=== PATIENT | female | born 1965 ===

== ENCOUNTER 2016-12-12 19:16 | Inpatient (IN) | payer MEDICAID ==
[2016-12-12] MEDS ORDERED: Sodium Chloride 0.9% 500 ML IV STA (20:03)
[2016-12-12 20:30] LABS: BASO # 0.1 K/uL (0.0-0.2); BASO % 0.6 % (0.0-2.0); EOS % 0.1 % (0.0-4.0); HEMATOCRIT 27.5 % (34.0-47.0); LYMPH # 1.5 K/uL (1.0-4.3); LYMPH % 9.9 % (20.0-40.0); MEAN CELL VOLUME 56.6 fl (81.0-99.0); MEAN CORPUSCULAR HEMOGLOBIN 15.8 pg (27.0-31.0); MEAN PLATELET VOLUME 9.2 fl (7.2-11.7); MONO # 0.6 K/uL (0.0-0.8); MONO % 4.3 % (0.0-10.0); NEUT # 12.7 K/uL (1.8-7.0); NEUT % 85.1 % (50.0-75.0); PLATELET COUNT 211 K/uL (130-400); RED CELL DISTRIBUTION WIDTH 24.4 % (11.5-14.5); WHITE BLOOD COUNT 14.9 K/uL (4.8-10.8)
--- NOTE | 2016-12-12 20:49 | ED PDOC ---
HPI: Abdomen <Deny Rodriguez - Last Filed: 12/13/16 02:45> Chief Complaint (Provider): Abdominal Pain History Per: Patient History/Exam Limitations: no limitations Onset/Duration Of Symptoms: Hrs (7 and a 1/2 hours ago), Sudden Onset, Worse Since (onset) Outside of [place] travel?: No Current Symptoms Are (Timing): Constant Context: Food Severity: Moderate Location Of Pain/Discomfort: Diffuse, Epigastric Associated Symptoms: Chills, Vomiting (10 episodes, intractable, non-bilious, and non-bloody). denies: Fever, Diarrhea, Constipation, Urinary Symptoms, Other (black or bloody stools) <Gilma Sandoval - Last Filed: 12/15/16 00:13> Time Seen by Provider: 12/12/16 19:37 Chief Complaint (Nursing): GI Problem Additional Complaint(s): Shea Ballesteros is a 51 year old female, with no pertinent past medical history, who presents to the emergency department for the evaluation of epigastric abdominal pain, radiating diffusely throughout her entire abdomen, that suddenly began a little bit after she ate a normal lunch earlier today at 12:00 P.M. Patient states that the pain is constant and has worsened since her initial onset. Associated ten episodes of intractable, non-bilious, non-bloody vomiting and chills are currently present. Denies diarrhea, constipation, black or bloody stool, a fever, urinary symptoms, or a history of similar pain in the past. PMD: none specified (Gilma Sandoval) Past Medical History <Deny Rodriguez - Last Filed: 12/13/16 02:45> Reviewed: Historical Data, Nursing Documentation, Vital Signs - Medical History PMH: No Chronic Diseases - Surgical History Surgical History: No Surg Hx - Family History Family History: States: Diabetes - Social History Current smoker - smoking cessation education provided: No Ex-Smoker (has not smoked in the last 12 months): No Alcohol: None Drugs: Denies - Immunization History Hx Tetanus Toxoid Vaccination: No Hx Influenza Vaccination: No Hx Pneumococcal Vaccination: No <Gilma Sandoval - Last Filed: 12/15/16 00:13> Vital Signs: Last Vital Signs Temp 99.8 F H 12/14/16 23:54 Pulse 102 H 12/14/16 23:54 Resp 20 12/14/16 23:54 BP 123/64 12/14/16 23:54 Pulse Ox 95 12/14/16 23:54 - Home Medications Home Medications: Ambulatory Orders Medication Instructions Recorded No Known Home Med 12/12/16 - Allergies Allergies/Adverse Reactions: Allergies Allergy/AdvReac Type Severity Reaction Status Date / Time No Known Allergies Allergy Verified 12/12/16 23:15 Review of Systems ROS Statement: Except As Marked, All Systems Reviewed And Found Negative Constitutional: Positive for: Chills. Negative for: Fever Gastrointestinal: Positive for: Vomiting (10 episodes, intractable and non- bilious), Abdominal Pain (epigastric, radiating diffusely throughout her abdomen ). Negative for: Diarrhea, Constipation, Melena, Hematochezia, Hematemesis Genitourinary Female: Negative for: Dysuria, Hematuria <Gilma Sandoval - Last Filed: 12/15/16 00:13> Physical Exam - Reviewed Nursing Documentation Reviewed: Yes Vital Signs Reviewed: Yes - Physical Exam Appears: Positive for: Uncomfortable (obese), In Acute Distress (moderate painful distress) Head Exam: Positive for: ATRAUMATIC, NORMAL INSPECTION, NORMOCEPHALIC Skin: Positive for: Warm, Dry, Pallor Eye Exam: Positive for: Normal appearance, EOMI, PERRL ENT: Positive for: Normal ENT Inspection, Pharynx Is (clear), Other (dry mucous membranes). Negative for: Pharyngeal Erythema, Tonsillar Exudate Neck: Positive for: Normal, Painless ROM, Supple Cardiovascular/Chest: Positive for: Regular Rate, Rhythm. Negative for: Murmur Respiratory: Positive for: Normal Breath Sounds. Negative for: Wheezing, Respiratory Distress Gastrointestinal/Abdominal: Positive for: Normal Exam, Soft, Tenderness ( epigastric region tender to palpation). Negative for: Mass, Guarding, Rebound, Other (McBurney's point tenderness or Roberson's sign) Back: Positive for: Normal Inspection. Negative for: Decreased ROM Extremity: Positive for: Normal ROM. Negative for: Tenderness, Deformity Lymphatic: Negative for: Adenopathy Neurologic/Psych: Positive for: Alert, Oriented. Negative for: Motor/Sensory Deficits <Gilma Sandoval - Last Filed: 12/15/16 00:13> - Laboratory Results Result Diagrams: 12/12/16 20:21 12/12/16 20:21 <Deny Rodriguez - Last Filed: 12/13/16 02:45> - Laboratory Results Result Diagrams: 12/14/16 23:51 12/14/16 09:20 - ECG O2 Sat by Pulse Oximetry: 100 (RA) Pulse Ox Interpretation: Normal <SandovalGilma yao - Last Filed: 12/15/16 00:13> Medical Decision Making <Deny Rodriguez Badillo - Last Filed: 12/13/16 02:45> <Gilma Sandoval - Last Filed: 12/15/16 00:13> Medical Decision Makin:37 Initial Impression: Abdominal pain Initial Plan: * Abdomen US * EKG * CBC * CMP * PT/PTT * Lipase * Lact Acid, Plasma * Magnesium * Phosphorous * Urine * Urinalysis * Morphine 4 mg IVP * Sodium Chloride 0.9% 500 ml IV at 500 mls/hr * Pepcid 20 mg IVP * Ondansetron 8 mg IV * Blood Culture * Reevaluation 20:36 Patient will be placed in ED observation due to a time-extensive workup. Pending serial abdominal exams. Goal is for stabilization of patient's condition and complete evaluation of abdominal pain. EXAM: US Abdomen Complete CLINICAL HISTORY: 51 years old, female; Pain; Abdominal pain; Generalized; Additional info: Abd pain TECHNIQUE: Real-time ultrasound of the abdomen (complete) with image documentation. COMPARISON: No relevant prior studies available. FINDINGS: Liver: Fatty infiltration. No mass. No intrahepatic ductal dilatation. Gallbladder: No gallstones. No wall thickening. No pericholecystic fluid. No sonographic Roberson's sign. Common bile duct: No dilatation. No stones. Pancreas: Unremarkable as visualized. Kidneys: Normal echogenicity. No hydronephrosis. Spleen: No splenomegaly. Aorta: Unremarkable. No aneurysm. Inferior vena cava: Unremarkable. Free fluid: No significant free fluid. IMPRESSION: 1. No acute findings. 2. Non-acute findings are described above. Thank you for allowing us to participate in the care of your patient. Dictated and Authenticated by: Miguel Cruz MD 12/12/2016 10:49 PM Eastern Time ([place] & [place]) Transferred to Dr Rodriguez pending CT. Scribe Attestation: Documented by Faisal Strong, acting as a scribe for Gilma Sandoval MD. Provider Scribe Attestation: All medical record entries made by the Scribe were at my direction and personally dictated by me. I have reviewed the chart and agree that the record accurately reflects my personal performance of the history, physical exam, medical decision making, and the department course for this patient. I have also personally directed, reviewed, and agree with the discharge instructions and disposition. (Gilma Sandoval) ED OBSERVATION <Deny Rodriguez - Last Filed: 12/13/16 02:45> Date of observation admission: 12/12/16 Time of observation admission: 20:36 <Gilma Sandoval - Last Filed: 12/15/16 00:13> - Observation admission statement Patient is being placed in observation because:: Patient will be placed in ED observation due to a time-extensive workup. Pending serial abdominal exams. (Gilma Sandoval) - Goals of Observation Goals of observation are:: Goal is for stabilization of patient's condition and complete evaluation of abdominal pain. (Gilma Sandoval) Disposition <Deny Rodriguez - Last Filed: 12/13/16 02:45> - Disposition Disposition Time: 20:36 Patient Signed Over To: Deny Rodriguez <Gilma Sandoval - Last Filed: 12/15/16 00:13> - Clinical Impression Clinical Impression: Abdominal pain - Disposition Condition: GUARDED
[2016-12-12 20:58] LABS: ALB/GLOB RATIO 1.2 (1.0-2.1); ALKALINE PHOSPHATASE 73 U/L (38-126); ALT/SGPT 69 U/L (9-52); AST/SGOT 62 U/L (14-36); BILIRUBIN,TOTAL 0.6 mg/dl (0.2-1.3); BLOOD UREA NITROGEN 9 mg/dl (7-17); CARBON DIOXIDE 19 mmol/L (22-30); CHLORIDE 105 mmol/L (98-107); GFR AFRICAN-AMERICAN > 60; GLUCOSE,RANDOM 151 mg/dL (65-105); LIPASE 49 U/L (23-300); MAGNESIUM 1.8 MG/DL (1.6-2.3); PHOSPHOROUS 3.1 mg/dl (2.5-4.5); POTASSIUM 3.8 MMOL/L (3.6-5.0); SODIUM 137 mmol/l (132-148); TOTAL PROTEIN 8.4 G/DL (6.3-8.2)
[2016-12-12 21:15] LABS: NEUTROPHIL 79 % (42-75); TOTAL CELLS COUNTED 100
[2016-12-12 21:40] LABS: PARTIAL THROMBOPLASTIN TIME 25.7 SECONDS (23.3-32.5)
[2016-12-12 21:58] LABS: RBC URINE 4 /hpf (0-3); URINE BACTERIA RARE (<OCC); URINE BILIRUBIN NEGATIVE (NEGATIVE); URINE BLOOD NEGATIVE (NEGATIVE); URINE COLOR YELLOW (YELLOW); URINE GLUCOSE (UA) 50 mg/dL (Normal); URINE KETONE 80 mg/dL (NEGATIVE); URINE LEUKOCYTE ESTERASE NEG Leu/uL (Negative); URINE PROTEIN 30 mg/dL (NEGATIVE); URINE UROBILINOGEN 0.2-1.0 mg/dL (0.2-1.0); WBC URINE < 1 /hpf (0-5)
--- NOTE | 2016-12-12 22:49 | US ---
EXAM: US Abdomen Complete CLINICAL HISTORY: 51 years old, female; Pain; Abdominal pain; Generalized; Additional info: Abd pain TECHNIQUE: Real-time ultrasound of the abdomen (complete) with image documentation. COMPARISON: No relevant prior studies available. FINDINGS: Liver: Fatty infiltration. No mass. No intrahepatic ductal dilatation. Gallbladder: No gallstones. No wall thickening. No pericholecystic fluid. No sonographic Roberson's sign. Common bile duct: No dilatation. No stones. Pancreas: Unremarkable as visualized. Kidneys: Normal echogenicity. No hydronephrosis. Spleen: No splenomegaly. Aorta: Unremarkable. No aneurysm. Inferior vena cava: Unremarkable. Free fluid: No significant free fluid. IMPRESSION: 1.No acute findings. 2.Non-acute findings are described above.
[2016-12-12 23:15] LABS: IRON 19 ug/dL (37-170)
[2016-12-13] MEDS ORDERED: Sodium Chloride 0.9% 50 ML IV ONE (01:17)
[2016-12-13] MEDS ORDERED: Iohexol 300 100 ML IJ ONE (01:17)
--- NOTE | 2016-12-13 02:00 | CT ---
EXAM: CT Abdomen and Pelvis With Intravenous Contrast CLINICAL HISTORY: 51 years old, female; Pain; Abdominal pain; Epigastric; Additional info: Abd pain TECHNIQUE: Axial computed tomography images of the abdomen and pelvis with intravenous contrast. This CT exam was performed using one or more of the following dose reduction techniques: automated exposure control, adjustment of the mA and/or kV according to patient size, and/or use of iterative reconstruction technique. Coronal and sagittal reformatted images were created and reviewed. CONTRAST: 95 mL of [id number] administered intravenously. COMPARISON: US - ABDOMEN COMPLETE 12/12/2016 9:45:16 PM FINDINGS: Lower thorax: No acute findings. ABDOMEN: Liver: Mild fatty infiltration. Too small to characterize lesion. Gallbladder and bile ducts: No calcified stones. No ductal dilation. Pancreas: No ductal dilation. No mass. Spleen: No splenomegaly. Adrenals: No mass. Kidneys and ureters: No mass. No hydronephrosis. Stomach and bowel: No definite mural thickening. No obstruction. Appendix: Enlarged appendix, measuring up to 1.3 cm in diameter. Mild stranding about appendix. Appendicolith. PELVIS: Bladder: Unremarkable. Reproductive: Enlarged, lobulated uterus with multiple masses and few calcifications, roughly 22 x 16 x 12 cm. 4.7 x 5.0 x 4.1 cm hypodense lesion within LEFT ovary. 1.9 x 1.0 x 1.5 cm hypodense lesion within RIGHT ovary. ABDOMEN and PELVIS: Intraperitoneal space: Trace free fluid within pelvis. No free air. Bones/joints: Mild degenerative changes of spine. No acute fracture. Soft tissues: Tiny umbilical hernia containing fat and fluid. Vasculature: Unremarkable. No abdominal aortic aneurysm. Lymph nodes: No pathologically enlarged lymph nodes. IMPRESSION: 1. Acute appendicitis. 2. Probable fibroid uterus. 3. Probable ovarian cysts. Suggest ultrasound. 3. Incidental/non-acute findings are described above.
[2016-12-13] MEDS ORDERED: HYDROmorphone 0.5 mg/0.5 ml ISec IVP STA (02:04)
[2016-12-13] MEDS ORDERED: Piperacillin/Tazobact 3.375 GM in Sodium Chloride 0.9% 100 ML IV STA (02:39)
[2016-12-13] MEDS ORDERED: Piperacillin/Tazobact 3.375 gm Inj IVPB ONE (02:42)
[2016-12-13] MEDS: Sodium Chloride 0.9% 1,000 ML IV SCH ×2 (05:36→15:00)
--- NOTE | 2016-12-13 05:40 | CP.PCM.HP ---
History of Present Illness - History of Present Illness History of Present Illness: General Surgery - Dr. Huynh 51yo F w/ hx of anemia, presents w/ Periumbilical abdominal pain x1day. Pt states the pain started around noon yesterday, was located in the epigastric/ periumbilical region, dull pain and non-radiating, it became progressively worse over the next 24hrs. Pt had associated nausea and vomited several times, gastric contents, non-bloody/non-bilious. She denies any Fevers, Chills, SOB, Chest pain, Dysuria, Hematuria, Diarrhea, Constipation. PMH: Iron Def. Anemia, however pt. states she does not see a DrEdy regularly so unaware if any other medical problems PSH: none NKDA In the ED pt was found to have WBC of 14.9 and Hgb was 7.7. Vitals stable and WNL. Pt was transfused 1 U PRBC in the ED. CT Abdomen/Pelvis was done which showed an enlarged fibroid uterus, ovarian cysts and an approx. 1.3cm appendix with appendicolith, findings consistent with acute appendicitis. Surgery was called to admit the patient. Present on Admission - Present on Admission Any Indicators Present on Admission: No Review of Systems - Review of Systems All systems: reviewed and no additional remarkable complaints except (as per HPI ) Past Patient History - Infectious Disease Hx of Infectious Diseases: None - Past Social History Alcohol: None Drugs: Denies - PSYCHIATRIC Hx Substance Use: No - SURGICAL HISTORY Hx Surgeries: No - ANESTHESIA Hx Anesthesia: No Meds Allergies/Adverse Reactions: Allergies Allergy/AdvReac Type Severity Reaction Status Date / Time No Known Allergies Allergy Verified 12/12/16 23:15 Physical Exam - Constitutional Appears: No Acute Distress - Head Exam Head Exam: ATRAUMATIC, NORMAL INSPECTION, NORMOCEPHALIC - Eye Exam Eye Exam: Normal appearance - Respiratory Exam Respiratory Exam: NORMAL BREATHING PATTERN. absent: Respiratory Distress - Cardiovascular Exam Cardiovascular Exam: REGULAR RHYTHM - GI/Abdominal Exam GI & Abdominal Exam: Firm (suprapubic, likely related to fibroid uterus), Rebound, Soft, Tenderness (R mid abdomen, periumbilical region). absent: Distended, Guarding, Hernia, Rigid - Neurological Exam Neurological exam: Alert, Oriented x3 - Psychiatric Exam Psychiatric exam: Normal Affect, Normal Mood - Skin Skin Exam: Dry, Intact Results - Vital Signs Recent Vital Signs: Last Vital Signs Temp 98.5 F 12/13/16 05:00 Pulse 57 L 12/13/16 05:00 Resp 19 12/13/16 05:00 BP 114/71 12/13/16 05:00 Pulse Ox 98 12/13/16 05:00 - Labs Result Diagrams: 12/12/16 20:21 12/12/16 20:21 - Imaging and Cardiology CT scan - abdomen Status: Image reviewed by me, Report reviewed by me Assessment & Plan - Assessment and Plan (Free Text) Assessment: 51 yo F w/ Acute Appendicitis -Admitted to surgical service -1U PRBC transfused in ED for hgb 7.7 -NPO, IVF, IV Abx -Pain control -Plan for OR this afternoon for Laparoscopic Appendectomy DW Dr. Lino Mark PGY2
--- NOTE | 2016-12-13 09:55 | RAD ---
HISTORY: epug pain COMPARISON: No prior. FINDINGS: LUNGS: No active pulmonary disease. PLEURA: No significant pleural effusion identified, no pneumothorax apparent. CARDIOVASCULAR: Normal. OSSEOUS STRUCTURES: No significant abnormalities. VISUALIZED UPPER ABDOMEN: Normal. OTHER FINDINGS: None. IMPRESSION: No active disease.
--- NOTE | 2016-12-13 10:09 | CARD ---
APPROVED REPORT EKG Measurement Heart [id number] <Conclusion> Normal sinus rhythm with sinus arrhythmia Inferior infarct, age undetermined Abnormal ECG
[2016-12-13] MEDS: Piperacillin/Tazobact 3.375 GM in Sodium Chloride 0.9% 100 ML IVPB SCH ×2 (10:50→21:31)
[2016-12-13] MEDS ORDERED: Propofol 10 mg/ml Inj (20 ML) ONE ×2 (13:55→16:18)
[2016-12-13] MEDS ORDERED: Succinylcholine 200 mg/10 ml Inj IV ONE ×2 (13:56→16:18)
[2016-12-13] MEDS ORDERED: Rocuronium 10 mg/ml (5 ml) ONE ×2 (13:56→16:37)
[2016-12-13] MEDS ORDERED: Midazolam 2 MG/2 ML VIAL ONE (16:18)
[2016-12-13] MEDS ORDERED: Sevoflurane - Inhalation Anesthetic Liq (250 ml) ONE (16:47)
[2016-12-13] MEDS ORDERED: Lactated Ringer's 1,000 ML IV ONE (17:09)
[2016-12-13] MEDS ORDERED: Neostigmine Methylsulfate 3mg/3ml Syringe IV ONE (17:10)
[2016-12-13] MEDS ORDERED: HYDROmorphone 0.5 mg/0.5 ml ISec ONE (17:35)
[2016-12-13] MEDS: HYDROmorphone 0.5 mg/0.5 ml ISec IVP PRN ×4 (17:40→18:25)
[2016-12-13] MEDS ORDERED: Lactated Ringer's 1,000 ML IV SCH (17:43)
--- NOTE | 2016-12-13 17:44 | PCM.SURG1 ---
Surgeon's Initial Post Op Note - Surgeon's Notes Surgeon: Dr. Huynh Nursing Manager: Dr. Ulloa PGY-1 Type of Anesthesia: General Endo Pre-Operative Diagnosis: Acute appendicitis Operative Findings: see operative note Post-Operative Diagnosis: Acute appendicitis Operation Performed: Laparoscopic appendectomy Specimen/Specimens Removed: Appendix Estimated Blood Loss: EBL {In ML}: 10 Blood Products Given: N/A Drains Used: No Drains Post-Op Condition: Good Date of Surgery/Procedure: 12/13/16 Time of Surgery/Procedure: 17:46
[2016-12-13] MEDS ORDERED: Oxycodone/Acetaminophen 5/325 mg Tab PO PRN (17:46)
[2016-12-13] MEDS ORDERED: HYDROmorphone 0.5 mg/0.5 ml ISec IVP PRN (18:51)
--- NOTE | 2016-12-13 19:39 | CP.PCM.CON ---
History of Present Illness - History of Present Illness History of Present Illness: MEDICINE CONSULT NOTE 51 y/o F with no PMH admitted s/p appendectomy w/ Dr Huynh. Medicine consulted because patient will require follow up in the resident clinic and due to SHAYAN secondary to AUB-L as seen on CT abdomen. Patient seen POD 0. Pain controlled, states she has not seen a PMD in >10 years due to financial reasons. Does not currently take any medications nor has in the past for chronic conditions. Currently on her menses, reports no prior hx of transfusions before current hospital stay. No HTN, hx of DVT, migraines, previous liver problems, smoking. Denies CP, SOB, dizziness, focal weakness at present. OB Hx: , NVD at term x 3, no complications. 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 Never taken medications, OCPs etc. LMP 12/13/16, 4 week cycle, lasts 8-15 days, uses 7 pads per day roughly, heavy flow with clots, moderate pain, takes NSAIDS for cramping No hx of prior transfusions. PMD: none for >10 years Review of Systems - Review of Systems Review of Systems: see hpi Past Patient History - Infectious Disease Hx of Infectious Diseases: None - Past Medical History & Family History Past Medical History?: No - Past Social History Alcohol: None Drugs: Denies - MUSCULOSKELETAL/RHEUMATOLOGICAL Hx Falls: No - PSYCHIATRIC Hx Substance Use: No - SURGICAL HISTORY Hx Surgeries: No - ANESTHESIA Hx Anesthesia: No Meds Allergies/Adverse Reactions: Allergies Allergy/AdvReac Type Severity Reaction Status Date / Time No Known Allergies Allergy Verified 12/12/16 23:15 - Medications Medications: Current Medications Hydromorphone HCl (Dilaudid) 1 mg IVP Q4H PRN PRN Reason: Pain, moderate (4-7) Last Admin: 12/13/16 14:00 Dose: 1 mg Hydromorphone HCl (Dilaudid) 0.5 mg IVP Q10M PRN PRN Reason: Pain, severe (8-10) Stop: 12/13/16 19:43 Last Admin: 12/13/16 18:25 Dose: 0.5 mg Hydromorphone HCl (Dilaudid) 0.5 mg IVP Q10M PRN PRN Reason: Pain, severe (8-10) Stop: 12/13/16 20:52 Last Admin: 12/13/16 19:10 Dose: 0.5 mg Sodium Chloride (Sodium Chloride 0.9%) 1,000 mls @ 100 mls/hr IV .Q10H [facility] Last Admin: 12/13/16 15:00 Dose: Not Given Piperacillin Sod/Tazobactam (Sod 3.375 gm/ Sodium Chloride) 100 mls @ 100 mls/ hr IVPB Q6 [facility] Last Admin: 12/13/16 10:50 Dose: Not Given Lactated Ringer's (Lactated Ringer's) 1,000 mls @ 100 mls/hr IV .Q10H [facility] Ketorolac Tromethamine (Toradol) 30 mg IVP ONCE PRN PRN Reason: Fever >100.4 F Stop: 12/13/16 20:51 Last Admin: 12/13/16 19:00 Dose: 30 mg Ondansetron HCl (Zofran Inj) 4 mg IVP Q4H PRN PRN Reason: Nausea/Vomiting Oxycodone/Acetaminophen (Percocet 5/325 Mg Tab) 1 tab PO Q6 PRN PRN Reason: Pain, moderate (4-7) Stop: 12/16/16 17:47 Physical Exam - Constitutional Appears: Non-toxic, No Acute Distress - Head Exam Head Exam: ATRAUMATIC - Eye Exam Eye Exam: EOMI Pupil Exam: PERRL - ENT Exam ENT Exam: Mucous Membranes Moist - Neck Exam Neck exam: Positive for: Full Rom - Respiratory Exam Respiratory Exam: Clear to Auscultation Bilateral - Cardiovascular Exam Cardiovascular Exam: +S1, +S2 - GI/Abdominal Exam GI & Abdominal Exam: Soft, Tenderness. absent: Distended, Rigid Additional comments: POD 0 - tender around laparoscopic sites - Extremities Exam Extremities exam: Positive for: normal inspection. Negative for: calf tenderness, pedal edema - Neurological Exam Neurological exam: Alert, Oriented x3 - Psychiatric Exam Psychiatric exam: Normal Affect, Normal Mood - Skin Skin Exam: Dry, Warm Results - Vital Signs Recent Vital Signs: Last Vital Signs Temp 100.0 F H 12/13/16 19:25 Pulse 125 H 12/13/16 19:25 Resp 20 12/13/16 19:25 BP 136/65 12/13/16 19:25 Pulse Ox 98 12/13/16 19:25 - Labs Result Diagrams: 12/13/16 14:28 12/12/16 20:21 Labs: Laboratory Results - last 24 hr 12/13/16 14:28 Hgb 9.1 L Hct 31.0 L Assessment & Plan - Assessment and Plan (Free Text) Plan: 51 y/o F with no PMH admitted s/p appendectomy w/ Dr Huynh. Medicine consulted because patient will require follow up in the resident clinic and due to SHAYAN secondary to AUB-L as seen on CT abdomen. 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 Never taken medications, OCPs etc. LMP 12/13/16, 4 week cycle, lasts 8-15 days, uses 7 pads per day roughly, heavy flow with clots, moderate pain, takes NSAIDS for cramping No hx of prior transfusions. 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
[2016-12-14] MEDS: Lactated Ringer's 1,000 ML IV SCH ×3 (00:06→11:52)
[2016-12-14] MEDS: Sodium Chloride 0.9% 1,000 ML IV SCH (00:45)
[2016-12-14] MEDS: Piperacillin/Tazobact 3.375 GM in Sodium Chloride 0.9% 100 ML IVPB SCH ×4 (04:43→21:18)
[2016-12-14] MEDS: Oxycodone/Acetaminophen 5/325 mg Tab PO PRN (08:27)
[2016-12-14 09:53] LABS: ALB/GLOB RATIO 1.1 (1.0-2.1); BILIRUBIN,TOTAL 2.6 mg/dl (0.2-1.3); CALCIUM 7.7 mg/dL (8.4-10.2); POTASSIUM 3.8 MMOL/L (3.6-5.0); TOTAL PROTEIN 6.9 G/DL (6.3-8.2)
[2016-12-14 09:54] LABS: BASO # 0.1 K/uL (0.0-0.2); BASO % 0.2 % (0.0-2.0); EOS % 0.1 % (0.0-4.0); HEMATOCRIT 28.8 % (34.0-47.0); LYMPH # 0.6 K/uL (1.0-4.3); MEAN CELL VOLUME 62.2 fl (81.0-99.0); MEAN CORPUSCULAR HEMOGLOBIN 18.2 pg (27.0-31.0); MEAN CORPUSCULAR HGB CONC 29.3 g/dL (33.0-37.0); MEAN PLATELET VOLUME 10.3 fl (7.2-11.7); MONO # 1.1 K/uL (0.0-0.8); MONO % 3.5 % (0.0-10.0); NEUT # 29.1 K/uL (1.8-7.0); NEUT % 94.2 % (50.0-75.0); PLATELET COUNT 117 K/uL (130-400); RED CELL DISTRIBUTION WIDTH 31.3 % (11.5-14.5); WHITE BLOOD COUNT 30.9 K/uL (4.8-10.8)
[2016-12-14] MEDS ORDERED: Lactated Ringer's 1,000 ML IV SCH (10:15)
--- NOTE | 2016-12-14 10:48 | OP ---
PROCEDURE DATE: 12/13/2016 SURGEON: Dr. Ag Huynh. INTERIOR DECORATOR PAINTING: Dr. Sung. ANESTHESIA: General, Dr. Lilly. PREOPERATIVE DIAGNOSIS: Acute appendicitis. POSTOPERATIVE DIAGNOSIS: Acute appendicitis. PROCEDURE: Laparoscopic appendectomy. DESCRIPTION OF OPERATION: With the patient in the supine position under adequate general anesthesia, the abdomen was prepped and draped in the usual sterile manner. Veress needle puncture was performed at the umbilicus with insufflation to 15 cm water pressure of CO2 and a 10 mm laparoscopic trocar was inserted via an infraumbilical incision. The patient had an enlarged presumably fibroid uterus with the fundus extending to approximately the level of the umbilicus. It was noted that the ileocecal junction was displaced upward well out of the pelvis. Under direct vision, a 5 mm port was placed in the left upper quadrant and a 12 mm port was placed in the midline near the epigastrium. The cecum was identified and with manipulation, the appendix was identified adherent to the undersurface of the mesentery of the terminal ileum. It was gently freed from this attachment and noted to be acutely inflamed with distal swelling. A small amount of fluid was released on manipulating the appendix and this was suctioned. The appendix was then completely freed from its attachments and the mesentery was divided with Hemoclips. The appendix itself was divided with an Endo CHANTELLE stapler. The appendix was placed in a specimen retrieval bag and removed via the 12 mm port site. In addition to the massively enlarged uterus, there was noted to be a small pedunculated fibroid with what appeared to be calcifications toward the right side close to where the appendix had been located. The right gutter was irrigated and suctioned. The pneumoperitoneum was released and the trocars were removed. The umbilical and 12 mm port sites were closed with fascial [id number] sutures of 0 Vicryl. All incisions were closed with 4-0 Monocryl subcuticular sutures and Steri-Strips. Dry sterile dressings were applied. The patient tolerated the procedure well and transferred to recovery room in stable condition. Estimated blood loss for the procedure was 10 mL. Ag Huynh MD cc: [id number] TT: 12/14/2016 10:46:52 tn MTDKevin
--- NOTE | 2016-12-14 11:09 | CP.PCM.PN ---
Subjective - Date & Time of Evaluation Date of Evaluation: 12/14/16 Time of Evaluation: 11:07 - Subjective Subjective: General Surgery - Dr. Huynh Pt S&E. Overnight pt has been tachycardic w/ HR ~100s-120s. She complains of abdominal distension this morning, likely related to insufflation from the surgery. Pt is tolerating liquid diet but does not wish to eat more. She had some nausea after receiving the percocet this morning, will maintain on IV pain control until tolerating solid foods. Objective - Vital Signs/Intake and Output Vital Signs (last 24 hours): Temp Pulse Resp BP Pulse Ox 99 F 109 H 18 96/49 L 96 12/14/16 08:01 12/14/16 08:01 12/14/16 08:01 12/14/16 08:01 12/14/16 08:01 - Medications Medications: Current Medications Ferrous Sulfate (Feosol) 325 mg PO BID [facility] Last Admin: 12/14/16 08:30 Dose: 325 mg Piperacillin Sod/Tazobactam (Sod 3.375 gm/ Sodium Chloride) 100 mls @ 100 mls/ hr IVPB Q6 [facility] Last Admin: 12/14/16 09:54 Dose: 100 mls/hr Lactated Ringer's (Lactated Ringer's) 1,000 mls @ 150 mls/hr IV .Q6H40M [facility] Last Admin: 12/14/16 04:42 Dose: Not Given Lactated Ringer's (Lactated Ringer's) 1,000 mls @ 1,000 mls/hr IV .Q1H [facility] Stop: 12/14/16 11:14 Last Admin: 12/14/16 10:44 Dose: 1,000 mls/hr Medroxyprogesterone Acetate (Provera) 10 mg PO TID [facility] Last Admin: 12/14/16 08:30 Dose: 10 mg Ondansetron HCl (Zofran Inj) 4 mg IVP Q4H PRN PRN Reason: Nausea/Vomiting Oxycodone/Acetaminophen (Percocet 5/325 Mg Tab) 2 tab PO Q4 PRN PRN Reason: Pain, moderate (4-7) Stop: 12/17/16 07:35 Last Admin: 12/14/16 08:27 Dose: 2 tab Sennosides (Senokot Tab) 8.6 mg PO HS [facility] - Labs Labs: 12/14/16 09:20 12/14/16 09:20 PT 11.2 SECONDS (9.6-11.2) 12/12/16 20:21 INR 1.08 (0.92-1.08) 12/12/16 20:21 APTT 25.7 SECONDS (23.3-32.5) 12/12/16 20:21 - Constitutional Appears: No Acute Distress - Head Exam Head Exam: ATRAUMATIC, NORMAL INSPECTION, NORMOCEPHALIC - Respiratory Exam Respiratory Exam: NORMAL BREATHING PATTERN. absent: Respiratory Distress - Cardiovascular Exam Cardiovascular Exam: Tachycardia - GI/Abdominal Exam GI & Abdominal Exam: Distended, Soft, Tenderness (mild ttp diffusely). absent: Guarding, Rigid, Rebound Additional comments: incisions C/D/I - Neurological Exam Neurological Exam: Alert, Oriented x3 - Psychiatric Exam Psychiatric exam: Normal Affect, Normal Mood - Skin Skin Exam: Dry, Intact Assessment and Plan - Assessment and Plan (Free Text) Assessment: 51 yo F s/p Laparoscopic Appendectomy, POD #1 -Continue liquids and advance to regular diet as tolerated -Continue IV Abx -Fluid challenge -Pain control - IV meds until tolerating solid food -Encourage Ambulation and incentive spirometer DW Dr Lino Mark PGY2
[2016-12-14 12:47] LABS: NEUTROPHIL 82 % (42-75); TOTAL CELLS COUNTED 100
[2016-12-14 12:49] LABS: GIANT PLATELETS PRESENT
[2016-12-14] MEDS: Simethicone 40 mg/0.6 ml Liquid (30 ml) PO SCH ×3 (15:02→21:21)
--- NOTE | 2016-12-14 15:49 | CP.PCM.PN ---
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 Patient was seen and examined at bedside this morning. Patient still complaining of diffuse abdominal pain, that improves with pain medication. Patient is not passing gasses and has not yet had a bowel movement after surgery yesterday late afternoon. She reports that is voiding without difficulty after gordillo removal. Denies chest pain, SOB, nausea, vomiting at this evaluation. Objective - Vital Signs/Intake and Output Vital Signs (last 24 hours): Temp Pulse Resp BP Pulse Ox 98.3 F 97 H 18 114/67 97 12/14/16 12:14 12/14/16 12:14 12/14/16 12:14 12/14/16 12:14 12/14/16 12:14 - Medications Medications: Current Medications Ferrous Sulfate (Feosol) 325 mg PO BID [facility] Last Admin: 12/14/16 08:30 Dose: 325 mg Piperacillin Sod/Tazobactam (Sod 3.375 gm/ Sodium Chloride) 100 mls @ 100 mls/ hr IVPB Q6 [facility] Last Admin: 12/14/16 09:54 Dose: 100 mls/hr Lactated Ringer's (Lactated Ringer's) 1,000 mls @ 150 mls/hr IV .Q6H40M [facility] Last Admin: 12/14/16 11:52 Dose: 150 mls/hr Medroxyprogesterone Acetate (Provera) 10 mg PO TID [facility] Last Admin: 12/14/16 15:02 Dose: 10 mg Morphine Sulfate (Morphine) 4 mg IVP Q4 PRN PRN Reason: Pain, moderate (4-7) Last Admin: 12/14/16 15:01 Dose: 4 mg Ondansetron HCl (Zofran Inj) 4 mg IVP Q4H PRN PRN Reason: Nausea/Vomiting Oxycodone/Acetaminophen (Percocet 5/325 Mg Tab) 2 tab PO Q4 PRN PRN Reason: Pain, moderate (4-7) Stop: 12/17/16 07:35 Last Admin: 12/14/16 08:27 Dose: 2 tab Sennosides (Senokot Tab) 8.6 mg PO HS [facility] Simethicone (Mylicon Liq) 40 mg PO QID [facility] Last Admin: 12/14/16 15:02 Dose: 40 mg - Labs Labs: 12/14/16 09:20 12/14/16 09:20 PT 11.2 SECONDS (9.6-11.2) 12/12/16 20:21 INR 1.08 (0.92-1.08) 12/12/16 20:21 APTT 25.7 SECONDS (23.3-32.5) 12/12/16 20:21 - Constitutional Appears: Non-toxic, No Acute Distress - ENT Exam ENT Exam: Mucous Membranes Moist - Respiratory Exam Respiratory Exam: Clear to Ausculation Bilateral, NORMAL BREATHING PATTERN - Cardiovascular Exam Cardiovascular Exam: Tachycardia, REGULAR RHYTHM, +S1, +S2 - GI/Abdominal Exam GI & Abdominal Exam: Distended (most likely due to obesity and post-operative status), Soft, Tenderness (diffuse mild tender to palpation, no rebound tenderness noted.), Diminished Bowel Sounds. absent: Guarding, Rebound - Extremities Exam Extremities Exam: Normal Inspection. absent: Calf Tenderness, Pedal Edema - Neurological Exam Neurological Exam: Alert, Awake, Oriented x3 - Skin Skin Exam: Dry, Intact, Normal Color Assessment and Plan - Assessment and Plan (Free Text) Assessment: 51 y/o F with no PMH admitted s/p appendectomy, now on POD #1, who has being follow by inpatient medical team for chronic anemia most likely to heavy menstrual periods and Uterine fibroids but other causes such as endometrial hyperplasia and coagulopathy can not being r/o. Plan: Anemia most likely secondary to Menorrhagia associated with Leiomyomas -But other causes can not being r/o such as Endometrial hyperplasia and Coagulopathy -H/H: 8.4/28.8 -S/p 2 units of PRBC transfusion in this admission -Start IV Iron infusion for 5 days. Start while inpatient, and continues after discharge -Start Ferrous sulfate 325 mg PO BID -Start Provera 10 mg TID x 7 days -c/w Senokot PO for constipation -F/U Hepatitis panel ordered -F/U Rapid HIV -F/U Von Willebrand factor -F/U CBC -F/U with [facility] as outpatient, Dr. Hyman, appoint on January 03 at 3 pm -Consider Transvaginal US and endometrial bp as outpatient -[employer] Hx: States heavy periods for the past 20 years. Never taken medications, OCPs etc. LMP 12/13/16, 4 week cycle, lasts 8-15 days, uses 7 pads per day roughly, heavy flow with clots, moderate pain, takes NSAIDS for cramping No hx of prior transfusions. -CT abdo showing lobulated enlarged uterus. Appendicitis s/p laparoscopic appendectomy -Stable -C/w incentive spirometry -C/w pain control -Continue current management by Surgical team DVT prophylaxis -SCDs for now
[2016-12-14 16:45] LABS: HEMATOCRIT 25.8 % (34.0-47.0); MEAN CELL VOLUME 62.2 fl (81.0-99.0); MEAN CORPUSCULAR HEMOGLOBIN 18.4 pg (27.0-31.0); MEAN CORPUSCULAR HGB CONC 29.6 g/dL (33.0-37.0); PLATELET COUNT 101 K/uL (130-400); RED CELL DISTRIBUTION WIDTH 31.2 % (11.5-14.5); WHITE BLOOD COUNT 19.8 K/uL (4.8-10.8)
[2016-12-14 18:11] LABS: EOSINOPHIL 1 % (0-7); NEUTROPHIL 56 % (42-75); TOTAL CELLS COUNTED 100
[2016-12-14 23:57] LABS: HEMATOCRIT 25.8 % (34.0-47.0)
[2016-12-15] MEDS: Lactated Ringer's 1,000 ML IV SCH (01:53)
[2016-12-15] MEDS: Piperacillin/Tazobact 3.375 GM in Sodium Chloride 0.9% 100 ML IVPB SCH ×4 (03:12→21:49)
[2016-12-15 07:43] LABS: EOS # 0.3 K/uL (0.0-0.7); EOS % 1.7 % (0.0-4.0); HEMATOCRIT 25.3 % (34.0-47.0); LYMPH # 0.7 K/uL (1.0-4.3); LYMPH % 4.4 % (20.0-40.0); MEAN CELL VOLUME 60.9 fl (81.0-99.0); MEAN CORPUSCULAR HEMOGLOBIN 18.8 pg (27.0-31.0); MEAN CORPUSCULAR HGB CONC 30.9 g/dL (33.0-37.0); MONO # 0.5 K/uL (0.0-0.8); NEUT # 14.5 K/uL (1.8-7.0); NEUT % 90.9 % (50.0-75.0); PLATELET COUNT 105 K/uL (130-400); RED CELL DISTRIBUTION WIDTH 30.9 % (11.5-14.5)
[2016-12-15 08:01] LABS: ALB/GLOB RATIO 0.9 (1.0-2.1); ALKALINE PHOSPHATASE 89 U/L (38-126); ALT/SGPT 63 U/L (9-52); AST/SGOT 89 U/L (14-36); BILIRUBIN,TOTAL 2.1 mg/dl (0.2-1.3); BLOOD UREA NITROGEN 11 mg/dl (7-17); CALCIUM 7.6 mg/dL (8.4-10.2); CARBON DIOXIDE 22 mmol/L (22-30); CHLORIDE 109 mmol/L (98-107); GFR AFRICAN-AMERICAN > 60; GLUCOSE,RANDOM 155 mg/dL (65-105); POTASSIUM 2.9 MMOL/L (3.6-5.0); SODIUM 141 mmol/l (132-148); TOTAL PROTEIN 6.6 G/DL (6.3-8.2)
[2016-12-15] MEDS ORDERED: Potassium Chloride 20 mEq ER Tab PO ONE (08:40)
--- NOTE | 2016-12-15 08:47 | CP.PCM.PN ---
Subjective - Date & Time of Evaluation Date of Evaluation: 12/15/16 Time of Evaluation: 08:00 - Subjective Subjective: Pt is being follow up for s/p laparoscopic appendectomy POD #2 and overnight fever of Tmax 101.7 @ 22:00. Surgery made aware tyleonol was given. Pt is sitting up in bed, NAD, c/o of mild diffuse tenderness of the abdomen that has improved since yesterday. She reports tolerating po well and voiding without difficulty. Pt states vaginal bleeding (menses) is very mild, only 1 pantyliner half soak yesterday. Pt pass flatulence but not bowel movement. Denies fever, chill, nausea, vomiting, sob, chest pain, palpitation, dizziness. Objective - Vital Signs/Intake and Output Vital Signs (last 24 hours): Temp Pulse Resp BP Pulse Ox 99.1 F 95 H 20 118/72 97 12/15/16 08:13 12/15/16 08:13 12/15/16 08:13 12/15/16 08:13 12/15/16 08:13 - Medications Medications: Current Medications Acetaminophen (Tylenol 325mg Tab) 650 mg PO Q4 PRN PRN Reason: Fever >100.4 F Last Admin: 12/14/16 22:08 Dose: 650 mg Ferrous Sulfate (Feosol) 325 mg PO BID [facility] Last Admin: 12/14/16 16:00 Dose: 325 mg Piperacillin Sod/Tazobactam (Sod 3.375 gm/ Sodium Chloride) 100 mls @ 100 mls/ hr IVPB Q6 [facility] Last Admin: 12/15/16 03:12 Dose: 100 mls/hr Iron Sucrose 200 mg/ Sodium (Chloride) 110 mls @ 110 mls/hr IVPB DAILY [facility] Potassium Chloride (Potassium Chloride 10 Meq/100 Ml) 100 mls @ 100 mls/hr IVPB Q1 [facility] Stop: 12/15/16 10:59 Medroxyprogesterone Acetate (Provera) 10 mg PO TID [facility] Last Admin: 12/14/16 16:00 Dose: 10 mg Morphine Sulfate (Morphine) 4 mg IVP Q4 PRN PRN Reason: Pain, moderate (4-7) Last Admin: 12/14/16 23:18 Dose: 4 mg Ondansetron HCl (Zofran Inj) 4 mg IVP Q4H PRN PRN Reason: Nausea/Vomiting Oxycodone/Acetaminophen (Percocet 5/325 Mg Tab) 2 tab PO Q4 PRN PRN Reason: Pain, moderate (4-7) Stop: 12/17/16 07:35 Last Admin: 12/14/16 08:27 Dose: 2 tab Potassium Chloride (K-Dur 20 Meq Er Tab) 40 meq PO ONCE ONE Stop: 12/15/16 08:41 Sennosides (Senokot Tab) 8.6 mg PO HS [facility] Last Admin: 12/14/16 21:21 Dose: 8.6 mg Simethicone (Mylicon Liq) 40 mg PO QID [facility] Last Admin: 12/14/16 21:21 Dose: 40 mg - Labs Labs: 12/15/16 06:00 12/15/16 06:00 PT 11.2 SECONDS (9.6-11.2) 12/12/16 20:21 INR 1.08 (0.92-1.08) 12/12/16 20:21 APTT 25.7 SECONDS (23.3-32.5) 12/12/16 20:21 - Constitutional Appears: Non-toxic, No Acute Distress - Head Exam Head Exam: ATRAUMATIC - Eye Exam Eye Exam: EOMI, Normal appearance - ENT Exam ENT Exam: Mucous Membranes Moist - Neck Exam Neck Exam: Full ROM - Respiratory Exam Respiratory Exam: Clear to Ausculation Bilateral. absent: Decreased Breath Sounds, Rhonchi, Wheezes - Cardiovascular Exam Cardiovascular Exam: Tachycardia, REGULAR RHYTHM, +S1, +S2. absent: Gallop, Rubs, Murmur Additional comments: mild tacky at 101 - GI/Abdominal Exam GI & Abdominal Exam: Distended (mild), Guarding (voluntary), Soft, Tenderness ( mild), Normal Bowel Sounds Additional comments: laparoscopic incision of abdomen dressing: dry clean intact - Back Exam Back Exam: Full ROM, NORMAL INSPECTION - Neurological Exam Neurological Exam: Alert, Awake, CN II-XII Intact, Normal Gait, Oriented x3 - Psychiatric Exam Psychiatric exam: Anxious, Normal Affect, Normal Mood - Skin Skin Exam: Normal Color, Warm Assessment and Plan - Assessment and Plan (Free Text) Assessment: 51 y/o F with no PMH admitted s/p laporscopic appendectomy, now on POD #2, consulted chronic anemia most likely to heavy menstrual periods and Uterine fibroids. Overnight fever of Tmax 101.7 @ 22:00 Plan: Iron deficincy Anemia most likely secondary to Abnormal Uterine bleeding- Leiomyomas -ferritin 5 iron 19 -can not being r/o such as endometrial hyperplasia and coagulopathy -hemodynamically stable -s/p 2 units of PRBC transfusion in this admission -c/w IV Iron infusion for 5 days and Ferrous sulfate 325 mg PO BID -c/w Provera 10 mg TID x 7 days -H:H today 7.8/25 from pre surgery 9.1/31.0, possibly from surgery and AUB -f/u Willebrand factor, repeat H:H, reticular count, fobt -out patient colonoscopy -consider transfusion Abnormal Uterine bleeding-Leiomyomas -CT ab: lobulated enlarged uterus. -further workup as outpatient : possible Transvaginal US and endometrial biopsy -appointment made at [facility] Dr. Hyman, appointment on January 03 at 3 pm -appointment will be made for women's health Hypokalemia -today 2.9, mag is wnl -K po 40meq -f/u repeat K @14:00 Appendicitis s/p laparoscopic appendectomy pod#2 -Continue current management by Surgical team DVT prophylaxis -scd and ambulation -lovonex 40 mg once today, -(benefit outweight the risk) will monitor H:H, will consider transfusion if needed
[2016-12-15] MEDS: Potassium CL 10mEq/100ml 100 ML IVPB SCH ×2 (10:13→13:48)
[2016-12-15] MEDS: Simethicone 40 mg/0.6 ml Liquid (30 ml) PO SCH ×4 (10:14→21:55)
[2016-12-15 11:02] LABS: EOSINOPHIL 2 % (0-7); NEUTROPHIL 56 % (42-75); TOTAL CELLS COUNTED 100
[2016-12-15] MEDS ORDERED: Enoxaparin 40 mg Syringe SC ONE (11:30)
[2016-12-15] MEDS ORDERED: Enoxaparin 40 mg Syringe SC SCH (11:30)
--- NOTE | 2016-12-15 11:30 | CP.PCM.PN ---
Subjective - Date & Time of Evaluation Date of Evaluation: 12/15/16 Time of Evaluation: 10:10 - Subjective Subjective: General Surgery Pt S&E, febrile to 101.7 overnight. C/O abd pain and B/L leg pain. Also reports Headache. Tolerating diet. passing flatus. Ambulating Objective - Vital Signs/Intake and Output Vital Signs (last 24 hours): Temp Pulse Resp BP Pulse Ox 99.1 F 95 H 20 118/72 97 12/15/16 08:13 12/15/16 09:00 12/15/16 08:13 12/15/16 08:13 12/15/16 08:13 - Medications Medications: Current Medications Acetaminophen (Tylenol 325mg Tab) 650 mg PO Q4 PRN PRN Reason: Headache or fever >100.4 F Enoxaparin Sodium (Lovenox) 40 mg SC DAILY [facility] PRN Reason: Protocol Ferrous Sulfate (Feosol) 325 mg PO BID [facility] Last Admin: 12/15/16 10:12 Dose: 325 mg Piperacillin Sod/Tazobactam (Sod 3.375 gm/ Sodium Chloride) 100 mls @ 100 mls/ hr IVPB Q6 [facility] Last Admin: 12/15/16 10:12 Dose: 100 mls/hr Iron Sucrose 200 mg/ Sodium (Chloride) 110 mls @ 110 mls/hr IVPB DAILY [facility] Medroxyprogesterone Acetate (Provera) 10 mg PO TID [facility] Last Admin: 12/15/16 10:14 Dose: 10 mg Morphine Sulfate (Morphine) 4 mg IVP Q4 PRN PRN Reason: Pain, moderate (4-7) Last Admin: 12/15/16 10:18 Dose: 4 mg Ondansetron HCl (Zofran Inj) 4 mg IVP Q4H PRN PRN Reason: Nausea/Vomiting Last Admin: 12/15/16 10:24 Dose: 4 mg Oxycodone/Acetaminophen (Percocet 5/325 Mg Tab) 2 tab PO Q4 PRN PRN Reason: Pain, moderate (4-7) Stop: 12/17/16 07:35 Last Admin: 12/14/16 08:27 Dose: 2 tab Sennosides (Senokot Tab) 8.6 mg PO [facility] Last Admin: 12/14/16 21:21 Dose: 8.6 mg Simethicone (Mylicon Liq) 40 mg PO QID [facility] Last Admin: 12/15/16 10:14 Dose: 40 mg - Labs Labs: 12/15/16 06:00 12/15/16 06:00 PT 11.2 SECONDS (9.6-11.2) 12/12/16 20:21 INR 1.08 (0.92-1.08) 12/12/16 20:21 APTT 25.7 SECONDS (23.3-32.5) 12/12/16 20:21 - Constitutional Appears: Non-toxic, No Acute Distress - Head Exam Head Exam: ATRAUMATIC, NORMOCEPHALIC - Eye Exam Eye Exam: EOMI. absent: Scleral icterus - Respiratory Exam Respiratory Exam: NORMAL BREATHING PATTERN. absent: Respiratory Distress - GI/Abdominal Exam GI & Abdominal Exam: Guarding, Soft, Tenderness (diffusely, more at incision sites). absent: Distended, Firm, Rigid, Rebound - Extremities Exam Extremities Exam: Tenderness (of b/l extremities). absent: Pedal Edema Assessment and Plan - Assessment and Plan (Free Text) Assessment: 51F s/p Laparoscopic Appendectomy, POD #2 Plan: F/U US LE Monitor for fevers AM labs Cont Abx D/W Dr. Lino Magdaleno PGY3
--- NOTE | 2016-12-15 12:55 | CP.PCM.PCO ---
Assessment/Plan - Assessment and Plan (Free Text) Assessment: I saw and evaluated the patient. I discussed the case with the resident and agree with the findings and plan as documented in the resident's note. fever overnight noted pt complaining of JAIN and nausea . Will d.c Percocet as this is associalted with nausea. will order LE doppler- doubt DVt. no further vaginal bleeding- will start lovenox 40 and monitor Hg
[2016-12-15] MEDS: Oxycodone/Acetaminophen 5/325 mg Tab PO PRN (20:28)
[2016-12-16] MEDS: Piperacillin/Tazobact 3.375 GM in Sodium Chloride 0.9% 100 ML IVPB SCH ×2 (04:07→09:00)
[2016-12-16] MEDS ORDERED: Potassium Chloride 20 mEq/15 ml LIQ UD PO ONE (07:25)
[2016-12-16] MEDS: Oxycodone/Acetaminophen 5/325 mg Tab PO PRN (07:55)
[2016-12-16] MEDS ORDERED: Potassium CL 10 MEQ/50 ML 50 ML IVPB SCH (08:00)
[2016-12-16 08:13] VITALS: BP 118/78; PULSE 84; RESP 20; TEMP 97.5; O2SAT 126
[2016-12-16 08:19] LABS: HEMATOCRIT 27.2 % (34.0-47.0); MEAN CELL VOLUME 62.1 fl (81.0-99.0); MEAN CORPUSCULAR HEMOGLOBIN 18.4 pg (27.0-31.0); MEAN CORPUSCULAR HGB CONC 29.7 g/dL (33.0-37.0); RED CELL DISTRIBUTION WIDTH 31.4 % (11.5-14.5); WHITE BLOOD COUNT 12.3 K/uL (4.8-10.8)
[2016-12-16 08:32] LABS: BLOOD UREA NITROGEN 6 mg/dl (7-17); CARBON DIOXIDE 24 mmol/L (22-30); CHLORIDE 109 mmol/L (98-107); GFR AFRICAN-AMERICAN > 60; GLUCOSE,RANDOM 110 mg/dL (65-105); POTASSIUM 3.1 MMOL/L (3.6-5.0); SODIUM 140 mmol/l (132-148)
[2016-12-16] MEDS ORDERED: Potassium Chloride 20 mEq ER Tab PO ONE (09:11)
--- NOTE | 2016-12-16 10:29 | CP.PCM.DIS ---
Provider - Provider Date of Admission: 12/13/16 02:44 Attending physician: Ag Huynh MD Time Spent in preparation of Discharge (in minutes): 30 Diagnosis - Discharge Diagnosis (1) Acute appendicitis Status: Acute (2) Anemia Status: Acute Hospital Course - Lab Results Lab Results: Most Recent Lab Values WBC 12.3 K/uL (4.8-10.8) H 12/16/16 06:00 RBC 4.38 Mil/uL (3.80-5.20) 12/16/16 06:00 Hgb 8.1 g/dL (12.0-16.0) L 12/16/16 06:00 Hct 27.2 % (34.0-47.0) L 12/16/16 06:00 MCV 62.1 fl (81.0-99.0) L 12/16/16 06:00 MCH 18.4 pg (27.0-31.0) L 12/16/16 06:00 MCHC 29.7 g/dL (33.0-37.0) L 12/16/16 06:00 RDW 31.4 % (11.5-14.5) H 12/16/16 06:00 Plt Count 106 K/uL (130-400) L 12/16/16 06:00 MPV 10.0 fl (7.2-11.7) 12/15/16 06:00 Neut % (Auto) 90.9 % (50.0-75.0) H 12/15/16 06:00 Lymph % (Auto) 4.4 % (20.0-40.0) L 12/15/16 06:00 [place] % (Auto) 3.0 % (0.0-10.0) 12/15/16 06:00 Eos % (Auto) 1.7 % (0.0-4.0) 12/15/16 06:00 Baso % (Auto) 0.0 % (0.0-2.0) 12/15/16 06:00 Neut # 14.5 K/uL (1.8-7.0) H 12/15/16 06:00 Lymph # 0.7 K/uL (1.0-4.3) L 12/15/16 06:00 [place] # 0.5 K/uL (0.0-0.8) 12/15/16 06:00 Eos # 0.3 K/uL (0.0-0.7) 12/15/16 06:00 Baso # 0.0 K/uL (0.0-0.2) 12/15/16 06:00 Neutrophils % (Manual) 56 % (42-75) 12/15/16 06:00 Band Neutrophils % 32 % (0-2) H* 12/15/16 06:00 Lymphocytes % (Manual) 6 % (20-50) L 12/15/16 06:00 Monocytes % (Manual) 4 % (0-10) 12/15/16 06:00 Eosinophils % (Manual) 2 % (0-7) 12/15/16 06:00 Platelet Estimate Slightly decreased (NORMAL) L 12/15/16 06:00 Giant Platelets Present 12/14/16 09:20 Polychromasia Slight 12/14/16 16:39 Hypochromasia (manual) Marked 12/15/16 06:00 Poikilocytosis (manual Moderate 12/15/16 06:00 Anisocytosis (manual) Marked 12/15/16 06:00 Microcytosis (manual) Marked 12/15/16 06:00 Macrocytosis (manual) Moderate 12/14/16 09:20 Target Cells Slight 12/15/16 06:00 Tear Drop Cells Slight 12/15/16 06:00 Ovalocytes Slight 12/15/16 06:00 Drifting Cells Slight 12/15/16 06:00 Schistocytes Slight 12/15/16 06:00 Retic Count 2.3 % (0.5-1.5) H 12/15/16 12:00 PT 11.2 SECONDS (9.6-11.2) 12/12/16 20:21 INR 1.08 (0.92-1.08) 12/12/16 20:21 APTT 25.7 SECONDS (23.3-32.5) 12/12/16 20:21 Sodium 140 mmol/l (132-148) 12/16/16 06:00 Potassium 3.1 MMOL/L (3.6-5.0) L 12/16/16 06:00 Chloride 109 mmol/L (98-107) H 12/16/16 06:00 Carbon Dioxide 24 mmol/L (22-30) 12/16/16 06:00 Anion Gap 10 (10-20) 12/16/16 06:00 BUN 6 mg/dl (7-17) L 12/16/16 06:00 Creatinine 0.6 mg/dL (0.7-1.2) L 12/16/16 06:00 Est GFR ( Amer) > 60 12/16/16 06:00 Est GFR (Non-Af Amer) > 60 12/16/16 06:00 Random Glucose 110 mg/dL (65-105) H 12/16/16 06:00 Lactic Acid 1.5 MMOL/L (0.7-2.1) 12/12/16 20:21 Calcium 8.0 mg/dL (8.4-10.2) L 12/16/16 06:00 Phosphorus 3.1 mg/dl (2.5-4.5) 12/12/16 20:21 Magnesium 1.8 MG/DL (1.6-2.3) 12/12/16 20:21 Iron 19 ug/dL (37-170) L 12/12/16 22:37 TIBC 476 ug/dL (250-450) H 12/12/16 22:37 % Saturation 4 % (20-55) L 12/12/16 22:37 Ferritin 5.0 ng/mL 12/12/16 14:00 Total Bilirubin 2.1 mg/dl (0.2-1.3) H 12/15/16 06:00 AST 89 U/L (14-36) H D 12/15/16 06:00 ALT 63 U/L (9-52) H D 12/15/16 06:00 Alkaline Phosphatase 89 U/L (38-126) 12/15/16 06:00 Total Protein 6.6 G/DL (6.3-8.2) 12/15/16 06:00 Albumin 3.2 g/dL (3.5-5.0) L 12/15/16 06:00 Globulin 3.4 gm/dL (2.2-3.9) 12/15/16 06:00 Albumin/Globulin Ratio 0.9 (1.0-2.1) L 12/15/16 06:00 Lipase 49 U/L (23-300) 12/12/16 20:21 Vitamin B12 330 pg/mL (239-931) 12/12/16 14:00 Urine Color Yellow (YELLOW) 12/12/16 21:50 Urine Clarity Clear (Clear) 12/12/16 21:50 Urine pH 5.0 (5.0-8.0) 12/12/16 21:50 Ur Specific [place] 1.025 (1.003-1.030) 12/12/16 21:50 Urine Protein 30 mg/dL (NEGATIVE) 12/12/16 21:50 Urine Glucose (UA) 50 mg/dL (Normal) 12/12/16 21:50 Urine Ketones 80 mg/dL (NEGATIVE) 12/12/16 21:50 Urine Blood Negative (NEGATIVE) 12/12/16 21:50 Urine Nitrate Negative (NEGATIVE) 12/12/16 21:50 Urine Bilirubin Negative (NEGATIVE) 12/12/16 21:50 Urine Urobilinogen 0.2-1.0 mg/dL (0.2-1.0) 12/12/16 21:50 Ur Leukocyte Esterase Neg [place]/uL (Negative) 12/12/16 21:50 Urine RBC (Auto) 4 /hpf (0-3) H 12/12/16 21:50 Urine Microscopic WBC < 1 /hpf (0-5) 12/12/16 21:50 Ur Squamous Epith Cells 1 /hpf (0-5) 12/12/16 21:50 Urine Bacteria Rare (<OCC) 12/12/16 21:50 Hepatitis A IgM Ab Negative (NEGATIVE) 12/14/16 16:39 Hep Bs Antigen Negative (NEGATIVE) 12/14/16 16:39 Hep B Core IgM Ab Negative (NEGATIVE) 12/14/16 16:39 Hepatitis C Antibody Negative (NEGATIVE) 12/14/16 16:39 HIV-1 Ab Rapid Screen Non reactive (NON REAC) 12/14/16 16:39 Blood Type B POSITIVE 12/12/16 22:37 Blood Type Confirm B POSITIVE 12/12/16 23:35 Antibody Screen Negative 12/12/16 22:37 Crossmatch See Detail 12/12/16 22:37 BBK History Checked No verified bt 12/12/16 22:37 - Date & Time of H&P Date of H&P: 12/13/16 Time of H&P: 05:40 Discharge Exam - ENT Exam ENT Exam: Mucous Membranes Moist - Respiratory Exam Respiratory Exam: Clear to PA & Lateral, NORMAL BREATHING PATTERN - Cardiovascular Exam Cardiovascular Exam: REGULAR RHYTHM, +S1, +S2 - GI/Abdominal Exam GI & Abdominal Exam: Normal Bowel Sounds, Soft, Tenderness (diffuse, mild tenderness to palpation, but no rebound tenderness). absent: Guarding - Extremities Exam Extremities exam: normal inspection Additional comments: No edema noted. No calf tenderness. Chandler's sign negative bilateral. - Neurological Exam Neurological exam: Alert, Oriented x3 - Skin Skin Exam: Dry, Intact, Normal Color Discharge Plan - Follow Up Plan Condition: STABLE Disposition: HOME/ ROUTINE Patient education suggested?: Yes Instructions: Appendicitis (DC), Laparoscopic Appendectomy (DC) Additional Instructions: F/U with Family Practice at [facility] with Dr. Hyman on January 03 at 3:00 pm. Consider referral for Women health BY PCP. -F/U with Surgery for postoperative evaluation after discharge.
[2016-12-16] MEDS: Simethicone 40 mg/0.6 ml Liquid (30 ml) PO SCH ×2 (11:11→13:07)
--- NOTE | 2016-12-16 11:12 | CP.PCM.PN ---
Subjective - Date & Time of Evaluation Date of Evaluation: 12/16/16 Time of Evaluation: 08:50 - Subjective Subjective: This is a 51 y/o female with PMHx of Uterine fibroids associated with Menorrhagia, Chronic anemia, who was admitted with a diagnosis of acute appendicitis, now s/p Appendectomy on POD #3, s/p 2 units of PRBC transfusion due to Anemia. Patient was seen and examined at bedside this morning, still complaining of intermittent diffuse abdominal pain alleviated with pain medication, voiding without complains, passing gas, and had a normal BM yesterday. Tolerating PO. Denies current vaginal bleeding. Denies chest pain, SOB, nausea, vomiting at this evaluation. Objective - Vital Signs/Intake and Output Vital Signs (last 24 hours): Temp Pulse Resp BP Pulse Ox 97.5 F L 84 20 118/78 126 H 12/16/16 08:12 12/16/16 08:12 12/16/16 08:12 12/16/16 08:12 12/16/16 08:12 - Medications Medications: Current Medications Acetaminophen (Tylenol 325mg Tab) 650 mg PO Q4 PRN PRN Reason: Headache or fever >100.4 F Last Admin: 12/15/16 12:32 Dose: 650 mg Ferrous Sulfate (Feosol) 325 mg PO BID [facility] Last Admin: 12/16/16 08:58 Dose: 325 mg Piperacillin Sod/Tazobactam (Sod 3.375 gm/ Sodium Chloride) 100 mls @ 100 mls/ hr IVPB Q6 [facility] Last Admin: 12/16/16 09:00 Dose: 100 mls/hr Iron Sucrose 200 mg/ Sodium (Chloride) 110 mls @ 110 mls/hr IVPB DAILY [facility] Last Admin: 12/16/16 11:11 Dose: 110 mls/hr Medroxyprogesterone Acetate (Provera) 10 mg PO TID [facility] Last Admin: 12/16/16 08:56 Dose: 10 mg Morphine Sulfate (Morphine) 4 mg IVP Q4 PRN PRN Reason: Pain, moderate (4-7) Last Admin: 12/15/16 23:34 Dose: 4 mg Ondansetron HCl (Zofran Inj) 4 mg IVP Q4H PRN PRN Reason: Nausea/Vomiting Last Admin: 12/15/16 10:24 Dose: 4 mg Oxycodone/Acetaminophen (Percocet 5/325 Mg Tab) 2 tab PO Q4 PRN PRN Reason: Pain, moderate (4-7) Stop: 12/17/16 07:35 Last Admin: 12/16/16 07:55 Dose: 2 tab Sennosides (Senokot Tab) 8.6 mg PO HS [facility] Last Admin: 12/15/16 21:53 Dose: 8.6 mg Simethicone (Mylicon Liq) 40 mg PO QID [facility] Last Admin: 12/16/16 11:11 Dose: 40 mg - Labs Labs: 12/16/16 06:00 12/16/16 06:00 PT 11.2 SECONDS (9.6-11.2) 12/12/16 20:21 INR 1.08 (0.92-1.08) 12/12/16 20:21 APTT 25.7 SECONDS (23.3-32.5) 12/12/16 20:21 - Constitutional Appears: Non-toxic, No Acute Distress - Eye Exam Eye Exam: Normal appearance - ENT Exam ENT Exam: Mucous Membranes Moist - Respiratory Exam Respiratory Exam: Clear to Ausculation Bilateral, NORMAL BREATHING PATTERN - Cardiovascular Exam Cardiovascular Exam: REGULAR RHYTHM, +S1, +S2 - GI/Abdominal Exam GI & Abdominal Exam: Soft, Tenderness (Very mild difusse tenderness to palpation , but no rebound tenderness,no rigidity or guarding. ), Normal Bowel Sounds. absent: Guarding, Rigid - Extremities Exam Extremities Exam: Normal Inspection. absent: Calf Tenderness, Pedal Edema Additional comments: Chandler's sign negative bilateral - Neurological Exam Neurological Exam: Alert, Oriented x3 - Psychiatric Exam Psychiatric exam: Normal Affect, Normal Mood - Skin Skin Exam: Dry, Intact, Pallor Assessment and Plan (1) Acute appendicitis Status: Acute (2) Anemia Assessment & Plan: Stable, being managed by General Surgery. Will be disharge home today, and f/u as outpatient. Status: Acute - Assessment and Plan (Free Text) Assessment: Stable, we will f/u as outpatient. 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 Patient is improving clinically, H/H stable. She will follow with family practice at [facility] as outpatient for Anemia management and Women Health referral. We recommend: continue with Feosol 325 mg PO BID, Iron infusion once a day for more 3 days, Provera 10 mg daily for 7 days -Check H/H as outpatient, prescription given. -Colace 200 mg daily PRN for constipation -F/U with Dr. Hyman at [facility] on January 03, 2017, appointment given -Consider transvaginal US, endometrial biopsy, Colonoscopy as outpatient -Consider referral to Women health at [facility]
--- NOTE | 2016-12-16 18:41 | US ---
EXAM: Venous Doppler complete bilateral INDICATIONS: Calf tenderness. Evaluate for deep venous thrombosis. TECHNIQUE: Duplex venous evaluation of the both lower extremities was performed utilizing graded compression, color Doppler and spectral Doppler interrogation. COMPARISON: None available FINDINGS: There is normal morphology, compressibility, Doppler flow, and augmentation of both common femoral, femoral, and popliteal veins. Visualized portions of the posterior tibial veins are unremarkable. IMPRESSION: No evidence of deep venous thrombosis in the bilateral femoropopliteal systems.
[2016-12-17 15:11] LABS: VON WILLERBRAND FACTOR AG >420 % (50-217)
== END 2016-12-16 14:51 | disposition home or self-care (01) | DRG 343 ==
LOC: H.ER 19:16 → H.EROBSV 20:36 → H.ERHOLD 12-13 02:44 → OBSVTOIN 12-13 02:44 → H.TEL 12-13 04:33 → H.MEDSURG1 12-15 13:35
PROVIDERS: ADMIT Specialist; ATTEND Specialist
PROC: 30233N1 Transfusion of Nonautologous Red Blood Cells into Peripheral Vein, Percutaneous Approach (ICD-10-PCS; 2016-12-13)
PROC: 0DTJ4ZZ Resection of Appendix, Percutaneous Endoscopic Approach (ICD-10-PCS; principal; 2016-12-13 13:00)
DX: K35.80 Unspecified acute appendicitis (principal); D50.0 Iron deficiency anemia secondary to blood loss (chronic); E87.6 Hypokalemia; R50.82 Postprocedural fever; D25.9 Leiomyoma of uterus, unspecified; R00.0 Tachycardia, unspecified; R51 Headache; N92.0 Excessive and frequent menstruation with regular cycle

== ENCOUNTER 2016-12-19 10:11 | Inpatient (IN) | payer OTHER, SELFPAY ==
[2016-12-19 10:23] VITALS: BMI 38.4
[2016-12-19] MEDS ORDERED: ceFAZolin 1 GM in Sodium Chloride 0.9% 100 ML IVPB STA (10:45)
--- NOTE | 2016-12-19 10:49 | ED PDOC ---
Upper Extremity Pain/Injury Time Seen by Provider: 12/19/16 10:17 Chief Complaint (Nursing): Upper Extremity Problem/Injury Chief Complaint (Provider): Upper Extremity Problem/Injury History Per: Patient History/Exam Limitations: no limitations Onset/Duration Of Symptoms: Hrs Current Symptoms Are (Timing): Still Present Quality: "Pain" Severity: Moderate Additional Complaint(s): Patient is a 51 year old female who presents to ED with family for pain and swelling to right hand s/p IV placement. As per family, patient was here in the hospital at same day for IV infusion, but pain and swelling began immediately. Notes patient had a subjective fever overnight, administered Motrin with resolution of symptoms. Past Medical History Reviewed: Historical Data, Nursing Documentation, Vital Signs Vital Signs: Last Vital Signs Temp 99.7 F H 12/19/16 10:17 Pulse 82 12/19/16 10:17 Resp 16 12/19/16 10:17 BP 129/70 12/19/16 10:17 Pulse Ox 100 12/19/16 10:17 - Medical History PMH: Anemia Denies: Chronic Kidney Disease - Surgical History Surgical History: No Surg Hx - Family History Family History: States: Diabetes - Living Arrangements Living Arrangements: With Family - Immunization History Hx Tetanus Toxoid Vaccination: No Hx Influenza Vaccination: No Hx Pneumococcal Vaccination: No - Home Medications Home Medications: Ambulatory Orders Medication Instructions Recorded Acetaminophen [Tylenol 325mg tab] 650 mg PO Q4 PRN tab 12/16/16 Cephalexin [cephalexin] 500 mg PO QID #28 cap 12/19/16 Docusate [Colace] 200 mg PO DAILY 12/19/16 Ferrous Sulfate [Feosol] 325 mg PO BID 12/19/16 MedroxyPROGESTERone [Provera] 10 mg PO DAILY 12/19/16 Naproxen [Naprosyn] 500 mg PO BID PRN #20 tablet 12/19/16 - Allergies Allergies/Adverse Reactions: Allergies Allergy/AdvReac Type Severity Reaction Status Date / Time No Known Allergies Allergy Verified 12/12/16 23:15 Review of Systems ROS Statement: Except As Marked, All Systems Reviewed And Found Negative Constitutional: Positive for: Fever, Chills Musculoskeletal: Positive for: Hand Pain. Negative for: Neck Pain, Shoulder Pain, Arm Pain Skin: Negative for: Rash Neurological: Negative for: Weakness, Numbness Physical Exam - Reviewed Nursing Documentation Reviewed: Yes Vital Signs Reviewed: Yes - Physical Exam Appears: Positive for: Uncomfortable Skin: Positive for: Normal Color, Warm Eye Exam: Positive for: Normal appearance Neck: Positive for: Normal, Painless ROM Cardiovascular/Chest: Positive for: Regular Rate, Rhythm. Negative for: Murmur Respiratory: Positive for: Normal Breath Sounds. Negative for: Respiratory Distress Extremity: Positive for: Normal ROM, Capillary Refill (less than 2 seconds), Other (Right hand: (+) minimal induration to distal forearm 3cm x2cm just proximal to IV puncture wound. ) Neurologic/Psych: Positive for: Alert, Oriented - Laboratory Results Result Diagrams: 12/29/16 08:00 12/29/16 08:00 - ECG O2 Sat by Pulse Oximetry: 100 (RA) Pulse Ox Interpretation: Normal Medical Decision Making Medical Decision Making: Time: 1040 Initial impression: R/O Cellulitis vs abscess Initial plan: -- CMP -- CBC -- Ancef and Toradol IV -- Blood culture -- Duplex Scribe Attestation: Documented by Alexandra Delcid acting as a scribe for Lana Billingsley MD MD Scribe Attestation: All medical record entries made by the Scribe were at my direction and personally dictated by me. I have reviewed the chart and agree that the record accurately reflects my personal performance of the history, physical exam, medical decision making, and the department course for this patient. I have also personally directed, reviewed, and agree with the discharge instructions and disposition. Disposition - Clinical Impression Clinical Impression: Cellulitis of arm, right - Disposition Disposition: Transfer of Care Disposition Time: 15:00 Condition: GUARDED
[2016-12-19 11:56] LABS: BASO # 0.1 K/uL (0.0-0.2); BASO % 0.7 % (0.0-2.0); EOS # 0.2 K/uL (0.0-0.7); HEMATOCRIT 33.5 % (34.0-47.0); LYMPH # 1.5 K/uL (1.0-4.3); LYMPH % 9.9 % (20.0-40.0); MEAN CORPUSCULAR HEMOGLOBIN 19.6 pg (27.0-31.0); MEAN CORPUSCULAR HGB CONC 30.4 g/dL (33.0-37.0); MEAN PLATELET VOLUME 10.2 fl (7.2-11.7); MONO # 0.7 K/uL (0.0-0.8); MONO % 4.6 % (0.0-10.0); NEUT # 12.9 K/uL (1.8-7.0); NEUT % 83.8 % (50.0-75.0); NRBC % 0.2 % (0.0-0.0); PLATELET COUNT 172 K/uL (130-400); RED CELL DISTRIBUTION WIDTH 33.3 % (11.5-14.5); WHITE BLOOD COUNT 15.4 K/uL (4.8-10.8)
[2016-12-19 12:04] LABS: MEAN CELL VOLUME 64.4 fl (81.0-99.0)
[2016-12-19 12:09] LABS: CHLORIDE 105 mmol/L (98-107)
[2016-12-19 12:10] LABS: POTASSIUM 3.4 MMOL/L (3.6-5.0); SODIUM 141 mmol/l (132-148)
[2016-12-19 12:12] LABS: AST/SGOT 47 U/L (14-36); BILIRUBIN,TOTAL 0.9 mg/dl (0.2-1.3); CARBON DIOXIDE 23 mmol/L (22-30); GFR AFRICAN-AMERICAN > 60
[2016-12-19 12:13] LABS: ALB/GLOB RATIO 0.9 (1.0-2.1); ALKALINE PHOSPHATASE 196 U/L (38-126); ALT/SGPT 52 U/L (9-52); BLOOD UREA NITROGEN 4 mg/dl (7-17); CALCIUM 8.7 mg/dL (8.4-10.2); GLUCOSE,RANDOM 111 mg/dL (65-105); TOTAL PROTEIN 8.4 G/DL (6.3-8.2)
[2016-12-19] MEDS ORDERED: Potassium Chloride 20 mEq ER Tab PO STA (12:49)
--- NOTE | 2016-12-19 12:59 | US ---
PROCEDURE: Upper Extremity Venous Duplex Exam HISTORY: Pain @ venipuncture site . Upper extremity swelling. (Area pain and swelling right subclavian vein). PRIORS: None. TECHNIQUE: Bilateral upper extremity, internal jugular, subclavian, axillary, brachial, ulnar, radial, basilic and upper cephalic veins were evaluated. Flow was assessed with color Doppler, compressibility, assessment of phasic flow and augmentation response. Report prepared by chief technologist. FINDINGS: RIGHT: 1. Internal Jugular: 1.1. Compressibility - Fully compressible: Thrombus - None : Flow - Phasic: Augmentation -Normal: Reflux - None. 2. Subclavian: 2.1. Compressibility - Fully compressible: Thrombus - None : Flow - Phasic: Augmentation -Normal: Reflux - None. 3. Axillary: 3.1. Compressibility - Fully compressible: Thrombus - None : Flow - Phasic: Augmentation -Normal: Reflux - None. 4. Brachial: 4.1. Compressibility - Fully compressible: Thrombus - None: Flow - Phasic: Augmentation -Normal: Reflux - None. 5. Ulnar: 5.1. Compressibility - Fully compressible: Thrombus - None: Flow - Phasic: Augmentation -Normal: Reflux - None. 6. Radial: 6.1. Compressibility - Fully compressible: Thrombus - None: Flow - Phasic: Augmentation - Normal: Reflux - None. 7. Cephalic: 7.1. Compressibility - Fully compressible: Thrombus - None: Flow - Phasic: Augmentation -Normal: Reflux - None. 8. Basilic: 8.1. Compressibility - Fully compressible: Thrombus - None: Flow - Phasic: Augmentation -Normal: Reflux - None. OTHER FINDINGS: Right: None. IMPRESSION: Right: No evidence of vein thrombosis of the right upper extremity with excellent venous flow. Normal valve function noted of the right side.
[2016-12-19] MEDS ORDERED: Potassium Chloride 20 mEq ER Tab PO ONE (13:46)
[2016-12-19 14:18] LABS: NEUTROPHIL 89 % (42-75); TOTAL CELLS COUNTED 100
[2016-12-19 14:21] LABS: LARGE PLATELETS PRESENT
[2016-12-19] MEDS ORDERED: Sodium Chloride 0.9% 1,000 ML IV STA (15:46)
--- NOTE | 2016-12-19 17:49 | ED PDOC ---
- Laboratory Results Result Diagrams: 12/19/16 11:25 12/19/16 11:25 - ECG O2 Sat by Pulse Oximetry: 100 (RA) Medical Decision Making Medical Decision Making: received patient from Dr. Billingsley. Labs shows elevated WBC. She is still febrile. Will admit for further monitoring , treatment. Disposition Doctor Will See Patient In The: Office Counseled Patient/Family Regarding: Diagnosis - Clinical Impression Clinical Impression: Cellulitis of arm, right - POA Present On Arrival: None - Disposition Disposition: Transfer of Care Disposition Time: 17:49 Condition: GUARDED Prescriptions: Cephalexin [cephalexin] 500 mg PO QID #28 cap Naproxen [Naprosyn] 500 mg PO BID PRN #20 tablet PRN Reason: Pain, Moderate (4-7) Print Language: YEMENI
[2016-12-19 18:19] LABS: VENOUS BLOOD GAS BASE EXCESS -4.9 mmol/L (0.0-2.0); VENOUS BLOOD GAS PCO2 26 mmHg (40-60); VENOUS BLOOD PH 7.44 (7.32-7.43)
[2016-12-19 18:22] LABS: RBC URINE < 1 /hpf (0-3); URINE BACTERIA RARE (<OCC); URINE BILIRUBIN NEGATIVE (NEGATIVE); URINE BLOOD NEGATIVE (NEGATIVE); URINE COLOR YELLOW (YELLOW); URINE GLUCOSE (UA) NEG (Normal); URINE KETONE NEGATIVE (NEGATIVE); URINE LEUKOCYTE ESTERASE NEG Leu/uL (Negative); URINE PROTEIN NEGATIVE (NEGATIVE); URINE UROBILINOGEN 0.2-1.0 mg/dL (0.2-1.0); WBC URINE 1 /hpf (0-5)
--- NOTE | 2016-12-19 19:42 | CP.PCM.HP ---
History of Present Illness - History of Present Illness History of Present Illness: Pt is a 51 y/o female history of iron deficiency anemia, recently had an Appendectomy (POD#6), followed by iron infusion yesterday presenting to ED with complaints of pain and swelling at the IV site, per pt and her right wrist swell up yesterday immediately after the iron infusion and started to hurt for the rest of the night, also reports feeling a little warm overnight so took some Motrin, presented to ED today because pain still persist. At evaluation, pt reports her entire right arm hurts, her entire abdomen also hurt, denies any nausea ,vomiting, dizziness, chest pain or sob. PMD- does not have an PMD Present on Admission - Present on Admission Any Indicators Present on Admission: No Review of Systems - Review of Systems All systems: reviewed and no additional remarkable complaints except Review of Systems: Per HPI Past Patient History - Infectious Disease Hx of Infectious Diseases: None - Past Medical History & Family History Past Medical History?: No - Past Social History Smoking Status: Former Smoker - CARDIAC Hx Cardiac Disorders: No - PULMONARY Hx Respiratory Disorders: No - NEUROLOGICAL Hx Neurological Disorder: No - HEENT Hx HEENT Problems: No - RENAL Hx Chronic Kidney Disease: No - ENDOCRINE/METABOLIC Hx Endocrine Disorders: No - HEMATOLOGICAL/ONCOLOGICAL Hx Anemia: Yes - INTEGUMENTARY Hx Dermatological Problems: No - MUSCULOSKELETAL/RHEUMATOLOGICAL Hx Musculoskeletal Disorders: No Hx Falls: No - GASTROINTESTINAL Hx Gastrointestinal Disorders: No - GENITOURINARY/GYNECOLOGICAL Hx Genitourinary Disorders: No - PSYCHIATRIC Hx Psychophysiologic Disorder: No Hx Emotional Abuse: No Hx Physical Abuse: No Hx Substance Use: No - SURGICAL HISTORY Hx Surgeries: Yes Other/Comment: APPENDECTOMY-DECEMBER 2016 - ANESTHESIA Hx Anesthesia: Yes Hx Anesthesia Reactions: No Hx Malignant Hyperthermia: No Meds Home Medications: Home Medication List Medication Instructions Recorded Confirmed Type Cephalexin [cephalexin] 500 mg PO QID #28 cap 12/19/16 Rx Naproxen [Naprosyn] 500 mg PO BID PRN #20 tablet 12/19/16 Rx Allergies/Adverse Reactions: Allergies Allergy/AdvReac Type Severity Reaction Status Date / Time No Known Allergies Allergy Verified 12/12/16 23:15 Physical Exam - Constitutional Appears: Non-toxic, No Acute Distress - Head Exam Head Exam: NORMOCEPHALIC - Eye Exam Eye Exam: Normal appearance - ENT Exam ENT Exam: Mucous Membranes Moist - Respiratory Exam Respiratory Exam: Clear to Auscultation Bilateral, NORMAL BREATHING PATTERN. absent: Rhonchi, Wheezes - Cardiovascular Exam Cardiovascular Exam: REGULAR RHYTHM, +S1, +S2 - GI/Abdominal Exam GI & Abdominal Exam: Normal Bowel Sounds, Soft, Tenderness Additional comments: morbidly obese abdomen Surgical site: steri strips still on wound, dry blood noted on strips, no foul smelling discharge, no erythema noted around 3 site of laproscopic entry, no sign of wound infection - Extremities Exam Extremities exam: Negative for: calf tenderness, pedal edema Additional comments: right wrist mildly swollen at site of IV insertion, not warm, slight erythema, tender on palpation - Neurological Exam Neurological exam: Alert, CN II-XII Intact, Oriented x3 Results - Vital Signs Recent Vital Signs: Last Vital Signs Temp 98.5 F 12/19/16 18:22 Pulse 104 H 12/19/16 18:22 Resp 16 12/19/16 18:22 BP 127/64 12/19/16 18:22 Pulse Ox 99 12/19/16 18:22 - Labs Result Diagrams: 12/19/16 11:25 12/19/16 11:25 Labs: Laboratory Results - last 24 hr 12/19/16 12/19/16 18:00 18:13 pO2 49 VBG pH 7.44 H VBG pCO2 26 L VBG HCO3 20.8 VBG Total CO2 18.5 L VBG O2 Sat (Calc) 91.6 H VBG Base Excess -4.9 L VBG Potassium 3.0 L Sodium 137.0 Chloride 112.0 H Glucose 128 H Lactate 3.4 H FiO2 24.0 Venous Blood Potassium 3.0 L Urine Color Yellow Urine Clarity Clear Urine pH 6.0 Ur Specific [place] 1.013 Urine Protein Negative Urine Glucose (UA) Neg Urine Ketones Negative Urine Blood Negative Urine Nitrate Negative Urine Bilirubin Negative Urine Urobilinogen 0.2-1.0 Ur Leukocyte Esterase Neg Urine RBC (Auto) < 1 Urine Microscopic WBC 1 Ur Squamous Epith Cells < 1 Urine Bacteria Rare Assessment & Plan - Assessment and Plan (Free Text) Assessment: 51 y/o female with history of anemia, s/p appendectomy (POD#6) and IV iron infusion being admitted for fever follow IV iron infusion with tenderness at IV insertion site, but no indication for infection at site or phlebitis as ultrasound negative for clot Plan: Fever, of unknown origin Tylenol 650mg Q6hrs f/u blood culture, urine culture chest xray taken, f/u official reading will hold off starting antibiotics for now monitor pain and swelling of wrist ultrasound negative for clot,or any acute process pain management as ordered warm compresses for swelling will hold off on antibiotics for now abdominal pain and overall body pain incision sites does not look infected pain management as ordered Diet- heart healthy DVT prophylaxis- Lovenox 40mg SC
[2016-12-20] MEDS ORDERED: Enoxaparin 100 mg Syringe SC STA ×3 (09:00→23:29)
[2016-12-20] MEDS ORDERED: Sodium Chloride 0.9% 1,000 ML IV SCH (10:00)
--- NOTE | 2016-12-20 10:00 | RAD ---
HISTORY: fever COMPARISON: 12/13/2016 TECHNIQUE: Chest PA and lateral FINDINGS: LUNGS: No active pulmonary disease. PLEURA: No significant pleural effusion identified. No pneumothorax apparent. CARDIOVASCULAR: Normal. OSSEOUS STRUCTURES: No significant abnormalities. VISUALIZED UPPER ABDOMEN: Normal. OTHER FINDINGS: None. IMPRESSION: No active disease.
--- NOTE | 2016-12-20 15:05 | CARD ---
APPROVED REPORT EKG Measurement Heart [id number] <Conclusion> Sinus tachycardia with short CO Possible Inferior infarct, age undetermined Abnormal ECG
--- NOTE | 2016-12-20 21:18 | PCM.RRTMUL ---
SENIOR SOFTWARE ARCHITECT Nurse Assessment - Vital Signs Respiratory Rate:: 20 Responder Note - Time SENIOR SOFTWARE ARCHITECT was called Time SENIOR SOFTWARE ARCHITECT was called:: 09:13 - Location Location: 6S Discovered by:: Nurse - SENIOR SOFTWARE ARCHITECT Team SENIOR SOFTWARE ARCHITECT Leader:: Cristofer Hayden - Vital Signs at Initial Assessment Blood Pressure:: 117/64 Pulse Rate:: 139 - Acute Change in Patient Acute Change in Patient: (Select all that apply): Acute change in heart rate less than 50 or greater than 120 - Chest Pain Chest Pain:(If answer is yes, complete next 2 questions): Yes Location:: substernal Pain Intensity: 9 - Seizure Seizure:: No - Neurological Status Neurological Status (Select all that apply):: Alert, Oriented, Verbal Other:: anxious - Respiratory SENIOR SOFTWARE ARCHITECT Delivery Method:: Non Rebreather @% - Assessment of Findings SENIOR SOFTWARE ARCHITECT Interventions: adenosine x3, cardizem x1, lovenox, blood work, EKG, CXR, Oxygen Summary - Summary of Event Summary of Event: 51 y/o F PMHx of iron deficiency anemia, S/P appendectomy (POD#7), admitted for pain, recent episode of fever and swelling at the IV site, abd pain, and anemia is called SENIOR SOFTWARE ARCHITECT this morning because of tachycardia and difficulty breathing. Patient was found anxious, shivering, and stating she was having severe difficulty breathing. Initial VS: HR 139, BP 117/64, O2sat 95%(non rebreathing mask). Patient was alert, oriented, verbal, answering question in short sentences due to SOB. Outcomes - SENIOR SOFTWARE ARCHITECT Outcomes SENIOR SOFTWARE ARCHITECT Outcomes: Initial actions: EKG stat CBC, CMP, ABG, Troponin, TSH, T4, DDimer, CXR: STAT, Procalcitonin, BCx(2), Chest CT angiogram Adenosine 6 mg IVP stat HR 130s(no clinical improvement) Adenosine 12mg IVP stat HR 130s(no clinical improvement ) Adenosine 12mg IVP stat Lovenox (1mg/kg) 100mg SQ stat Repeat EKG(nonspecific T waves inversion, p waves present.) HR 130s Cardizem (0.25mg/kg) 25mg IV stat 2 min Patient started to respond to Cardizem and HR improved to <100 Clinical improvement Transfer to ICU after stabilizing patient A&P: SVT(improved) EKG Rhythm consistent with SVT Blood work as above Improvement after treatment described above Patient stable and transferred to ICU to for closer monitoring and further management Suspected Sepsis s/p appendcetomy 7 days ago Hx of recent fever Blood work as above Lactate >7(ABG) Vanco 1g once ordered Zosyn 3.375g IV once ordered CT abdomen ordered at ICU) Rule out PE/ACS acute onset CP, Tachycardia, SOB D-Dimers, CXR Chest CT angiogram ordered
[2016-12-21] MEDS ORDERED: Albuterol 0.083% Inhal Sol (2.5 mg/3 mL) UD INH STA (05:18)
--- NOTE | 2016-12-21 05:25 | CP.PCM.PCO ---
Physician Communication Note - Physician Communication Note Physician Communication Note: Called to eval patient with chills and tachycardia of 120/min
[2016-12-21] MEDS: Lactated Ringer's 1,000 ML IV SCH ×3 (05:31→19:35)
[2016-12-21] MEDS ORDERED: methylPREDNISolone 125 MG in Sodium Chloride 0.9% 50 ML IVPB STA (05:32)
[2016-12-21] MEDS ORDERED: Albuterol 0.083% Inhal Sol (2.5 mg/3 mL) UD ONE (05:35)
[2016-12-21 05:36] LABS: HEMATOCRIT 26.5 % (34.0-47.0); MEAN CELL VOLUME 66.8 fl (81.0-99.0); MEAN CORPUSCULAR HEMOGLOBIN 19.6 pg (27.0-31.0); MEAN CORPUSCULAR HGB CONC 29.3 g/dL (33.0-37.0); RED CELL DISTRIBUTION WIDTH 34.1 % (11.5-14.5); WHITE BLOOD COUNT 17.9 K/uL (4.8-10.8)
[2016-12-21 05:38] LABS: CHLORIDE 108 mmol/L (98-107)
[2016-12-21 05:39] LABS: POTASSIUM 3.4 MMOL/L (3.6-5.0); SODIUM 138 mmol/l (132-148)
[2016-12-21 05:42] LABS: ALB/GLOB RATIO 0.8 (1.0-2.1); ALKALINE PHOSPHATASE 211 U/L (38-126); ALT/SGPT 42 U/L (9-52); AST/SGOT 55 U/L (14-36); BILIRUBIN,TOTAL 1.8 mg/dl (0.2-1.3); BLOOD UREA NITROGEN 13 mg/dl (7-17); CALCIUM 7.2 mg/dL (8.4-10.2); CARBON DIOXIDE 21 mmol/L (22-30); GFR AFRICAN-AMERICAN > 60; GLUCOSE,RANDOM 103 mg/dL (65-105); TOTAL PROTEIN 6.3 G/DL (6.3-8.2)
[2016-12-21] MEDS ORDERED: Potassium Chloride 20 mEq ER Tab PO ONE (07:55)
--- NOTE | 2016-12-21 07:55 | CP.PCM.CON ---
History of Present Illness - History of Present Illness History of Present Illness: General Surgery - Dr. Huynh 51yo F w/ hx SHAYAN who is s/p Lap appendectomy 12/13, returned to ED on 12/19 with complaints of Fevers, SOB and Abdominal pain. She was admitted to the medical service and underwent CTA chest and CT abdomen/pelvis which was negative for PE and showed a distended Gallbladder but no evidence of any abscess or post- surgical complications. Blood cultures were positive for gram - rods. Pt currently states that abdominal pain is resolved and complains only of Fevers/ Chills, SOB and palpitations. PMH - Iron deficiency anemia, Fibroid uterus PSH - Doug appendectomy 12/13 NKDA Review of Systems - Review of Systems All systems: reviewed and no additional remarkable complaints except (as per HPI ) Past Patient History - Infectious Disease Hx of Infectious Diseases: None - Past Medical History & Family History Past Medical History?: No - Past Social History Smoking Status: Never Smoked - CARDIAC Hx Cardiac Disorders: No - PULMONARY Hx Respiratory Disorders: No - NEUROLOGICAL Hx Neurological Disorder: No - HEENT Hx HEENT Problems: No - RENAL Hx Chronic Kidney Disease: No - ENDOCRINE/METABOLIC Hx Endocrine Disorders: No - HEMATOLOGICAL/ONCOLOGICAL Hx Blood Disorders: Yes Hx Anemia: Yes - INTEGUMENTARY Hx Dermatological Problems: No - MUSCULOSKELETAL/RHEUMATOLOGICAL Hx Musculoskeletal Disorders: No Hx Falls: No - GASTROINTESTINAL Hx Gastrointestinal Disorders: No - GENITOURINARY/GYNECOLOGICAL Hx Genitourinary Disorders: No - PSYCHIATRIC Hx Psychophysiologic Disorder: No Hx Emotional Abuse: No Hx Physical Abuse: No Hx Substance Use: No - SURGICAL HISTORY Hx Surgeries: Yes Other/Comment: APPENDECTOMY-DECEMBER 2016 - ANESTHESIA Hx Anesthesia: Yes Hx Anesthesia Reactions: No Hx Malignant Hyperthermia: No Meds Home Medications: Home Medication List Medication Instructions Recorded Confirmed Type Cephalexin [cephalexin] 500 mg PO QID #28 cap 12/19/16 Rx Naproxen [Naprosyn] 500 mg PO BID PRN #20 tablet 12/19/16 Rx Allergies/Adverse Reactions: Allergies Allergy/AdvReac Type Severity Reaction Status Date / Time No Known Allergies Allergy Verified 12/12/16 23:15 - Medications Medications: Current Medications Acetaminophen (Tylenol 325mg Tab) 650 mg PO Q6 PRN PRN Reason: Fever >100.4 F Last Admin: 12/21/16 05:26 Dose: 650 mg Docusate Sodium (Colace) 200 mg PO DAILY [facility] Enoxaparin Sodium (Lovenox) 40 mg SC DAILY [facility] PRN Reason: Protocol Ferrous Sulfate (Feosol) 325 mg PO BID [facility] Lactated Ringer's (Lactated Ringer's) 1,000 mls @ 175 mls/hr IV .Q5H43M [facility] Last Admin: 12/21/16 05:31 Dose: 175 mls/hr Meropenem 1 gm/ Sodium (Chloride) 100 mls @ 100 mls/hr IVPB Q8 [facility] Last Admin: 12/21/16 00:00 Dose: 100 mls/hr Vancomycin HCl 1 gm/ Sodium (Chloride) 250 mls @ 166.667 mls/hr IVPB ONCE ONE Stop: 12/21/16 10:29 Ketorolac Tromethamine (Toradol) 30 mg IVP Q6 PRN PRN Reason: Pain, moderate (4-7) Morphine Sulfate (Morphine) 4 mg IVP Q4 PRN PRN Reason: Pain, severe (8-10) Ondansetron HCl (Zofran Inj) 4 mg IVP Q6 PRN PRN Reason: Nausea/Vomiting Last Admin: 12/21/16 05:26 Dose: 4 mg Physical Exam - Constitutional Appears: No Acute Distress - Head Exam Head Exam: ATRAUMATIC, NORMAL INSPECTION, NORMOCEPHALIC - Eye Exam Eye Exam: EOMI, Normal appearance - Respiratory Exam Respiratory Exam: NORMAL BREATHING PATTERN. absent: Wheezes, Respiratory Distress Additional comments: tachypneic - Cardiovascular Exam Cardiovascular Exam: Tachycardia - GI/Abdominal Exam GI & Abdominal Exam: Soft. absent: Distended, Guarding, Hernia, Rebound, Tenderness Additional comments: surgical incisions C/D/I - Neurological Exam Neurological exam: Alert, Oriented x3 - Psychiatric Exam Psychiatric exam: Normal Affect, Normal Mood - Skin Skin Exam: Dry, Intact Results - Vital Signs Recent Vital Signs: Last Vital Signs Temp 101.9 F H 12/21/16 05:26 Pulse 120 H 12/21/16 05:57 Resp 50 H 12/21/16 05:57 BP 128/72 12/21/16 05:57 Pulse Ox 99 12/21/16 05:57 - Labs Result Diagrams: 12/20/16 05:00 12/20/16 05:00 - Imaging and Cardiology CT scan - abdomen Status: Report reviewed by me Assessment & Plan - Assessment and Plan (Free Text) Assessment: 51yo F with SHAYAN, POD #8 s/p Lap appendectomy, readmitted with Fevers, SOB, Gram neg. bacteremia -CTA negative for PE -Fevers and Tachycardia persist, WBC up today -Regular diet this AM -HIDA scan later today to R/O GB source of sepsis -Recc. DERRICK WORKER consult -Encourage Incentive Spirometer DW Dr Lino Mark PGY2
[2016-12-21] MEDS: Meropenem 1 GM in Sodium Chloride 0.9% 100 ML IVPB SCH ×3 (08:20→16:53)
[2016-12-21 08:38] LABS: ABG ALLEN TEST YES; ARTERIAL BLOOD GAS HCO3 16.4 mmol/L (21-28); ARTERIAL BLOOD GAS MODE NON REBREATHT; ARTERIAL BLOOD GAS PH 7.29 (7.35-7.45); ARTERIAL BLOOD GAS PO2 264 mm/Hg (80-100)
[2016-12-21 08:42] LABS: VENOUS BLOOD GAS BASE EXCESS -6.6 mmol/L (0.0-2.0); VENOUS BLOOD GAS PCO2 28 mmHg (40-60)
[2016-12-21 09:48] LABS: BASO % 0.1 % (0.0-2.0); EOS # 0.2 K/uL (0.0-0.7); EOS % 1.1 % (0.0-4.0); HEMATOCRIT 25.8 % (34.0-47.0); LYMPH # 0.3 K/uL (1.0-4.3); LYMPH % 1.5 % (20.0-40.0); MEAN CELL VOLUME 65.6 fl (81.0-99.0); MEAN CORPUSCULAR HGB CONC 30.5 g/dL (33.0-37.0); MONO # 0.3 K/uL (0.0-0.8); MONO % 1.7 % (0.0-10.0); NEUT # 17.2 K/uL (1.8-7.0); NEUT % 95.6 % (50.0-75.0); RED CELL DISTRIBUTION WIDTH 35.3 % (11.5-14.5)
[2016-12-21 09:55] LABS: PARTIAL THROMBOPLASTIN TIME 30.1 SECONDS (23.3-32.5)
[2016-12-21 09:59] LABS: PLATELET COUNT 95 K/uL (130-400)
[2016-12-21 10:02] LABS: ALB/GLOB RATIO 0.8 (1.0-2.1); ALKALINE PHOSPHATASE 194 U/L (38-126); ALT/SGPT 44 U/L (9-52); AST/SGOT 58 U/L (14-36); BILIRUBIN,TOTAL 2.3 mg/dl (0.2-1.3); BLOOD UREA NITROGEN 13 mg/dl (7-17); CALCIUM 7.2 mg/dL (8.4-10.2); CARBON DIOXIDE 16 mmol/L (22-30); CHLORIDE 107 mmol/L (98-107); GFR AFRICAN-AMERICAN > 60; GLUCOSE,RANDOM 161 mg/dL (65-105); POTASSIUM 3.2 MMOL/L (3.6-5.0); SODIUM 136 mmol/l (132-148); TOTAL PROTEIN 6.4 G/DL (6.3-8.2)
[2016-12-21 10:41] LABS: PARTIAL THROMBOPLASTIN TIME 34.5 SECONDS (23.3-32.5)
[2016-12-21 10:47] LABS: NEUTROPHIL 90 % (42-75); TOTAL CELLS COUNTED 100
[2016-12-21 10:48] LABS: GIANT PLATELETS PRESENT; LARGE PLATELETS PRESENT
[2016-12-21 10:51] LABS: SPHEROCYTES SLIGHT
[2016-12-21 11:00] LABS: ALB/GLOB RATIO 0.9 (1.0-2.1); ALKALINE PHOSPHATASE 213 U/L (38-126); ALT/SGPT 44 U/L (9-52); AST/SGOT 54 U/L (14-36); BILIRUBIN,TOTAL 2.1 mg/dl (0.2-1.3); BLOOD UREA NITROGEN 8 mg/dl (7-17); CALCIUM 8.1 mg/dL (8.4-10.2); CARBON DIOXIDE 17 mmol/L (22-30); CHLORIDE 107 mmol/L (98-107); GFR AFRICAN-AMERICAN > 60; GLUCOSE,RANDOM 114 mg/dL (65-105); POTASSIUM 4.5 MMOL/L (3.6-5.0); SODIUM 142 mmol/l (132-148); T4 8.78 ug/dl (5.5-11.0); THYROID STIMULATING HORMONE 2.52 mIU/ML (0.46-4.68); TOTAL PROTEIN 8.1 G/DL (6.3-8.2)
[2016-12-21 11:34] LABS: TROPONIN I 1.04 ng/mL (0.00-0.120)
--- NOTE | 2016-12-21 11:59 | CARD ---
APPROVED REPORT EKG Measurement Heart [id number] <Conclusion> Sinus tachycardia Inferior infarct, age undetermined Abnormal ECG
--- NOTE | 2016-12-21 12:31 | NM ---
PROCEDURE: Nuclear Medicine Hepatobiliary Scan HISTORY: R/O Cholecystitis COMPARISON: December 20, 2016. CT chest abdomen pelvis TECHNIQUE: 5.3 mCi of technetium 99m Mebrofenin was administered intravenously. Planar images of the abdomen were obtained at 5 min intervals to 60 mins. Delayed images were also obtained. FINDINGS: LIVER: Timely and homogenous uptake. COMMON BILE DUCT: identified at 10 mins. GALLBLADDER: identified at 10 mins. SMALL BOWEL: Identified at 10 mins. IMPRESSION: Normal Hepatobiliary Scan. The cystic duct is patent.
[2016-12-21 14:40] LABS: BASO # 0.1 K/uL (0.0-0.2); BASO % 0.8 % (0.0-2.0); EOS # 0.1 K/uL (0.0-0.7); EOS % 1.6 % (0.0-4.0); HEMATOCRIT 33.4 % (34.0-47.0); LYMPH # 2.5 K/uL (1.0-4.3); LYMPH % 34.3 % (20.0-40.0); MEAN CELL VOLUME 68.7 fl (81.0-99.0); MEAN CORPUSCULAR HEMOGLOBIN 19.8 pg (27.0-31.0); MEAN CORPUSCULAR HGB CONC 28.8 g/dL (33.0-37.0); MEAN PLATELET VOLUME 9.8 fl (7.2-11.7); MONO % 0.5 % (0.0-10.0); NEUT # 4.6 K/uL (1.8-7.0); NEUT % 62.8 % (50.0-75.0); NRBC % 0.3 % (0.0-0.0); RED CELL DISTRIBUTION WIDTH 31.7 % (11.5-14.5); WHITE BLOOD COUNT 7.3 K/uL (4.8-10.8)
--- NOTE | 2016-12-21 15:00 | CP.PCM.PN ---
<Tatiana Camacho - Last Filed: 12/21/16 21:32> Subjective - Date & Time of Evaluation Date of Evaluation: 12/21/16 Time of Evaluation: 06:50 - Subjective Subjective: Patient was seen and examined at bedside this morning. Alert, awake, and oriented X 3. Patient still complaining of SOB, but improving. Denies chest pain, nausea, vomiting, abdominal pain. Patient still on oxygen by NC. VS on monitor: 97 % O2Sat, BP: 120/53, HR: 11 , RR : 35. Objective - Vital Signs/Intake and Output Vital Signs (last 24 hours): Temp Pulse Resp BP Pulse Ox 98.4 F 91 H 27 H 106/61 98 12/21/16 12:00 12/21/16 12:00 12/21/16 12:00 12/21/16 12:00 12/21/16 12:00 Intake and Output: 12/21/16 12/21/16 06:59 18:59 Intake Total 2500 Output Total 750 Balance 1750 - Medications Medications: Current Medications Acetaminophen (Tylenol 325mg Tab) 650 mg PO Q6 PRN PRN Reason: Fever >100.4 F Last Admin: 12/21/16 05:26 Dose: 650 mg Docusate Sodium (Colace) 200 mg PO DAILY [facility] Last Admin: 12/21/16 11:38 Dose: Not Given Enoxaparin Sodium (Lovenox) 40 mg SC DAILY [facility] PRN Reason: Protocol Ferrous Sulfate (Feosol) 325 mg PO BID [facility] Lactated Ringer's (Lactated Ringer's) 1,000 mls @ 175 mls/hr IV .Q5H43M [facility] Last Admin: 12/21/16 05:31 Dose: 175 mls/hr Meropenem 1 gm/ Sodium (Chloride) 100 mls @ 100 mls/hr IVPB Q8 [facility] Last Admin: 12/21/16 08:20 Dose: 100 mls/hr Vancomycin HCl 1 gm/ Sodium (Chloride) 250 mls @ 166.667 mls/hr IVPB DAILY [facility] Ibuprofen (Motrin Tab) 400 mg PO Q6 PRN PRN Reason: Fever >100.4 F Last Admin: 12/21/16 08:48 Dose: 400 mg Ketorolac Tromethamine (Toradol) 30 mg IVP Q6 PRN PRN Reason: Pain, moderate (4-7) Morphine Sulfate (Morphine) 4 mg IVP Q4 PRN PRN Reason: Pain, severe (8-10) Ondansetron HCl (Zofran Inj) 4 mg IVP Q6 PRN PRN Reason: Nausea/Vomiting Last Admin: 12/21/16 05:26 Dose: 4 mg - Labs Labs: 12/21/16 09:41 12/21/16 09:41 PT 14.4 SECONDS (9.6-11.2) H 12/21/16 09:41 INR 1.38 (0.92-1.08) H 12/21/16 09:41 APTT 34.5 SECONDS (23.3-32.5) H 12/21/16 09:41 - Constitutional Appears: Non-toxic, No Acute Distress - ENT Exam ENT Exam: Mucous Membranes Moist - Respiratory Exam Respiratory Exam: Clear to Ausculation Bilateral, NORMAL BREATHING PATTERN. absent: Rales, Rhonchi, Wheezes - Cardiovascular Exam Cardiovascular Exam: Tachycardia, REGULAR RHYTHM, +S1, +S2. absent: Murmur - GI/Abdominal Exam GI & Abdominal Exam: Soft, Normal Bowel Sounds. absent: Guarding, Rigid, Tenderness - Extremities Exam Extremities Exam: Calf Tenderness (mild right calf tenderness to palpation). absent: Pedal Edema - Neurological Exam Neurological Exam: Alert, Awake, Oriented x3 - Skin Skin Exam: Dry, Intact, Pallor Assessment and Plan - Assessment and Plan (Free Text) Assessment: 51 y/o obese F with PMH including iron deficiency anemia, uterine fibroids, s/p laparoscopic appendectomy on 12/13/16, was found to be febrile with leukocytosis and an elevated lactate, transferred to ICU for closer monitoring and further workup. Patient was noted to have gram negative rods on blood and urine cultures and is receiving empiric antibiotics while workup is continued. Plan: Sepsis with gram negative bacteremia -Etiology possibly secondary to concurrent UTI -Patient has been febrile (Tmax 24 hrs: 102.9 12/21 @08:48). WBC 18.0. -Patient tachycardic in 110-120 range but BP remains stable. -Lactate improvin.9 > 2.4 -Blood culture and Urine culture collected on 12/19 revealed gram negative rods, final ID and sensitivities pending -CT of chest detects no lung masses or consolidations. -CT Abd/Pelvis detects nonspecific mild diffuse thickening of the gallbladder wall with no gallstones or pericholecystic fluid. Kidneys/ureters were unremarkable with no hydronephrosis. A 5cm fluid density mass adjacent to the left side of the uterus was also detected which may be an ovarian cyst. -HIDA scan normal with patent cystic duct -On empiric Vancomycin 1gm IV daily (started 12/20, Current day 2) and Meropenem 1gm IV Q8H (Started 12/20, Current day 2). Received single dose of Zosyn on 12/20. -Infectious disease consult request Chest pain/SOB -Undetermined etiology -D-dimer elevated, Troponin elevated. Unclear significance due to associated bacteremia/infectious process -CT angio chest was performed on 12/20 revealing no evidence of central pulmonary embolus. No filling defects were noted in the right/left pulmonary artery or lobar vessels however exam was suboptimal due to patient habitus. -EKG does not reveal any acute changes -Patient was SOB overnight with associated wheezing and received dose of solumedrol in addition to albuterol -She is currently satting at 99% on NC -Cardiac echo ordered, pending final read -Cardiology consult requested Uterine fibroids/Ovarian Cyst -CT abd/pelvis detected a markedly enlarged uterus containing multiple masses c/ w fibroids. A 5cm fluid density mass adjacent to the left side of the uterus was also detected. -IMPREGNATOR HELPER consult requested -Will obtain TV U/S S/P Laparoscopic Appendectomy -Patient had recent lap appendectomy on 12/13/16 -General surgery consulted who believe current presentation is unrelated DVT Prophylaxis -Lovenox <Vale Juárez - Last Filed: 12/22/16 09:07> Objective - Vital Signs/Intake and Output Vital Signs (last 24 hours): Temp Pulse Resp BP Pulse Ox 97.8 F 67 24 122/70 99 12/22/16 04:00 12/22/16 06:00 12/22/16 06:00 12/22/16 06:00 12/22/16 06:00 Intake and Output: 12/22/16 12/22/16 06:59 18:59 Intake Total 1675 Output Total 250 Balance 1425 - Medications Medications: Current Medications Acetaminophen (Tylenol 325mg Tab) 650 mg PO Q6 PRN PRN Reason: Fever >100.4 F Last Admin: 12/21/16 05:26 Dose: 650 mg Docusate Sodium (Colace) 200 mg PO DAILY [facility] Last Admin: 12/22/16 08:26 Dose: Not Given Enoxaparin Sodium (Lovenox) 40 mg SC DAILY [facility] PRN Reason: Protocol Last Admin: 12/22/16 08:25 Dose: 40 mg Ferrous Sulfate (Feosol) 325 mg PO BID [facility] Last Admin: 12/22/16 08:26 Dose: 325 mg Lactated Ringer's (Lactated Ringer's) 1,000 mls @ 175 mls/hr IV .Q5H43M [facility] Last Admin: 12/22/16 08:31 Dose: 175 mls/hr Meropenem 1 gm/ Sodium (Chloride) 100 mls @ 100 mls/hr IVPB Q8 [facility] Last Admin: 12/22/16 08:21 Dose: 100 mls/hr Vancomycin HCl 1 gm/ Sodium (Chloride) 250 mls @ 166.667 mls/hr IVPB DAILY [facility] Last Admin: 12/22/16 08:24 Dose: 166.667 mls/hr Ibuprofen (Motrin Tab) 400 mg PO Q6 PRN PRN Reason: Fever >100.4 F Last Admin: 12/21/16 08:48 Dose: 400 mg Ketorolac Tromethamine (Toradol) 30 mg IVP Q6 PRN PRN Reason: Pain, moderate (4-7) Last Admin: 12/22/16 05:14 Dose: 30 mg Morphine Sulfate (Morphine) 4 mg IVP Q4 PRN PRN Reason: Pain, severe (8-10) Ondansetron HCl (Zofran Inj) 4 mg IVP Q6 PRN PRN Reason: Nausea/Vomiting Last Admin: 12/21/16 05:26 Dose: 4 mg - Labs Labs: 12/22/16 06:20 12/22/16 06:20 PT 14.4 SECONDS (9.6-11.2) H 12/21/16 09:41 INR 1.38 (0.92-1.08) H 12/21/16 09:41 APTT 34.5 SECONDS (23.3-32.5) H 12/21/16 09:41 Assessment and Plan - Assessment and Plan (Free Text) Assessment: ATETNDIG PHYSICIAN NOTE/ATTESTATION NOTE Patient seen and examined. Case discussed with resident. Case also discussed with ICU Attending [facility] General Surgery resident. Multiple problems including severe sepsis, UTI, episode of tachycardia, chest pain and sob. Patient awake, alert talking, reports feeling some improvement. Patient on meropenem and vanc. from ID in home sales consultant. Hida scan negative. Venous doppler upper extremities reported as negative. Venous Doppler lower extremities done this AM report pending. Lactate improved from 7 to 2. WBC remains elevated. Learning Designer consult called because of uterine fibroids and possible pelvic fluid collection on CT. Transvaginal US also ordered. Serum troponin I reported today as positive. Cardiology consult requested and echocardiogram ordered. Continue ICU.
--- NOTE | 2016-12-21 16:05 | US ---
PROCEDURE: Bilateral lower extremity venous duplex Doppler. HISTORY: r/o DVT COMPARISON: Comparison made with bilateral venous Doppler exam 12/15/2016 TECHNIQUE: Bilateral common femoral, superficial femoral, popliteal and posterior tibial veins were evaluated. Flow was assessed with color Doppler, compressibility, assessment of phasic flow and augmentation response. FINDINGS: COMMON FEMORAL VEIN: Right CFV: Unremarkable. Left CFV: Unremarkable. SUPERFICIAL FEMORAL VEIN: Right SFV: Unremarkable. Left SFV: Unremarkable. POPLITEAL VEIN: Right Popliteal: Unremarkable. Left Popliteal: Unremarkable. POSTERIOR TIBIAL VEIN: Right PTV: Unremarkable. Left PTV: Unremarkable. OTHER FINDINGS: None. IMPRESSION: No evidence of deep venous thrombosis.
--- NOTE | 2016-12-21 16:44 | CP.CCUPN ---
<Mohini Badillo - Last Filed: 12/21/16 16:22> CCU Subjective - Physician Review Subjective (Free Text): 12/21/16 12:36 Patient seen and examined at bedside with ICU attending during rounds. She was experiencing SOB with wheezing overnight, so she was given solumedrol and albuterol with improvement. Patient also has been febrile overnight and had urine/blood cultures both return positive for gram negative rods. She is receiving empiric vancomycin + meropenem. Patient remains normotensive and is currently denying abdominal pain, nausea, vomiting or calf pain. CCU Objective - Vital Signs / Intake & Output Intake and Output (Last 8hrs): Intake & Output 12/21/16 12/21/16 12/21/16 06:59 14:59 22:59 Intake Total 2500 Output Total 750 Balance 1750 Intake: IV 2100 Intake, Piggyback 100 Oral 300 Output: Urine 650 Urine, Voided 650 Stool 100 Other: # Bowel Movements 2 - Physical Exam Head: Positive for: Atraumatic, Normocephalic Pupils: Positive for: PERRL Extroacular Muscles: Positive for: EOMI Conjunctiva: Positive for: Normal Respiratory/Chest: Positive for: Clear to Auscultation, Good Air Exchange, Tender to Palpation (Betts). Negative for: Respiratory Distress, Wheezes, Rales , Rhonchi Cardiovascular: Positive for: Regular Rate and Rhythm, Normal S1, S2. Negative for: Murmurs Abdomen: Positive for: Normal Bowel Sounds, Other (No suprapubic or CVA tenderness). Negative for: Distention, Rebound, Guarding Lower Extremity: Negative for: Edema, CALF TENDERNESS, Chandler's Sign Skin: Positive for: Warm, Normal Color Psychiatric: Positive for: Alert, Oriented x 3 - Medications Active Medications: Active Medications Generic Name Dose Route Start Last Admin Trade Name Freq PRN Reason Stop Dose Admin Acetaminophen 650 mg 12/19/16 19:23 12/21/16 05:26 Tylenol 325mg Tab PO 650 mg Q6 PRN Administration Fever >100.4 F Docusate Sodium 200 mg 12/20/16 09:00 12/21/16 11:38 Colace PO Not Given DAILY [facility] Enoxaparin Sodium 40 mg 12/20/16 09:00 Lovenox SC DAILY [facility] Protocol Ferrous Sulfate 325 mg 12/20/16 09:00 Feosol PO BID MIGUEL Lactated Ringer's 1,000 mls @ 175 mls/hr 12/20/16 15:00 12/21/16 05:31 Lactated Ringer's IV 175 mls/hr .[id number] MIGUEL Administration Meropenem 1 gm/ Sodium 100 mls @ 100 mls/hr 12/21/16 01:00 12/21/16 08:20 Chloride IVPB 100 mls/hr Q8 MIGUEL Administration Vancomycin HCl 1 gm/ Sodium 250 mls @ 166.667 mls/hr 12/21/16 10:30 Chloride IVPB DAILY MIGUEL Ibuprofen 400 mg 12/21/16 08:03 12/21/16 08:48 Motrin Tab PO 400 mg Q6 PRN Administration Fever >100.4 F Ketorolac Tromethamine 30 mg 12/19/16 19:24 Toradol IVP Q6 PRN Pain, moderate (4-7) Morphine Sulfate 4 mg 12/20/16 10:00 Morphine IVP Q4 PRN Pain, severe (8-10) Ondansetron HCl 4 mg 12/19/16 20:28 12/21/16 05:26 Zofran Inj IVP 4 mg Q6 PRN Administration Nausea/Vomiting - Patient Studies Lab Studies: Lab Studies 12/21/16 12/21/16 12/21/16 Range/Units 10:51 09:41 09:41 WBC (4.8-10.8) K/uL RBC (3.80-5.20) Mil/uL Hgb (12.0-16.0) g/dL Hct (34.0-47.0) % MCV (81.0-99.0) fl MCH (27.0-31.0) pg MCHC (33.0-37.0) g/dL RDW (11.5-14.5) % Plt Count (130-400) K/uL MPV (7.2-11.7) fl Neut % (Auto) (50.0-75.0) % Lymph % (Auto) (20.0-40.0) % Wilkin % (Auto) (0.0-10.0) % Eos % (Auto) (0.0-4.0) % Baso % (Auto) (0.0-2.0) % Neut # (1.8-7.0) K/uL Lymph # (1.0-4.3) K/uL Wilkin # (0.0-0.8) K/uL Eos # (0.0-0.7) K/uL Baso # (0.0-0.2) K/uL Neutrophils % (Manual) (42-75) % Band Neutrophils % (0-2) % Lymphocytes % (Manual) (20-50) % Monocytes % (Manual) (0-10) % Platelet Estimate (NORMAL) Large Platelets Giant Platelets Hypochromasia (manual) Poikilocytosis (manual Anisocytosis (manual) Microcytosis (manual) Spherocytes Target Cells Tear Drop Cells Ovalocytes Schistocytes PT 14.4 H (9.6-11.2) SECONDS INR 1.38 H (0.92-1.08) APTT 34.5 H (23.3-32.5) SECONDS Sodium 136 (132-148) mmol/l Potassium 3.2 L (3.6-5.0) MMOL/L Chloride 107 (98-107) mmol/L Carbon Dioxide 16 L (22-30) mmol/L Anion Gap 16 (10-20) BUN 13 (7-17) mg/dl Creatinine 0.6 L (0.7-1.2) mg/dL Est GFR ( Amer) > 60 Est GFR (Non-Af Amer) > 60 Random Glucose 161 H (65-105) mg/dL Lactic Acid (0.7-2.1) MMOL/L Calcium 7.2 L (8.4-10.2) mg/dL Total Bilirubin 2.3 H (0.2-1.3) mg/dl AST 58 H (14-36) U/L ALT 44 (9-52) U/L Alkaline Phosphatase 194 H (38-126) U/L Troponin I 1.0400 H* (0.00-0.120) ng/mL Total Protein 6.4 (6.3-8.2) G/DL Albumin 2.8 L (3.5-5.0) g/dL Globulin 3.6 (2.2-3.9) gm/dL Albumin/Globulin Ratio 0.8 L (1.0-2.1) Amylase 34 (30-110) U/L Lipase 22 L (23-300) U/L 12/21/16 12/21/16 Range/Units 09:41 06:48 WBC 18.0 H D (4.8-10.8) K/uL RBC 3.93 (3.80-5.20) Mil/uL Hgb 7.9 L (12.0-16.0) g/dL Hct 25.8 L (34.0-47.0) % MCV 65.6 L D (81.0-99.0) fl MCH 20.0 L (27.0-31.0) pg MCHC 30.5 L (33.0-37.0) g/dL RDW 35.3 H (11.5-14.5) % Plt Count 95 L D (130-400) K/uL MPV 10.0 (7.2-11.7) fl Neut % (Auto) 95.6 H (50.0-75.0) % Lymph % (Auto) 1.5 L (20.0-40.0) % Wilkin % (Auto) 1.7 (0.0-10.0) % Eos % (Auto) 1.1 (0.0-4.0) % Baso % (Auto) 0.1 (0.0-2.0) % Neut # 17.2 H (1.8-7.0) K/uL Lymph # 0.3 L (1.0-4.3) K/uL Wilkin # 0.3 (0.0-0.8) K/uL Eos # 0.2 (0.0-0.7) K/uL Baso # 0.0 (0.0-0.2) K/uL Neutrophils % (Manual) 90 H (42-75) % Band Neutrophils % 6 H (0-2) % Lymphocytes % (Manual) 1 L (20-50) % Monocytes % (Manual) 3 (0-10) % Platelet Estimate Slightly decreased L (NORMAL) Large Platelets Present Giant Platelets Present Hypochromasia (manual) Slight Poikilocytosis (manual Slight Anisocytosis (manual) Slight Microcytosis (manual) Slight Spherocytes Slight Target Cells Slight Tear Drop Cells Slight Ovalocytes Slight Schistocytes Slight PT (9.6-11.2) SECONDS INR (0.92-1.08) APTT (23.3-32.5) SECONDS Sodium (132-148) mmol/l Potassium (3.6-5.0) MMOL/L Chloride (98-107) mmol/L Carbon Dioxide (22-30) mmol/L Anion Gap (10-20) BUN (7-17) mg/dl Creatinine (0.7-1.2) mg/dL Est GFR ( Amer) Est GFR (Non-Af Amer) Random Glucose (65-105) mg/dL Lactic Acid 2.4 H (0.7-2.1) MMOL/L Calcium (8.4-10.2) mg/dL Total Bilirubin (0.2-1.3) mg/dl AST (14-36) U/L ALT (9-52) U/L Alkaline Phosphatase (38-126) U/L Troponin I (0.00-0.120) ng/mL Total Protein (6.3-8.2) G/DL Albumin (3.5-5.0) g/dL Globulin (2.2-3.9) gm/dL Albumin/Globulin Ratio (1.0-2.1) Amylase (30-110) U/L Lipase (23-300) U/L Laboratory Results - last 24 hr 12/21/16 12/21/16 12/21/16 06:48 09:41 09:41 WBC 18.0 H D RBC 3.93 Hgb 7.9 L Hct 25.8 L MCV 65.6 L D MCH 20.0 L MCHC 30.5 L RDW 35.3 H Plt Count 95 L D MPV 10.0 Neut % (Auto) 95.6 H Lymph % (Auto) 1.5 L Wilkin % (Auto) 1.7 Eos % (Auto) 1.1 Baso % (Auto) 0.1 Neut # 17.2 H Lymph # 0.3 L Wilkin # 0.3 Eos # 0.2 Baso # 0.0 Neutrophils % (Manual) 90 H Band Neutrophils % 6 H Lymphocytes % (Manual) 1 L Monocytes % (Manual) 3 Platelet Estimate Slightly decreased L Large Platelets Present Giant Platelets Present Hypochromasia (manual) Slight Poikilocytosis (manual Slight Anisocytosis (manual) Slight Microcytosis (manual) Slight Spherocytes Slight Target Cells Slight Tear Drop Cells Slight Ovalocytes Slight Schistocytes Slight PT INR APTT Sodium 136 Potassium 3.2 L Chloride 107 Carbon Dioxide 16 L Anion Gap 16 BUN 13 Creatinine 0.6 L Est GFR ( Amer) > 60 Est GFR (Non-Af Amer) > 60 Random Glucose 161 H Lactic Acid 2.4 H Calcium 7.2 L Total Bilirubin 2.3 H AST 58 H ALT 44 Alkaline Phosphatase 194 H Troponin I Total Protein 6.4 Albumin 2.8 L Globulin 3.6 Albumin/Globulin Ratio 0.8 L Amylase Lipase 12/21/16 12/21/16 09:41 10:51 WBC RBC Hgb Hct MCV MCH MCHC RDW Plt Count MPV Neut % (Auto) Lymph % (Auto) Wilkin % (Auto) Eos % (Auto) Baso % (Auto) Neut # Lymph # Wilkin # Eos # Baso # Neutrophils % (Manual) Band Neutrophils % Lymphocytes % (Manual) Monocytes % (Manual) Platelet Estimate Large Platelets Giant Platelets Hypochromasia (manual) Poikilocytosis (manual Anisocytosis (manual) Microcytosis (manual) Spherocytes Target Cells Tear Drop Cells Ovalocytes Schistocytes PT 14.4 H INR 1.38 H APTT 34.5 H Sodium Potassium Chloride Carbon Dioxide Anion Gap BUN Creatinine Est GFR ( Amer) Est GFR (Non-Af Amer) Random Glucose Lactic Acid Calcium Total Bilirubin AST ALT Alkaline Phosphatase Troponin I 1.0400 H* Total Protein Albumin Globulin Albumin/Globulin Ratio Amylase 34 Lipase 22 L EKG/Cardiology Studies: Cardiology / EKG Studies 12/21/16 EKG [ELECTROCARDIOGRAM] Routine Comment: Mode Of Transportation: Reason For Exam: chest pain, elevated troponin Review of Systems - Constitutional Constitutional: Fever, Chills - Cardiovascular Cardiovascular: Chest Pain (Mild retrosternal chest pain). absent: Leg Edema, Palpitations - Respiratory Respiratory: absent: Cough, Hemoptysis, Wheezing - Gastrointestinal Gastrointestinal: absent: Abdominal Pain, Diarrhea, Nausea, Vomiting - Genitourinary Genitourinary: absent: Difficulty Urinating, Dysuria, Urinary Frequency, Urinary Urgency Critical Care Progress Note - Nutrition Nutrition: Nutrition Category Date Time Status Regular Diet [DIET] Diets 12/21/16 Breakfast Active Assessment/Plan - Assessment and Plan (Free Text) Assessment: 51 y/o obese F with PMH including iron deficiency anemia, uterine fibroids, s/p laparoscopic appendectomy on 12/13/16 presented to ED with complaints of pain an swelling to IV site of recent venofer infusion several days prior. During ED assessment, patient was found to be febrile with leukocytosis and an elevated lactate. On admission day 2 she developed chills, increasing fever and a lactate of 7.9 so she was transferred to ICU for closer monitoring and further workup. Patient was noted to have gram negative rods on blood and urine cultures and is receiving empiric antibiotics while workup is continued. Plan: Sepsis with gram negative bacteremia -Etiology possibly secondary to concurrent UTI -Patient has been febrile (Tmax 24 hrs: 102.9 12/21 @08:48). WBC 18.0. -Patient tachycardic in 110-120 range but BP remains stable. -Lactate improvin.9 > 2.4 -Blood culture and Urine culture collected on 12/19 revealed gram negative rods, final ID and sensitivities pending -CT of chest detects no lung masses or consolidations. -CT Abd/Pelvis detects nonspecific mild diffuse thickening of the gallbladder wall with no gallstones or pericholecystic fluid. Kidneys/ureters were unremarkable with no hydronephrosis. A 5cm fluid density mass adjacent to the left side of the uterus was also detected which may be an ovarian cyst. -HIDA scan normal with patent cystic duct -On empiric Vancomycin 1gm IV daily (started 12/20, Current day 2) and Meropenem 1gm IV Q8H (Started 12/20, Current day 2). Received single dose of Zosyn on 12/20. -Infectious disease consult request Chest pain/SOB -Undetermined etiology -D-dimer elevated, Troponin elevated. Unclear significance due to associated bacteremia/infectious process -CT angio chest was performed on 12/20 revealing no evidence of central pulmonary embolus. No filling defects were noted in the right/left pulmonary artery or lobar vessels however exam was suboptimal due to patient habitus. -EKG does not reveal any acute changes -Patient was SOB overnight with associated wheezing and received dose of solumedrol in addition to albuterol -She is currently satting at 99% on NC -Cardiac echo ordered, pending final read -Cardiology consult requested Uterine fibroids/Ovarian Cyst -CT abd/pelvis detected a markedly enlarged uterus containing multiple masses c/ w fibroids. A 5cm fluid density mass adjacent to the left side of the uterus was also detected. -ROAD [employer] consult requested -Will obtain TV U/S S/P Laparoscopic Appendectomy -Patient had recent lap appendectomy on 12/13/16 -General surgery consulted who believe current presentation is unrelated DVT Prophylaxis -Lovenox <Jaime Yuan - Last Filed: 12/21/16 17:57> CCU Subjective - Physician Review Subjective (Free Text): Attestation: Patient seen and examined at the bedside with Resident Dr. Avinash Badillo; and I agree with his outline of plans and management documented as discussed on AM rounds reflecting my review of all applicable clinical data, and participation in the care of the patient throughout the day in ICU; today, December 21, 2016.
--- NOTE | 2016-12-21 16:45 | CARD ---
APPROVED REPORT EXAM: Two-dimensional and M-mode echocardiogram with Doppler and color Doppler. Other Information Quality : AverageRhythm : NSR INDICATION Chest Pain Elevated Troponin 2D DIMENSIONS IVSd0.80 (0.7-1.1cm)LVDd5.19 (3.9-5.9cm) LVOT Diameter1.74 (1.8-2.4cm)PWd0.82 (0.7-1.1cm) IVSs1.24 (0.8-1.2cm)LVDs3.86 (2.5-4.0cm) FS (%) 25.7 %PWs1.09 (0.8-1.2cm) LVEF (%)50.0 (>50%) M-Mode DIMENSIONS Left Atrium (MM)4.75 (2.5-4.0cm)IVSd1.03 (0.7-1.1cm) Aortic Root3.00 (2.2-3.7cm)LVDd5.47 (4.0-5.6cm) Aortic Cusp Exc.1.84 (1.5-2.0cm)PWd1.13 (0.7-1.1cm) IVSs1.25 cmFS (%) 25 % LVDs4.13 (2.0-3.8cm)PWs1.38 cm Mitral Valve MV E Tvzzjxfg12.5cm/sMV DECEL [id number] A Nukivxoi06.3cm/s MV [id number]/A ratio1.1MVA (PHT)7.47cm2 TDI Lateral E' Peak V14.59cm/sMedial E' Peak V9.37cm/sE/Lateral E'5.8 E/Medial E'9.0 Tricuspid Valve TR Peak [id number]/sRAP [id number] Peak Gr.8mmHg [id number] LEFT VENTRICLE The left ventricle is normal size. There is normal left ventricular wall thickness. Left ventricle systolic function is borderline. There is normal LV segmental wall motion. The left ventricular diastolic function is normal. RIGHT VENTRICLE The right ventricle is normal size. There is normal right ventricular wall thickness. The right ventricular systolic function is normal. ATRIA The left atrium size is normal. The right atrium size is normal. AORTIC VALVE The aortic valve is normal in structure and function. No aortic regurgitation is present. There is no aortic valvular stenosis. MITRAL VALVE The mitral valve is normal in structure and function. There is no evidence of mitral valve prolapse. There is no mitral valve stenosis. There is no mitral valve regurgitation noted. TRICUSPID VALVE The tricuspid valve is normal in structure and function. There is no tricuspid valve regurgitation noted. PULMONIC VALVE The pulmonary valve is normal in structure and function. There is no pulmonic valvular regurgitation. GREAT VESSELS The aortic root is normal in size. The IVC was not visualized. PERICARDIAL EFFUSION The pericardium appears normal. <Conclusion> The left ventricle is normal size. There is normal left ventricular wall thickness. Left ventricle systolic function is borderline. There is normal LV segmental wall motion. The left ventricular diastolic function is normal.
[2016-12-21 16:59] LABS: CHOLESTEROL 86 mg/dL (0-199)
[2016-12-21] MEDS: Enoxaparin 40 mg Syringe SC SCH (17:40)
--- NOTE | 2016-12-21 21:29 | CP.PCM.CON ---
Addendum entered and electronically signed by Ale Benson MD 12/21/16 22:39 : Correction: ROS : Negative except as mentioned in HPI. NO chills, weight loss or chest pain. Original Note: <Ale Benson - Last Filed: 12/21/16 22:38> History of Present Illness - History of Present Illness History of Present Illness: MANAGER DOCUMENT CONSULT: 51 YO F w/ h/o Uterine Fibroids, SHAYAN s/p recent Appendectomy on 12/13/16 POD#9 had recently received venofer infusion from which she started having pain in her right arm and started feeling warm overnight. In ED she was found to be febrile w/ leucocytosis, and elevated lactate. She was readmitted by the medicine team on 12/19 with complaints of SOB, febrile and generalized abdominal pain. - On 12/20 a CALCINER OPERATOR HELPER was called after patient was found to be tachycardic and was having SOB. At that time she was given adenosine, lovenox and transferred to ICU. A CT angio was preformed which showed no evidence of central PE, subsegmental vessels were suboptimally visualized. Thickened gallbladder was also visualized - Also showed patient to have a enlarged uterus containing multiple fibroids w/ 5.1 cm fluid density in left pelvis. - Blood culture and urine cultures have both shown gram negative rods. - Currently patient states that her abdominal pain has subsided and she is feeling better, she is tolerating PO intake but continuous to have a decreased appetite. On her last admission after the surgery the patient states she was having increase in flow of her menstrual cycle, but was given progesterones pills to take. After she took one pt states her menstrual cycle ended and she did not take any more pills. PMH: Iron deficiency anemia, Uterine Fibroids PSH: Lap appendectomy 12/13 OBHX: 3 , x1. GynHx: Menarche at 16 YO. LMP was December 13, 2016. Periods are regular but heavy in flow. Uterine fibroids since she was 17. Had a IUD for 20 years, but currently is removed. PT has never had a PAP smear. No OBGYN or PMD. Review of Systems - Review of Systems All systems: reviewed and no additional remarkable complaints except - Constitutional Constitutional: Chills, Weight Loss - Cardiovascular Cardiovascular: Chest Pain Past Patient History - Infectious Disease Hx of Infectious Diseases: None - Past Medical History & Family History Past Medical History?: No - Past Social History Smoking Status: Never Smoked - CARDIAC Hx Cardiac Disorders: No - PULMONARY Hx Respiratory Disorders: No - NEUROLOGICAL Hx Neurological Disorder: No - HEENT Hx HEENT Problems: No - RENAL Hx Chronic Kidney Disease: No - ENDOCRINE/METABOLIC Hx Endocrine Disorders: No - HEMATOLOGICAL/ONCOLOGICAL Hx Blood Disorders: Yes Hx Anemia: Yes - INTEGUMENTARY Hx Dermatological Problems: No - MUSCULOSKELETAL/RHEUMATOLOGICAL Hx Musculoskeletal Disorders: No Hx Falls: No - GASTROINTESTINAL Hx Gastrointestinal Disorders: No - GENITOURINARY/GYNECOLOGICAL Hx Genitourinary Disorders: No - PSYCHIATRIC Hx Psychophysiologic Disorder: No Hx Emotional Abuse: No Hx Physical Abuse: No Hx Substance Use: No - SURGICAL HISTORY Hx Surgeries: Yes Other/Comment: APPENDECTOMY-DECEMBER 2016 - ANESTHESIA Hx Anesthesia: Yes Hx Anesthesia Reactions: No Hx Malignant Hyperthermia: No Meds Home Medications: Home Medication List Medication Instructions Recorded Confirmed Type Cephalexin [cephalexin] 500 mg PO QID #28 cap 12/19/16 Rx Naproxen [Naprosyn] 500 mg PO BID PRN #20 tablet 12/19/16 Rx Allergies/Adverse Reactions: Allergies Allergy/AdvReac Type Severity Reaction Status Date / Time No Known Allergies Allergy Verified 12/12/16 23:15 - Medications Medications: Current Medications Acetaminophen (Tylenol 325mg Tab) 650 mg PO Q6 PRN PRN Reason: Fever >100.4 F Last Admin: 12/21/16 05:26 Dose: 650 mg Docusate Sodium (Colace) 200 mg PO DAILY [facility] Last Admin: 12/21/16 11:38 Dose: Not Given Enoxaparin Sodium (Lovenox) 40 mg SC DAILY [facility] PRN Reason: Protocol Last Admin: 12/21/16 17:40 Dose: 40 mg Ferrous Sulfate (Feosol) 325 mg PO BID [facility] Last Admin: 12/21/16 17:39 Dose: 325 mg Lactated Ringer's (Lactated Ringer's) 1,000 mls @ 175 mls/hr IV .Q5H43M [facility] Last Admin: 12/21/16 16:55 Dose: 175 mls/hr Meropenem 1 gm/ Sodium (Chloride) 100 mls @ 100 mls/hr IVPB Q8 [facility] Last Admin: 12/21/16 16:53 Dose: 100 mls/hr Vancomycin HCl 1 gm/ Sodium (Chloride) 250 mls @ 166.667 mls/hr IVPB DAILY [facility] Last Admin: 12/21/16 16:54 Dose: Not Given Ibuprofen (Motrin Tab) 400 mg PO Q6 PRN PRN Reason: Fever >100.4 F Last Admin: 12/21/16 08:48 Dose: 400 mg Ketorolac Tromethamine (Toradol) 30 mg IVP Q6 PRN PRN Reason: Pain, moderate (4-7) Last Admin: 12/21/16 21:03 Dose: 30 mg Morphine Sulfate (Morphine) 4 mg IVP Q4 PRN PRN Reason: Pain, severe (8-10) Ondansetron HCl (Zofran Inj) 4 mg IVP Q6 PRN PRN Reason: Nausea/Vomiting Last Admin: 12/21/16 05:26 Dose: 4 mg Physical Exam - Constitutional Appears: No Acute Distress - Head Exam Head Exam: ATRAUMATIC, NORMOCEPHALIC - Eye Exam Eye Exam: PERRL - Cardiovascular Exam Cardiovascular Exam: REGULAR RHYTHM, +S1, +S2 - GI/Abdominal Exam GI & Abdominal Exam: Normal Bowel Sounds, Soft, Tenderness. absent: Mass, Rebound Additional comments: Slight left lower quadrant tenderness - Extremities Exam Extremities exam: Positive for: normal inspection. Negative for: pedal edema - Neurological Exam Neurological exam: CN II-XII Intact, Oriented x3 Results - Vital Signs Recent Vital Signs: Last Vital Signs Temp 98.4 F 12/21/16 12:00 Pulse 88 12/21/16 14:00 Resp 43 H 12/21/16 14:00 BP 112/73 12/21/16 14:00 Pulse Ox 100 12/21/16 14:00 - Labs Result Diagrams: 12/21/16 09:41 12/21/16 09:41 Labs: Laboratory Results - last 24 hr 12/21/16 12/21/16 12/21/16 06:48 09:41 09:41 WBC 18.0 H D RBC 3.93 Hgb 7.9 L Hct 25.8 L MCV 65.6 L D MCH 20.0 L MCHC 30.5 L RDW 35.3 H Plt Count 95 L D MPV 10.0 Neut % (Auto) 95.6 H Lymph % (Auto) 1.5 L Vance % (Auto) 1.7 Eos % (Auto) 1.1 Baso % (Auto) 0.1 Neut # 17.2 H Lymph # 0.3 L Vance # 0.3 Eos # 0.2 Baso # 0.0 Neutrophils % (Manual) 90 H Band Neutrophils % 6 H Lymphocytes % (Manual) 1 L Monocytes % (Manual) 3 Platelet Estimate Slightly decreased L Large Platelets Present Giant Platelets Present Hypochromasia (manual) Slight Poikilocytosis (manual Slight Anisocytosis (manual) Slight Microcytosis (manual) Slight Spherocytes Slight Target Cells Slight Tear Drop Cells Slight Ovalocytes Slight Schistocytes Slight PT INR APTT Sodium 136 Potassium 3.2 L Chloride 107 Carbon Dioxide 16 L Anion Gap 16 BUN 13 Creatinine 0.6 L Est GFR ( Amer) > 60 Est GFR (Non-Af Amer) > 60 Random Glucose 161 H Lactic Acid 2.4 H Calcium 7.2 L Total Bilirubin 2.3 H AST 58 H ALT 44 Alkaline Phosphatase 194 H Troponin I Total Protein 6.4 Albumin 2.8 L Globulin 3.6 Albumin/Globulin Ratio 0.8 L Triglycerides Cholesterol LDL Cholesterol Direct HDL Cholesterol Amylase Lipase Procalcitonin 12/21/16 12/21/16 12/21/16 09:41 09:41 10:51 WBC RBC Hgb Hct MCV MCH MCHC RDW Plt Count MPV Neut % (Auto) Lymph % (Auto) Vance % (Auto) Eos % (Auto) Baso % (Auto) Neut # Lymph # Vance # Eos # Baso # Neutrophils % (Manual) Band Neutrophils % Lymphocytes % (Manual) Monocytes % (Manual) Platelet Estimate Large Platelets Giant Platelets Hypochromasia (manual) Poikilocytosis (manual Anisocytosis (manual) Microcytosis (manual) Spherocytes Target Cells Tear Drop Cells Ovalocytes Schistocytes PT 14.4 H INR 1.38 H APTT 34.5 H Sodium Potassium Chloride Carbon Dioxide Anion Gap BUN Creatinine Est GFR ( Amer) Est GFR (Non-Af Amer) Random Glucose Lactic Acid Calcium Total Bilirubin AST ALT Alkaline Phosphatase Troponin I 1.0400 H* Total Protein Albumin Globulin Albumin/Globulin Ratio Triglycerides Cholesterol LDL Cholesterol Direct HDL Cholesterol Amylase 34 Lipase 22 L Procalcitonin 45.85 H 12/21/16 11:59 WBC RBC Hgb Hct MCV MCH MCHC RDW Plt Count MPV Neut % (Auto) Lymph % (Auto) Vance % (Auto) Eos % (Auto) Baso % (Auto) Neut # Lymph # Vance # Eos # Baso # Neutrophils % (Manual) Band Neutrophils % Lymphocytes % (Manual) Monocytes % (Manual) Platelet Estimate Large Platelets Giant Platelets Hypochromasia (manual) Poikilocytosis (manual Anisocytosis (manual) Microcytosis (manual) Spherocytes Target Cells Tear Drop Cells Ovalocytes Schistocytes PT INR APTT Sodium Potassium Chloride Carbon Dioxide Anion Gap BUN Creatinine Est GFR ( Amer) Est GFR (Non-Af Amer) Random Glucose Lactic Acid Calcium Total Bilirubin AST ALT Alkaline Phosphatase Troponin I Total Protein Albumin Globulin Albumin/Globulin Ratio Triglycerides 217 H Cholesterol 86 LDL Cholesterol Direct 33 HDL Cholesterol 10 L Amylase Lipase Procalcitonin Assessment & Plan - Assessment and Plan (Free Text) Assessment: 51 YO obese female w/ h/o of fibroids and SHAYAN s/p laproscopic appendectomy POD # 9 is readmitted for fevers, SOB, Gram neg bacteremia. 1) Sepsis w/ gram negative bacteremia most likely urosepsis - Etiology most likely secondary to UTI - Lactate improving - Preliminary results show gram negative rods found in urine and blood - Continue Emperic Vancomycin 1gm IV daily and Meropenem 1gm IV Q8 - F/U w/ official culture reports and morning CBC 2) Uterine Fibroids. Ovarian cyst - CT abd/ pelvis detected a markedly enlarged uterus containing multiple masses c/w fibroids. A 5cm density mass adjacent to the left side of the uterus was also detected. - Trans vaginal U/S ordered - F/U with results - F/U outpatient for further management of fibroids. <Dex Arguello - Last Filed: 12/22/16 14:35> History of Present Illness - History of Present Illness History of Present Illness: Pt was seen and examined with pgy1. Agree with note. Treat Urosepsis/stabilize/ follow up in MANAGER DOCUMENT clinic for fibroid uterus/possible ovarian cyst...contact FP attending to discuss AM...MAHNDO Meds - Medications Medications: Current Medications Acetaminophen (Tylenol 325mg Tab) 650 mg PO Q6 PRN PRN Reason: Fever >100.4 F Last Admin: 12/21/16 05:26 Dose: 650 mg Docusate Sodium (Colace) 200 mg PO DAILY [facility] Last Admin: 12/22/16 08:26 Dose: Not Given Ferrous Sulfate (Feosol) 325 mg PO BID [facility] Last Admin: 12/22/16 08:26 Dose: 325 mg Lactated Ringer's (Lactated Ringer's) 1,000 mls @ 175 mls/hr IV .Q5H43M [facility] Last Admin: 12/22/16 08:31 Dose: 175 mls/hr Meropenem 1 gm/ Sodium (Chloride) 100 mls @ 100 mls/hr IVPB Q8 [facility] Last Admin: 12/22/16 08:21 Dose: 100 mls/hr Vancomycin HCl 1 gm/ Sodium (Chloride) 250 mls @ 166.667 mls/hr IVPB DAILY [facility] Last Admin: 12/22/16 08:24 Dose: 166.667 mls/hr Ibuprofen (Motrin Tab) 400 mg PO Q6 PRN PRN Reason: Fever >100.4 F Last Admin: 12/21/16 08:48 Dose: 400 mg Ketorolac Tromethamine (Toradol) 30 mg IVP Q6 PRN PRN Reason: Pain, moderate (4-7) Last Admin: 12/22/16 05:14 Dose: 30 mg Morphine Sulfate (Morphine) 4 mg IVP Q4 PRN PRN Reason: Pain, severe (8-10) Ondansetron HCl (Zofran Inj) 4 mg IVP Q6 PRN PRN Reason: Nausea/Vomiting Last Admin: 12/21/16 05:26 Dose: 4 mg Results - Vital Signs Recent Vital Signs: Last Vital Signs Temp 98.6 F 12/22/16 08:00 Pulse 66 12/22/16 10:00 Resp 30 H 12/22/16 10:00 BP 125/79 12/22/16 10:00 Pulse Ox 99 12/22/16 10:00 - Labs Result Diagrams: 12/22/16 06:20 12/22/16 06:20 Labs: Laboratory Results - last 24 hr 12/21/16 12/21/16 12/21/16 09:41 09:41 11:59 WBC 18.0 H D RBC 3.93 Hgb 7.9 L Hct 25.8 L MCV 65.6 L D MCH 20.0 L MCHC 30.5 L RDW 35.3 H Plt Count 95 L D MPV 10.0 Neut % (Auto) 95.6 H Lymph % (Auto) 1.5 L Vance % (Auto) 1.7 Eos % (Auto) 1.1 Baso % (Auto) 0.1 Neut # 17.2 H Lymph # 0.3 L Vance # 0.3 Eos # 0.2 Baso # 0.0 Neutrophils % (Manual) 90 H Band Neutrophils % 6 H Lymphocytes % (Manual) 1 L Monocytes % (Manual) 3 Platelet Estimate Slightly decreased L Large Platelets Present Giant Platelets Present Hypochromasia (manual) Slight Poikilocytosis (manual Slight Anisocytosis (manual) Slight Microcytosis (manual) Slight Spherocytes Slight Target Cells Slight Tear Drop Cells Slight Ovalocytes Slight Schistocytes Slight Sodium Potassium Chloride Carbon Dioxide Anion Gap BUN Creatinine Est GFR ( Amer) Est GFR (Non-Af Amer) Random Glucose Calcium Total Bilirubin AST ALT Alkaline Phosphatase Troponin I Total Protein Albumin Globulin Albumin/Globulin Ratio Triglycerides 217 H Cholesterol 86 LDL Cholesterol Direct 33 HDL Cholesterol 10 L Procalcitonin 45.85 H 12/21/16 12/22/16 12/22/16 20:30 06:20 06:20 WBC 20.6 H RBC 3.79 L Hgb 7.5 L Hct 25.2 L MCV 66.5 L MCH 19.7 L MCHC 29.6 L RDW 36.3 H Plt Count 55 L D MPV 10.0 Neut % (Auto) 83.8 H Lymph % (Auto) 13.2 L Vance % (Auto) 2.7 Eos % (Auto) 0.0 Baso % (Auto) 0.3 Neut # 17.3 H Lymph # 2.7 Vance # 0.6 Eos # 0.0 Baso # 0.1 Neutrophils % (Manual) Band Neutrophils % Lymphocytes % (Manual) Monocytes % (Manual) Platelet Estimate Large Platelets Giant Platelets Hypochromasia (manual) Poikilocytosis (manual Anisocytosis (manual) Microcytosis (manual) Spherocytes Target Cells Tear Drop Cells Ovalocytes Schistocytes Sodium 139 Potassium 3.9 Chloride 109 H Carbon Dioxide 22 Anion Gap 12 BUN 19 H Creatinine 0.6 L Est GFR ( Amer) > 60 Est GFR (Non-Af Amer) > 60 Random Glucose 136 H Calcium 8.1 L Total Bilirubin 0.8 AST 73 H D ALT 50 Alkaline Phosphatase 178 H Troponin I 0.1630 H* 0.1080 Total Protein 6.5 Albumin 2.8 L Globulin 3.7 Albumin/Globulin Ratio 0.8 L Triglycerides Cholesterol LDL Cholesterol Direct HDL Cholesterol Procalcitonin
--- NOTE | 2016-12-21 21:59 | US ---
HISTORY: COMPARISON: None available. TECHNIQUE: Transabdominal ultrasound examination of the pelvis was performed. FINDINGS: UTERUS: Measures 20 x 13 x 13 cm. The uterus is markedly enlarged seen up to the level of the umbilicus demonstrate market heterogeneous echogenicity. There is suspicious for fibroid at the uterine body measures 4 x 4.3 x 4.4 centimeter. ENDOMETRIUM: The endometrium is not well visualized in this study. CERVIX: No cervical abnormality identified. RIGHT OVARY: Was not visualized LEFT OVARY: Was not visualized. FREE FLUID: No significant free fluid noted. OTHER FINDINGS: None. IMPRESSION: Markedly limited study. The uterus is enlarged measures up to 20 centimeter and seen at the level of the umbilicus demonstrates marked heterogeneous echotexture. The endometrium is not visualized in this study. The ovaries are not visualized.
[2016-12-22] MEDS: Meropenem 1 GM in Sodium Chloride 0.9% 100 ML IVPB SCH ×3 (00:10→16:22)
[2016-12-22] MEDS: Lactated Ringer's 1,000 ML IV SCH ×2 (01:18→08:31)
--- NOTE | 2016-12-22 06:48 | CP.PCM.PN ---
Subjective - Date & Time of Evaluation Date of Evaluation: 12/22/16 Time of Evaluation: 06:46 - Subjective Subjective: General Surgery Progress Note for Dr. Huynh This 51F was seen and examined by me this Am at bedside. No acute events reported overnight. Patient continues to complain of generalized abdominal pain. She reports chills, denies nausea vomiting or diarrhea. Objective - Vital Signs/Intake and Output Vital Signs (last 24 hours): Temp Pulse Resp BP Pulse Ox 97.8 F 67 24 122/70 99 12/22/16 04:00 12/22/16 06:00 12/22/16 06:00 12/22/16 06:00 12/22/16 06:00 Intake and Output: 12/21/16 12/22/16 18:59 06:59 Intake Total 2145 1675 Output Total 1 250 Balance 2144 1425 - Medications Medications: Current Medications Acetaminophen (Tylenol 325mg Tab) 650 mg PO Q6 PRN PRN Reason: Fever >100.4 F Last Admin: 12/21/16 05:26 Dose: 650 mg Docusate Sodium (Colace) 200 mg PO DAILY [facility] Last Admin: 12/21/16 11:38 Dose: Not Given Enoxaparin Sodium (Lovenox) 40 mg SC DAILY [facility] PRN Reason: Protocol Last Admin: 12/21/16 17:40 Dose: 40 mg Ferrous Sulfate (Feosol) 325 mg PO BID [facility] Last Admin: 12/21/16 17:39 Dose: 325 mg Lactated Ringer's (Lactated Ringer's) 1,000 mls @ 175 mls/hr IV .Q5H43M [facility] Last Admin: 12/22/16 01:18 Dose: 175 mls/hr Meropenem 1 gm/ Sodium (Chloride) 100 mls @ 100 mls/hr IVPB Q8 [facility] Last Admin: 12/22/16 00:10 Dose: 100 mls/hr Vancomycin HCl 1 gm/ Sodium (Chloride) 250 mls @ 166.667 mls/hr IVPB DAILY [facility] Last Admin: 12/21/16 16:54 Dose: Not Given Ibuprofen (Motrin Tab) 400 mg PO Q6 PRN PRN Reason: Fever >100.4 F Last Admin: 12/21/16 08:48 Dose: 400 mg Ketorolac Tromethamine (Toradol) 30 mg IVP Q6 PRN PRN Reason: Pain, moderate (4-7) Last Admin: 12/22/16 05:14 Dose: 30 mg Morphine Sulfate (Morphine) 4 mg IVP Q4 PRN PRN Reason: Pain, severe (8-10) Ondansetron HCl (Zofran Inj) 4 mg IVP Q6 PRN PRN Reason: Nausea/Vomiting Last Admin: 12/21/16 05:26 Dose: 4 mg - Labs Labs: 12/21/16 09:41 12/21/16 09:41 PT 14.4 SECONDS (9.6-11.2) H 12/21/16 09:41 INR 1.38 (0.92-1.08) H 12/21/16 09:41 APTT 34.5 SECONDS (23.3-32.5) H 12/21/16 09:41 - Constitutional Appears: No Acute Distress - Head Exam Head Exam: ATRAUMATIC, NORMAL INSPECTION, NORMOCEPHALIC - Eye Exam Eye Exam: EOMI, Normal appearance - Respiratory Exam Respiratory Exam: NORMAL BREATHING PATTERN. absent: Wheezes, Respiratory Distress - Cardiovascular Exam Cardiovascular Exam: Tachycardia - GI/Abdominal Exam GI & Abdominal Exam: Soft. absent: Distended, Guarding, Hernia, Rebound, Tenderness Additional comments: surgical incisions C/D/I - Neurological Exam Neurological exam: Alert, Oriented x3 - Psychiatric Exam Psychiatric exam: Normal Affect, Normal Mood - Skin Skin Exam: Dry, Intact Assessment and Plan - Assessment and Plan (Free Text) Assessment: 51yo F with SHAYAN, POD #9 s/p Lap appendectomy, readmitted with Fevers, SOB, Gram neg. bacteremia - Afebrile - Will F/U labs - [facility] Pigeon Loader recs: outpatient followup cyctic fibroiduterous - HIDA negative - Encourage Incentive Spirometer D/W Dr. Lino Ulloa PGY-9
[2016-12-22 07:46] LABS: BASO # 0.1 K/uL (0.0-0.2); BASO % 0.3 % (0.0-2.0); HEMATOCRIT 25.2 % (34.0-47.0); LYMPH # 2.7 K/uL (1.0-4.3); LYMPH % 13.2 % (20.0-40.0); MEAN CELL VOLUME 66.5 fl (81.0-99.0); MEAN CORPUSCULAR HEMOGLOBIN 19.7 pg (27.0-31.0); MEAN CORPUSCULAR HGB CONC 29.6 g/dL (33.0-37.0); MONO # 0.6 K/uL (0.0-0.8); MONO % 2.7 % (0.0-10.0); NEUT # 17.3 K/uL (1.8-7.0); NEUT % 83.8 % (50.0-75.0); RED CELL DISTRIBUTION WIDTH 36.3 % (11.5-14.5); WHITE BLOOD COUNT 20.6 K/uL (4.8-10.8)
[2016-12-22 07:50] LABS: ALB/GLOB RATIO 0.8 (1.0-2.1); ALKALINE PHOSPHATASE 178 U/L (38-126); ALT/SGPT 50 U/L (9-52); AST/SGOT 73 U/L (14-36); BILIRUBIN,TOTAL 0.8 mg/dl (0.2-1.3); BLOOD UREA NITROGEN 19 mg/dl (7-17); CALCIUM 8.1 mg/dL (8.4-10.2); CARBON DIOXIDE 22 mmol/L (22-30); CHLORIDE 109 mmol/L (98-107); GFR AFRICAN-AMERICAN > 60; GLUCOSE,RANDOM 136 mg/dL (65-105); POTASSIUM 3.9 MMOL/L (3.6-5.0); SODIUM 139 mmol/l (132-148); TOTAL PROTEIN 6.5 G/DL (6.3-8.2)
[2016-12-22] MEDS: Enoxaparin 40 mg Syringe SC SCH (08:25)
--- NOTE | 2016-12-22 08:47 | CP.PCM.CON ---
Past Patient History - Infectious Disease Hx of Infectious Diseases: None - Past Medical History & Family History Past Medical History?: No - Past Social History Smoking Status: Never Smoked - CARDIAC Hx Cardiac Disorders: No - PULMONARY Hx Respiratory Disorders: No - NEUROLOGICAL Hx Neurological Disorder: No - HEENT Hx HEENT Problems: No - RENAL Hx Chronic Kidney Disease: No - ENDOCRINE/METABOLIC Hx Endocrine Disorders: No - HEMATOLOGICAL/ONCOLOGICAL Hx Blood Disorders: Yes Hx Anemia: Yes - INTEGUMENTARY Hx Dermatological Problems: No - MUSCULOSKELETAL/RHEUMATOLOGICAL Hx Musculoskeletal Disorders: No Hx Falls: No - GASTROINTESTINAL Hx Gastrointestinal Disorders: No - GENITOURINARY/GYNECOLOGICAL Hx Genitourinary Disorders: No - PSYCHIATRIC Hx Psychophysiologic Disorder: No Hx Emotional Abuse: No Hx Physical Abuse: No Hx Substance Use: No - SURGICAL HISTORY Hx Surgeries: Yes Other/Comment: APPENDECTOMY-DECEMBER 2016 - ANESTHESIA Hx Anesthesia: Yes Hx Anesthesia Reactions: No Hx Malignant Hyperthermia: No Meds Home Medications: Home Medication List Medication Instructions Recorded Confirmed Type Cephalexin [cephalexin] 500 mg PO QID #28 cap 12/19/16 Rx Naproxen [Naprosyn] 500 mg PO BID PRN #20 tablet 12/19/16 Rx Allergies/Adverse Reactions: Allergies Allergy/AdvReac Type Severity Reaction Status Date / Time No Known Allergies Allergy Verified 12/12/16 23:15 - Medications Medications: Current Medications Acetaminophen (Tylenol 325mg Tab) 650 mg PO Q6 PRN PRN Reason: Fever >100.4 F Last Admin: 12/21/16 05:26 Dose: 650 mg Docusate Sodium (Colace) 200 mg PO DAILY [facility] Last Admin: 12/22/16 08:26 Dose: Not Given Enoxaparin Sodium (Lovenox) 40 mg SC DAILY [facility] PRN Reason: Protocol Last Admin: 12/22/16 08:25 Dose: 40 mg Ferrous Sulfate (Feosol) 325 mg PO BID [facility] Last Admin: 12/22/16 08:26 Dose: 325 mg Lactated Ringer's (Lactated Ringer's) 1,000 mls @ 175 mls/hr IV .Q5H43M [facility] Last Admin: 12/22/16 08:31 Dose: 175 mls/hr Meropenem 1 gm/ Sodium (Chloride) 100 mls @ 100 mls/hr IVPB Q8 [facility] Last Admin: 12/22/16 08:21 Dose: 100 mls/hr Vancomycin HCl 1 gm/ Sodium (Chloride) 250 mls @ 166.667 mls/hr IVPB DAILY [facility] Last Admin: 12/22/16 08:24 Dose: 166.667 mls/hr Ibuprofen (Motrin Tab) 400 mg PO Q6 PRN PRN Reason: Fever >100.4 F Last Admin: 12/21/16 08:48 Dose: 400 mg Ketorolac Tromethamine (Toradol) 30 mg IVP Q6 PRN PRN Reason: Pain, moderate (4-7) Last Admin: 12/22/16 05:14 Dose: 30 mg Morphine Sulfate (Morphine) 4 mg IVP Q4 PRN PRN Reason: Pain, severe (8-10) Ondansetron HCl (Zofran Inj) 4 mg IVP Q6 PRN PRN Reason: Nausea/Vomiting Last Admin: 12/21/16 05:26 Dose: 4 mg Results - Vital Signs Recent Vital Signs: Last Vital Signs Temp 97.8 F 12/22/16 04:00 Pulse 67 12/22/16 06:00 Resp 24 12/22/16 06:00 BP 122/70 12/22/16 06:00 Pulse Ox 99 12/22/16 06:00 - Labs Result Diagrams: 12/22/16 06:20 12/22/16 06:20 Labs: Laboratory Results - last 24 hr 12/21/16 12/21/16 12/21/16 06:48 09:41 09:41 WBC 18.0 H D RBC 3.93 Hgb 7.9 L Hct 25.8 L MCV 65.6 L D MCH 20.0 L MCHC 30.5 L RDW 35.3 H Plt Count 95 L D MPV 10.0 Neut % (Auto) 95.6 H Lymph % (Auto) 1.5 L [place] % (Auto) 1.7 Eos % (Auto) 1.1 Baso % (Auto) 0.1 Neut # 17.2 H Lymph # 0.3 L [place] # 0.3 Eos # 0.2 Baso # 0.0 Neutrophils % (Manual) 90 H Band Neutrophils % 6 H Lymphocytes % (Manual) 1 L Monocytes % (Manual) 3 Platelet Estimate Slightly decreased L Large Platelets Present Giant Platelets Present Hypochromasia (manual) Slight Poikilocytosis (manual Slight Anisocytosis (manual) Slight Microcytosis (manual) Slight Spherocytes Slight Target Cells Slight Tear Drop Cells Slight Ovalocytes Slight Schistocytes Slight PT INR APTT Sodium 136 Potassium 3.2 L Chloride 107 Carbon Dioxide 16 L Anion Gap 16 BUN 13 Creatinine 0.6 L Est GFR ( Amer) > 60 Est GFR (Non-Af Amer) > 60 Random Glucose 161 H Lactic Acid 2.4 H Calcium 7.2 L Total Bilirubin 2.3 H AST 58 H ALT 44 Alkaline Phosphatase 194 H Troponin I Total Protein 6.4 Albumin 2.8 L Globulin 3.6 Albumin/Globulin Ratio 0.8 L Triglycerides Cholesterol LDL Cholesterol Direct HDL Cholesterol Amylase Lipase Procalcitonin 12/21/16 12/21/16 12/21/16 09:41 09:41 10:51 WBC RBC Hgb Hct MCV MCH MCHC RDW Plt Count MPV Neut % (Auto) Lymph % (Auto) [place] % (Auto) Eos % (Auto) Baso % (Auto) Neut # Lymph # [place] # Eos # Baso # Neutrophils % (Manual) Band Neutrophils % Lymphocytes % (Manual) Monocytes % (Manual) Platelet Estimate Large Platelets Giant Platelets Hypochromasia (manual) Poikilocytosis (manual Anisocytosis (manual) Microcytosis (manual) Spherocytes Target Cells Tear Drop Cells Ovalocytes Schistocytes PT 14.4 H INR 1.38 H APTT 34.5 H Sodium Potassium Chloride Carbon Dioxide Anion Gap BUN Creatinine Est GFR ( Amer) Est GFR (Non-Af Amer) Random Glucose Lactic Acid Calcium Total Bilirubin AST ALT Alkaline Phosphatase Troponin I 1.0400 H* Total Protein Albumin Globulin Albumin/Globulin Ratio Triglycerides Cholesterol LDL Cholesterol Direct HDL Cholesterol Amylase 34 Lipase 22 L Procalcitonin 45.85 H 12/21/16 12/21/16 12/22/16 11:59 20:30 06:20 WBC 20.6 H RBC 3.79 L Hgb 7.5 L Hct 25.2 L MCV 66.5 L MCH 19.7 L MCHC 29.6 L RDW 36.3 H Plt Count 55 L D MPV 10.0 Neut % (Auto) 83.8 H Lymph % (Auto) 13.2 L [place] % (Auto) 2.7 Eos % (Auto) 0.0 Baso % (Auto) 0.3 Neut # 17.3 H Lymph # 2.7 [place] # 0.6 Eos # 0.0 Baso # 0.1 Neutrophils % (Manual) Band Neutrophils % Lymphocytes % (Manual) Monocytes % (Manual) Platelet Estimate Large Platelets Giant Platelets Hypochromasia (manual) Poikilocytosis (manual Anisocytosis (manual) Microcytosis (manual) Spherocytes Target Cells Tear Drop Cells Ovalocytes Schistocytes PT INR APTT Sodium Potassium Chloride Carbon Dioxide Anion Gap BUN Creatinine Est GFR ( Amer) Est GFR (Non-Af Amer) Random Glucose Lactic Acid Calcium Total Bilirubin AST ALT Alkaline Phosphatase Troponin I 0.1630 H* Total Protein Albumin Globulin Albumin/Globulin Ratio Triglycerides 217 H Cholesterol 86 LDL Cholesterol Direct 33 HDL Cholesterol 10 L Amylase Lipase Procalcitonin 12/22/16 06:20 WBC RBC Hgb Hct MCV MCH MCHC RDW Plt Count MPV Neut % (Auto) Lymph % (Auto) [place] % (Auto) Eos % (Auto) Baso % (Auto) Neut # Lymph # [place] # Eos # Baso # Neutrophils % (Manual) Band Neutrophils % Lymphocytes % (Manual) Monocytes % (Manual) Platelet Estimate Large Platelets Giant Platelets Hypochromasia (manual) Poikilocytosis (manual Anisocytosis (manual) Microcytosis (manual) Spherocytes Target Cells Tear Drop Cells Ovalocytes Schistocytes PT INR APTT Sodium 139 Potassium 3.9 Chloride 109 H Carbon Dioxide 22 Anion Gap 12 BUN 19 H Creatinine 0.6 L Est GFR ( Amer) > 60 Est GFR (Non-Af Amer) > 60 Random Glucose 136 H Lactic Acid Calcium 8.1 L Total Bilirubin 0.8 AST 73 H D ALT 50 Alkaline Phosphatase 178 H Troponin I 0.1080 Total Protein 6.5 Albumin 2.8 L Globulin 3.7 Albumin/Globulin Ratio 0.8 L Triglycerides Cholesterol LDL Cholesterol Direct HDL Cholesterol Amylase Lipase Procalcitonin
--- NOTE | 2016-12-22 08:51 | CP.PCM.PN ---
<Jenise Jorge - Last Filed: 12/22/16 09:01> Subjective - Date & Time of Evaluation Date of Evaluation: 12/22/16 Time of Evaluation: 08:00 - Subjective Subjective: Progress Note risk officer/OB Patient seen and examined bedside states is feeling better, tolerating regular diet, having breakfast now. Reports nausea w/o vomiting. Denies Abd pain, Chest pain, SOB, dysuria, pelvic pain, vaginal bleeding . voiding frequent. Afebrile 24 hours. Patient report less swelling right wrist and w/o limited active ROM. Transvaginal US pending for the morning. Nurse aware. Objective - Vital Signs/Intake and Output Vital Signs (last 24 hours): Temp Pulse Resp BP Pulse Ox 97.8 F 67 24 122/70 99 12/22/16 04:00 12/22/16 06:00 12/22/16 06:00 12/22/16 06:00 12/22/16 06:00 Intake and Output: 12/22/16 12/22/16 06:59 18:59 Intake Total 1675 Output Total 250 Balance 1425 - Medications Medications: Current Medications Acetaminophen (Tylenol 325mg Tab) 650 mg PO Q6 PRN PRN Reason: Fever >100.4 F Last Admin: 12/21/16 05:26 Dose: 650 mg Docusate Sodium (Colace) 200 mg PO DAILY [facility] Last Admin: 12/22/16 08:26 Dose: Not Given Enoxaparin Sodium (Lovenox) 40 mg SC DAILY [facility] PRN Reason: Protocol Last Admin: 12/22/16 08:25 Dose: 40 mg Ferrous Sulfate (Feosol) 325 mg PO BID [facility] Last Admin: 12/22/16 08:26 Dose: 325 mg Lactated Ringer's (Lactated Ringer's) 1,000 mls @ 175 mls/hr IV .Q5H43M [facility] Last Admin: 12/22/16 08:31 Dose: 175 mls/hr Meropenem 1 gm/ Sodium (Chloride) 100 mls @ 100 mls/hr IVPB Q8 [facility] Last Admin: 12/22/16 08:21 Dose: 100 mls/hr Vancomycin HCl 1 gm/ Sodium (Chloride) 250 mls @ 166.667 mls/hr IVPB DAILY [facility] Last Admin: 12/22/16 08:24 Dose: 166.667 mls/hr Ibuprofen (Motrin Tab) 400 mg PO Q6 PRN PRN Reason: Fever >100.4 F Last Admin: 12/21/16 08:48 Dose: 400 mg Ketorolac Tromethamine (Toradol) 30 mg IVP Q6 PRN PRN Reason: Pain, moderate (4-7) Last Admin: 12/22/16 05:14 Dose: 30 mg Morphine Sulfate (Morphine) 4 mg IVP Q4 PRN PRN Reason: Pain, severe (8-10) Ondansetron HCl (Zofran Inj) 4 mg IVP Q6 PRN PRN Reason: Nausea/Vomiting Last Admin: 12/21/16 05:26 Dose: 4 mg - Labs Labs: 12/22/16 06:20 12/22/16 06:20 PT 14.4 SECONDS (9.6-11.2) H 12/21/16 09:41 INR 1.38 (0.92-1.08) H 12/21/16 09:41 APTT 34.5 SECONDS (23.3-32.5) H 12/21/16 09:41 - Constitutional Appears: Well, No Acute Distress - Head Exam Head Exam: ATRAUMATIC, NORMOCEPHALIC - ENT Exam ENT Exam: Mucous Membranes Moist - Respiratory Exam Respiratory Exam: Clear to Ausculation Bilateral. absent: Rales, Rhonchi - Cardiovascular Exam Cardiovascular Exam: REGULAR RHYTHM, +S1, +S2 - GI/Abdominal Exam GI & Abdominal Exam: Soft, Normal Bowel Sounds. absent: Distended, Guarding, Rebound Additional comments: s/p lab appendectomy. surgical incisions w/o erythema, swelling or discharge - Extremities Exam Extremities Exam: Normal Inspection. absent: Calf Tenderness, Pedal Edema - Neurological Exam Neurological Exam: Alert, Oriented x3 - Psychiatric Exam Psychiatric exam: Normal Affect - Skin Skin Exam: Pallor Assessment and Plan - Assessment and Plan (Free Text) Plan: 51 yo, f, A1, PMhx/o uterine fibroids, SHAYAN, Obese female s/p laparoscopic appendectomy POD #9 is readmitted for fevers, SOB, Gram neg bacteremia. 1) Sepsis w/ gram negative bacteremia most likely urosepsis - Etiology most likely secondary to UTI - Lactate improving - Preliminary results show gram negative rods found in urine and blood - Continue Emperic Vancomycin 1gm IV daily and Meropenem 1gm IV Q8 - F/U w/ official culture reports and morning CBC 2) Uterine Fibroids. Ovarian cyst - CT abd/ pelvis detected a markedly enlarged uterus containing multiple masses c/w fibroids. A 5cm density mass adjacent to the left side of the uterus was also detected. - Trans vaginal U/S ordered pending for this morning. - F/U with results -Case discussed with Dr Arguello. F/U outpatient Dr Thornton for further management of Uterine fibroids. <Dex Arguello - Last Filed: 12/22/16 14:37> Subjective - Subjective Subjective: OB Hospitalist note...agree with note. SAMPLE EXAMINER service sign off. Re-consult if needed [facility] Objective - Vital Signs/Intake and Output Vital Signs (last 24 hours): Temp Pulse Resp BP Pulse Ox 98.6 F 66 30 H 125/79 99 12/22/16 08:00 12/22/16 10:00 12/22/16 10:00 12/22/16 10:00 12/22/16 10:00 Intake and Output: 12/22/16 12/22/16 06:59 18:59 Intake Total 1675 470 Output Total 250 700 Balance 1425 -230 - Medications Medications: Current Medications Acetaminophen (Tylenol 325mg Tab) 650 mg PO Q6 PRN PRN Reason: Fever >100.4 F Last Admin: 12/21/16 05:26 Dose: 650 mg Docusate Sodium (Colace) 200 mg PO DAILY [facility] Last Admin: 12/22/16 08:26 Dose: Not Given Ferrous Sulfate (Feosol) 325 mg PO BID [facility] Last Admin: 12/22/16 08:26 Dose: 325 mg Lactated Ringer's (Lactated Ringer's) 1,000 mls @ 175 mls/hr IV .Q5H43M [facility] Last Admin: 12/22/16 08:31 Dose: 175 mls/hr Meropenem 1 gm/ Sodium (Chloride) 100 mls @ 100 mls/hr IVPB Q8 [facility] Last Admin: 12/22/16 08:21 Dose: 100 mls/hr Vancomycin HCl 1 gm/ Sodium (Chloride) 250 mls @ 166.667 mls/hr IVPB DAILY [facility] Last Admin: 12/22/16 08:24 Dose: 166.667 mls/hr Ibuprofen (Motrin Tab) 400 mg PO Q6 PRN PRN Reason: Fever >100.4 F Last Admin: 12/21/16 08:48 Dose: 400 mg Ketorolac Tromethamine (Toradol) 30 mg IVP Q6 PRN PRN Reason: Pain, moderate (4-7) Last Admin: 12/22/16 05:14 Dose: 30 mg Morphine Sulfate (Morphine) 4 mg IVP Q4 PRN PRN Reason: Pain, severe (8-10) Ondansetron HCl (Zofran Inj) 4 mg IVP Q6 PRN PRN Reason: Nausea/Vomiting Last Admin: 12/21/16 05:26 Dose: 4 mg - Labs Labs: 12/22/16 06:20 12/22/16 06:20 PT 14.4 SECONDS (9.6-11.2) H 12/21/16 09:41 INR 1.38 (0.92-1.08) H 12/21/16 09:41 APTT 34.5 SECONDS (23.3-32.5) H 12/21/16 09:41
--- NOTE | 2016-12-22 09:11 | CP.PCM.PN ---
<Demian Camachoth - Last Filed: 12/22/16 11:51> Subjective - Date & Time of Evaluation Date of Evaluation: 12/22/16 Time of Evaluation: 07:00 - Subjective Subjective: Patient seen and examined at bedside this morning. Patient states that she is breathing better than yesterday. Denies chest pain, nausea, vomiting, abdominal pain and calf pain at this evaluation. Patient had an uneventful night. Objective - Vital Signs/Intake and Output Vital Signs (last 24 hours): Temp Pulse Resp BP Pulse Ox 97.8 F 67 24 122/70 99 12/22/16 04:00 12/22/16 06:00 12/22/16 06:00 12/22/16 06:00 12/22/16 06:00 Intake and Output: 12/22/16 12/22/16 06:59 18:59 Intake Total 1675 Output Total 250 Balance 1425 - Medications Medications: Current Medications Acetaminophen (Tylenol 325mg Tab) 650 mg PO Q6 PRN PRN Reason: Fever >100.4 F Last Admin: 12/21/16 05:26 Dose: 650 mg Docusate Sodium (Colace) 200 mg PO DAILY [facility] Last Admin: 12/22/16 08:26 Dose: Not Given Enoxaparin Sodium (Lovenox) 40 mg SC DAILY [facility] PRN Reason: Protocol Last Admin: 12/22/16 08:25 Dose: 40 mg Ferrous Sulfate (Feosol) 325 mg PO BID [facility] Last Admin: 12/22/16 08:26 Dose: 325 mg Lactated Ringer's (Lactated Ringer's) 1,000 mls @ 175 mls/hr IV .Q5H43M [facility] Last Admin: 12/22/16 08:31 Dose: 175 mls/hr Meropenem 1 gm/ Sodium (Chloride) 100 mls @ 100 mls/hr IVPB Q8 [facility] Last Admin: 12/22/16 08:21 Dose: 100 mls/hr Vancomycin HCl 1 gm/ Sodium (Chloride) 250 mls @ 166.667 mls/hr IVPB DAILY [facility] Last Admin: 12/22/16 08:24 Dose: 166.667 mls/hr Ibuprofen (Motrin Tab) 400 mg PO Q6 PRN PRN Reason: Fever >100.4 F Last Admin: 12/21/16 08:48 Dose: 400 mg Ketorolac Tromethamine (Toradol) 30 mg IVP Q6 PRN PRN Reason: Pain, moderate (4-7) Last Admin: 12/22/16 05:14 Dose: 30 mg Morphine Sulfate (Morphine) 4 mg IVP Q4 PRN PRN Reason: Pain, severe (8-10) Ondansetron HCl (Zofran Inj) 4 mg IVP Q6 PRN PRN Reason: Nausea/Vomiting Last Admin: 12/21/16 05:26 Dose: 4 mg - Labs Labs: 12/22/16 06:20 12/22/16 06:20 PT 14.4 SECONDS (9.6-11.2) H 12/21/16 09:41 INR 1.38 (0.92-1.08) H 12/21/16 09:41 APTT 34.5 SECONDS (23.3-32.5) H 12/21/16 09:41 - Additional Findings Additional findings: Constitutional Appears: Non-toxic, No Acute Distress - ENT Exam ENT Exam: Mucous Membranes Moist - Respiratory Exam Respiratory Exam: Clear to Ausculation Bilateral, NORMAL BREATHING PATTERN. absent: Rales, Rhonchi, Wheezes - Cardiovascular Exam Cardiovascular Exam: Tachycardia, REGULAR RHYTHM, +S1, +S2. absent: Murmur - GI/Abdominal Exam GI & Abdominal Exam: Soft, Normal Bowel Sounds. absent: Guarding, Rigid, Tenderness - Extremities Exam Extremities Exam: Calf Tenderness (very mild right calf tenderness to palpation , improving compare with yesterday). absent: Pedal Edema - Neurological Exam Neurological Exam: Alert, Awake, Oriented x3 - Skin Skin Exam: Dry, Intact, Pallor Assessment and Plan - Assessment and Plan (Free Text) Assessment: 51 y/o obese F with PMH including iron deficiency anemia, uterine fibroids, s/p laparoscopic appendectomy on 12/13/16, was found to be febrile with leukocytosis and an elevated lactate, transferred to ICU for closer monitoring and further workup. Patient was noted to have gram negative rods on blood and urine cultures and is receiving empiric antibiotics while workup is continued. Plan: Sepsis with gram negative bacteremia -Improving, afebrile, no tachycardia -Etiology possibly secondary to concurrent UTI - WBC 20.6 -Lactate improvin.9 > 2.4 -Blood culture and Urine culture collected on 12/19 revealed gram negative rods, final ID and sensitivities pending -CT of chest detects no lung masses or consolidations. -CT Abd/Pelvis detects nonspecific mild diffuse thickening of the gallbladder wall with no gallstones or pericholecystic fluid. Kidneys/ureters were unremarkable with no hydronephrosis. A 5cm fluid density mass adjacent to the left side of the uterus was also detected which may be an ovarian cyst. -HIDA scan normal with patent cystic duct -On empiric Vancomycin 1gm IV daily (started 12/20, Current day 2) and Meropenem 1gm IV Q8H (Started 12/20, Current day 2). Received single dose of Zosyn on 12/20. -F/U Vancomycin trough -Infectious disease consulted Chest pain/SOB -No chest pain, improving SOB -Undetermined etiology -D-dimer elevated, Troponin elevated. Unclear significance due to associated bacteremia/infectious process -CT angio chest was performed on 12/20 revealing no evidence of central pulmonary embolus. No filling defects were noted in the right/left pulmonary artery or lobar vessels however exam was suboptimal due to patient habits. -EKG does not reveal any acute changes -She is currently satting at 99% on NC -Cardiac echo ordered showed normal LV wall motion, EF : > 50% -Cardiology consult appreciated. Will f/u. Troponin level most likely secondary to Sepsis. Uterine fibroids/Ovarian Cyst -CT abd/pelvis detected a markedly enlarged uterus containing multiple masses c/ w fibroids. A 5cm fluid density mass adjacent to the left side of the uterus was also detected. -ASSISTANT STORE DIRECTOR was consulted and recommended transvaginal US and f/u as outpatient with [facility] Laparoscopic Appendectomy -Patient had recent lap appendectomy on 12/13/16 -General surgery consulted who believe current presentation is unrelated DVT Prophylaxis -Stopped Lovenox due to decreased platelets. Today 55 -C/W SCDs for now -F/U Heparin-IND platelet and Platelet AB( IGG) results <Vale Juárez - Last Filed: 12/23/16 08:19> Objective - Vital Signs/Intake and Output Vital Signs (last 24 hours): Temp Pulse Resp BP Pulse Ox 99.0 F 91 H 40 H 118/54 L 99 12/23/16 04:00 12/23/16 06:00 12/23/16 06:00 12/23/16 06:00 12/23/16 06:00 Intake and Output: 12/23/16 12/23/16 06:59 18:59 Intake Total 2500 Output Total 1700 Balance 800 - Medications Medications: Current Medications Acetaminophen (Tylenol 325mg Tab) 650 mg PO Q6 PRN PRN Reason: Fever >100.4 F Last Admin: 12/23/16 02:39 Dose: 650 mg Docusate Sodium (Colace) 200 mg PO DAILY [facility] Last Admin: 12/22/16 08:26 Dose: Not Given Ferrous Sulfate (Feosol) 325 mg PO BID [facility] Last Admin: 12/22/16 16:19 Dose: 325 mg Lactated Ringer's (Lactated Ringer's) 1,000 mls @ 175 mls/hr IV .Q5H43M [facility] Last Admin: 12/23/16 06:00 Dose: 175 mls/hr Meropenem 1 gm/ Sodium (Chloride) 100 mls @ 100 mls/hr IVPB Q8 [facility] Last Admin: 12/23/16 00:11 Dose: 100 mls/hr Vancomycin HCl 1 gm/ Sodium (Chloride) 250 mls @ 166.667 mls/hr IVPB DAILY [facility] Last Admin: 12/22/16 08:24 Dose: 166.667 mls/hr Ibuprofen (Motrin Tab) 400 mg PO Q6 PRN PRN Reason: Fever >100.4 F Last Admin: 12/21/16 08:48 Dose: 400 mg Ketorolac Tromethamine (Toradol) 30 mg IVP Q6 PRN PRN Reason: Pain, moderate (4-7) Last Admin: 12/22/16 22:40 Dose: 30 mg Morphine Sulfate (Morphine) 4 mg IVP Q4 PRN PRN Reason: Pain, severe (8-10) Ondansetron HCl (Zofran Inj) 4 mg IVP Q6 PRN PRN Reason: Nausea/Vomiting Last Admin: 12/21/16 05:26 Dose: 4 mg - Labs Labs: 12/23/16 05:45 12/23/16 05:45 PT 14.4 SECONDS (9.6-11.2) H 12/21/16 09:41 INR 1.38 (0.92-1.08) H 12/21/16 09:41 APTT 34.5 SECONDS (23.3-32.5) H 12/21/16 09:41 Assessment and Plan - Assessment and Plan (Free Text) Assessment: ATTENDING NOTE/ATTESTATION Patient seen and examined. Case discussed with resident and drapery rod assembler. Patient appears clinically improved. Awake alert reports she is feeling improved. Patient with decreased platlets, anemia and leukocytosis. Continues on parental antibiotics for UTI/bacteremia/sepsis. Discussed possibility of Heparin induced thrombocytopenia. Will continue to hold heparin. HIT AB ordered. Agree with plan.
--- NOTE | 2016-12-22 10:10 | CP.PCM.CON ---
History of Present Illness - History of Present Illness History of Present Illness: 51 y/o female admitted with sepsis pt had lap appendectomy 1 week ago comes to ER w/ c/o swelling in her arm after iron infusion Pt's main complaint appears to be abdominal pain denies chest discomfort WBC: 20,000 EKG: WNL Echo: normal LV function Troponin: + x 2 Past Patient History - Infectious Disease Hx of Infectious Diseases: None - Past Medical History & Family History Past Medical History?: No - Past Social History Smoking Status: Never Smoked - CARDIAC Hx Cardiac Disorders: No - PULMONARY Hx Respiratory Disorders: No - NEUROLOGICAL Hx Neurological Disorder: No - HEENT Hx HEENT Problems: No - RENAL Hx Chronic Kidney Disease: No - ENDOCRINE/METABOLIC Hx Endocrine Disorders: No - HEMATOLOGICAL/ONCOLOGICAL Hx Blood Disorders: Yes Hx Anemia: Yes - INTEGUMENTARY Hx Dermatological Problems: No - MUSCULOSKELETAL/RHEUMATOLOGICAL Hx Musculoskeletal Disorders: No Hx Falls: No - GASTROINTESTINAL Hx Gastrointestinal Disorders: No - GENITOURINARY/GYNECOLOGICAL Hx Genitourinary Disorders: No - PSYCHIATRIC Hx Psychophysiologic Disorder: No Hx Emotional Abuse: No Hx Physical Abuse: No Hx Substance Use: No - SURGICAL HISTORY Hx Surgeries: Yes Other/Comment: APPENDECTOMY-DECEMBER 2016 - ANESTHESIA Hx Anesthesia: Yes Hx Anesthesia Reactions: No Hx Malignant Hyperthermia: No Meds Home Medications: Home Medication List Medication Instructions Recorded Confirmed Type Cephalexin [cephalexin] 500 mg PO QID #28 cap 12/19/16 Rx Naproxen [Naprosyn] 500 mg PO BID PRN #20 tablet 12/19/16 Rx Allergies/Adverse Reactions: Allergies Allergy/AdvReac Type Severity Reaction Status Date / Time No Known Allergies Allergy Verified 12/12/16 23:15 - Medications Medications: Current Medications Acetaminophen (Tylenol 325mg Tab) 650 mg PO Q6 PRN PRN Reason: Fever >100.4 F Last Admin: 12/21/16 05:26 Dose: 650 mg Docusate Sodium (Colace) 200 mg PO DAILY [facility] Last Admin: 12/22/16 08:26 Dose: Not Given Enoxaparin Sodium (Lovenox) 40 mg SC DAILY [facility] PRN Reason: Protocol Last Admin: 12/22/16 08:25 Dose: 40 mg Ferrous Sulfate (Feosol) 325 mg PO BID [facility] Last Admin: 12/22/16 08:26 Dose: 325 mg Lactated Ringer's (Lactated Ringer's) 1,000 mls @ 175 mls/hr IV .Q5H43M [facility] Last Admin: 12/22/16 08:31 Dose: 175 mls/hr Meropenem 1 gm/ Sodium (Chloride) 100 mls @ 100 mls/hr IVPB Q8 [facility] Last Admin: 12/22/16 08:21 Dose: 100 mls/hr Vancomycin HCl 1 gm/ Sodium (Chloride) 250 mls @ 166.667 mls/hr IVPB DAILY [facility] Last Admin: 12/22/16 08:24 Dose: 166.667 mls/hr Ibuprofen (Motrin Tab) 400 mg PO Q6 PRN PRN Reason: Fever >100.4 F Last Admin: 12/21/16 08:48 Dose: 400 mg Ketorolac Tromethamine (Toradol) 30 mg IVP Q6 PRN PRN Reason: Pain, moderate (4-7) Last Admin: 12/22/16 05:14 Dose: 30 mg Morphine Sulfate (Morphine) 4 mg IVP Q4 PRN PRN Reason: Pain, severe (8-10) Ondansetron HCl (Zofran Inj) 4 mg IVP Q6 PRN PRN Reason: Nausea/Vomiting Last Admin: 12/21/16 05:26 Dose: 4 mg Physical Exam - Respiratory Exam Respiratory Exam: NORMAL BREATHING PATTERN - Cardiovascular Exam Cardiovascular Exam: REGULAR RHYTHM Results - Vital Signs Recent Vital Signs: Last Vital Signs Temp 97.8 F 12/22/16 04:00 Pulse 67 12/22/16 06:00 Resp 24 12/22/16 06:00 BP 122/70 12/22/16 06:00 Pulse Ox 99 12/22/16 06:00 - Labs Result Diagrams: 12/22/16 06:20 12/22/16 06:20 Labs: Laboratory Results - last 24 hr 12/21/16 12/21/16 12/21/16 09:41 09:41 09:41 WBC 18.0 H D RBC 3.93 Hgb 7.9 L Hct 25.8 L MCV 65.6 L D MCH 20.0 L MCHC 30.5 L RDW 35.3 H Plt Count 95 L D MPV 10.0 Neut % (Auto) 95.6 H Lymph % (Auto) 1.5 L Rains % (Auto) 1.7 Eos % (Auto) 1.1 Baso % (Auto) 0.1 Neut # 17.2 H Lymph # 0.3 L Rains # 0.3 Eos # 0.2 Baso # 0.0 Neutrophils % (Manual) 90 H Band Neutrophils % 6 H Lymphocytes % (Manual) 1 L Monocytes % (Manual) 3 Platelet Estimate Slightly decreased L Large Platelets Present Giant Platelets Present Hypochromasia (manual) Slight Poikilocytosis (manual Slight Anisocytosis (manual) Slight Microcytosis (manual) Slight Spherocytes Slight Target Cells Slight Tear Drop Cells Slight Ovalocytes Slight Schistocytes Slight PT 14.4 H INR 1.38 H APTT 34.5 H Sodium Potassium Chloride Carbon Dioxide Anion Gap BUN Creatinine Est GFR ( Amer) Est GFR (Non-Af Amer) Random Glucose Calcium Total Bilirubin AST ALT Alkaline Phosphatase Troponin I Total Protein Albumin Globulin Albumin/Globulin Ratio Triglycerides Cholesterol LDL Cholesterol Direct HDL Cholesterol Amylase Lipase Procalcitonin 45.85 H 12/21/16 12/21/16 12/21/16 10:51 11:59 20:30 WBC RBC Hgb Hct MCV MCH MCHC RDW Plt Count MPV Neut % (Auto) Lymph % (Auto) Rains % (Auto) Eos % (Auto) Baso % (Auto) Neut # Lymph # Rains # Eos # Baso # Neutrophils % (Manual) Band Neutrophils % Lymphocytes % (Manual) Monocytes % (Manual) Platelet Estimate Large Platelets Giant Platelets Hypochromasia (manual) Poikilocytosis (manual Anisocytosis (manual) Microcytosis (manual) Spherocytes Target Cells Tear Drop Cells Ovalocytes Schistocytes PT INR APTT Sodium Potassium Chloride Carbon Dioxide Anion Gap BUN Creatinine Est GFR ( Amer) Est GFR (Non-Af Amer) Random Glucose Calcium Total Bilirubin AST ALT Alkaline Phosphatase Troponin I 1.0400 H* 0.1630 H* Total Protein Albumin Globulin Albumin/Globulin Ratio Triglycerides 217 H Cholesterol 86 LDL Cholesterol Direct 33 HDL Cholesterol 10 L Amylase 34 Lipase 22 L Procalcitonin 12/22/16 12/22/16 06:20 06:20 WBC 20.6 H RBC 3.79 L Hgb 7.5 L Hct 25.2 L MCV 66.5 L MCH 19.7 L MCHC 29.6 L RDW 36.3 H Plt Count 55 L D MPV 10.0 Neut % (Auto) 83.8 H Lymph % (Auto) 13.2 L Rains % (Auto) 2.7 Eos % (Auto) 0.0 Baso % (Auto) 0.3 Neut # 17.3 H Lymph # 2.7 Rains # 0.6 Eos # 0.0 Baso # 0.1 Neutrophils % (Manual) Band Neutrophils % Lymphocytes % (Manual) Monocytes % (Manual) Platelet Estimate Large Platelets Giant Platelets Hypochromasia (manual) Poikilocytosis (manual Anisocytosis (manual) Microcytosis (manual) Spherocytes Target Cells Tear Drop Cells Ovalocytes Schistocytes PT INR APTT Sodium 139 Potassium 3.9 Chloride 109 H Carbon Dioxide 22 Anion Gap 12 BUN 19 H Creatinine 0.6 L Est GFR ( Amer) > 60 Est GFR (Non-Af Amer) > 60 Random Glucose 136 H Calcium 8.1 L Total Bilirubin 0.8 AST 73 H D ALT 50 Alkaline Phosphatase 178 H Troponin I 0.1080 Total Protein 6.5 Albumin 2.8 L Globulin 3.7 Albumin/Globulin Ratio 0.8 L Triglycerides Cholesterol LDL Cholesterol Direct HDL Cholesterol Amylase Lipase Procalcitonin Assessment & Plan (1) Troponin level elevated Assessment and Plan: Troponin level most likely secondary to Sepsis will follow Status: Acute (2) Abdominal pain Status: Acute (3) History of appendicitis Status: Acute
--- NOTE | 2016-12-22 12:44 | PN ---
DATE: 12/22/2016 LOCATION: The patient in ICU, bed 433. TIME SPENT: _35 mts.___. The patient is seen and evaluated at the bedside. Events since admission reviewed. Past medical, surgical and social history noted. Overnight febrile, sinus tachycardia, on empiric vancomycin plus meropenem for E. coli bacteremia and urine culture positive for gram-negative rods. This morning, alert, awake, follows commands appropriate, complained of pain earlier this morning on the upper abdomen, given Toradol, responded well. Remains pain free, now complaining of mild to moderate discomfort in the lower abdomen. Denies nausea , vomiting. No chest pain, shortness of breath, swelling of both upper and lower extremities, has not had a bowel movement. PHYSICAL EXAMINATION: VITAL SIGNS: T-max 102.9, heart rate 114 reduced to 66-74, regular; blood pressure 116-125/66-79, mean arterial pressure 80-94, respiratory rate 32 thoracoabdominal, saturation 99% on oxygen 2 L nasal cannula. Intake 3820, output 251. Positive fluid balance 3569. Weight 210 pounds. HEAD, EYES, EARS, NOSE AND THROAT: Pupils are reactive. Conjunctivae pale. Short neck. Reduced oropharyngeal space. CHEST: Bilateral breath sounds diminished in intensity. Clear to auscultation. HEART: Rhythm regular. S1, S2 normal. No audible murmur. ABDOMEN: Bowel sounds present, diminished. EXTREMITIES: 1+ to 2+ edema. No palpable cord. Peripheral pulses intact. NEUROLOGIC: Nonfocal. PSYCHIATRIC: Alert, oriented x 3, in good spirits. LABORATORY DATA: WBC 20.6, hemoglobin 7.5, hematocrit 25.2, platelet count 55. PT 14.4, INR 1.38, PTT 34.5. ABG: pH 7.4, pCO2 28, bicarb 19.6, oxygen saturation 91.3. Lactate 3.2. SMA-7: Sodium 139, potassium 3.9, chloride 109 , CO2 of 22, blood urea nitrogen 19, creatinine 0.6, random glucose 136, calcium 8.1, total bilirubin 0.8, AST 73, ALT 50, alkaline phosphatase 178, troponin 1.04, repeat 0.16 and 0.10. Total protein 6.5, albumin 2.8. Triglycerides 217, cholesterol 86, LDL 33, HDL 10. Amylase 34, lipase 22. Procalcitonin 45.85. Urinalysis microscopic WBC 1, bacteria rare. Blood culture gram-negative rods. ID pending. Urine culture positive gram-negative rods. Urine culture E. coli. CURRENT MEDICATIONS: Tylenol 650 q. 6 p.r.n., Colace 200 mg p.o. daily, ferrous sulfate 325 mg p.o. twice daily, Motrin 400 mg p.o. q. 6 p.r.n., Toradol 30 mg IV q. 6 p.r.n., Ringers' lactate at 175 mL per hour, meropenem 1 gram IV q. 8 hours, morphine 4 mg IV q. 4 p.r.n. for pain, Zofran 4 mg IV q. 6 p.r.n. for nausea, vomiting; vancomycin 1 gram IV daily. Pelvic ultrasound, HIDA scan, normal hepatobiliary scan. Cystic duct is patent. Echocardiogram: Normal LV wall thickness, LV systolic function normal , left ventricular diastolic function is normal. Extremity ultrasound: No evidence of vein thrombosis in the right upper extremity, normal valvular function of right side. IMPRESSION: A 51-year-old morbidly obese female with history of iron deficiency anemia, uterine fibroids, menorrhagia, status post laparoscopic appendectomy on 12/13/16, admitted with pain and swelling at the site of recent Venofer intubation. Venous Doppler negative for thrombosis of right upper extremity, noted to be febrile with leukocytosis and elevated lactate with Escherichia coli bacteremia, sepsis source from urine. Currently empirically on vancomycin and meropenem pending sensitivity. Seen by infectious disease consult. Hemodynamically stable, improving lactate 7.92 -2.4. CTs chest, abdomen and pelvis are negative. HIDA scan shows normal cystic duct. Chest pain, shortness of breath resolving. D-dimer elevated. CT angiogram negative for pulmonary embolism, seen by cardiology consult, increased troponin secondary to sepsis. History of menorrhagia secondary to uterine fibroid, currently noted to have minimal bleeding per vagina, closely monitor. Microcytic hypochromic anemia, on iron supplement, status post Venofer injfusion. Repeat hemoglobin in the evening. If hemoglobin drops further or have vaginal bleeding, consider transfusion to hemoglobin 8 or above. Thrombocytopenia may be associated with resolving sepsis and/or due to heparin- induced platelet antibody. As patient has negative CT for pulmonary embolism and negative venous Doppler of the lower extremities and having vaginal bleeding , hold Lovenox. Evaluate for heparin-induced thrombocytopenic purpura. Pro Echevarria MD cc: 170 TT: 12/22/2016 12:43:11 Confirmation # [id number] Dictation # [id number] tn PATRICK
--- NOTE | 2016-12-22 15:55 | US ---
HISTORY: r/o possible ovarian cyst/abscess COMPARISON: Images from CT chest, abdomen, and pelvis with contrast performed 12/20/16 TECHNIQUE: Transvaginal pelvic ultrasound FINDINGS: Examination markedly limited due to patient condition, excessive bowel gas, and habitus. UTERUS: Heterogeneous enlarged uterus measures approximately 18.9 x 15.6 x 10.6 cm. Multiple probable uterine masses, possibly fibroid. For example 6.6 x 5.5 x 5.2 cm anterior fundal anterior and 7.2 x 4.3 x 6.2 cm fundal lateral Anteverted. ENDOMETRIUM: Not visualized. CERVIX: Not well-visualized. RIGHT OVARY: Not visualized. LEFT OVARY: Not visualized. FREE FLUID: No significant free fluid noted. OTHER FINDINGS: None. IMPRESSION: Extremely limited study. Bilateral ovaries were not visualized. The endometrium was not visualized. The cervix was not well visualized. Heterogeneous enlarged uterus with multiple masses, possibly fibroids. The largest measuring approximately 7.2 cm.
[2016-12-22 20:06] LABS: HEMATOCRIT 26.3 % (34.0-47.0); MEAN CELL VOLUME 67.3 fl (81.0-99.0); MEAN CORPUSCULAR HEMOGLOBIN 19.7 pg (27.0-31.0); MEAN CORPUSCULAR HGB CONC 29.3 g/dL (33.0-37.0); RED CELL DISTRIBUTION WIDTH 36.4 % (11.5-14.5); WHITE BLOOD COUNT 17.3 K/uL (4.8-10.8)
[2016-12-23] MEDS: Meropenem 1 GM in Sodium Chloride 0.9% 100 ML IVPB SCH ×4 (00:11→21:32)
[2016-12-23] MEDS: Lactated Ringer's 1,000 ML IV SCH ×2 (00:30→06:00)
--- NOTE | 2016-12-23 02:43 | CP.PCM.PN ---
Subjective - Date & Time of Evaluation Date of Evaluation: 12/23/16 Time of Evaluation: 02:41 - Subjective Subjective: SURGERY NOTE FOR DR. CELESTIN 51F seen and examined at bedside. Patient resting comfortably. Pain controlled with medication, denies N/V/F/C. Santi reg diet. Objective - Vital Signs/Intake and Output Vital Signs (last 24 hours): Temp Pulse Resp BP Pulse Ox 100.6 F H 79 26 H 120/69 100 12/23/16 02:40 12/23/16 00:00 12/23/16 00:00 12/23/16 00:00 12/23/16 00:00 Intake and Output: 12/22/16 12/23/16 18:59 06:59 Intake Total 470 Output Total 700 300 Balance -230 -300 - Medications Medications: Current Medications Acetaminophen (Tylenol 325mg Tab) 650 mg PO Q6 PRN PRN Reason: Fever >100.4 F Last Admin: 12/23/16 02:39 Dose: 650 mg Docusate Sodium (Colace) 200 mg PO DAILY [facility] Last Admin: 12/22/16 08:26 Dose: Not Given Ferrous Sulfate (Feosol) 325 mg PO BID [facility] Last Admin: 12/22/16 16:19 Dose: 325 mg Lactated Ringer's (Lactated Ringer's) 1,000 mls @ 175 mls/hr IV .Q5H43M [facility] Last Admin: 12/22/16 08:31 Dose: 175 mls/hr Meropenem 1 gm/ Sodium (Chloride) 100 mls @ 100 mls/hr IVPB Q8 [facility] Last Admin: 12/23/16 00:11 Dose: 100 mls/hr Vancomycin HCl 1 gm/ Sodium (Chloride) 250 mls @ 166.667 mls/hr IVPB DAILY [facility] Last Admin: 12/22/16 08:24 Dose: 166.667 mls/hr Ibuprofen (Motrin Tab) 400 mg PO Q6 PRN PRN Reason: Fever >100.4 F Last Admin: 12/21/16 08:48 Dose: 400 mg Ketorolac Tromethamine (Toradol) 30 mg IVP Q6 PRN PRN Reason: Pain, moderate (4-7) Last Admin: 12/22/16 22:40 Dose: 30 mg Morphine Sulfate (Morphine) 4 mg IVP Q4 PRN PRN Reason: Pain, severe (8-10) Ondansetron HCl (Zofran Inj) 4 mg IVP Q6 PRN PRN Reason: Nausea/Vomiting Last Admin: 12/21/16 05:26 Dose: 4 mg - Labs Labs: 12/22/16 19:57 12/22/16 06:20 PT 14.4 SECONDS (9.6-11.2) H 12/21/16 09:41 INR 1.38 (0.92-1.08) H 12/21/16 09:41 APTT 34.5 SECONDS (23.3-32.5) H 12/21/16 09:41 - Constitutional Appears: Non-toxic, No Acute Distress - Respiratory Exam Respiratory Exam: Clear to Ausculation Bilateral, NORMAL BREATHING PATTERN - Cardiovascular Exam Cardiovascular Exam: REGULAR RHYTHM, +S1, +S2 - GI/Abdominal Exam GI & Abdominal Exam: Soft. absent: Distended, Firm, Guarding, Rigid, Tenderness , Rebound - Neurological Exam Neurological Exam: Alert, Awake Assessment and Plan - Assessment and Plan (Free Text) Assessment: 51yo F with SHAYAN, POD #10 s/p Lap appendectomy, readmitted with Fevers, SOB, Gram neg. bacteremia - currently afebrile - Will F/U labs - Touch Up Painter Hand recs: outpatient followup for cyst - HIDA negative - No surgical intervention at this time Furthe recs discuss with Dr. Lino Chacko, PGY1
[2016-12-23 06:43] LABS: BASO % 0.3 % (0.0-2.0); EOS % 0.3 % (0.0-4.0); HEMATOCRIT 25.1 % (34.0-47.0); LYMPH # 0.9 K/uL (1.0-4.3); LYMPH % 7.4 % (20.0-40.0); MEAN CELL VOLUME 65.3 fl (81.0-99.0); MEAN CORPUSCULAR HEMOGLOBIN 19.6 pg (27.0-31.0); MEAN PLATELET VOLUME 10.9 fl (7.2-11.7); MONO # 0.5 K/uL (0.0-0.8); MONO % 4.1 % (0.0-10.0); NEUT # 11.1 K/uL (1.8-7.0); NEUT % 87.9 % (50.0-75.0); NRBC % 0.1 % (0.0-0.0); RED CELL DISTRIBUTION WIDTH 36.1 % (11.5-14.5); WHITE BLOOD COUNT 12.6 K/uL (4.8-10.8)
[2016-12-23 06:51] LABS: ALKALINE PHOSPHATASE 216 U/L (38-126); ALT/SGPT 52 U/L (9-52); AST/SGOT 66 U/L (14-36); BILIRUBIN,TOTAL 0.7 mg/dl (0.2-1.3); BLOOD UREA NITROGEN 16 mg/dl (7-17); CALCIUM 7.9 mg/dL (8.4-10.2); CARBON DIOXIDE 22 mmol/L (22-30); CHLORIDE 108 mmol/L (98-107); GFR AFRICAN-AMERICAN > 60; GLUCOSE,RANDOM 98 mg/dL (65-105); POTASSIUM 3.6 MMOL/L (3.6-5.0); SODIUM 137 mmol/l (132-148); TOTAL PROTEIN 6.3 G/DL (6.3-8.2)
[2016-12-23 06:52] LABS: ALB/GLOB RATIO 0.8 (1.0-2.1)
[2016-12-23] MEDS ORDERED: Sodium Chloride 0.9% 1,000 ML IV SCH (10:00)
[2016-12-23] MEDS ORDERED: Albuterol 0.083% Inhal Sol (2.5 mg/3 mL) UD ONE (11:54)
--- NOTE | 2016-12-23 12:01 | CP.PCM.PN ---
<Caroline Amin - Last Filed: 12/23/16 12:56> Subjective - Date & Time of Evaluation Date of Evaluation: 12/23/16 Time of Evaluation: 10:00 - Subjective Subjective: Patient seen and examined at bedside in ICU, feeling better but she is spiking fever again after 36 hrs afebrile, Temperature overnight: 100.6. Good appetite, tolerating PO diet. Patient is having dry cough and chills when she has fever w/ associated pleuritic chest pain. Good diuresis, no diarrheas, no abdominal pain, no N/V. Denies: dysuria. Objective - Vital Signs/Intake and Output Vital Signs (last 24 hours): Temp Pulse Resp BP Pulse Ox 101.5 F H 81 33 H 128/64 100 12/23/16 11:06 12/23/16 10:00 12/23/16 10:00 12/23/16 10:00 12/23/16 10:00 Intake and Output: 12/23/16 12/23/16 06:59 18:59 Intake Total 2500 350 Output Total 1700 200 Balance 800 150 - Medications Medications: Current Medications Acetaminophen (Tylenol 325mg Tab) 650 mg PO Q6 PRN PRN Reason: Fever >100.4 F Last Admin: 12/23/16 11:06 Dose: 650 mg Albuterol Sulfate (Albuterol 0.083% Inhal Verónica (2.5 Mg/3 Ml) Ud) 2.5 mg INH RQID [facility] Docusate Sodium (Colace) 200 mg PO DAILY [facility] Last Admin: 12/23/16 09:38 Dose: Not Given Ferrous Sulfate (Feosol) 325 mg PO BID [facility] Last Admin: 12/23/16 09:38 Dose: 325 mg Meropenem 1 gm/ Sodium (Chloride) 100 mls @ 100 mls/hr IVPB Q8 [facility] Last Admin: 12/23/16 09:39 Dose: 100 mls/hr Vancomycin HCl 1 gm/ Sodium (Chloride) 250 mls @ 166.667 mls/hr IVPB DAILY [facility] Last Admin: 12/23/16 09:40 Dose: 166.667 mls/hr Sodium Chloride (Sodium Chloride 0.9%) 1,000 mls @ 75 mls/hr IV .[id number] [facility] Stop: 12/24/16 09:51 Last Admin: 12/23/16 10:08 Dose: 75 mls/hr Ibuprofen (Motrin Tab) 400 mg PO Q6 PRN PRN Reason: Fever >100.4 F Last Admin: 12/21/16 08:48 Dose: 400 mg Ketorolac Tromethamine (Toradol) 30 mg IVP Q6 PRN PRN Reason: Pain, moderate (4-7) Last Admin: 12/22/16 22:40 Dose: 30 mg Morphine Sulfate (Morphine) 4 mg IVP Q4 PRN PRN Reason: Pain, severe (8-10) Ondansetron HCl (Zofran Inj) 4 mg IVP Q6 PRN PRN Reason: Nausea/Vomiting Last Admin: 12/21/16 05:26 Dose: 4 mg - Labs Labs: 12/23/16 05:45 12/23/16 05:45 PT 14.4 SECONDS (9.6-11.2) H 12/21/16 09:41 INR 1.38 (0.92-1.08) H 12/21/16 09:41 APTT 34.5 SECONDS (23.3-32.5) H 12/21/16 09:41 - Constitutional Appears: No Acute Distress - Head Exam Head Exam: ATRAUMATIC, NORMOCEPHALIC - Eye Exam Eye Exam: EOMI, PERRL - ENT Exam ENT Exam: Mucous Membranes Moist - Respiratory Exam Respiratory Exam: Rales (scattered in LLL), NORMAL BREATHING PATTERN. absent: Rhonchi, Wheezes - Cardiovascular Exam Cardiovascular Exam: RRR, +S1, +S2 - GI/Abdominal Exam GI & Abdominal Exam: Soft, Normal Bowel Sounds. absent: Tenderness Additional comments: protuberant abdomen. - Neurological Exam Neurological Exam: Alert, Oriented x3 - Skin Skin Exam: Normal Color, Warm Assessment and Plan - Assessment and Plan (Free Text) Plan: 51 yo obese F with PMH including iron deficiency anemia, Menorrhagia 2/2 uterine fibroids, and appendectomy on 12/13/16 admitted w/ fever and leukocytosis. Severe Sepsis with gram negative bacteremia (pt is spiking fever again after ~36 hrs afebrile) etiology related w/ Urosepsis (+ E.Coli in UCx) + Leukocytosis, trending down, WBC: 12.6 + Bcx and Ucx for E.Coli -CT of chest detects no lung masses or consolidations. -CT Abd/Pelvis: negative for intrabdominal abscess -Abx: Vancomycin 1gm IV daily (started 12/20, day#3) and Meropenem 1gm IV Q8H ( Started 12/20, Current day #3). -F/U Vancomycin trough -ID on board. - will repeat Blood Cx today and lactic acid - continue to monitor F/U CBC in Am UTI + E.Coli in UCx on Meropenem and Vanco Cough pt w/ cough and spiking fever will do CXR to r/o Pneumonia on IV Abx: Meropenem and Vanco IS use encouraged. Uterine fibroids/Ovarian Cyst -CT abd/pelvis detected a markedly enlarged uterus containing multiple masses c/ w fibroids. A 5cm fluid density mass adjacent to the left side of the uterus was also detected. transvaginal US: enlarge uterus w/ multiples masses, very limited study, endometrium not seen -ENROLLMENT MANAGER recommended f/u as outpatient with [facility] S/[facility] Laparoscopic Appendectomy -Patient had recent lap appendectomy on 12/13/16 -General surgery consulted who believe current presentation is unrelated DVT Prophylaxis - SCDs Lovenox on hold due to thrombocytopenia -F/U Heparin-IND platelet and Platelet AB( IGG) results <Vale Juárez - Last Filed: 12/24/16 10:49> Objective - Vital Signs/Intake and Output Vital Signs (last 24 hours): Temp Pulse Resp BP Pulse Ox 100.8 F H 76 22 123/56 L 100 12/24/16 08:00 12/24/16 08:00 12/24/16 08:00 12/24/16 08:00 12/24/16 08:00 Intake and Output: 12/24/16 12/24/16 06:59 18:59 Intake Total 1278 300 Output Total 1999 Balance -722 300 - Medications Medications: Current Medications Acetaminophen (Tylenol 650mg/20.3ml Solution Ud) 650 mg GT Q6 PRN PRN Reason: Fever >100.4 F Last Admin: 12/23/16 16:20 Dose: 650 mg Albuterol Sulfate (Albuterol 0.083% Inhal Verónica (2.5 Mg/3 Ml) Ud) 2.5 mg INH RQID [facility] Last Admin: 12/24/16 08:41 Dose: 2.5 mg Docusate Sodium (Colace) 200 mg PO DAILY [facility] Last Admin: 12/24/16 09:01 Dose: Not Given Ferrous Sulfate (Feosol) 325 mg PO BID [facility] Last Admin: 12/24/16 09:04 Dose: 325 mg Vancomycin HCl 1 gm/ Sodium (Chloride) 250 mls @ 166.667 mls/hr IVPB DAILY [facility] Last Admin: 12/24/16 09:05 Dose: 166.667 mls/hr Fluconazole (Diflucan Iv 200 Mg/100 Ml Ns) 100 mls @ 100 mls/hr IVPB DAILY [facility] Last Admin: 12/24/16 09:02 Dose: 100 mls/hr Potassium Chloride/Dextrose/Sod Cl (Potassium Chl 20 Meq In D5-Ns) 1,000 mls @ 60 mls/hr IV .[id number] [facility] Stop: 12/24/16 13:29 Last Admin: 12/24/16 09:05 Dose: 60 mls/hr Propofol (Diprivan) 1,000 mg in 100 mls @ 2.858 mls/hr IV .Q24H [facility]; 5 MCG/KG/ MIN PRN Reason: Protocol Stop: 12/24/16 16:05 Last Admin: 12/24/16 09:07 Dose: 45 mcg/kg/min, 25.719 mls/hr Meropenem 1 gm/ Sodium (Chloride) 100 mls @ 100 mls/hr IVPB Q8@0500,1300,2100 [facility] Last Admin: 12/24/16 04:29 Dose: 100 mls/hr Ibuprofen (Motrin Tab) 400 mg PO Q6 PRN PRN Reason: Fever >100.4 F Last Admin: 12/21/16 08:48 Dose: 400 mg Ketorolac Tromethamine (Toradol) 30 mg IVP Q6 PRN PRN Reason: Pain, moderate (4-7) Last Admin: 12/22/16 22:40 Dose: 30 mg Morphine Sulfate (Morphine) 4 mg IVP Q4 PRN PRN Reason: Pain, severe (8-10) Ondansetron HCl (Zofran Inj) 4 mg IVP Q6 PRN PRN Reason: Nausea/Vomiting Last Admin: 12/21/16 05:26 Dose: 4 mg - Labs Labs: 12/24/16 06:10 12/24/16 06:10 PT 14.4 SECONDS (9.6-11.2) H 12/21/16 09:41 INR 1.38 (0.92-1.08) H 12/21/16 09:41 APTT 34.5 SECONDS (23.3-32.5) H 12/21/16 09:41 Assessment and Plan - Assessment and Plan (Free Text) Plan: ATTENDING NOTE/ATTESTATION PATIENT SEEN AND EXAMINED. CASE DISCUSSED WITH RESIDENT. CHART REVIEWED. PATIENT REPORTS FEELING BETTER. HGB/STABLE, WBC IMPROVED, PLATELET COUNT IMPROVED. CARDIOLOGY HAS SEEN PATIENT - REPORTS ELEVATED TROP PROB SECONDARY TO SEPSIS ( PATIENT ALSO EPISODE OF TACHYCARDIA PRIOR TO ELEVATED TROPONIN) ECHOCARDIOGRAM REPORTED NON CONTRIB. LACTIC ACID HAS DECREASED FROM 7 TO 3 DONE 2-3 DAYS AGO. REPEAT LACTIC ACID REORDERED. PATIENT SPIKED 100.6 LAST NIGHT. BLOOD C/S REORDRED FOR TODAY WELL. RESIDENT ASKED TO CALL ID TO HAVE PATIENT SEEN TODAY. GENERAL SURGEON FOLLOWING. NURSE WOUND CARE HAS SEEN AND RECOMMENDED OUTPATIENT FOLLOW UP. GENERAL MANAGER IN TRAINING IN ICU IS FOLLOWING DAILY WELL. VENOUS DOPPLER UPPER AND LOWER EXTREMITITES REPORTED NEGATIVE FOR DVT. CTA CHEST DONE 3 DAYS AGO ALSO REPORTED NO PE SEEN. HIT AB ORDERED, RESULTS PENDING. AGREE WITH CLOSE FOLLOW BY US AND CONSULTANTS. CONTINUE IN ICU.
[2016-12-23] MEDS: Albuterol 0.083% Inhal Sol (2.5 mg/3 mL) UD INH SCH ×3 (12:05→19:17)
[2016-12-23] MEDS: Fluconazole IV 200mg/100 ml NS 100 ML IVPB SCH ×2 (13:02→20:18)
--- NOTE | 2016-12-23 13:57 | PN ---
DATE: 12/23/2016 The patient is in ICU, room 433. TIME SPENT: 35 minutes. The patient is seen and evaluated at the bedside. Events since admission reviewed. Overnight, febri le, sinus tachycardia, on meropenem and vancomycin for Escherichia coli bacteremia and urine culture positive for gram-negative rods. This morning, remains alert, awake, follows commands appropriate. Noted to have shortness of breath associated with a dry cough, improved with treatment with albuterol nebulization. Denies nausea, vomiting. Noted to have bleeding per vagina, reports her usual bleedi ng per vagina. On oxygen 2 liters nasal cannula, saturating over 94%. PHYSICAL EXAMINATION: VITAL SIGNS: T-max 101.5, heart rate 81, regular, blood pressure 128/64, respiratory rate 33, oxygen saturation 100%. Intake 2970, output 2400, positive 570. Weight 210 pounds. HEENT: Pupils reactive. Conjunctivae pale. Short neck. Reduced oropharyngeal airspace. CHEST: Bilateral breath sounds, diminished in intensity, scattered rhonchi. HEART: Rhythm regular. S1, S2 normal. No audible murmur. ABDOMEN: Bowel sounds present, softly distended. EXTREMITIES: 1-2+ edema. No palpable cord. Peripheral pulses intact, symmetrical. NEUROLOGIC: Nonfocal. PSYCHIATRIC: Alert, oriented. No signs of depression noted. LABORATORY DATA: WBC 12.6, hemoglobin 7.5, hematocrit 25.1, platelet count 113. PT 14.4, INR 1.38, PTT 34.5. SMA-7: Sodium 137, potassium 3.6, chloride 108, CO2 22, blood urea nitrogen 16, creatinin e 0.6, random glucose 98, anion gap corrected for hypoalbuminemia within the range, lactic acid 2.2. Urinalysis: Urine WBC 1, urine RBC less than 1, squamous epithelial cells less than 1. Toxicology: Vancomycin trough level less than 5. MICROBIOLOGY: Blood culture, gram-negative rods, identity E. coli, sensitive to meropenem. Urine cu lture E. coli. CURRENT MEDICATIONS: Meropenem 1 gram IV q. 8, fluconazole 200 mg IV daily, Tylenol 650 q. 6 p.r.n., albuterol solution 2.5 mg q.i.d., Colace 200 mg daily, ferrous sulfate 325 mg p.o. b.i.d., Motrin 40 0 mg p.o. q. 6 p.r.n. for fever more than 100.4, Toradol 30 IV q. 6 p.r.n. for pain, Zofran 4 mg IV q . 6 p.r.n., normal saline at 75 mL per hour, vancomycin 1 gram IV daily. IMPRESSION: A 51-year-old morbidly obese female, history of iron deficiency anemia, menorrhagia, [place] rine fibroid with recurrent persistent bleeding per vagina, status post laparoscopic appendectomy on 12/13/2016. Admitted with pain and swelling at the site of recent Venofer infusion. Venous Doppler n egative for thrombosis right upper extremity and also in the lower extremities. Noted to have Escher ichia coli bacteremia, also positive for Escherichia coli positive for urine culture. Currently, emp irically on vancomycin and meropenem as per infectious disease consult. Noted to have new fever, sep tic workup in progress. Add Diflucan for possible vaginal candidiasis. Will follow up chest x-ray t o assess any new infiltrate. Appreciate general surgery followup. Anemia, secondary to menorrhagia, hemoglobin remains stable, on iron supplement. Thrombocytopenia, improved, Lovenox on hold, follow antiplatelet antibody. Deep venous thrombosis prophylaxis with mechanical compression devices. Hold Lovenox secondary to anemia and ongoing vaginal bleeding. Will discuss with ID regarding possible e ndometritis and coverage for anaerobic coverage. Pro Echevarria MD cc: [id number] TT: 12/23/2016 13:57:09 Confirmation # [id number] Dictation # [id number]
[2016-12-23] MEDS ORDERED: Propofol 10 mg/ml 2,000 MG/200 ML VIAL ONE (14:58)
[2016-12-23] MEDS ORDERED: Succinylcholine 200 mg/10 ml Inj IV ONE (15:05)
--- NOTE | 2016-12-23 15:21 | PCM.ANES ---
Anesthesia Emergent Intubation - Diagnosis Working Diagnosis:: Bacteremia - Consult Reason for Consult:: emergent intubation - Intubation Attempts Previous Number of Intubation Attempts:: 0 - Pre-Intubation Vital Signs Blood Pressure: 103/52 Heart Rate: 150 Respiratory Rate: 36 O2 Sat: 90 FIO2: 100 Oxygen Delivery Method: Face Mask Level Of Consciousness: Lethargic Intubation Meds Given: Propofol, Succinylcholine - Airway Management Oropharyngeal Area Suctioned: Yes PreOxygenation: 100 (ambu bag) Inhalation: No Rapid Sequence: Yes Cricoid Pressure: No Possible Aspiration: No - Method of Intubation Intubation Method: Oral ETT ETT Size: 7.5 Lipline@: 21cm Easy: Yes Atramatic: Yes - Intubation Devices Mendy Blade Size Used: 3 Emily Forcepts Used: No [place] Scope Used: No Fiber Optic Scope: No - Placement Confirmation Breath Sounds Present & Equal Bilaterally: Yes Gurgling Sounds Not Audible at Epigastrum: Yes Positive EtCO2: Yes Portable CXR: No Recommendations: Ventilator, Chest X Ray, ABG - Post-Intubation Vital Signs Blood Pressure: 186/90 Heart Rate: 143 Respiratory Rate: 10 O2 Sat: 100 FIO2: 70
[2016-12-23] MEDS ORDERED: Albuterol 0.083% Inhal Sol (2.5 mg/3 mL) UD INH STA ×2 (15:27→16:14)
[2016-12-23] MEDS: Acetaminophen 650mg/20.3ml solution UD GT PRN (16:20)
--- NOTE | 2016-12-23 16:31 | RAD ---
HISTORY: cough COMPARISON: Chest x-ray performed 12/23/16 TECHNIQUE: Chest, one view. FINDINGS: Examination limited by habitus, hypoinflation, and patient obliquity. The endotracheal tube terminates approximately 1.6 cm above the level the [place]. Nasogastric tube extends expected location of the stomach. Multiple external wires and leads obscure evaluation of the underlying parenchyma. LUNGS: Subtle right lower lobe atelectasis or infiltrate. Please note that chest x-ray has limited sensitivity for the detection of pulmonary masses. PLEURA: No significant pleural effusion identified. No definite pneumothorax . CARDIOVASCULAR: Heart size appears top normal, likely exaggerated by under distension. OSSEOUS STRUCTURES: No acute osseous abnormality identified. VISUALIZED UPPER ABDOMEN: Unremarkable. OTHER FINDINGS: None. IMPRESSION: The endotracheal tube terminates approximately 1.6 cm above the level the [place]. Nasogastric tube extends expected location of the stomach. Subtle right lower lobe atelectasis.
[2016-12-23] MEDS ORDERED: Dexmedetomidine Hydrochloride 400 MCG in Sodium Chloride 0.9% 96 ML IV ONE (16:42)
--- NOTE | 2016-12-23 16:43 | CP.PCM.PN ---
<Robert Zhang - Last Filed: 12/23/16 17:28> Subjective - Date & Time of Evaluation Date of Evaluation: 12/23/16 Time of Evaluation: 03:00 - Subjective Subjective: Called by RN for shortness of breath Patient seen and examined at bedside alongside Contract Associate Manager, Dr. Echevarria. Noted to be dyspneic and continuously complaints of shortness of breath. Patient was noted to have fever of 101 and tachycardia 130. No complaints of pain at this time. Patient received Albuterol x 2 and Lasix 60mg without relief of SOB. In addition to tachypnea, O2 sat began to fall below 90%. Decision was made for emergent intubation to maintain airway. Patient verbally agreed as well as family that was at bedside. Anesthesia was consulted for intubation (refer to procedural note for details). Tylenol 650mg given via OG tube post intubation. Patient noted to be very restless/agitated after intubation requiring increased sedation medications (Propofol, Ativan, Precedex) as well as 2 point restraints for safety from pulling tubes out. Plan is to obtain CXR, ABG and maintain hemodynamic stability. Calls made out to Surgery, ID, and Cardiology to update them on patient's status. All above discussed with [id number] as well as town clerk wholesale parts salesperson. Objective - Vital Signs/Intake and Output Vital Signs (last 24 hours): Temp Pulse Resp BP Pulse Ox 101.5 F H 150 H 36 H 103/52 L 90 L 12/23/16 11:06 12/23/16 15:23 12/23/16 15:23 12/23/16 15:23 12/23/16 15:23 Intake and Output: 12/23/16 12/23/16 06:59 18:59 Intake Total 2500 350 Output Total 1700 200 Balance 800 150 - Medications Medications: Current Medications Acetaminophen (Tylenol 650mg/20.3ml Solution Ud) 650 mg GT Q6 PRN PRN Reason: Fever >100.4 F Albuterol Sulfate (Albuterol 0.083% Inhal Verónica (2.5 Mg/3 Ml) Ud) 2.5 mg INH RQID [facility] Last Admin: 12/23/16 16:10 Dose: 2.5 mg Docusate Sodium (Colace) 200 mg PO DAILY [facility] Last Admin: 12/23/16 09:38 Dose: Not Given Ferrous Sulfate (Feosol) 325 mg PO BID [facility] Last Admin: 12/23/16 09:38 Dose: 325 mg Meropenem 1 gm/ Sodium (Chloride) 100 mls @ 100 mls/hr IVPB Q8 [facility] Last Admin: 12/23/16 09:39 Dose: 100 mls/hr Vancomycin HCl 1 gm/ Sodium (Chloride) 250 mls @ 166.667 mls/hr IVPB DAILY [facility] Last Admin: 12/23/16 09:40 Dose: 166.667 mls/hr Fluconazole (Diflucan Iv 200 Mg/100 Ml Ns) 100 mls @ 100 mls/hr IVPB DAILY [facility] Last Admin: 12/23/16 13:02 Dose: 100 mls/hr Potassium Chloride/Dextrose/Sod Cl (Potassium Chl 20 Meq In D5-Ns) 1,000 mls @ 60 mls/hr IV .[id number] [facility] Stop: 12/24/16 13:29 Propofol (Diprivan) 1,000 mg in 100 mls @ 2.858 mls/hr IV .Q24H [facility]IGU[facility]; 5 MCG/KG/ MIN PRN Reason: Protocol Stop: 12/24/16 16:05 Ibuprofen (Motrin Tab) 400 mg PO Q6 PRN PRN Reason: Fever >100.4 F Last Admin: 12/21/16 08:48 Dose: 400 mg Ketorolac Tromethamine (Toradol) 30 mg IVP Q6 PRN PRN Reason: Pain, moderate (4-7) Last Admin: 12/22/16 22:40 Dose: 30 mg Morphine Sulfate (Morphine) 4 mg IVP Q4 PRN PRN Reason: Pain, severe (8-10) Ondansetron HCl (Zofran Inj) 4 mg IVP Q6 PRN PRN Reason: Nausea/Vomiting Last Admin: 12/21/16 05:26 Dose: 4 mg - Labs Labs: 12/23/16 05:45 12/23/16 05:45 PT 14.4 SECONDS (9.6-11.2) H 12/21/16 09:41 INR 1.38 (0.92-1.08) H 12/21/16 09:41 APTT 34.5 SECONDS (23.3-32.5) H 12/21/16 09:41 <Vale Juárez - Last Filed: 12/24/16 10:52> Subjective - Subjective Subjective: attending note/ attestation Case discussed with resident post intubation. Agree with plan. Objective - Vital Signs/Intake and Output Vital Signs (last 24 hours): Temp Pulse Resp BP Pulse Ox 100.8 F H 76 22 123/56 L 100 12/24/16 08:00 12/24/16 08:00 12/24/16 08:00 12/24/16 08:00 12/24/16 08:00 Intake and Output: 12/24/16 12/24/16 06:59 18:59 Intake Total 1278 300 Output Total 1999 Balance -722 300 - Medications Medications: Current Medications Acetaminophen (Tylenol 650mg/20.3ml Solution Ud) 650 mg GT Q6 PRN PRN Reason: Fever >100.4 F Last Admin: 12/23/16 16:20 Dose: 650 mg Albuterol Sulfate (Albuterol 0.083% Inhal Verónica (2.5 Mg/3 Ml) Ud) 2.5 mg INH RQID [facility] Last Admin: 12/24/16 08:41 Dose: 2.5 mg Docusate Sodium (Colace) 200 mg PO DAILY [facility] Last Admin: 12/24/16 09:01 Dose: Not Given Ferrous Sulfate (Feosol) 325 mg PO BID [facility] Last Admin: 12/24/16 09:04 Dose: 325 mg Vancomycin HCl 1 gm/ Sodium (Chloride) 250 mls @ 166.667 mls/hr IVPB DAILY [facility] Last Admin: 12/24/16 09:05 Dose: 166.667 mls/hr Fluconazole (Diflucan Iv 200 Mg/100 Ml Ns) 100 mls @ 100 mls/hr IVPB DAILY [facility] Last Admin: 12/24/16 09:02 Dose: 100 mls/hr Potassium Chloride/Dextrose/Sod Cl (Potassium Chl 20 Meq In D5-Ns) 1,000 mls @ 60 mls/hr IV .[id number] [facility] Stop: 12/24/16 13:29 Last Admin: 12/24/16 09:05 Dose: 60 mls/hr Propofol (Diprivan) 1,000 mg in 100 mls @ 2.858 mls/hr IV .Q24H [facility]; 5 MCG/KG/ MIN PRN Reason: Protocol Stop: 12/24/16 16:05 Last Admin: 12/24/16 09:07 Dose: 45 mcg/kg/min, 25.719 mls/hr Meropenem 1 gm/ Sodium (Chloride) 100 mls @ 100 mls/hr IVPB Q8@0500,1300,2100 [facility] Last Admin: 12/24/16 04:29 Dose: 100 mls/hr Ibuprofen (Motrin Tab) 400 mg PO Q6 PRN PRN Reason: Fever >100.4 F Last Admin: 12/21/16 08:48 Dose: 400 mg Ketorolac Tromethamine (Toradol) 30 mg IVP Q6 PRN PRN Reason: Pain, moderate (4-7) Last Admin: 12/22/16 22:40 Dose: 30 mg Morphine Sulfate (Morphine) 4 mg IVP Q4 PRN PRN Reason: Pain, severe (8-10) Ondansetron HCl (Zofran Inj) 4 mg IVP Q6 PRN PRN Reason: Nausea/Vomiting Last Admin: 12/21/16 05:26 Dose: 4 mg - Labs Labs: 12/24/16 06:10 12/24/16 06:10 PT 14.4 SECONDS (9.6-11.2) H 12/21/16 09:41 INR 1.38 (0.92-1.08) H 12/21/16 09:41 APTT 34.5 SECONDS (23.3-32.5) H 12/21/16 09:41
[2016-12-23] MEDS: Propofol 10 mg/ml 1,000 MG/100 ML VIAL IV SCH ×2 (17:00→18:00)
[2016-12-23 17:28] LABS: ABG ALLEN TEST YES; ABG MECHANICAL RATE 14; ARTERIAL BLOOD GAS HCO3 24.4 mmol/L (21-28); ARTERIAL BLOOD GAS MODE A/C; ARTERIAL BLOOD GAS PH 7.51 (7.35-7.45); ARTERIAL BLOOD GAS PO2 44 mm/Hg (80-100); ATERIAL BLOOD GAS PEEP 5
--- NOTE | 2016-12-23 18:46 | CP.PCM.CON ---
History of Present Illness - History of Present Illness History of Present Illness: Pt with hx of recent appendectomy and fibroids with bleeding presents with fever and leukocytosis and on broad spectrum antibiotics defervesced for more than 24 hrs and had a temp spike again and got short of breath and intubated. Past Patient History - Infectious Disease Hx of Infectious Diseases: None - Past Medical History & Family History Past Medical History?: No - Past Social History Smoking Status: Never Smoked - CARDIAC Hx Cardiac Disorders: No - PULMONARY Hx Respiratory Disorders: No - NEUROLOGICAL Hx Neurological Disorder: No - HEENT Hx HEENT Problems: No - RENAL Hx Chronic Kidney Disease: No - ENDOCRINE/METABOLIC Hx Endocrine Disorders: No - HEMATOLOGICAL/ONCOLOGICAL Hx Blood Disorders: Yes Hx Anemia: Yes - INTEGUMENTARY Hx Dermatological Problems: No - MUSCULOSKELETAL/RHEUMATOLOGICAL Hx Musculoskeletal Disorders: No Hx Falls: No - GASTROINTESTINAL Hx Gastrointestinal Disorders: No - GENITOURINARY/GYNECOLOGICAL Hx Genitourinary Disorders: No - PSYCHIATRIC Hx Psychophysiologic Disorder: No Hx Emotional Abuse: No Hx Physical Abuse: No Hx Substance Use: No - SURGICAL HISTORY Hx Surgeries: Yes Other/Comment: APPENDECTOMY-DECEMBER 2016 - ANESTHESIA Hx Anesthesia: Yes Hx Anesthesia Reactions: No Hx Malignant Hyperthermia: No Meds Home Medications: Home Medication List Medication Instructions Recorded Confirmed Type Cephalexin [cephalexin] 500 mg PO QID #28 cap 12/19/16 Rx Naproxen [Naprosyn] 500 mg PO BID PRN #20 tablet 12/19/16 Rx Allergies/Adverse Reactions: Allergies Allergy/AdvReac Type Severity Reaction Status Date / Time No Known Allergies Allergy Verified 12/12/16 23:15 - Medications Medications: Current Medications Acetaminophen (Tylenol 650mg/20.3ml Solution Ud) 650 mg GT Q6 PRN PRN Reason: Fever >100.4 F Last Admin: 12/23/16 16:20 Dose: 650 mg Albuterol Sulfate (Albuterol 0.083% Inhal Verónica (2.5 Mg/3 Ml) Ud) 2.5 mg INH RQID [facility] Last Admin: 12/23/16 16:10 Dose: 2.5 mg Docusate Sodium (Colace) 200 mg PO DAILY [facility] Last Admin: 12/23/16 09:38 Dose: Not Given Ferrous Sulfate (Feosol) 325 mg PO BID [facility] Last Admin: 12/23/16 09:38 Dose: 325 mg Meropenem 1 gm/ Sodium (Chloride) 100 mls @ 100 mls/hr IVPB Q8 [facility] Last Admin: 12/23/16 09:39 Dose: 100 mls/hr Vancomycin HCl 1 gm/ Sodium (Chloride) 250 mls @ 166.667 mls/hr IVPB DAILY [facility] Last Admin: 12/23/16 09:40 Dose: 166.667 mls/hr Fluconazole (Diflucan Iv 200 Mg/100 Ml Ns) 100 mls @ 100 mls/hr IVPB DAILY [facility] Potassium Chloride/Dextrose/Sod Cl (Potassium Chl 20 Meq In D5-Ns) 1,000 mls @ 60 mls/hr IV .[id number] [facility] Stop: 12/24/16 13:29 Propofol (Diprivan) 1,000 mg in 100 mls @ 2.858 mls/hr IV .Q24H [facility]; 5 MCG/KG/ MIN PRN Reason: Protocol Stop: 12/24/16 16:05 Ibuprofen (Motrin Tab) 400 mg PO Q6 PRN PRN Reason: Fever >100.4 F Last Admin: 12/21/16 08:48 Dose: 400 mg Ketorolac Tromethamine (Toradol) 30 mg IVP Q6 PRN PRN Reason: Pain, moderate (4-7) Last Admin: 12/22/16 22:40 Dose: 30 mg Morphine Sulfate (Morphine) 4 mg IVP Q4 PRN PRN Reason: Pain, severe (8-10) Ondansetron HCl (Zofran Inj) 4 mg IVP Q6 PRN PRN Reason: Nausea/Vomiting Last Admin: 12/21/16 05:26 Dose: 4 mg Results - Vital Signs Recent Vital Signs: Last Vital Signs Temp 101.7 F H 12/23/16 16:20 Pulse 150 H 12/23/16 15:23 Resp 36 H 12/23/16 15:23 BP 187/95 H 12/23/16 16:34 Pulse Ox 90 L 12/23/16 15:23 - Labs Result Diagrams: 12/23/16 05:45 12/23/16 05:45 Labs: Laboratory Results - last 24 hr 12/22/16 12/23/16 12/23/16 19:57 05:27 05:45 WBC 17.3 H 12.6 H RBC 3.91 3.85 Hgb 7.7 L 7.5 L Hct 26.3 L 25.1 L MCV 67.3 L 65.3 L D MCH 19.7 L 19.6 L MCHC 29.3 L 30.0 L RDW 36.4 H 36.1 H Plt Count 92 L D 113 L D MPV 10.9 Neut % (Auto) 87.9 H Lymph % (Auto) 7.4 L Nash % (Auto) 4.1 Eos % (Auto) 0.3 Baso % (Auto) 0.3 Neut # 11.1 H Lymph # 0.9 L Nash # 0.5 Eos # 0.0 Baso # 0.0 pCO2 28 L pO2 44 L* HCO3 24.4 ABG pH 7.51 H ABG Total CO2 23.2 ABG O2 Saturation 88.4 L ABG Base Excess -0.4 Devin Test Yes ABG Potassium 3.5 L A-a O2 Difference 349.0 Sodium 138.0 Chloride 110.0 H Glucose 115 H Lactate 3.1 H Vent Mode A/c Mechanical Rate 14 FiO2 60.0 Tidal Volume 700 PEEP 5 Crit Value Called To Dr robert mckinnon Crit Value Called By Crit Value Read Back Y Blood Gas Notified Time 1728 Potassium Carbon Dioxide Anion Gap BUN Creatinine Est GFR ( Amer) Est GFR (Non-Af Amer) Random Glucose Lactic Acid Calcium Total Bilirubin AST ALT Alkaline Phosphatase Total Protein Albumin Globulin Albumin/Globulin Ratio Arterial Blood Potassium 3.5 L Vancomycin Trough 12/23/16 12/23/16 12/23/16 05:45 08:00 10:10 WBC RBC Hgb Hct MCV MCH MCHC RDW Plt Count MPV Neut % (Auto) Lymph % (Auto) Nash % (Auto) Eos % (Auto) Baso % (Auto) Neut # Lymph # Nash # Eos # Baso # pCO2 pO2 HCO3 ABG pH ABG Total CO2 ABG O2 Saturation ABG Base Excess Devin Test ABG Potassium A-a O2 Difference Sodium 137 Chloride 108 H Glucose Lactate Vent Mode Mechanical Rate FiO2 Tidal Volume PEEP Crit Value Called To Crit Value Called By Crit Value Read Back Blood Gas Notified Time Potassium 3.6 Carbon Dioxide 22 Anion Gap 11 BUN 16 Creatinine 0.6 L Est GFR ( Amer) > 60 Est GFR (Non-Af Amer) > 60 Random Glucose 98 Lactic Acid 2.2 H Calcium 7.9 L Total Bilirubin 0.7 AST 66 H ALT 52 Alkaline Phosphatase 216 H D Total Protein 6.3 Albumin 2.7 L Globulin 3.6 Albumin/Globulin Ratio 0.8 L Arterial Blood Potassium Vancomycin Trough < 5.0 L Assessment & Plan - Assessment and Plan (Free Text) Assessment: GNR bacteremia with E.coli UTI s/p appendectomy Temp spike and intubated Respiratory alkolosis with mild metoabolic alkalosis: r/o PE r/o fungal caused of infection. Agreee with Vancomycin & Meropenem and fluconazole. suggest d dimers, ECHO to look for right ventricular strain to rule out PE. F/U blood cutlures
[2016-12-23] MEDS: Potassium Chl 20 mEq in D5-NS 1,000 ML IV SCH (18:50)
--- NOTE | 2016-12-23 19:17 | PCM.PROC ---
Procedures Attestation:: I certify that I have explained the specified Operation(s) or Procedure(s), risks, benefits and reasonable alternatives to the Patient and/or other person responsible. The opportunity was given to ask questions and all questions answered - Central Line Placement Right Femoral Triple Lumen Catheter Aseptic technique was employed throughout the procedure: Full sterile barriers ( mask, hair cover, sterile gown, sterile gloves), Full body sterile drape, Chloraprep Antiseptic: 30 second prep for IJ or SC sites CVP Time Out Performed: Yes Pt. Placed on Pulse Ox Monitor: Yes Central Line Prep: Povidone-Iodine 1% Local Anesthesia Used: Lidocaine 1% Amount of Anesthesia Used (mls): 3 Ultrasound Used for Placement: Yes Central Line Lumen Inserted: triple Central Line Length: 30 cm Post Procedure: Sutured in Place, Good Blood Return, All Ports Aspirated, Flushed, Capped, Sterile Dressing Applied Secured by: Suture Post procedure dressing: Chlorhexidine disc (Biopatch) Post Procedure X-Ray: No Patient Tolerated Procedure: Well Immediate Complications: None
--- NOTE | 2016-12-23 19:25 | PCM.IRP ---
Objective - Vital Signs/Intake and Output Vital Signs (last 24 hours): Vital Signs - 24 hr 12/22/16 12/22/16 12/23/16 20:00 22:00 00:00 Temperature 98.3 F 98.7 F Pulse Rate 80 82 79 Respiratory 21 47 H 26 H Rate Blood Pressure 124/72 127/83 120/69 O2 Sat by Pulse 100 97 100 Oximetry 12/23/16 12/23/16 12/23/16 02:39 02:40 03:39 Temperature 100.6 F H 100.6 F H 99.0 F Pulse Rate Respiratory Rate Blood Pressure O2 Sat by Pulse Oximetry 12/23/16 12/23/16 12/23/16 04:00 06:00 08:00 Temperature 99.0 F 98.3 F Pulse Rate 101 H 91 H 80 Respiratory 35 H 40 H 37 H Rate Blood Pressure 136/60 118/54 L 116/68 O2 Sat by Pulse 99 99 100 Oximetry 12/23/16 12/23/16 12/23/16 10:00 11:00 11:06 Temperature 101.5 F H 101.5 F H Pulse Rate 81 Respiratory 33 H Rate Blood Pressure 128/64 O2 Sat by Pulse 100 Oximetry 12/23/16 12/23/16 12/23/16 15:00 15:23 16:20 Temperature 101.7 F H Pulse Rate 150 H Respiratory 36 H Rate Blood Pressure 103/73 103/52 L O2 Sat by Pulse 90 L Oximetry 12/23/16 16:34 Temperature Pulse Rate Respiratory Rate Blood Pressure 187/95 H O2 Sat by Pulse Oximetry Intake and Output (last 12 hours): Intake & Output 12/23/16 12/23/16 12/24/16 06:59 18:59 06:59 Intake Total 2500 350 Output Total 1700 200 Balance 800 150 Intake: IV 2100 350 Intake, Piggyback 100 Oral 300 Output: Urine 1700 200 Urine, Voided 1700 200 Other: # Voids Urine, Voided 5 3 - Medications Medications: Current Medications Acetaminophen (Tylenol 650mg/20.3ml Solution Ud) 650 mg GT Q6 PRN PRN Reason: Fever >100.4 F Last Admin: 12/23/16 16:20 Dose: 650 mg Albuterol Sulfate (Albuterol 0.083% Inhal Verónica (2.5 Mg/3 Ml) Ud) 2.5 mg INH RQID [facility] Last Admin: 12/23/16 19:17 Dose: 2.5 mg Docusate Sodium (Colace) 200 mg PO DAILY [facility] Last Admin: 12/23/16 09:38 Dose: Not Given Ferrous Sulfate (Feosol) 325 mg PO BID [facility] Last Admin: 12/23/16 09:38 Dose: 325 mg Meropenem 1 gm/ Sodium (Chloride) 100 mls @ 100 mls/hr IVPB Q8 [facility] Last Admin: 12/23/16 09:39 Dose: 100 mls/hr Vancomycin HCl 1 gm/ Sodium (Chloride) 250 mls @ 166.667 mls/hr IVPB DAILY [facility] Last Admin: 12/23/16 09:40 Dose: 166.667 mls/hr Fluconazole (Diflucan Iv 200 Mg/100 Ml Ns) 100 mls @ 100 mls/hr IVPB DAILY [facility] Potassium Chloride/Dextrose/Sod Cl (Potassium Chl 20 Meq In D5-Ns) 1,000 mls @ 60 mls/hr IV .[id number] [facility] Stop: 12/24/16 13:29 Propofol (Diprivan) 1,000 mg in 100 mls @ 2.858 mls/hr IV .Q24H [facility]; 5 MCG/KG/ MIN PRN Reason: Protocol Stop: 12/24/16 16:05 Ibuprofen (Motrin Tab) 400 mg PO Q6 PRN PRN Reason: Fever >100.4 F Last Admin: 12/21/16 08:48 Dose: 400 mg Ketorolac Tromethamine (Toradol) 30 mg IVP Q6 PRN PRN Reason: Pain, moderate (4-7) Last Admin: 12/22/16 22:40 Dose: 30 mg Morphine Sulfate (Morphine) 4 mg IVP Q4 PRN PRN Reason: Pain, severe (8-10) Ondansetron HCl (Zofran Inj) 4 mg IVP Q6 PRN PRN Reason: Nausea/Vomiting Last Admin: 12/21/16 05:26 Dose: 4 mg - Labs Labs (last 24 hours): Laboratory Results - last 24 hr 12/22/16 12/23/16 12/23/16 19:57 05:27 05:45 WBC 17.3 H 12.6 H RBC 3.91 3.85 Hgb 7.7 L 7.5 L Hct 26.3 L 25.1 L MCV 67.3 L 65.3 L D MCH 19.7 L 19.6 L MCHC 29.3 L 30.0 L RDW 36.4 H 36.1 H Plt Count 92 L D 113 L D MPV 10.9 Neut % (Auto) 87.9 H Lymph % (Auto) 7.4 L Bowie % (Auto) 4.1 Eos % (Auto) 0.3 Baso % (Auto) 0.3 Neut # 11.1 H Lymph # 0.9 L Bowie # 0.5 Eos # 0.0 Baso # 0.0 pCO2 28 L pO2 44 L* HCO3 24.4 ABG pH 7.51 H ABG Total CO2 23.2 ABG O2 Saturation 88.4 L ABG Base Excess -0.4 Devin Test Yes ABG Potassium 3.5 L A-a O2 Difference 349.0 Sodium 138.0 Chloride 110.0 H Glucose 115 H Lactate 3.1 H Vent Mode A/c Mechanical Rate 14 FiO2 60.0 Tidal Volume 700 PEEP 5 Crit Value Called To Dr robert mckinnon Crit Value Called By Crit Value Read Back Y Blood Gas Notified Time 1728 Potassium Carbon Dioxide Anion Gap BUN Creatinine Est GFR ( Amer) Est GFR (Non-Af Amer) Random Glucose Lactic Acid Calcium Total Bilirubin AST ALT Alkaline Phosphatase Total Protein Albumin Globulin Albumin/Globulin Ratio Arterial Blood Potassium 3.5 L Vancomycin Trough 12/23/16 12/23/16 12/23/16 05:45 08:00 10:10 WBC RBC Hgb Hct MCV MCH MCHC RDW Plt Count MPV Neut % (Auto) Lymph % (Auto) Bowie % (Auto) Eos % (Auto) Baso % (Auto) Neut # Lymph # Bowie # Eos # Baso # pCO2 pO2 HCO3 ABG pH ABG Total CO2 ABG O2 Saturation ABG Base Excess Devin Test ABG Potassium A-a O2 Difference Sodium 137 Chloride 108 H Glucose Lactate Vent Mode Mechanical Rate FiO2 Tidal Volume PEEP Crit Value Called To Crit Value Called By Crit Value Read Back Blood Gas Notified Time Potassium 3.6 Carbon Dioxide 22 Anion Gap 11 BUN 16 Creatinine 0.6 L Est GFR ( Amer) > 60 Est GFR (Non-Af Amer) > 60 Random Glucose 98 Lactic Acid 2.2 H Calcium 7.9 L Total Bilirubin 0.7 AST 66 H ALT 52 Alkaline Phosphatase 216 H D Total Protein 6.3 Albumin 2.7 L Globulin 3.6 Albumin/Globulin Ratio 0.8 L Arterial Blood Potassium Vancomycin Trough < 5.0 L
--- NOTE | 2016-12-23 21:27 | CP.PCM.PCO ---
Physician Communication Note - Physician Communication Note Physician Communication Note: Explanation regarding D Dimer elevation.
[2016-12-24] MEDS: Meropenem 1 GM in Sodium Chloride 0.9% 100 ML IVPB SCH ×3 (04:29→20:24)
[2016-12-24 05:53] LABS: ABG ALLEN TEST YES; ABG MECHANICAL RATE 14; ARTERIAL BLOOD GAS HCO3 25.3 mmol/L (21-28); ARTERIAL BLOOD GAS MODE A/C; ARTERIAL BLOOD GAS O2 CAPACITY 10.9 mL/dL (16-24); ARTERIAL BLOOD GAS O2 CONTENT 10.9 ML/dL (15-23); ARTERIAL BLOOD GAS PH 7.49 (7.35-7.45); ARTERIAL BLOOD GAS PO2 211 mm/Hg (80-100); ARTERIAL BLOOD HGB O2 SAT 97.2 % (95.0-98.0); ATERIAL BLOOD GAS PEEP 5; CARBOXYHEMOGLOBIN 1.2 % (0.5-1.5); METHEMOGLOBIN 1.6 % (0.0-3.0)
[2016-12-24 06:29] LABS: HEMATOCRIT 24.8 % (34.0-47.0); MEAN CELL VOLUME 66.9 fl (81.0-99.0); MEAN CORPUSCULAR HGB CONC 29.9 g/dL (33.0-37.0); RED CELL DISTRIBUTION WIDTH 35.7 % (11.5-14.5); WHITE BLOOD COUNT 7.4 K/uL (4.8-10.8)
[2016-12-24 06:48] LABS: ALB/GLOB RATIO 0.8 (1.0-2.1); ALKALINE PHOSPHATASE 199 U/L (38-126); ALT/SGPT 59 U/L (9-52); AST/SGOT 62 U/L (14-36); BILIRUBIN,TOTAL 0.8 mg/dl (0.2-1.3); BLOOD UREA NITROGEN 9 mg/dl (7-17); CALCIUM 7.3 mg/dL (8.4-10.2); CARBON DIOXIDE 23 mmol/L (22-30); CHLORIDE 109 mmol/L (98-107); GFR AFRICAN-AMERICAN > 60; GLUCOSE,RANDOM 118 mg/dL (65-105); POTASSIUM 3.4 MMOL/L (3.6-5.0); SODIUM 141 mmol/l (132-148); TOTAL PROTEIN 6.2 G/DL (6.3-8.2)
[2016-12-24] MEDS: Albuterol 0.083% Inhal Sol (2.5 mg/3 mL) UD INH SCH ×4 (08:41→20:30)
[2016-12-24] MEDS ORDERED: Propofol 10 mg/ml 1,000 MG/100 ML VIAL ONE (08:46)
--- NOTE | 2016-12-24 08:51 | RAD ---
PROCEDURE: CHEST RADIOGRAPH, 1 VIEW portable study 04:35. HISTORY: intubated COMPARISON: Multiple serial examinations preceding the most recent study: December 23, 2016. FINDINGS: LUNGS: Clear. PLEURA: No pneumothorax or pleural fluid seen. CARDIOVASCULAR: Cardiomegaly. No evidence of acute, significant cardiovascular disease. OSSEOUS STRUCTURES: No significant abnormalities. VISUALIZED UPPER ABDOMEN: Normal. OTHER FINDINGS: Stable position of endotracheal tube. Tube tip within 2 cm of the chelsea. IMPRESSION: No significant interval change compared to the prior examination(s).
[2016-12-24] MEDS: Fluconazole IV 200mg/100 ml NS 100 ML IVPB SCH (09:02)
[2016-12-24] MEDS: Potassium Chl 20 mEq in D5-NS 1,000 ML IV SCH (09:05)
[2016-12-24] MEDS: Propofol 10 mg/ml 1,000 MG/100 ML VIAL IV SCH ×2 (09:07→13:05)
[2016-12-24] MEDS ORDERED: Midazolam 2 MG/2 ML VIAL ONE (10:04)
--- NOTE | 2016-12-24 10:36 | CP.PCM.PN ---
Subjective - Date & Time of Evaluation Date of Evaluation: 12/24/16 Time of Evaluation: 07:05 - Subjective Subjective: Patient was seen and examined at bedside. Patient is intubated: FiO2 60 %, PEEP 5 cmH2O. Patient was intubated yesterday due to respiratory distress. Emerson catheter in place with 150 ml of clear yellow urine, no hematuria noted. Patient has a right femoral PICC line. Objective - Vital Signs/Intake and Output Vital Signs (last 24 hours): Temp Pulse Resp BP Pulse Ox 100.8 F H 76 22 123/56 L 100 12/24/16 08:00 12/24/16 08:00 12/24/16 08:00 12/24/16 08:00 12/24/16 08:00 Intake and Output: 12/24/16 12/24/16 06:59 18:59 Intake Total 1278 300 Output Total 2000 Balance -722 300 - Medications Medications: Current Medications Acetaminophen (Tylenol 650mg/20.3ml Solution Ud) 650 mg GT Q6 PRN PRN Reason: Fever >100.4 F Last Admin: 12/23/16 16:20 Dose: 650 mg Albuterol Sulfate (Albuterol 0.083% Inhal Verónica (2.5 Mg/3 Ml) Ud) 2.5 mg INH RQID [facility] Last Admin: 12/24/16 08:41 Dose: 2.5 mg Docusate Sodium (Colace) 200 mg PO DAILY [facility] Last Admin: 12/24/16 09:01 Dose: Not Given Ferrous Sulfate (Feosol) 325 mg PO BID [facility] Last Admin: 12/24/16 09:04 Dose: 325 mg Vancomycin HCl 1 gm/ Sodium (Chloride) 250 mls @ 166.667 mls/hr IVPB DAILY [facility] Last Admin: 12/24/16 09:05 Dose: 166.667 mls/hr Fluconazole (Diflucan Iv 200 Mg/100 Ml Ns) 100 mls @ 100 mls/hr IVPB DAILY [facility] Last Admin: 12/24/16 09:02 Dose: 100 mls/hr Potassium Chloride/Dextrose/Sod Cl (Potassium Chl 20 Meq In D5-Ns) 1,000 mls @ 60 mls/hr IV .[id number] [facility] Stop: 12/24/16 13:29 Last Admin: 12/24/16 09:05 Dose: 60 mls/hr Propofol (Diprivan) 1,000 mg in 100 mls @ 2.858 mls/hr IV .Q24H MIGUEL; 5 MCG/KG/ MIN PRN Reason: Protocol Stop: 12/24/16 16:05 Last Admin: 12/24/16 09:07 Dose: 45 mcg/kg/min, 25.719 mls/hr Meropenem 1 gm/ Sodium (Chloride) 100 mls @ 100 mls/hr IVPB Q8@0500,1300,2100 MIGUEL Last Admin: 12/24/16 04:29 Dose: 100 mls/hr Ibuprofen (Motrin Tab) 400 mg PO Q6 PRN PRN Reason: Fever >100.4 F Last Admin: 12/21/16 08:48 Dose: 400 mg Ketorolac Tromethamine (Toradol) 30 mg IVP Q6 PRN PRN Reason: Pain, moderate (4-7) Last Admin: 12/22/16 22:40 Dose: 30 mg Morphine Sulfate (Morphine) 4 mg IVP Q4 PRN PRN Reason: Pain, severe (8-10) Ondansetron HCl (Zofran Inj) 4 mg IVP Q6 PRN PRN Reason: Nausea/Vomiting Last Admin: 12/21/16 05:26 Dose: 4 mg - Labs Labs: 12/24/16 06:10 12/24/16 06:10 PT 14.4 SECONDS (9.6-11.2) H 12/21/16 09:41 INR 1.38 (0.92-1.08) H 12/21/16 09:41 APTT 34.5 SECONDS (23.3-32.5) H 12/21/16 09:41 - Constitutional Appears: No Acute Distress - ENT Exam ENT Exam: Mucous Membranes Moist - Respiratory Exam Respiratory Exam: Clear to Ausculation Bilateral, NORMAL BREATHING PATTERN - Cardiovascular Exam Cardiovascular Exam: REGULAR RHYTHM, +S1, +S2 - GI/Abdominal Exam GI & Abdominal Exam: Soft, Normal Bowel Sounds. absent: Distended, Guarding, Rigid, Tenderness - Neurological Exam Neurological Exam: absent: Awake - Skin Skin Exam: Dry, Intact, Pallor Assessment and Plan - Assessment and Plan (Free Text) Assessment: 51 yo obese F with PMH including iron deficiency anemia, Menorrhagia 2/2 uterine fibroids, and appendectomy on 12/13/16 admitted w/ fever and leukocytosis. Plan: Severe Sepsis with gram negative bacteremia (pt is spiking fever again after ~36 hrs afebrile) continue with low grade fever today etiology related w/ Urosepsis (+ E.Coli in UCx) + Leukocytosis, trending down, WBC: 7.4 today + Bcx and Ucx for E.Coli -CT of chest detects no lung masses or consolidations. -CT Abd/Pelvis: negative for intrabdominal abscess -Abx: - Vancomycin 1gm IV BID (started 12/21, day#4) (changed from daily to BID today due to Vanco trough) - Meropenem 1gm IV Q8H (Started 12/21, Current day #4). -Fluconazole 200 mg IV daily ( started on 12/23/16)day #2 -Vancomycin trough < 5 -ID on board. -F/U procalcitonin -Repeat Blood Cx on 12/23/16 showed no growth for 24 hours today and lactic acid -continue to monitor -CBC stable H/H: 7.4/24.8 -Consider transfusion of PRBC in Hgb/Hct trending down. UTI + E.Coli in UCx on Meropenem and Vanco Uterine fibroids/Ovarian Cyst -CT abd/pelvis detected a markedly enlarged uterus containing multiple masses c/ w fibroids. A 5cm fluid density mass adjacent to the left side of the uterus was also detected -F/U CEA 125 and 19. transvaginal US: enlarge uterus w/ multiples masses, very limited study, endometrium not seen -TRANSPORTATION MECHANIC recommended f/u as outpatient with [facility] Laparoscopic Appendectomy -Patient had recent lap appendectomy on 12/13/16 -General surgery consulted who believe current presentation is unrelated DVT Prophylaxis - SCDs Lovenox on hold for now due to thrombocytopenia -F/U Heparin-IND platelet and Platelet AB( IGG) results
[2016-12-24] MEDS: Acetaminophen 650mg/20.3ml solution UD GT PRN ×2 (10:52→17:23)
--- NOTE | 2016-12-24 11:02 | CARD ---
APPROVED REPORT EKG Measurement Heart [id number] <Conclusion> Normal sinus rhythm Inferior infarct, age undetermined Abnormal ECG
--- NOTE | 2016-12-24 13:43 | CT ---
PROCEDURE: CT Chest, Abdomen and Pelvis with intravenous contrast HISTORY: Not available COMPARISON: CT abdomen/ pelvis 12/13/2016 TECHNIQUE: IV dose administered: 95 mL Visipaque 320 Radiation dose: Total exam DLP = 1008.48 mGy-cm. This CT exam was performed using one or more of the following dose reduction techniques: Automated ex posure control, adjustment of the mA and/or kV according to patient size, and/or use of iterative rec onstruction technique. FINDINGS: CT CHEST WITH CONTRAST: LUNGS: Clear. No nodule, mass or consolidation. MEDIASTINUM: Unremarkable. Normal caliber aorta and pulmonary arterial trunk. No aortic dissection. Normal size he art. LYMPH NODES: Unremarkable. PLEURA: Unremarkable. No pneumothorax. No pleural fluid. BONES: Unremarkable. OTHER FINDINGS: None. CT ABDOMEN AND PELVIS: LIVER: Mildly enlarged. It measures 21.3 cm craniocaudal. There is no mass. Contour is smooth. No biliary ductal dilatation. GALLBLADDER AND BILE DUCTS: Mild diffuse thickening of the gallbladder wall, nonspecific. No calcified gallstones are identified. No pericholecystic fluid. If the patient has right upper quadrant abdominal pain consider evaluation with ultrasound examination. PANCREAS: Unremarkable. No gross lesion or ductal dilatation. SPLEEN: Mildly enlarged, measuring 13.5 cm. No focal mass. ADRENALS: Unremarkable. No mass. KIDNEYS AND URETERS: Unremarkable. No hydronephrosis. No solid mass. VASCULATURE: Unremarkable. No aortic aneurysm. BOWEL: Unremarkable. No obstruction. No gross mural thickening. APPENDIX: Not positively identified. No secondary findings to suggest acute appendicitis, however. PERITONEUM: Unremarkable. No free fluid. No free air. LYMPH NODES: Unremarkable. No enlarged lymph nodes. BLADDER: Nondistended. REPRODUCTIVE: Markedly enlarged uterus containing multiple masses, consistent with fibroids. Largest measures appr oximately 10.8 cm diameter. There is a fluid density ovoid structure adjacent the left side of the ut erus measuring approximately 5.1 x 3.4 cm. Possibly ovarian cysts. BONES: No acute fracture. OTHER FINDINGS: None. IMPRESSION: Hepatosplenomegaly. Markedly enlarged uterus containing multiple fibroids of varying size, up to 10.8 cm diameter. 5.1 cm fluid density mass in the left pelvis, possibly an ovarian cyst though this is n ot certain on the basis of this examination. Thickened gallbladder wall without evidence of calcifie d stones or pericholecystic fluid. Please correlate with clinical evaluation and of appropriate cons ider further evaluation with ultrasound examination. Unremarkable CT of the chest.
[2016-12-24] MEDS ORDERED: Dexmedetomidine Hydrochloride 400 MCG in Sodium Chloride 0.9% 96 ML IV ONE ×2 (15:25→22:10)
--- NOTE | 2016-12-24 16:37 | CP.CCUPN ---
CCU Subjective - Physician Review Events Since Last Encounter (Free Text): 12/24/16 16:36 Sedated and intubated. CCU Objective - Vital Signs / Intake & Output Vital Signs (Last 4 hours): Vital Signs Temp Pulse Resp BP Pulse Ox 12/24/16 16:00 97.3 F L 72 17 106/44 L 100 12/24/16 13:00 71 16 106/57 L 100 Intake and Output (Last 8hrs): Intake & Output 12/24/16 12/24/16 12/24/16 06:59 14:59 22:59 Intake Total 758 1350 Output Total 1999 Balance -1242 1350 Intake: IV 658 900 Intake, Piggyback 100 450 Output: Urine 1999 Urethral (Gordillo) 1999 Other: # Bowel Movements 1 - Physical Exam Head: Positive for: Atraumatic, Normocephalic Pupils: Positive for: PERRL Extroacular Muscles: Positive for: EOMI Conjunctiva: Positive for: Normal Respiratory/Chest: Positive for: Clear to Auscultation, Good Air Exchange, Tender to Palpation (Betts). Negative for: Respiratory Distress, Wheezes, Rales , Rhonchi Cardiovascular: Positive for: Regular Rate and Rhythm, Normal S1, S2. Negative for: Murmurs Abdomen: Positive for: Normal Bowel Sounds, Other (No suprapubic or CVA tenderness). Negative for: Distention, Rebound, Guarding Lower Extremity: Negative for: Edema, CALF TENDERNESS, Chandler's Sign Skin: Positive for: Warm, Normal Color Other physical findings (Free Text): sedated - Medications Active Medications: Active Medications Generic Name Dose Route Start Last Admin Trade Name Hasmukh PRN Reason Stop Dose Admin Acetaminophen 650 mg 12/23/16 15:45 12/24/16 10:52 Tylenol 650mg/20.3ml Solution Ud GT 650 mg Q6 PRN Administration Fever >100.4 F Albuterol Sulfate 2.5 mg 12/23/16 12:00 12/24/16 12:01 Albuterol 0.083% Inhal Verónica (2.5 Mg/3 Ml) Ud INH 2.5 mg RQID MIGUEL Administration Docusate Sodium 200 mg 12/20/16 09:00 12/24/16 09:01 Colace PO Not Given DAILY MIGUEL Ferrous Sulfate 325 mg 12/20/16 09:00 12/24/16 09:04 Feosol PO 325 mg BID MIGUEL Administration Fluconazole 100 mls @ 100 mls/hr 12/23/16 12:15 12/24/16 09:02 Diflucan Iv 200 Mg/100 Ml Ns IVPB 100 mls/hr DAILY MIGUEL Administration Meropenem 1 gm/ Sodium 100 mls @ 100 mls/hr 12/24/16 05:00 12/24/16 13:00 Chloride IVPB 100 mls/hr Q8@0500,1300,2100 MIGUEL Administration Vancomycin HCl 1 gm/ Sodium 250 mls @ 166.667 mls/hr 12/24/16 17:00 Chloride IVPB BID MIGUEL Ibuprofen 400 mg 12/21/16 08:03 12/21/16 08:48 Motrin Tab PO 400 mg Q6 PRN Administration Fever >100.4 F Ketorolac Tromethamine 30 mg 12/19/16 19:24 12/22/16 22:40 Toradol IVP 30 mg Q6 PRN Administration Pain, moderate (4-7) Morphine Sulfate 4 mg 12/20/16 10:00 Morphine IVP Q4 PRN Pain, severe (8-10) Ondansetron HCl 4 mg 12/19/16 20:28 12/21/16 05:26 Zofran Inj IVP 4 mg Q6 PRN Administration Nausea/Vomiting - Patient Studies Lab Studies: Microbiology Studies 12/23/16 10:10 Blood Culture - Preliminary Blood NO GROWTH AFTER 24 HOURS Lab Studies 12/24/16 12/24/16 12/24/16 Range/Units 06:10 06:10 05:45 WBC 7.4 (4.8-10.8) K/uL RBC 3.71 L (3.80-5.20) Mil/uL Hgb 7.4 L (12.0-16.0) g/dL Hct 24.8 L (34.0-47.0) % MCV 66.9 L (81.0-99.0) fl MCH 20.0 L (27.0-31.0) pg MCHC 29.9 L (33.0-37.0) g/dL RDW 35.7 H (11.5-14.5) % Plt Count 84 L D (130-400) K/uL D-Dimer, Quantitative (0-0.50) mg/L FEU pCO2 31 L (35-45) mm/Hg pO2 211 H (80-100) mm/Hg HCO3 25.3 (21-28) mmol/L ABG pH 7.49 H (7.35-7.45) ABG Total CO2 24.6 (22-28) mmol/L ABG O2 Saturation 100.0 H (95-98) % ABG O2 Content 10.9 L (15-23) ML/dL ABG Base Excess 0.4 (-2.0-3.0) mmol/L ABG Hemoglobin 7.6 L (11.7-17.4) g/dL ABG Carboxyhemoglobin 1.2 (0.5-1.5) % POC ABG HHb (Measured) 0.0 (0.0-5.0) % ABG Methemoglobin 1.6 (0.0-3.0) % ABG O2 Capacity 10.9 L (16-24) mL/dL Devin Test Yes ABG Potassium (3.6-5.2) mmol/L A-a O2 Difference 178.0 mm/Hg Hgb O2 Saturation 97.2 (95.0-98.0) % Sodium 141 (132-148) mmol/L Chloride 109 H (98-107) mmol/L Glucose (65-105) mg/dL Lactate (0.7-2.1) mmol/L Vent Mode A/c Mechanical Rate 14 FiO2 60.0 % Tidal Volume 450 PEEP 5 Crit Value Called To Crit Value Called By Crit Value Read Back Blood Gas Notified Time Potassium 3.4 L (3.6-5.0) MMOL/L Carbon Dioxide 23 (22-30) mmol/L Anion Gap 12 (10-20) BUN 9 (7-17) mg/dl Creatinine 0.6 L (0.7-1.2) mg/dL Est GFR ( Amer) > 60 Est GFR (Non-Af Amer) > 60 Random Glucose 118 H (65-105) mg/dL Calcium 7.3 L (8.4-10.2) mg/dL Total Bilirubin 0.8 (0.2-1.3) mg/dl AST 62 H (14-36) U/L ALT 59 H (9-52) U/L Alkaline Phosphatase 199 H (38-126) U/L Total Protein 6.2 L (6.3-8.2) G/DL Albumin 2.7 L (3.5-5.0) g/dL Globulin 3.6 (2.2-3.9) gm/dL Albumin/Globulin Ratio 0.8 L (1.0-2.1) Arterial Blood Potassium (3.6-5.2) mmol/L 12/23/16 12/23/16 Range/Units 20:40 05:27 WBC (4.8-10.8) K/uL RBC (3.80-5.20) Mil/uL Hgb (12.0-16.0) g/dL Hct (34.0-47.0) % MCV (81.0-99.0) fl MCH (27.0-31.0) pg MCHC (33.0-37.0) g/dL RDW (11.5-14.5) % Plt Count (130-400) K/uL D-Dimer, Quantitative 6.75 H (0-0.50) mg/L FEU pCO2 28 L (35-45) mm/Hg pO2 44 L* (80-100) mm/Hg HCO3 24.4 (21-28) mmol/L ABG pH 7.51 H (7.35-7.45) ABG Total CO2 23.2 (22-28) mmol/L ABG O2 Saturation 88.4 L (95-98) % ABG O2 Content (15-23) ML/dL ABG Base Excess -0.4 (-2.0-3.0) mmol/L ABG Hemoglobin (11.7-17.4) g/dL ABG Carboxyhemoglobin (0.5-1.5) % POC ABG HHb (Measured) (0.0-5.0) % ABG Methemoglobin (0.0-3.0) % ABG O2 Capacity (16-24) mL/dL Devin Test Yes ABG Potassium 3.5 L (3.6-5.2) mmol/L A-a O2 Difference 349.0 mm/Hg Hgb O2 Saturation (95.0-98.0) % Sodium 138.0 (132-148) mmol/L Chloride 110.0 H (98-107) mmol/L Glucose 115 H (65-105) mg/dL Lactate 3.1 H (0.7-2.1) mmol/L Vent Mode A/c Mechanical Rate 14 FiO2 60.0 % Tidal Volume 700 PEEP 5 Crit Value Called To Dr robert mckinnon Crit Value Called By Rubin Crit Value Read Back Y Blood Gas Notified Time 1728 Potassium (3.6-5.0) MMOL/L Carbon Dioxide (22-30) mmol/L Anion Gap (10-20) BUN (7-17) mg/dl Creatinine (0.7-1.2) mg/dL Est GFR ( Amer) Est GFR (Non-Af Amer) Random Glucose (65-105) mg/dL Calcium (8.4-10.2) mg/dL Total Bilirubin (0.2-1.3) mg/dl AST (14-36) U/L ALT (9-52) U/L Alkaline Phosphatase (38-126) U/L Total Protein (6.3-8.2) G/DL Albumin (3.5-5.0) g/dL Globulin (2.2-3.9) gm/dL Albumin/Globulin Ratio (1.0-2.1) Arterial Blood Potassium 3.5 L (3.6-5.2) mmol/L Laboratory Results - last 24 hr 12/23/16 12/23/16 12/24/16 05:27 20:40 05:45 WBC RBC Hgb Hct MCV MCH MCHC RDW Plt Count D-Dimer, Quantitative 6.75 H pCO2 28 L 31 L pO2 44 L* 211 H HCO3 24.4 25.3 ABG pH 7.51 H 7.49 H ABG Total CO2 23.2 24.6 ABG O2 Saturation 88.4 L 100.0 H ABG O2 Content 10.9 L ABG Base Excess -0.4 0.4 ABG Hemoglobin 7.6 L ABG Carboxyhemoglobin 1.2 POC ABG HHb (Measured) 0.0 ABG Methemoglobin 1.6 ABG O2 Capacity 10.9 L Devin Test Yes Yes ABG Potassium 3.5 L A-a O2 Difference 349.0 178.0 Hgb O2 Saturation 97.2 Sodium 138.0 Chloride 110.0 H Glucose 115 H Lactate 3.1 H Vent Mode A/c A/c Mechanical Rate 14 14 FiO2 60.0 60.0 Tidal Volume 700 450 PEEP 5 5 Crit Value Called To Dr robert mckinnon Crit Value Called By Rubin Crit Value Read Back Y Blood Gas Notified Time 1728 Potassium Carbon Dioxide Anion Gap BUN Creatinine Est GFR ( Amer) Est GFR (Non-Af Amer) Random Glucose Calcium Total Bilirubin AST ALT Alkaline Phosphatase Total Protein Albumin Globulin Albumin/Globulin Ratio Arterial Blood Potassium 3.5 L 12/24/16 12/24/16 06:10 06:10 WBC 7.4 RBC 3.71 L Hgb 7.4 L Hct 24.8 L MCV 66.9 L MCH 20.0 L MCHC 29.9 L RDW 35.7 H Plt Count 84 L D D-Dimer, Quantitative pCO2 pO2 HCO3 ABG pH ABG Total CO2 ABG O2 Saturation ABG O2 Content ABG Base Excess ABG Hemoglobin ABG Carboxyhemoglobin POC ABG HHb (Measured) ABG Methemoglobin ABG O2 Capacity Devin Test ABG Potassium A-a O2 Difference Hgb O2 Saturation Sodium 141 Chloride 109 H Glucose Lactate Vent Mode Mechanical Rate FiO2 Tidal Volume PEEP Crit Value Called To Crit Value Called By Crit Value Read Back Blood Gas Notified Time Potassium 3.4 L Carbon Dioxide 23 Anion Gap 12 BUN 9 Creatinine 0.6 L Est GFR ( Amer) > 60 Est GFR (Non-Af Amer) > 60 Random Glucose 118 H Calcium 7.3 L Total Bilirubin 0.8 AST 62 H ALT 59 H Alkaline Phosphatase 199 H Total Protein 6.2 L Albumin 2.7 L Globulin 3.6 Albumin/Globulin Ratio 0.8 L Arterial Blood Potassium Review of Systems - Review of Systems Systems not reviewed;Unavailable: Intubated Critical Care Progress Note - Ventilator Checklist Head of Bed 30 Degrees: Yes Daily Sedation Vacation: Yes Daily Assessment of Readiness to Wean: Yes Daily Spontaneous Breathing Trial: Yes PUD Prophalyxis: Yes DVT Prophylaxis: Yes - Nutrition Nutrition: Nutrition Category Date Time Status NPO Diet [DIET] Diets 12/24/16 Breakfast Active Assessment/Plan (1) Sepsis, Gram negative Assessment and plan: 51-year-old female with past medical history of uterine fibroids complicated by menorrhagia with anemia. Patient underwent laparoscopic appendectomy (12/13/2016 ). Neuro: Sedated with propofol drip, will transition to Precedex drip. Versed pushes 2 mg when necessary Pulm: Acute respiratory failure secondary to severe sepsis, now on vent. CV: Septic shock on Levophed. Hem: Anemia is multifactorial secondary to chronic iron deficiency, and menometrorrhagia, and critical illness. Currently stable, will monitor. Iron Sulfate PO TID. Renal: No acute issues, urine output within normal limits, will monitor. D5W+ 20KCL@100 Endo: No acute issues GI: Nothing by mouth, Jevity at 20, goal to be determined. ID: Septic shock from UTI, continue meropenem. Patient growing Escherichia coli and blood cultures, should consider stopping fluconazole and vancomycin, will discuss with ID consult. DVT proph - Lovenox GI proph - Protonix gordillo for strict I/O's during acute illness Code status - full code Crtical Care Time spent 35 minutes Multi-disciplinary rounds were performed with house staff, nursing, speech therapy, respiratory therapy, pharmacy and nutrition with integrated input from the primary team/attending and other consulting services. The documented time is cumulative and includes review of patient data/exams/labs/chart review and examination of the patient on rounds and throughout the day; time is exclusive of any procedures or teaching time. Current Visit: Yes Status: Acute
[2016-12-25] MEDS: Meropenem 1 GM in Sodium Chloride 0.9% 100 ML IVPB SCH ×3 (04:27→19:59)
[2016-12-25 05:04] LABS: BASO # 0.1 K/uL (0.0-0.2); BASO % 0.4 % (0.0-2.0); EOS # 0.2 K/uL (0.0-0.7); EOS % 1.1 % (0.0-4.0); HEMATOCRIT 26.4 % (34.0-47.0); LYMPH # 1.2 K/uL (1.0-4.3); LYMPH % 7.4 % (20.0-40.0); MEAN CELL VOLUME 67.8 fl (81.0-99.0); MEAN CORPUSCULAR HEMOGLOBIN 19.6 pg (27.0-31.0); MEAN CORPUSCULAR HGB CONC 28.9 g/dL (33.0-37.0); MEAN PLATELET VOLUME 10.3 fl (7.2-11.7); MONO # 0.8 K/uL (0.0-0.8); MONO % 5.2 % (0.0-10.0); NEUT % 85.9 % (50.0-75.0); NRBC % 0.1 % (0.0-0.0); PLATELET COUNT 180 K/uL (130-400); RED CELL DISTRIBUTION WIDTH 36.9 % (11.5-14.5); WHITE BLOOD COUNT 16.3 K/uL (4.8-10.8)
[2016-12-25 05:15] LABS: ALB/GLOB RATIO 0.8 (1.0-2.1); ALKALINE PHOSPHATASE 206 U/L (38-126); ALT/SGPT 45 U/L (9-52); AST/SGOT 48 U/L (14-36); BILIRUBIN,TOTAL 0.9 mg/dl (0.2-1.3); BLOOD UREA NITROGEN 8 mg/dl (7-17); CALCIUM 7.8 mg/dL (8.4-10.2); CARBON DIOXIDE 24 mmol/L (22-30); CHLORIDE 111 mmol/L (98-107); GFR AFRICAN-AMERICAN > 60; GLUCOSE,RANDOM 120 mg/dL (65-105); POTASSIUM 3.8 MMOL/L (3.6-5.0); SODIUM 145 mmol/l (132-148); TOTAL PROTEIN 6.5 G/DL (6.3-8.2)
[2016-12-25 05:38] LABS: ABG ALLEN TEST YES; ABG MECHANICAL RATE 14; ARTERIAL BLOOD GAS HCO3 25.3 mmol/L (21-28); ARTERIAL BLOOD GAS MODE A/C; ARTERIAL BLOOD GAS O2 CAPACITY 11.3 mL/dL (16-24); ARTERIAL BLOOD GAS O2 CONTENT 11.4 ML/dL (15-23); ARTERIAL BLOOD GAS PO2 116 mm/Hg (80-100); ATERIAL BLOOD GAS PEEP 8; CARBOXYHEMOGLOBIN 2.4 % (0.5-1.5); HHB -0.9 % (0.0-5.0); METHEMOGLOBIN 1.5 % (0.0-3.0)
[2016-12-25 05:44] LABS: CARCINOEMBRYONIC ANTIGEN 1.2 ng/mL (0-3.0)
[2016-12-25 07:48] LABS: NEUTROPHIL 91 % (42-75); TOTAL CELLS COUNTED 100
[2016-12-25 07:50] LABS: LARGE PLATELETS PRESENT
[2016-12-25] MEDS: Albuterol 0.083% Inhal Sol (2.5 mg/3 mL) UD INH SCH ×4 (08:44→19:40)
[2016-12-25] MEDS: Fluconazole IV 200mg/100 ml NS 100 ML IVPB SCH (08:47)
[2016-12-25] MEDS: Acetaminophen 650mg/20.3ml solution UD GT PRN ×3 (08:53→23:53)
--- NOTE | 2016-12-25 08:56 | CP.PCM.PN ---
Subjective - Date & Time of Evaluation Date of Evaluation: 12/25/16 Time of Evaluation: 07:20 - Subjective Subjective: Patient was seen and examined at bedside this morning. Patient opened her eyes, but still intubated. FiO2: 40, PEEP: 8. Monitor VS: BP: 105/67, HR: 79/min, O2sat: 100 %, RR: 17/min, afebrile this morning. Emerson catheter in place, and clear yellow urine in the urine bag. Triple lumen femoral line in place. Patient had an uneventful night. Objective - Vital Signs/Intake and Output Vital Signs (last 24 hours): Temp Pulse Resp BP Pulse Ox 98.9 F 83 17 105/67 100 12/25/16 08:15 12/25/16 08:15 12/25/16 08:15 12/25/16 08:15 12/25/16 08:15 Intake and Output: 12/25/16 12/25/16 06:59 18:59 Intake Total 1179 15 Output Total 700 Balance 479 15 - Medications Medications: Current Medications Acetaminophen (Tylenol 650mg/20.3ml Solution Ud) 650 mg GT Q6 PRN PRN Reason: Fever >100.4 F Last Admin: 12/24/16 17:23 Dose: 650 mg Albuterol Sulfate (Albuterol 0.083% Inhal Verónica (2.5 Mg/3 Ml) Ud) 2.5 mg INH RQID [facility] Last Admin: 12/25/16 08:44 Dose: 2.5 mg Docusate Sodium (Colace) 200 mg PO DAILY [facility] Last Admin: 12/25/16 08:47 Dose: Not Given Ferrous Sulfate (Feosol) 325 mg PO BID [facility] Last Admin: 12/25/16 08:48 Dose: 325 mg Furosemide (Lasix) 40 mg IV Q12H [facility] Last Admin: 12/25/16 05:52 Dose: 40 mg Heparin Sodium (Porcine) (Heparin) 5,000 units SC Q12 MIGUEL PRN Reason: Protocol Fluconazole (Diflucan Iv 200 Mg/100 Ml Ns) 100 mls @ 100 mls/hr IVPB DAILY [facility] Last Admin: 12/25/16 08:47 Dose: 100 mls/hr Meropenem 1 gm/ Sodium (Chloride) 100 mls @ 100 mls/hr IVPB Q8@0500,1300,2100 [facility] Last Admin: 12/25/16 04:27 Dose: 100 mls/hr Vancomycin HCl 1 gm/ Sodium (Chloride) 250 mls @ 166.667 mls/hr IVPB BID [facility] Last Admin: 12/25/16 08:49 Dose: 166.667 mls/hr Ibuprofen (Motrin Tab) 400 mg PO Q6 PRN PRN Reason: Fever >100.4 F Last Admin: 12/21/16 08:48 Dose: 400 mg Morphine Sulfate (Morphine) 4 mg IVP Q4 PRN PRN Reason: Pain, severe (8-10) Ondansetron HCl (Zofran Inj) 4 mg IVP Q6 PRN PRN Reason: Nausea/Vomiting Last Admin: 12/21/16 05:26 Dose: 4 mg Pantoprazole Sodium (Protonix Susp) 40 mg NG DAILY [facility] Last Admin: 12/25/16 08:49 Dose: 40 mg - Labs Labs: 12/25/16 04:20 12/25/16 04:20 PT 14.4 SECONDS (9.6-11.2) H 12/21/16 09:41 INR 1.38 (0.92-1.08) H 12/21/16 09:41 APTT 34.5 SECONDS (23.3-32.5) H 12/21/16 09:41 - Additional Findings Additional findings: Constitutional Appears: No Acute Distress - ENT Exam ENT Exam: Mucous Membranes Moist - Respiratory Exam Respiratory Exam: Clear to Ausculation Bilateral, NORMAL BREATHING PATTERN - Cardiovascular Exam Cardiovascular Exam: REGULAR RHYTHM, +S1, +S2 - GI/Abdominal Exam GI & Abdominal Exam: Soft, Normal Bowel Sounds. absent: Distended, Guarding, Rigid, Tenderness - Neurological Exam Neurological Exam: absent: Awake - Skin Skin Exam: Dry, Intact, Pallor Extremities: SCDs in place, no edema, or changes in skin color. Assessment and Plan - Assessment and Plan (Free Text) Assessment: 51 yo obese F with PMH including iron deficiency anemia, Menorrhagia 2/2 uterine fibroids, and appendectomy on 12/13/16 admitted w/ fever and leukocytosis , now being treated for sepsis with bacteremia most likely urosepsis. Plan: Severe Sepsis with gram negative bacteremia (pt is spiking fever again after ~36 hrs afebrile) continue with low grade fever today etiology related w/ Urosepsis (+ E.Coli in UCx) + Leukocytosis, now trending up, WBC: 16.3 today + Bcx and Ucx for E.Coli -CT of chest detects no lung masses or consolidations. -CT Abd/Pelvis: negative for intrabdominal abscess -Abx: - Vancomycin 1gm IV BID (started 12/21, day#5) (changed from daily to BID today due to Vanco trough) - Meropenem 1gm IV Q8H (Started 12/21, Current day #5). -Fluconazole 200 mg IV daily ( started on 12/23/16)day #3 -Vancomycin trough < 5. Vanco frequency was increased to BID yesterday -F/U repeat Vanco Trough on 11/25/16 PM -ID on board. F/U recommendations -Repeat procalcitonin on 12/24/16 trending down: 28.86 -Repeat Blood Cx on 12/23/16 showed no growth for 24 hours -CBC stable H/H: 7.6/26.4 -Consider transfusion of PRBC in Hgb/Hct trending down. -continue to monitor UTI + E.Coli in UCx on Meropenem and Vanco Uterine fibroids/Ovarian Cyst -CT abd/pelvis detected a markedly enlarged uterus containing multiple masses c/ w fibroids. A 5cm fluid density mass adjacent to the left side of the uterus was also detected -CEA: 1.2 WNL -F/U CA 125 and 19. transvaginal US: enlarge uterus w/ multiples masses, very limited study, endometrium not seen -CLINICAL STAFF RN recommended f/u as outpatient with [facility] Laparoscopic Appendectomy -Patient had recent lap appendectomy on 12/13/16 -General surgery consulted who believe current presentation is unrelated DVT Prophylaxis - SCDs Lovenox on hold for now due to thrombocytopenia -F/U Heparin-IND platelet and Platelet AB( IGG) results
[2016-12-25] MEDS ORDERED: Pantoprazole 40 mg Susp UD NG SCH (09:00)
--- NOTE | 2016-12-25 11:03 | CP.PCM.CON ---
History of Present Illness - History of Present Illness History of Present Illness: Pt awake and alert and responds to commands. Still intubated. Does not complain of abdominal pain. Past Patient History - Infectious Disease Hx of Infectious Diseases: None - Past Medical History & Family History Past Medical History?: No - Past Social History Smoking Status: Never Smoked - CARDIAC Hx Cardiac Disorders: No - PULMONARY Hx Respiratory Disorders: No - NEUROLOGICAL Hx Neurological Disorder: No - HEENT Hx HEENT Problems: No - RENAL Hx Chronic Kidney Disease: No - ENDOCRINE/METABOLIC Hx Endocrine Disorders: No - HEMATOLOGICAL/ONCOLOGICAL Hx Blood Disorders: Yes Hx Anemia: Yes - INTEGUMENTARY Hx Dermatological Problems: No - MUSCULOSKELETAL/RHEUMATOLOGICAL Hx Musculoskeletal Disorders: No Hx Falls: No - GASTROINTESTINAL Hx Gastrointestinal Disorders: No - GENITOURINARY/GYNECOLOGICAL Hx Genitourinary Disorders: No - PSYCHIATRIC Hx Psychophysiologic Disorder: No Hx Emotional Abuse: No Hx Physical Abuse: No Hx Substance Use: No - SURGICAL HISTORY Hx Surgeries: Yes Other/Comment: APPENDECTOMY-DECEMBER 2016 - ANESTHESIA Hx Anesthesia: Yes Hx Anesthesia Reactions: No Hx Malignant Hyperthermia: No Meds Home Medications: Home Medication List Medication Instructions Recorded Confirmed Type Cephalexin [cephalexin] 500 mg PO QID #28 cap 12/19/16 Rx Naproxen [Naprosyn] 500 mg PO BID PRN #20 tablet 12/19/16 Rx Allergies/Adverse Reactions: Allergies Allergy/AdvReac Type Severity Reaction Status Date / Time No Known Allergies Allergy Verified 12/12/16 23:15 - Medications Medications: Current Medications Acetaminophen (Tylenol 650mg/20.3ml Solution Ud) 650 mg GT Q6 PRN PRN Reason: Fever >100.4 F Last Admin: 12/25/16 08:53 Dose: 650 mg Albuterol Sulfate (Albuterol 0.083% Inhal Verónica (2.5 Mg/3 Ml) Ud) 2.5 mg INH RQID [facility] Last Admin: 12/25/16 08:44 Dose: 2.5 mg Docusate Sodium (Colace) 200 mg PO DAILY [facility] Last Admin: 12/25/16 08:47 Dose: Not Given Ferrous Sulfate (Feosol) 325 mg PO BID [facility] Last Admin: 12/25/16 08:48 Dose: 325 mg Furosemide (Lasix) 40 mg IV Q12H [facility] Last Admin: 12/25/16 05:52 Dose: 40 mg Heparin Sodium (Porcine) (Heparin) 5,000 units SC Q12 [facility] PRN Reason: Protocol Fluconazole (Diflucan Iv 200 Mg/100 Ml Ns) 100 mls @ 100 mls/hr IVPB DAILY [facility] Last Admin: 12/25/16 08:47 Dose: 100 mls/hr Meropenem 1 gm/ Sodium (Chloride) 100 mls @ 100 mls/hr IVPB Q8@0500,1300,2100 [facility] Last Admin: 12/25/16 04:27 Dose: 100 mls/hr Vancomycin HCl 1 gm/ Sodium (Chloride) 250 mls @ 166.667 mls/hr IVPB BID [facility] Last Admin: 12/25/16 08:49 Dose: 166.667 mls/hr Ibuprofen (Motrin Tab) 400 mg PO Q6 PRN PRN Reason: Fever >100.4 F Last Admin: 12/21/16 08:48 Dose: 400 mg Morphine Sulfate (Morphine) 4 mg IVP Q4 PRN PRN Reason: Pain, severe (8-10) Ondansetron HCl (Zofran Inj) 4 mg IVP Q6 PRN PRN Reason: Nausea/Vomiting Last Admin: 12/21/16 05:26 Dose: 4 mg Pantoprazole Sodium (Protonix Susp) 40 mg NG DAILY [facility] Last Admin: 12/25/16 08:49 Dose: 40 mg Results - Vital Signs Recent Vital Signs: Last Vital Signs Temp 100.5 F H 12/25/16 09:00 Pulse 100 H 12/25/16 09:00 Resp 31 H 12/25/16 09:00 BP 116/67 12/25/16 09:00 Pulse Ox 100 12/25/16 09:00 - Labs Result Diagrams: 12/25/16 04:20 12/25/16 04:20 Labs: Laboratory Results - last 24 hr 12/24/16 12/25/16 12/25/16 06:10 04:20 04:20 WBC 16.3 H D RBC 3.89 Hgb 7.6 L Hct 26.4 L MCV 67.8 L MCH 19.6 L MCHC 28.9 L RDW 36.9 H Plt Count 180 MPV 10.3 Neut % (Auto) 85.9 H Lymph % (Auto) 7.4 L Placer % (Auto) 5.2 Eos % (Auto) 1.1 Baso % (Auto) 0.4 Neut # 14.0 H Lymph # 1.2 Placer # 0.8 Eos # 0.2 Baso # 0.1 Neutrophils % (Manual) 91 H Band Neutrophils % 2 Lymphocytes % (Manual) 4 L Monocytes % (Manual) 3 Large Platelets Present Hypochromasia (manual) Moderate Anisocytosis (manual) Moderate Microcytosis (manual) Moderate Tear Drop Cells Slight Schistocytes Slight pCO2 pO2 HCO3 ABG pH ABG Total CO2 ABG O2 Saturation ABG O2 Content ABG Base Excess ABG Hemoglobin ABG Carboxyhemoglobin POC ABG HHb (Measured) ABG Methemoglobin ABG O2 Capacity Devin Test A-a O2 Difference Hgb O2 Saturation Vent Mode Mechanical Rate FiO2 Tidal Volume PEEP Sodium 145 Potassium 3.8 Chloride 111 H Carbon Dioxide 24 Anion Gap 14 BUN 8 Creatinine 0.6 L Est GFR ( Amer) > 60 Est GFR (Non-Af Amer) > 60 Random Glucose 120 H Calcium 7.8 L Total Bilirubin 0.9 AST 48 H D ALT 45 Alkaline Phosphatase 206 H Total Protein 6.5 Albumin 2.8 L Globulin 3.7 Albumin/Globulin Ratio 0.8 L Carcinoembryonic Ag 1.2 Procalcitonin 28.86 H 12/25/16 04:55 WBC RBC Hgb Hct MCV MCH MCHC RDW Plt Count MPV Neut % (Auto) Lymph % (Auto) Placer % (Auto) Eos % (Auto) Baso % (Auto) Neut # Lymph # Placer # Eos # Baso # Neutrophils % (Manual) Band Neutrophils % Lymphocytes % (Manual) Monocytes % (Manual) Large Platelets Hypochromasia (manual) Anisocytosis (manual) Microcytosis (manual) Tear Drop Cells Schistocytes pCO2 30 L pO2 116 H HCO3 25.3 ABG pH 7.50 H ABG Total CO2 24.3 ABG O2 Saturation 100.9 H ABG O2 Content 11.4 L ABG Base Excess 0.5 ABG Hemoglobin 8.2 L ABG Carboxyhemoglobin 2.4 H POC ABG HHb (Measured) -0.9 L ABG Methemoglobin 1.5 ABG O2 Capacity 11.3 L Devin Test Yes A-a O2 Difference 132.0 Hgb O2 Saturation 97.0 Vent Mode A/c Mechanical Rate 14 FiO2 40.0 Tidal Volume 450 PEEP 8 Sodium Potassium Chloride Carbon Dioxide Anion Gap BUN Creatinine Est GFR ( Amer) Est GFR (Non-Af Amer) Random Glucose Calcium Total Bilirubin AST ALT Alkaline Phosphatase Total Protein Albumin Globulin Albumin/Globulin Ratio Carcinoembryonic Ag Procalcitonin Assessment & Plan - Assessment and Plan (Free Text) Assessment: E.coli bacteremia from UTI secondary to ?recurrent endometrial bleeds Clinically improved on Vancomycin, Meropenem and Diflucan. Pt is afebrile, but has leukocytosis today. Recent blood culture has been negative so far. Suggest COURTNEY in view of higher sensitivity to rule out endocarditis.
--- NOTE | 2016-12-25 11:28 | RAD ---
HISTORY: intubated COMPARISON: Comparison made with prior 12/24/2026 FINDINGS: LUNGS: In situ ETT, the tip of which appears to lie in the proximal right mainstem bronchus and should be withdrawn. In situ NGT, the tip of which overlies mid abdomen. ICU attending Dr. Jimenez informed these findings at approximately 11:20 a.m. with written down and read back verification. Low lung volumes with crowded bronchovascular markings and suspected mild bibasilar atelectasis. PLEURA: No significant pleural effusion identified, no pneumothorax apparent. CARDIOVASCULAR: Cardiomegaly. OSSEOUS STRUCTURES: No significant abnormalities. VISUALIZED UPPER ABDOMEN: Normal. OTHER FINDINGS: None. IMPRESSION: In situ ETT, the tip of which appears to lie in the proximal right mainstem bronchus and should be withdrawn. In situ NGT, the tip of which overlies mid abdomen. ICU attending Dr. Jimenez informed these findings at approximately 11:20 a.m. with written down and read back verification. Low lung volumes with crowded bronchovascular markings and suspected mild bibasilar atelectasis.
--- NOTE | 2016-12-25 12:31 | CP.CCUPN ---
<Mohini Badillo - Last Filed: 12/25/16 13:38> CCU Subjective - Physician Review Subjective (Free Text): 12/25/16 12:17 Patient seen and examined at bedside with ICU attending during rounds. Patient was extubated at 11:15 after 3 hour pressure support trial. She appears alert and is comfortably breathing via ventimask, saturating at 100%. She had fever of 100.5 overnight but is currently afebrile. Precedex running at 0.188mcg/kg/ hr. Most recent blood culture from 12/23 has no growth to date. She is receiving empiric vancomycin + meropenem + fluconazole. Currently, patient is verbal and alert, denying chest pain, sob, abdominal pain or nausea. CCU Objective - Vital Signs / Intake & Output Vital Signs (Last 4 hours): Vital Signs Temp Pulse Resp BP Pulse Ox 12/25/16 11:00 98.5 F 108/67 12/25/16 10:00 99.2 F 85 20 106/57 L 12/25/16 09:00 100.5 F H 100 H 31 H 116/67 100 Intake and Output (Last 8hrs): Intake & Output 12/24/16 12/25/16 12/25/16 22:59 06:59 14:59 Intake Total 1055 609 380 Output Total 1400 700 Balance -345 -91 380 Intake: IV 570 440 30 Intake, Piggyback 485 169 350 Oral 0 0 Tube Feeding 0 0 Output: Urine 1400 700 Urethral (Emerson) 1400 700 Other: # Bowel Movements 1 2 - Physical Exam Head: Positive for: Atraumatic, Normocephalic Pupils: Positive for: PERRL Extroacular Muscles: Positive for: EOMI Conjunctiva: Positive for: Normal Mouth: Positive for: Dry Respiratory/Chest: Positive for: Clear to Auscultation, Good Air Exchange. Negative for: Respiratory Distress, Wheezes, Rales, Rhonchi Cardiovascular: Positive for: Regular Rate and Rhythm, Normal S1, S2. Negative for: Murmurs Abdomen: Positive for: Normal Bowel Sounds, Other (Mild lower abdominal tenderness. ). Negative for: Distention, Rebound, Guarding Upper Extremity: Positive for: Edema (Right upper extremity has 2+ edema), Capillary Refill < 2s Lower Extremity: Negative for: Edema, CALF TENDERNESS, Chandler's Sign Skin: Positive for: Warm, Normal Color, Other (Right groin TLC present. Area clean, dry.) Psychiatric: Positive for: Alert, Oriented x 3 - Medications Active Medications: Active Medications Generic Name Dose Route Start Last Admin Trade Name Freq PRN Reason Stop Dose Admin Acetaminophen 650 mg 12/23/16 15:45 12/25/16 08:53 Tylenol 650mg/20.3ml Solution Ud GT 650 mg Q6 PRN Administration Fever >100.4 F Albuterol Sulfate 2.5 mg 12/23/16 12:00 12/25/16 11:34 Albuterol 0.083% Inhal Verónica (2.5 Mg/3 Ml) Ud INH 2.5 mg RQID MIGUEL Administration Docusate Sodium 200 mg 12/20/16 09:00 12/25/16 08:47 Colace PO Not Given DAILY MIGUEL Ferrous Sulfate 325 mg 12/20/16 09:00 12/25/16 08:48 Feosol PO 325 mg BID MIGUEL Administration Furosemide 40 mg 12/24/16 18:00 12/25/16 05:52 Lasix IV 40 mg Q12H MIGUEL Administration Heparin Sodium (Porcine) 5,000 units 12/25/16 09:15 Heparin SC Q12 [facility] Protocol Fluconazole 100 mls @ 100 mls/hr 12/23/16 12:15 12/25/16 08:47 Diflucan Iv 200 Mg/100 Ml Ns IVPB 100 mls/hr DAILY MIGUEL Administration Meropenem 1 gm/ Sodium 100 mls @ 100 mls/hr 12/24/16 05:00 12/25/16 04:27 Chloride IVPB 100 mls/hr Q8@0500,1300,2100 MIGUEL Administration Vancomycin HCl 1 gm/ Sodium 250 mls @ 166.667 mls/hr 12/24/16 17:00 12/25/16 08:49 Chloride IVPB 166.667 mls/hr BID MIGUEL Administration Norepinephrine Bitartrate 4 mg 254 mls @ 0 mls/hr 12/25/16 12:08 / Dextrose IV 12/26/16 12:08 .Q0M MIGUEL Protocol Per Protocol Ibuprofen 400 mg 12/21/16 08:03 12/21/16 08:48 Motrin Tab PO 400 mg Q6 PRN Administration Fever >100.4 F Morphine Sulfate 4 mg 12/20/16 10:00 Morphine IVP Q4 PRN Pain, severe (8-10) Ondansetron HCl 4 mg 12/19/16 20:28 12/21/16 05:26 Zofran Inj IVP 4 mg Q6 PRN Administration Nausea/Vomiting Pantoprazole Sodium 40 mg 12/25/16 09:00 12/25/16 08:49 Protonix Susp NG 40 mg DAILY MIGUEL Administration - Patient Studies Lab Studies: Microbiology Studies 12/23/16 10:10 Blood Culture - Preliminary Blood NO GROWTH AFTER 48 HOURS Lab Studies 12/25/16 12/25/16 12/25/16 Range/Units 04:55 04:20 04:20 WBC 16.3 H D (4.8-10.8) K/uL RBC 3.89 (3.80-5.20) Mil/uL Hgb 7.6 L (12.0-16.0) g/dL Hct 26.4 L (34.0-47.0) % MCV 67.8 L (81.0-99.0) fl MCH 19.6 L (27.0-31.0) pg MCHC 28.9 L (33.0-37.0) g/dL RDW 36.9 H (11.5-14.5) % Plt Count 180 (130-400) K/uL MPV 10.3 (7.2-11.7) fl Neut % (Auto) 85.9 H (50.0-75.0) % Lymph % (Auto) 7.4 L (20.0-40.0) % Fallon % (Auto) 5.2 (0.0-10.0) % Eos % (Auto) 1.1 (0.0-4.0) % Baso % (Auto) 0.4 (0.0-2.0) % Neut # 14.0 H (1.8-7.0) K/uL Lymph # 1.2 (1.0-4.3) K/uL Fallon # 0.8 (0.0-0.8) K/uL Eos # 0.2 (0.0-0.7) K/uL Baso # 0.1 (0.0-0.2) K/uL Neutrophils % (Manual) 91 H (42-75) % Band Neutrophils % 2 (0-2) % Lymphocytes % (Manual) 4 L (20-50) % Monocytes % (Manual) 3 (0-10) % Platelet Estimate Normal (NORMAL) Large Platelets Present Hypochromasia (manual) Moderate Anisocytosis (manual) Moderate Microcytosis (manual) Moderate Tear Drop Cells Slight Schistocytes Slight pCO2 30 L (35-45) mm/Hg pO2 116 H (80-100) mm/Hg HCO3 25.3 (21-28) mmol/L ABG pH 7.50 H (7.35-7.45) ABG Total CO2 24.3 (22-28) mmol/L ABG O2 Saturation 100.9 H (95-98) % ABG O2 Content 11.4 L (15-23) ML/dL ABG Base Excess 0.5 (-2.0-3.0) mmol/L ABG Hemoglobin 8.2 L (11.7-17.4) g/dL ABG Carboxyhemoglobin 2.4 H (0.5-1.5) % POC ABG HHb (Measured) -0.9 L (0.0-5.0) % ABG Methemoglobin 1.5 (0.0-3.0) % ABG O2 Capacity 11.3 L (16-24) mL/dL Devin Test Yes A-a O2 Difference 132.0 mm/Hg Hgb O2 Saturation 97.0 (95.0-98.0) % Vent Mode A/c Mechanical Rate 14 FiO2 40.0 % Tidal Volume 450 PEEP 8 Sodium 145 (132-148) mmol/l Potassium 3.8 (3.6-5.0) MMOL/L Chloride 111 H (98-107) mmol/L Carbon Dioxide 24 (22-30) mmol/L Anion Gap 14 (10-20) BUN 8 (7-17) mg/dl Creatinine 0.6 L (0.7-1.2) mg/dL Est GFR ( Amer) > 60 Est GFR (Non-Af Amer) > 60 Random Glucose 120 H (65-105) mg/dL Calcium 7.8 L (8.4-10.2) mg/dL Total Bilirubin 0.9 (0.2-1.3) mg/dl AST 48 H D (14-36) U/L ALT 45 (9-52) U/L Alkaline Phosphatase 206 H (38-126) U/L Total Protein 6.5 (6.3-8.2) G/DL Albumin 2.8 L (3.5-5.0) g/dL Globulin 3.7 (2.2-3.9) gm/dL Albumin/Globulin Ratio 0.8 L (1.0-2.1) Carcinoembryonic Ag 1.2 (0-3.0) ng/mL Procalcitonin (0.19-0.49) NG/ML 12/24/16 Range/Units 06:10 WBC (4.8-10.8) K/uL RBC (3.80-5.20) Mil/uL Hgb (12.0-16.0) g/dL Hct (34.0-47.0) % MCV (81.0-99.0) fl MCH (27.0-31.0) pg MCHC (33.0-37.0) g/dL RDW (11.5-14.5) % Plt Count (130-400) K/uL MPV (7.2-11.7) fl Neut % (Auto) (50.0-75.0) % Lymph % (Auto) (20.0-40.0) % Fallon % (Auto) (0.0-10.0) % Eos % (Auto) (0.0-4.0) % Baso % (Auto) (0.0-2.0) % Neut # (1.8-7.0) K/uL Lymph # (1.0-4.3) K/uL Fallon # (0.0-0.8) K/uL Eos # (0.0-0.7) K/uL Baso # (0.0-0.2) K/uL Neutrophils % (Manual) (42-75) % Band Neutrophils % (0-2) % Lymphocytes % (Manual) (20-50) % Monocytes % (Manual) (0-10) % Platelet Estimate (NORMAL) Large Platelets Hypochromasia (manual) Anisocytosis (manual) Microcytosis (manual) Tear Drop Cells Schistocytes pCO2 (35-45) mm/Hg pO2 (80-100) mm/Hg HCO3 (21-28) mmol/L ABG pH (7.35-7.45) ABG Total CO2 (22-28) mmol/L ABG O2 Saturation (95-98) % ABG O2 Content (15-23) ML/dL ABG Base Excess (-2.0-3.0) mmol/L ABG Hemoglobin (11.7-17.4) g/dL ABG Carboxyhemoglobin (0.5-1.5) % POC ABG HHb (Measured) (0.0-5.0) % ABG Methemoglobin (0.0-3.0) % ABG O2 Capacity (16-24) mL/dL Devin Test A-a O2 Difference mm/Hg Hgb O2 Saturation (95.0-98.0) % Vent Mode Mechanical Rate FiO2 % Tidal Volume PEEP Sodium (132-148) mmol/l Potassium (3.6-5.0) MMOL/L Chloride (98-107) mmol/L Carbon Dioxide (22-30) mmol/L Anion Gap (10-20) BUN (7-17) mg/dl Creatinine (0.7-1.2) mg/dL Est GFR ( Amer) Est GFR (Non-Af Amer) Random Glucose (65-105) mg/dL Calcium (8.4-10.2) mg/dL Total Bilirubin (0.2-1.3) mg/dl AST (14-36) U/L ALT (9-52) U/L Alkaline Phosphatase (38-126) U/L Total Protein (6.3-8.2) G/DL Albumin (3.5-5.0) g/dL Globulin (2.2-3.9) gm/dL Albumin/Globulin Ratio (1.0-2.1) Carcinoembryonic Ag (0-3.0) ng/mL Procalcitonin 28.86 H (0.19-0.49) NG/ML Laboratory Results - last 24 hr 12/24/16 12/25/16 12/25/16 06:10 04:20 04:20 WBC 16.3 H D RBC 3.89 Hgb 7.6 L Hct 26.4 L MCV 67.8 L MCH 19.6 L MCHC 28.9 L RDW 36.9 H Plt Count 180 MPV 10.3 Neut % (Auto) 85.9 H Lymph % (Auto) 7.4 L Fallon % (Auto) 5.2 Eos % (Auto) 1.1 Baso % (Auto) 0.4 Neut # 14.0 H Lymph # 1.2 Fallon # 0.8 Eos # 0.2 Baso # 0.1 Neutrophils % (Manual) 91 H Band Neutrophils % 2 Lymphocytes % (Manual) 4 L Monocytes % (Manual) 3 Platelet Estimate Normal Large Platelets Present Hypochromasia (manual) Moderate Anisocytosis (manual) Moderate Microcytosis (manual) Moderate Tear Drop Cells Slight Schistocytes Slight pCO2 pO2 HCO3 ABG pH ABG Total CO2 ABG O2 Saturation ABG O2 Content ABG Base Excess ABG Hemoglobin ABG Carboxyhemoglobin POC ABG HHb (Measured) ABG Methemoglobin ABG O2 Capacity Devin Test A-a O2 Difference Hgb O2 Saturation Vent Mode Mechanical Rate FiO2 Tidal Volume PEEP Sodium 145 Potassium 3.8 Chloride 111 H Carbon Dioxide 24 Anion Gap 14 BUN 8 Creatinine 0.6 L Est GFR ( Amer) > 60 Est GFR (Non-Af Amer) > 60 Random Glucose 120 H Calcium 7.8 L Total Bilirubin 0.9 AST 48 H D ALT 45 Alkaline Phosphatase 206 H Total Protein 6.5 Albumin 2.8 L Globulin 3.7 Albumin/Globulin Ratio 0.8 L Carcinoembryonic Ag 1.2 Procalcitonin 28.86 H 12/25/16 04:55 WBC RBC Hgb Hct MCV MCH MCHC RDW Plt Count MPV Neut % (Auto) Lymph % (Auto) Fallon % (Auto) Eos % (Auto) Baso % (Auto) Neut # Lymph # Fallon # Eos # Baso # Neutrophils % (Manual) Band Neutrophils % Lymphocytes % (Manual) Monocytes % (Manual) Platelet Estimate Large Platelets Hypochromasia (manual) Anisocytosis (manual) Microcytosis (manual) Tear Drop Cells Schistocytes pCO2 30 L pO2 116 H HCO3 25.3 ABG pH 7.50 H ABG Total CO2 24.3 ABG O2 Saturation 100.9 H ABG O2 Content 11.4 L ABG Base Excess 0.5 ABG Hemoglobin 8.2 L ABG Carboxyhemoglobin 2.4 H POC ABG HHb (Measured) -0.9 L ABG Methemoglobin 1.5 ABG O2 Capacity 11.3 L Devin Test Yes A-a O2 Difference 132.0 Hgb O2 Saturation 97.0 Vent Mode A/c Mechanical Rate 14 FiO2 40.0 Tidal Volume 450 PEEP 8 Sodium Potassium Chloride Carbon Dioxide Anion Gap BUN Creatinine Est GFR ( Amer) Est GFR (Non-Af Amer) Random Glucose Calcium Total Bilirubin AST ALT Alkaline Phosphatase Total Protein Albumin Globulin Albumin/Globulin Ratio Carcinoembryonic Ag Procalcitonin Review of Systems - Constitutional Constitutional: Fever. absent: Chills - EENT Nose/Mouth/Throat: Sore Throat - Cardiovascular Cardiovascular: absent: Chest Pain, Diaphoresis, Dyspnea, Palpitations - Respiratory Respiratory: absent: Cough, Hemoptysis, Wheezing, Chest Congestion - Gastrointestinal Gastrointestinal: absent: Abdominal Pain, Nausea, Vomiting Critical Care Progress Note - Nutrition Nutrition: Nutrition Category Date Time Status NPO Diet [DIET] Diets 12/24/16 Breakfast Active Assessment/Plan - Assessment and Plan (Free Text) Assessment: 51 y/o obese F with PMH including iron deficiency anemia, uterine fibroids, s/p laparoscopic appendectomy on 12/13/16 presented to ED with complaints of pain an swelling to IV site of recent venofer infusion several days prior. During ED assessment, patient was found to be febrile with leukocytosis and an elevated lactate. On admission day 2 she developed chills, increasing fever and a lactate of 7.9 so she was transferred to ICU for sepsis requiring closer monitoring and further workup. Patient was noted to have gram negative rods on blood and urine cultures and has been receiving empiric antibiotics while workup is continued. She developed respiratory distress on 12/23 and decision was made to intubate to protect the airway. Plan: Sepsis with gram negative bacteremia -Etiology likely secondary to concurrent UTI -Patient has been febrile (Tmax 24 hrs: 100.5 12/25 @09:00). WBC 16.3. -Patient hemodynamically stable. -Blood culture and Urine culture collected on 12/19 and 12/20 identified Ecoli -CT of chest detects no lung masses or consolidations. -CT Abd/Pelvis detects nonspecific mild diffuse thickening of the gallbladder wall with no gallstones or pericholecystic fluid. Kidneys/ureters were unremarkable with no hydronephrosis. A 5cm fluid density mass adjacent to the left side of the uterus was also detected which may be an ovarian cyst. -HIDA scan normal with patent cystic duct -On empiric Vancomycin 1gm IV daily (started 12/20, Current day 6) and Meropenem 1gm IV Q8H (Started 12/20, Current day 6). Received single dose of Zosyn on 12/20. -Infectious disease consult appreciated Acute Respiratory Failure, secondary to severe sepsis -Intubated on 12/23/16 to protect airway -Patient tolerated pressure support trial for 3 hours this morning and decision made to extubate -Currently on ventimask, saturating at 100% Chest pain/SOB -Undetermined etiology however patient asymptomatic today -D-dimer elevated, Troponin elevated. Unclear significance due to associated bacteremia/infectious process -CT angio chest was performed on 12/20 revealing no evidence of central pulmonary embolus. No filling defects were noted in the right/left pulmonary artery or lobar vessels however exam was suboptimal due to patient habitus. -EKG does not reveal any acute changes -Cardiac echo ordered, reporting normal LV wall thickness and borderline systolic function. Right and Left atrial size normal. -Cardiology consult appreciated Uterine fibroids/Ovarian Cyst -CT abd/pelvis detected a markedly enlarged uterus containing multiple masses c/ w fibroids. A 5cm fluid density mass adjacent to the left side of the uterus was also detected. -[employer] consult requested -Will obtain TV U/S S/P Laparoscopic Appendectomy -Patient had recent lap appendectomy on 12/13/16 -General surgery consulted who believe current presentation is unrelated DVT Prophylaxis -Lovenox <Yung Zapata - Last Filed: 12/25/16 14:46> CCU Objective - Vital Signs / Intake & Output Vital Signs (Last 4 hours): Vital Signs Temp Pulse Resp BP Pulse Ox 12/25/16 14:00 19 100 12/25/16 13:00 98.5 F 79 21 117/71 100 12/25/16 12:20 98.8 F 87 25 H 109/57 L 100 12/25/16 11:00 98.5 F 108/67 Intake and Output (Last 8hrs): Intake & Output 12/24/16 12/25/16 12/25/16 22:59 06:59 14:59 Intake Total 1055 609 480 Output Total 1400 700 Balance -345 -91 480 Intake: IV 570 440 30 Intake, Piggyback 485 169 450 Oral 0 0 Tube Feeding 0 0 Output: Urine 1400 700 Urethral (Emerson) 1400 700 Other: # Bowel Movements 1 2 - Medications Active Medications: Active Medications Generic Name Dose Route Start Last Admin Trade Name Freq PRN Reason Stop Dose Admin Acetaminophen 650 mg 12/23/16 15:45 12/25/16 08:53 Tylenol 650mg/20.3ml Solution Ud GT 650 mg Q6 PRN Administration Fever >100.4 F Albuterol Sulfate 2.5 mg 12/23/16 12:00 12/25/16 11:34 Albuterol 0.083% Inhal Verónica (2.5 Mg/3 Ml) Ud INH 2.5 mg RQID MIGUEL Administration Docusate Sodium 200 mg 12/20/16 09:00 12/25/16 08:47 Colace PO Not Given DAILY MIGUEL Ferrous Sulfate 325 mg 12/20/16 09:00 12/25/16 08:48 Feosol PO 325 mg BID MIGUEL Administration Furosemide 40 mg 12/24/16 18:00 12/25/16 05:52 Lasix IV 40 mg Q12H MIGUEL Administration Heparin Sodium (Porcine) 5,000 units 12/25/16 09:15 Heparin SC Q12 MIGUEL Protocol Fluconazole 100 mls @ 100 mls/hr 12/23/16 12:15 12/25/16 08:47 Diflucan Iv 200 Mg/100 Ml Ns IVPB 100 mls/hr DAILY MIGUEL Administration Meropenem 1 gm/ Sodium 100 mls @ 100 mls/hr 12/24/16 05:00 12/25/16 13:25 Chloride IVPB 100 mls/hr Q8@0500,1300,2100 MIGUEL Administration Vancomycin HCl 1 gm/ Sodium 250 mls @ 166.667 mls/hr 12/24/16 17:00 12/25/16 08:49 Chloride IVPB 166.667 mls/hr BID MIGUEL Administration Ibuprofen 400 mg 12/21/16 08:03 12/21/16 08:48 Motrin Tab PO 400 mg Q6 PRN Administration Fever >100.4 F Morphine Sulfate 4 mg 12/20/16 10:00 Morphine IVP Q4 PRN Pain, severe (8-10) Ondansetron HCl 4 mg 12/19/16 20:28 12/21/16 05:26 Zofran Inj IVP 4 mg Q6 PRN Administration Nausea/Vomiting Pantoprazole Sodium 40 mg 12/25/16 09:00 12/25/16 08:49 Protonix Susp NG 40 mg DAILY MIGUEL Administration - Patient Studies Lab Studies: Microbiology Studies 12/23/16 10:10 Blood Culture - Preliminary Blood NO GROWTH AFTER 48 HOURS Lab Studies 12/25/16 12/25/16 12/25/16 Range/Units 04:55 04:20 04:20 WBC 16.3 H D (4.8-10.8) K/uL RBC 3.89 (3.80-5.20) Mil/uL Hgb 7.6 L (12.0-16.0) g/dL Hct 26.4 L (34.0-47.0) % MCV 67.8 L (81.0-99.0) fl MCH 19.6 L (27.0-31.0) pg MCHC 28.9 L (33.0-37.0) g/dL RDW 36.9 H (11.5-14.5) % Plt Count 180 (130-400) K/uL MPV 10.3 (7.2-11.7) fl Neut % (Auto) 85.9 H (50.0-75.0) % Lymph % (Auto) 7.4 L (20.0-40.0) % Fallon % (Auto) 5.2 (0.0-10.0) % Eos % (Auto) 1.1 (0.0-4.0) % Baso % (Auto) 0.4 (0.0-2.0) % Neut # 14.0 H (1.8-7.0) K/uL Lymph # 1.2 (1.0-4.3) K/uL Fallon # 0.8 (0.0-0.8) K/uL Eos # 0.2 (0.0-0.7) K/uL Baso # 0.1 (0.0-0.2) K/uL Neutrophils % (Manual) 91 H (42-75) % Band Neutrophils % 2 (0-2) % Lymphocytes % (Manual) 4 L (20-50) % Monocytes % (Manual) 3 (0-10) % Platelet Estimate Normal (NORMAL) Large Platelets Present Hypochromasia (manual) Moderate Anisocytosis (manual) Moderate Microcytosis (manual) Moderate Tear Drop Cells Slight Schistocytes Slight pCO2 30 L (35-45) mm/Hg pO2 116 H (80-100) mm/Hg HCO3 25.3 (21-28) mmol/L ABG pH 7.50 H (7.35-7.45) ABG Total CO2 24.3 (22-28) mmol/L ABG O2 Saturation 100.9 H (95-98) % ABG O2 Content 11.4 L (15-23) ML/dL ABG Base Excess 0.5 (-2.0-3.0) mmol/L ABG Hemoglobin 8.2 L (11.7-17.4) g/dL ABG Carboxyhemoglobin 2.4 H (0.5-1.5) % POC ABG HHb (Measured) -0.9 L (0.0-5.0) % ABG Methemoglobin 1.5 (0.0-3.0) % ABG O2 Capacity 11.3 L (16-24) mL/dL Devin Test Yes A-a O2 Difference 132.0 mm/Hg Hgb O2 Saturation 97.0 (95.0-98.0) % Vent Mode A/c Mechanical Rate 14 FiO2 40.0 % Tidal Volume 450 PEEP 8 Sodium 145 (132-148) mmol/l Potassium 3.8 (3.6-5.0) MMOL/L Chloride 111 H (98-107) mmol/L Carbon Dioxide 24 (22-30) mmol/L Anion Gap 14 (10-20) BUN 8 (7-17) mg/dl Creatinine 0.6 L (0.7-1.2) mg/dL Est GFR ( Amer) > 60 Est GFR (Non-Af Amer) > 60 Random Glucose 120 H (65-105) mg/dL Calcium 7.8 L (8.4-10.2) mg/dL Total Bilirubin 0.9 (0.2-1.3) mg/dl AST 48 H D (14-36) U/L ALT 45 (9-52) U/L Alkaline Phosphatase 206 H (38-126) U/L Total Protein 6.5 (6.3-8.2) G/DL Albumin 2.8 L (3.5-5.0) g/dL Globulin 3.7 (2.2-3.9) gm/dL Albumin/Globulin Ratio 0.8 L (1.0-2.1) Carcinoembryonic Ag 1.2 (0-3.0) ng/mL Procalcitonin (0.19-0.49) NG/ML 12/24/16 Range/Units 06:10 WBC (4.8-10.8) K/uL RBC (3.80-5.20) Mil/uL Hgb (12.0-16.0) g/dL Hct (34.0-47.0) % MCV (81.0-99.0) fl MCH (27.0-31.0) pg MCHC (33.0-37.0) g/dL RDW (11.5-14.5) % Plt Count (130-400) K/uL MPV (7.2-11.7) fl Neut % (Auto) (50.0-75.0) % Lymph % (Auto) (20.0-40.0) % Fallon % (Auto) (0.0-10.0) % Eos % (Auto) (0.0-4.0) % Baso % (Auto) (0.0-2.0) % Neut # (1.8-7.0) K/uL Lymph # (1.0-4.3) K/uL Fallon # (0.0-0.8) K/uL Eos # (0.0-0.7) K/uL Baso # (0.0-0.2) K/uL Neutrophils % (Manual) (42-75) % Band Neutrophils % (0-2) % Lymphocytes % (Manual) (20-50) % Monocytes % (Manual) (0-10) % Platelet Estimate (NORMAL) Large Platelets Hypochromasia (manual) Anisocytosis (manual) Microcytosis (manual) Tear Drop Cells Schistocytes pCO2 (35-45) mm/Hg pO2 (80-100) mm/Hg HCO3 (21-28) mmol/L ABG pH (7.35-7.45) ABG Total CO2 (22-28) mmol/L ABG O2 Saturation (95-98) % ABG O2 Content (15-23) ML/dL ABG Base Excess (-2.0-3.0) mmol/L ABG Hemoglobin (11.7-17.4) g/dL ABG Carboxyhemoglobin (0.5-1.5) % POC ABG HHb (Measured) (0.0-5.0) % ABG Methemoglobin (0.0-3.0) % ABG O2 Capacity (16-24) mL/dL Devin Test A-a O2 Difference mm/Hg Hgb O2 Saturation (95.0-98.0) % Vent Mode Mechanical Rate FiO2 % Tidal Volume PEEP Sodium (132-148) mmol/l Potassium (3.6-5.0) MMOL/L Chloride (98-107) mmol/L Carbon Dioxide (22-30) mmol/L Anion Gap (10-20) BUN (7-17) mg/dl Creatinine (0.7-1.2) mg/dL Est GFR ( Amer) Est GFR (Non-Af Amer) Random Glucose (65-105) mg/dL Calcium (8.4-10.2) mg/dL Total Bilirubin (0.2-1.3) mg/dl AST (14-36) U/L ALT (9-52) U/L Alkaline Phosphatase (38-126) U/L Total Protein (6.3-8.2) G/DL Albumin (3.5-5.0) g/dL Globulin (2.2-3.9) gm/dL Albumin/Globulin Ratio (1.0-2.1) Carcinoembryonic Ag (0-3.0) ng/mL Procalcitonin 28.86 H (0.19-0.49) NG/ML Laboratory Results - last 24 hr 12/24/16 12/25/16 12/25/16 06:10 04:20 04:20 WBC 16.3 H D RBC 3.89 Hgb 7.6 L Hct 26.4 L MCV 67.8 L MCH 19.6 L MCHC 28.9 L RDW 36.9 H Plt Count 180 MPV 10.3 Neut % (Auto) 85.9 H Lymph % (Auto) 7.4 L Fallon % (Auto) 5.2 Eos % (Auto) 1.1 Baso % (Auto) 0.4 Neut # 14.0 H Lymph # 1.2 Fallon # 0.8 Eos # 0.2 Baso # 0.1 Neutrophils % (Manual) 91 H Band Neutrophils % 2 Lymphocytes % (Manual) 4 L Monocytes % (Manual) 3 Platelet Estimate Normal Large Platelets Present Hypochromasia (manual) Moderate Anisocytosis (manual) Moderate Microcytosis (manual) Moderate Tear Drop Cells Slight Schistocytes Slight pCO2 pO2 HCO3 ABG pH ABG Total CO2 ABG O2 Saturation ABG O2 Content ABG Base Excess ABG Hemoglobin ABG Carboxyhemoglobin POC ABG HHb (Measured) ABG Methemoglobin ABG O2 Capacity Devin Test A-a O2 Difference Hgb O2 Saturation Vent Mode Mechanical Rate FiO2 Tidal Volume PEEP Sodium 145 Potassium 3.8 Chloride 111 H Carbon Dioxide 24 Anion Gap 14 BUN 8 Creatinine 0.6 L Est GFR ( Amer) > 60 Est GFR (Non-Af Amer) > 60 Random Glucose 120 H Calcium 7.8 L Total Bilirubin 0.9 AST 48 H D ALT 45 Alkaline Phosphatase 206 H Total Protein 6.5 Albumin 2.8 L Globulin 3.7 Albumin/Globulin Ratio 0.8 L Carcinoembryonic Ag 1.2 Procalcitonin 28.86 H 12/25/16 04:55 WBC RBC Hgb Hct MCV MCH MCHC RDW Plt Count MPV Neut % (Auto) Lymph % (Auto) [place] % (Auto) Eos % (Auto) Baso % (Auto) Neut # Lymph # [place] # Eos # Baso # Neutrophils % (Manual) Band Neutrophils % Lymphocytes % (Manual) Monocytes % (Manual) Platelet Estimate Large Platelets Hypochromasia (manual) Anisocytosis (manual) Microcytosis (manual) Tear Drop Cells Schistocytes pCO2 30 L pO2 116 H HCO3 25.3 ABG pH 7.50 H ABG Total CO2 24.3 ABG O2 Saturation 100.9 H ABG O2 Content 11.4 L ABG Base Excess 0.5 ABG Hemoglobin 8.2 L ABG Carboxyhemoglobin 2.4 H POC ABG HHb (Measured) -0.9 L ABG Methemoglobin 1.5 ABG O2 Capacity 11.3 L Devin Test Yes A-a O2 Difference 132.0 Hgb O2 Saturation 97.0 Vent Mode A/c Mechanical Rate 14 FiO2 40.0 Tidal Volume 450 PEEP 8 Sodium Potassium Chloride Carbon Dioxide Anion Gap BUN Creatinine Est GFR ( Amer) Est GFR (Non-Af Amer) Random Glucose Calcium Total Bilirubin AST ALT Alkaline Phosphatase Total Protein Albumin Globulin Albumin/Globulin Ratio Carcinoembryonic Ag Procalcitonin Critical Care Progress Note - Nutrition Nutrition: Nutrition Category Date Time Status NPO Diet [DIET] Diets 12/24/16 Breakfast Active Assessment/Plan (1) Sepsis, Gram negative Current Visit: Yes Status: Acute Attending/Attestation - Attestation I have personally seen and examined this patient.: Yes I have fully participated in the care of the patient.: Yes I have reviewed all pertinent clinical information: Yes Notes (Text): 12/25/16 14:38 I have seen and examined the patient. Medical records, lab studies, and imaging were reviewed by me and a management plan was formulated on multidisciplinary rounds with resident Dr. Badillo. I agree with their above documented assessment and plan. Patient was extubated today, will monitor. Her leucocytosis keeps fluctuating. Uncertain if we have full control over all sources of sepsis, procalcitonin downtrending but clinical usefulness is questionable. Patient appears better overall clinically. Speech and swallow eval tomorrow. Critical Care Time 35 minutes. Multi-disciplinary rounds were performed with house staff, nursing, speech therapy, respiratory therapy, pharmacy and nutrition with integrated input from the primary team/attending and other consulting services. The documented time is cumulative and includes review of patient data/exams/labs/chart review and examination of the patient on rounds and throughout the day; time is exclusive of any procedures or teaching time.
[2016-12-25 15:02] LABS: HEMATOCRIT 24.2 % (34.0-47.0)
[2016-12-25 17:21] LABS: CA 19-9 8.3 U/mL (0-37)
[2016-12-25 20:15] LABS: HEPARIN-IND PLATELET AB Negative (Negative)
[2016-12-26] MEDS: Meropenem 1 GM in Sodium Chloride 0.9% 100 ML IVPB SCH ×3 (03:59→20:04)
[2016-12-26 05:30] LABS: BASO # 0.1 K/uL (0.0-0.2); BASO % 0.8 % (0.0-2.0); EOS # 0.1 K/uL (0.0-0.7); EOS % 0.5 % (0.0-4.0); HEMATOCRIT 24.3 % (34.0-47.0); LYMPH # 1.5 K/uL (1.0-4.3); LYMPH % 8.5 % (20.0-40.0); MEAN CORPUSCULAR HEMOGLOBIN 19.8 pg (27.0-31.0); MEAN CORPUSCULAR HGB CONC 29.5 g/dL (33.0-37.0); MEAN PLATELET VOLUME 10.7 fl (7.2-11.7); NEUT # 14.7 K/uL (1.8-7.0); NEUT % 84.2 % (50.0-75.0); RED CELL DISTRIBUTION WIDTH 37.1 % (11.5-14.5); WHITE BLOOD COUNT 17.4 K/uL (4.8-10.8)
[2016-12-26 05:35] LABS: ALB/GLOB RATIO 0.7 (1.0-2.1); ALKALINE PHOSPHATASE 232 U/L (38-126); ALT/SGPT 39 U/L (9-52); AST/SGOT 50 U/L (14-36); BILIRUBIN,TOTAL 0.8 mg/dl (0.2-1.3); BLOOD UREA NITROGEN 9 mg/dl (7-17); CALCIUM 8.1 mg/dL (8.4-10.2); CARBON DIOXIDE 28 mmol/L (22-30); CHLORIDE 107 mmol/L (98-107); GFR AFRICAN-AMERICAN > 60; GLUCOSE,RANDOM 115 mg/dL (65-105); POTASSIUM 3.2 MMOL/L (3.6-5.0); SODIUM 143 mmol/l (132-148); TOTAL PROTEIN 6.3 G/DL (6.3-8.2)
[2016-12-26] MEDS: Acetaminophen 650mg/20.3ml solution UD GT PRN ×2 (06:02→12:37)
[2016-12-26] MEDS: Fluconazole IV 200mg/100 ml NS 100 ML IVPB SCH (08:06)
[2016-12-26] MEDS: Albuterol 0.083% Inhal Sol (2.5 mg/3 mL) UD INH SCH ×3 (08:59→20:19)
--- NOTE | 2016-12-26 10:51 | CP.CCUPN ---
<Mohini Badillo - Last Filed: 12/26/16 10:39> CCU Subjective - Physician Review Subjective (Free Text): 12/26/16 10:39 Patient seen and examined at bedside with ICU attending during morning rounds. She appears comfortably sitting in chair and is alert and oriented x3. Patient is satting 100% on 2L nasal canula without any chest pain or SOB. She had fever of 100.4 this AM but is currently afebrile. She is experiencing lower abdominal cramping associated with her menstrual period and notes vaginal bleeding overnight with passage of clots which is consistent with her prior menstrual periods. She denies dizziness while seated but experiences some lightheadedness with standing. CCU Objective - Vital Signs / Intake & Output Vital Signs (Last 4 hours): Vital Signs Temp Pulse Resp BP Pulse Ox 12/26/16 07:39 98.6 F 84 30 H 122/73 99 12/26/16 07:02 100.2 F H 90 15 120/70 Intake and Output (Last 8hrs): Intake & Output 12/25/16 12/26/16 12/26/16 22:59 06:59 14:59 Intake Total 609 159 Output Total 2900 1000 Balance -2291 -841 Intake: IV 9 0 Intake, Piggyback 600 109 Oral 0 50 Output: Urine 2900 1000 Urethral (Emerson) 2900 Urine, Voided 1000 Other: # Bowel Movements 1 - Physical Exam Head: Positive for: Atraumatic, Normocephalic Pupils: Positive for: PERRL Extroacular Muscles: Positive for: EOMI Conjunctiva: Positive for: Normal Mouth: Positive for: Moist Mucous Membranes Respiratory/Chest: Positive for: Clear to Auscultation, Good Air Exchange, Tachypneic. Negative for: Respiratory Distress, Wheezes, Rales, Rhonchi Cardiovascular: Positive for: Regular Rate and Rhythm, Normal S1, S2. Negative for: Murmurs Abdomen: Positive for: Tenderness (Lower abdominal tenderness), Normal Bowel Sounds. Negative for: Distention, Rebound, Guarding Upper Extremity: Positive for: Edema (Right upper extremity has 1+ edema), Other (Capillary refill approximately 2s.) Lower Extremity: Negative for: Edema, CALF TENDERNESS, Chandler's Sign Neurological: Positive for: Speech Normal Skin: Positive for: Warm, Normal Color, Other (Right groin TLC present. Area clean, dry.) Psychiatric: Positive for: Alert, Oriented x 3 - Medications Active Medications: Active Medications Generic Name Dose Route Start Last Admin Trade Name Freq PRN Reason Stop Dose Admin Acetaminophen 650 mg 12/23/16 15:45 12/26/16 06:02 Tylenol 650mg/20.3ml Solution Ud GT 650 mg Q6 PRN Administration Fever >100.4 F Albuterol Sulfate 2.5 mg 12/23/16 12:00 12/26/16 08:59 Albuterol 0.083% Inhal Verónica (2.5 Mg/3 Ml) Ud INH 2.5 mg RQID MIGUEL Administration Docusate Sodium 200 mg 12/20/16 09:00 12/26/16 08:05 Colace PO Not Given DAILY MIGUEL Ferrous Sulfate 325 mg 12/20/16 09:00 12/26/16 08:06 Feosol PO 325 mg BID MIGUEL Administration Furosemide 40 mg 12/24/16 18:00 12/26/16 05:42 Lasix IV 40 mg Q12H [facility]IG[facility]EL Administration Heparin Sodium (Porcine) 5,000 units 12/25/16 18:00 12/26/16 05:42 Heparin SC 5,000 units Q12@0600,1800 [facility] Administration Protocol Fluconazole 100 mls @ 100 mls/hr 12/23/16 12:15 12/26/16 08:06 Diflucan Iv 200 Mg/100 Ml Ns IVPB 100 mls/hr DAILY [facility] Administration Meropenem 1 gm/ Sodium 100 mls @ 100 mls/hr 12/24/16 05:00 12/26/16 03:59 Chloride IVPB 100 mls/hr Q8@0500,1300,2100 [facility] Administration Vancomycin HCl 1 gm/ Sodium 250 mls @ 166.667 mls/hr 12/24/16 17:00 12/26/16 08:07 Chloride IVPB 166.667 mls/hr BID MIGUEL Administration Ibuprofen 400 mg 12/21/16 08:03 12/21/16 08:48 Motrin Tab PO 400 mg Q6 PRN Administration Fever >100.4 F Ketorolac Tromethamine 30 mg 12/26/16 01:01 Toradol IVP Q6 PRN Pain, severe (8-10) Ondansetron HCl 4 mg 12/19/16 20:28 12/21/16 05:26 Zofran Inj IVP 4 mg Q6 PRN Administration Nausea/Vomiting Pantoprazole Sodium 40 mg 12/25/16 09:00 12/25/16 08:49 Protonix Susp NG 40 mg DAILY MIGUEL Administration - Patient Studies Lab Studies: Microbiology Studies 12/23/16 10:10 Blood Culture - Preliminary Blood NO GROWTH AFTER 3 DAYS Lab Studies 12/26/16 12/26/16 12/25/16 Range/Units 04:30 04:30 16:30 WBC 17.4 H (4.8-10.8) K/uL RBC 3.62 L (3.80-5.20) Mil/uL Hgb 7.2 L (12.0-16.0) g/dL Hct 24.3 L (34.0-47.0) % MCV 67.0 L (81.0-99.0) fl MCH 19.8 L (27.0-31.0) pg MCHC 29.5 L (33.0-37.0) g/dL RDW 37.1 H (11.5-14.5) % Plt Count 232 (130-400) K/uL MPV 10.7 (7.2-11.7) fl Neut % (Auto) 84.2 H (50.0-75.0) % Lymph % (Auto) 8.5 L (20.0-40.0) % Nance % (Auto) 6.0 (0.0-10.0) % Eos % (Auto) 0.5 (0.0-4.0) % Baso % (Auto) 0.8 (0.0-2.0) % Neut # 14.7 H (1.8-7.0) K/uL Lymph # 1.5 (1.0-4.3) K/uL Nance # 1.0 H (0.0-0.8) K/uL Eos # 0.1 (0.0-0.7) K/uL Baso # 0.1 (0.0-0.2) K/uL Platelet Estimate (NORMAL) PT (9.6-11.2) SECONDS INR (0.92-1.08) Sodium 143 (132-148) mmol/l Potassium 3.2 L (3.6-5.0) MMOL/L Chloride 107 (98-107) mmol/L Carbon Dioxide 28 (22-30) mmol/L Anion Gap 11 (10-20) BUN 9 (7-17) mg/dl Creatinine 0.5 L (0.7-1.2) mg/dL Est GFR ( Amer) > 60 Est GFR (Non-Af Amer) > 60 Random Glucose 115 H (65-105) mg/dL Calcium 8.1 L (8.4-10.2) mg/dL Total Bilirubin 0.8 (0.2-1.3) mg/dl AST 50 H (14-36) U/L ALT 39 (9-52) U/L Alkaline Phosphatase 232 H (38-126) U/L Total Protein 6.3 (6.3-8.2) G/DL Albumin 2.7 L (3.5-5.0) g/dL Globulin 3.7 (2.2-3.9) gm/dL Albumin/Globulin Ratio 0.7 L (1.0-2.1) CA 19-9 Antigen (0-37) U/mL CA 125 Antigen (0-35) U/mL Vancomycin Trough 9.7 (5.0-10.0) ug/mL Direct Plt-Bound IgG Ab (NEGATIVE) Heparin-induced Plt Ab (Negative) Blood Type Antibody Screen BBK History Checked 12/25/16 12/25/16 12/25/16 Range/Units 14:30 14:30 14:30 WBC (4.8-10.8) K/uL RBC (3.80-5.20) Mil/uL Hgb 7.3 L (12.0-16.0) g/dL Hct 24.2 L (34.0-47.0) % MCV (81.0-99.0) fl MCH (27.0-31.0) pg MCHC (33.0-37.0) g/dL RDW (11.5-14.5) % Plt Count (130-400) K/uL MPV (7.2-11.7) fl Neut % (Auto) (50.0-75.0) % Lymph % (Auto) (20.0-40.0) % Nance % (Auto) (0.0-10.0) % Eos % (Auto) (0.0-4.0) % Baso % (Auto) (0.0-2.0) % Neut # (1.8-7.0) K/uL Lymph # (1.0-4.3) K/uL Nance # (0.0-0.8) K/uL Eos # (0.0-0.7) K/uL Baso # (0.0-0.2) K/uL Platelet Estimate (NORMAL) PT 12.3 H (9.6-11.2) SECONDS INR 1.18 H (0.92-1.08) Sodium (132-148) mmol/l Potassium (3.6-5.0) MMOL/L Chloride (98-107) mmol/L Carbon Dioxide (22-30) mmol/L Anion Gap (10-20) BUN (7-17) mg/dl Creatinine (0.7-1.2) mg/dL Est GFR ( Amer) Est GFR (Non-Af Amer) Random Glucose (65-105) mg/dL Calcium (8.4-10.2) mg/dL Total Bilirubin (0.2-1.3) mg/dl AST (14-36) U/L ALT (9-52) U/L Alkaline Phosphatase (38-126) U/L Total Protein (6.3-8.2) G/DL Albumin (3.5-5.0) g/dL Globulin (2.2-3.9) gm/dL Albumin/Globulin Ratio (1.0-2.1) CA 19-9 Antigen (0-37) U/mL CA 125 Antigen (0-35) U/mL Vancomycin Trough (5.0-10.0) ug/mL Direct Plt-Bound IgG Ab (NEGATIVE) Heparin-induced Plt Ab (Negative) Blood Type B POSITIVE Antibody Screen Negative BBK History Checked Patient has bt 12/25/16 12/25/16 12/22/16 Range/Units 04:20 04:20 19:57 WBC (4.8-10.8) K/uL RBC (3.80-5.20) Mil/uL Hgb (12.0-16.0) g/dL Hct (34.0-47.0) % MCV (81.0-99.0) fl MCH (27.0-31.0) pg MCHC (33.0-37.0) g/dL RDW (11.5-14.5) % Plt Count (130-400) K/uL MPV (7.2-11.7) fl Neut % (Auto) (50.0-75.0) % Lymph % (Auto) (20.0-40.0) % Nance % (Auto) (0.0-10.0) % Eos % (Auto) (0.0-4.0) % Baso % (Auto) (0.0-2.0) % Neut # (1.8-7.0) K/uL Lymph # (1.0-4.3) K/uL Nance # (0.0-0.8) K/uL Eos # (0.0-0.7) K/uL Baso # (0.0-0.2) K/uL Platelet Estimate Normal (NORMAL) PT (9.6-11.2) SECONDS INR (0.92-1.08) Sodium (132-148) mmol/l Potassium (3.6-5.0) MMOL/L Chloride (98-107) mmol/L Carbon Dioxide (22-30) mmol/L Anion Gap (10-20) BUN (7-17) mg/dl Creatinine (0.7-1.2) mg/dL Est GFR ( Amer) Est GFR (Non-Af Amer) Random Glucose (65-105) mg/dL Calcium (8.4-10.2) mg/dL Total Bilirubin (0.2-1.3) mg/dl AST (14-36) U/L ALT (9-52) U/L Alkaline Phosphatase (38-126) U/L Total Protein (6.3-8.2) G/DL Albumin (3.5-5.0) g/dL Globulin (2.2-3.9) gm/dL Albumin/Globulin Ratio (1.0-2.1) CA 19-9 Antigen 8.3 (0-37) U/mL CA 125 Antigen 61.8 H (0-35) U/mL Vancomycin Trough (5.0-10.0) ug/mL Direct Plt-Bound IgG Ab (NEGATIVE) Heparin-induced Plt Ab Negative (Negative) Blood Type Antibody Screen BBK History Checked 12/22/16 Range/Units 13:00 WBC (4.8-10.8) K/uL RBC (3.80-5.20) Mil/uL Hgb (12.0-16.0) g/dL Hct (34.0-47.0) % MCV (81.0-99.0) fl MCH (27.0-31.0) pg MCHC (33.0-37.0) g/dL RDW (11.5-14.5) % Plt Count (130-400) K/uL MPV (7.2-11.7) fl Neut % (Auto) (50.0-75.0) % Lymph % (Auto) (20.0-40.0) % Nance % (Auto) (0.0-10.0) % Eos % (Auto) (0.0-4.0) % Baso % (Auto) (0.0-2.0) % Neut # (1.8-7.0) K/uL Lymph # (1.0-4.3) K/uL Nance # (0.0-0.8) K/uL Eos # (0.0-0.7) K/uL Baso # (0.0-0.2) K/uL Platelet Estimate (NORMAL) PT (9.6-11.2) SECONDS INR (0.92-1.08) Sodium (132-148) mmol/l Potassium (3.6-5.0) MMOL/L Chloride (98-107) mmol/L Carbon Dioxide (22-30) mmol/L Anion Gap (10-20) BUN (7-17) mg/dl Creatinine (0.7-1.2) mg/dL Est GFR ( Amer) Est GFR (Non-Af Amer) Random Glucose (65-105) mg/dL Calcium (8.4-10.2) mg/dL Total Bilirubin (0.2-1.3) mg/dl AST (14-36) U/L ALT (9-52) U/L Alkaline Phosphatase (38-126) U/L Total Protein (6.3-8.2) G/DL Albumin (3.5-5.0) g/dL Globulin (2.2-3.9) gm/dL Albumin/Globulin Ratio (1.0-2.1) CA 19-9 Antigen (0-37) U/mL CA 125 Antigen (0-35) U/mL Vancomycin Trough (5.0-10.0) ug/mL Direct Plt-Bound IgG Ab Negative (NEGATIVE) Heparin-induced Plt Ab (Negative) Blood Type Antibody Screen BBK History Checked Laboratory Results - last 24 hr 12/22/16 12/22/16 12/25/16 13:00 19:57 04:20 WBC RBC Hgb Hct MCV MCH MCHC RDW Plt Count MPV Neut % (Auto) Lymph % (Auto) Nance % (Auto) Eos % (Auto) Baso % (Auto) Neut # Lymph # Nance # Eos # Baso # Platelet Estimate PT INR Sodium Potassium Chloride Carbon Dioxide Anion Gap BUN Creatinine Est GFR ( Amer) Est GFR (Non-Af Amer) Random Glucose Calcium Total Bilirubin AST ALT Alkaline Phosphatase Total Protein Albumin Globulin Albumin/Globulin Ratio CA 19-9 Antigen 8.3 CA 125 Antigen 61.8 H Vancomycin Trough Direct Plt-Bound IgG Ab Negative Heparin-induced Plt Ab Negative Blood Type Antibody Screen BBK History Checked 12/25/16 12/25/16 12/25/16 04:20 14:30 14:30 WBC RBC Hgb 7.3 L Hct 24.2 L MCV MCH MCHC RDW Plt Count MPV Neut % (Auto) Lymph % (Auto) Nance % (Auto) Eos % (Auto) Baso % (Auto) Neut # Lymph # Nance # Eos # Baso # Platelet Estimate Normal PT INR Sodium Potassium Chloride Carbon Dioxide Anion Gap BUN Creatinine Est GFR ( Amer) Est GFR (Non-Af Amer) Random Glucose Calcium Total Bilirubin AST ALT Alkaline Phosphatase Total Protein Albumin Globulin Albumin/Globulin Ratio CA 19-9 Antigen CA 125 Antigen Vancomycin Trough Direct Plt-Bound IgG Ab Heparin-induced Plt Ab Blood Type B POSITIVE Antibody Screen Negative BBK History Checked Patient has bt 12/25/16 12/25/16 12/26/16 14:30 16:30 04:30 WBC 17.4 H RBC 3.62 L Hgb 7.2 L Hct 24.3 L MCV 67.0 L MCH 19.8 L MCHC 29.5 L RDW 37.1 H Plt Count 232 MPV 10.7 Neut % (Auto) 84.2 H Lymph % (Auto) 8.5 L Nance % (Auto) 6.0 Eos % (Auto) 0.5 Baso % (Auto) 0.8 Neut # 14.7 H Lymph # 1.5 Nance # 1.0 H Eos # 0.1 Baso # 0.1 Platelet Estimate PT 12.3 H INR 1.18 H Sodium Potassium Chloride Carbon Dioxide Anion Gap BUN Creatinine Est GFR ( Amer) Est GFR (Non-Af Amer) Random Glucose Calcium Total Bilirubin AST ALT Alkaline Phosphatase Total Protein Albumin Globulin Albumin/Globulin Ratio CA 19-9 Antigen CA 125 Antigen Vancomycin Trough 9.7 Direct Plt-Bound IgG Ab Heparin-induced Plt Ab Blood Type Antibody Screen BBK History Checked 12/26/16 04:30 WBC RBC Hgb Hct MCV MCH MCHC RDW Plt Count MPV Neut % (Auto) Lymph % (Auto) Nance % (Auto) Eos % (Auto) Baso % (Auto) Neut # Lymph # Nance # Eos # Baso # Platelet Estimate PT INR Sodium 143 Potassium 3.2 L Chloride 107 Carbon Dioxide 28 Anion Gap 11 BUN 9 Creatinine 0.5 L Est GFR ( Amer) > 60 Est GFR (Non-Af Amer) > 60 Random Glucose 115 H Calcium 8.1 L Total Bilirubin 0.8 AST 50 H ALT 39 Alkaline Phosphatase 232 H Total Protein 6.3 Albumin 2.7 L Globulin 3.7 Albumin/Globulin Ratio 0.7 L CA 19-9 Antigen CA 125 Antigen Vancomycin Trough Direct Plt-Bound IgG Ab Heparin-induced Plt Ab Blood Type Antibody Screen BBK History Checked Review of Systems - Constitutional Constitutional: Fever. absent: Chills - EENT Eyes: absent: Change in Vision - Cardiovascular Cardiovascular: absent: Chest Pain, Dyspnea, Leg Edema, Palpitations - Respiratory Respiratory: absent: Cough, Dyspnea, Hemoptysis, Wheezing - Gastrointestinal Gastrointestinal: Abdominal Pain (mild lower abdominal pain). absent: Diarrhea , Nausea, Vomiting - Reproductive: Female Reproductive:Female: Currently Menstual, Dysmenorrhea - Neurological Neurological: Dizziness. absent: Focal Weakness Critical Care Progress Note - Nutrition Nutrition: Nutrition Category Date Time Status Liquid Diet [DIET] Diets 12/26/16 Lunch Active Assessment/Plan - Assessment and Plan (Free Text) Assessment: 51 y/o obese F with PMH including iron deficiency anemia, uterine fibroids, s/p laparoscopic appendectomy on 12/13/16 presented to ED with complaints of pain an swelling to IV site of recent venofer infusion several days prior. During ED assessment, patient was found to be febrile with leukocytosis and an elevated lactate. On admission day 2 she developed chills, increasing fever and a lactate of 7.9 so she was transferred to ICU for sepsis requiring closer monitoring and further workup. Patient was noted to have gram negative rods on blood and urine cultures and has been receiving empiric antibiotics while workup is continued. She developed respiratory distress on 12/23 and was intubated from 12/23-12/25 to protect the airway. Plan: Sepsis with gram negative bacteremia -Etiology likely secondary to concurrent UTI -Patient has been febrile (Tmax 24 hrs: 100.4 12/26 @05:43). WBC 17.4 -Patient hemodynamically stable. -Blood culture and Urine culture collected on 12/19 and 12/20 identified Ecoli -Repeat blood culture on 12/23 shows no growth after 3 days -CT of chest detects no lung masses or consolidations. -CT Abd/Pelvis detects nonspecific mild diffuse thickening of the gallbladder wall with no gallstones or pericholecystic fluid. Kidneys/ureters were unremarkable with no hydronephrosis. A 5cm fluid density mass adjacent to the left side of the uterus was also detected which may be an ovarian cyst. -HIDA scan normal with patent cystic duct -On empiric Vancomycin 1gm IV daily (started 12/20, Current day 7), Meropenem 1gm IV Q8H (Started 12/20, Current day 7) and Diflucan (Started 12/23, Current day 4). Received single dose of Zosyn on 12/20. -Infectious disease consult appreciated Shortness of Breath -Undetermined etiology however patient remains asymptomatic today -D-dimer elevated, Troponin elevated. Unclear significance due to associated bacteremia/infectious process -CT angio chest was performed on 12/20 revealing no evidence of central pulmonary embolus. No filling defects were noted in the right/left pulmonary artery or lobar vessels however exam was suboptimal due to patient habitus. -EKG does not reveal any acute changes -Cardiac echo from 12/21 reported normal LV wall thickness and borderline systolic function. Right and Left atrial size normal. -Cardiology consult appreciated Uterine fibroids/Ovarian Cyst -CT abd/pelvis detected a markedly enlarged uterus containing multiple masses c/ w fibroids. A 5cm fluid density mass adjacent to the left side of the uterus was also detected. -HEAD OF TRAINING AND DEVELOPMENT consult requested -Will obtain TV U/S Anemia, Secondary to Abnormal Uterine Bleeding -Likely secondary to fibroids -H/H stable compared to yesterday: 7.3/24.2 > 7.2/24.3 -Will repeat this afternoon and reassess Acute Respiratory Failure, secondary to severe sepsis, resolved -Intubated from 12/23-12/25 to protect airway -Patient tolerated pressure support trial followed by ventimask and is currently saturating at 100% with 2L NC S/P Laparoscopic Appendectomy -Patient had recent lap appendectomy on 12/13/16 -General surgery consulted who believe current presentation is unrelated DVT Prophylaxis -Heparin 5,000u SC Q12 <Jaime Yuan - Last Filed: 12/26/16 18:20> CCU Subjective - Physician Review Subjective (Free Text): Attestation: Patient seen and examined at the bedside with Resident Dr. Avinash Badillo; and I agree with his outline of plans and management documented as discussed on AM rounds reflecting my review of all applicable clinical data, and participation in the care of the patient throughout the day in ICU; today, December 26, 2016.
[2016-12-26 12:34] LABS: HEMATOCRIT 25.1 % (34.0-47.0); MEAN CELL VOLUME 66.3 fl (81.0-99.0); MEAN CORPUSCULAR HEMOGLOBIN 20.2 pg (27.0-31.0); MEAN CORPUSCULAR HGB CONC 30.5 g/dL (33.0-37.0); RED CELL DISTRIBUTION WIDTH 35.8 % (11.5-14.5); WHITE BLOOD COUNT 19.9 K/uL (4.8-10.8)
[2016-12-26] MEDS ORDERED: Potassium Chloride 20 mEq ER Tab PO ONE (12:50)
--- NOTE | 2016-12-26 12:59 | CP.PCM.PN ---
Subjective - Date & Time of Evaluation Date of Evaluation: 12/26/16 Time of Evaluation: 06:50 - Subjective Subjective: Patient was seen and examined at bedside this morning. Patient is alert, wake , and oriented X 3. Patient was extubated yesterday. Reports that SOB has improved. Patient states she has lower abdominal pain like menstrual cramps, and having vaginal bleeding. Denies chest pain, nausea, vomiting. Emerson catheter in place with 550 ml of clear, yellow urine. Triple lumen right femoral line in place. Objective - Vital Signs/Intake and Output Vital Signs (last 24 hours): Temp Pulse Resp BP Pulse Ox 100.4 F H 84 41 H 123/55 L 100 12/26/16 12:37 12/26/16 11:47 12/26/16 11:47 12/26/16 11:47 12/26/16 11:47 Intake and Output: 12/26/16 12/26/16 06:59 18:59 Intake Total 518 Output Total 1000 Balance -482 - Medications Medications: Current Medications Acetaminophen (Tylenol 650mg/20.3ml Solution Ud) 650 mg GT Q6 PRN PRN Reason: Fever >100.4 F Last Admin: 12/26/16 12:37 Dose: 650 mg Albuterol Sulfate (Albuterol 0.083% Inhal Verónica (2.5 Mg/3 Ml) Ud) 2.5 mg INH RQID [facility] Last Admin: 12/26/16 08:59 Dose: 2.5 mg Docusate Sodium (Colace) 200 mg PO DAILY [facility] Last Admin: 12/26/16 08:05 Dose: Not Given Ferrous Sulfate (Feosol) 325 mg PO BID [facility] Last Admin: 12/26/16 08:06 Dose: 325 mg Furosemide (Lasix) 40 mg IV Q12H [facility] Last Admin: 12/26/16 05:42 Dose: 40 mg Heparin Sodium (Porcine) (Heparin) 5,000 units SC Q12@0600,1800 MIGUEL PRN Reason: Protocol Last Admin: 12/26/16 05:42 Dose: 5,000 units Fluconazole (Diflucan Iv 200 Mg/100 Ml Ns) 100 mls @ 100 mls/hr IVPB DAILY [facility] Last Admin: 12/26/16 08:06 Dose: 100 mls/hr Meropenem 1 gm/ Sodium (Chloride) 100 mls @ 100 mls/hr IVPB Q8@0500,1300,2100 [facility] Last Admin: 12/26/16 12:35 Dose: 100 mls/hr Vancomycin HCl 1 gm/ Sodium (Chloride) 250 mls @ 166.667 mls/hr IVPB Q8 [facility] Ibuprofen (Motrin Tab) 400 mg PO Q6 PRN PRN Reason: Fever >100.4 F Last Admin: 12/21/16 08:48 Dose: 400 mg Ketorolac Tromethamine (Toradol) 30 mg IVP Q6 PRN PRN Reason: Pain, severe (8-10) Ondansetron HCl (Zofran Inj) 4 mg IVP Q6 PRN PRN Reason: Nausea/Vomiting Last Admin: 12/21/16 05:26 Dose: 4 mg Pantoprazole Sodium (Protonix Ec Tab) 40 mg PO DAILY [facility] - Labs Labs: 12/26/16 12:25 12/26/16 04:30 PT 12.3 SECONDS (9.6-11.2) H 12/25/16 14:30 INR 1.18 (0.92-1.08) H 12/25/16 14:30 APTT 34.5 SECONDS (23.3-32.5) H 12/21/16 09:41 - Constitutional Appears: Non-toxic, No Acute Distress - ENT Exam ENT Exam: Mucous Membranes Moist - Respiratory Exam Respiratory Exam: Clear to Ausculation Bilateral, NORMAL BREATHING PATTERN - Cardiovascular Exam Cardiovascular Exam: REGULAR RHYTHM, +S1, +S2 - GI/Abdominal Exam GI & Abdominal Exam: Soft, Tenderness (mild tender to palpation of lower abdomen , but no rebound tenderness, no rigidity or guarding noted.), Normal Bowel Sounds. absent: Guarding, Rigid - Extremities Exam Extremities Exam: Normal Inspection. absent: Calf Tenderness, Pedal Edema Additional comments: No edema, SCDs in place - Neurological Exam Neurological Exam: Alert, Awake, Oriented x3 - Psychiatric Exam Psychiatric exam: Normal Affect, Normal Mood - Skin Skin Exam: Dry, Intact, Pallor Assessment and Plan - Assessment and Plan (Free Text) Assessment: 51 yo obese F with PMH including iron deficiency anemia, Menorrhagia 2/2 uterine fibroids, and appendectomy on 12/13/16 admitted w/ fever and leukocytosis , now being treated for sepsis with bacteremia most likely urosepsis. Plan: Severe Sepsis with gram negative bacteremia (pt is spiking fever again after ~36 hrs afebrile) continue with low grade fever today etiology related w/ Urosepsis (+ E.Coli in UCx) + Leukocytosis, now trending up, WBC: 19.9 today + Bcx and Ucx for E.Coli -CT of chest detects no lung masses or consolidations. -CT Abd/Pelvis: negative for intrabdominal abscess -Abx: - Vancomycin 1gm IV BID (started 12/21, day#6) (changed from daily to BID today due to Vanco trough) - Meropenem 1gm IV Q8H (Started 12/21, Current day #6). -Fluconazole 200 mg IV daily ( started on 12/23/16)day #4 -Vancomycin trough on 12/25/16 9.7. Vanco frequency was increased to Q8 hours -F/U repeat Vanco Trough on 12/27/16 PM -ID on board. F/U recommendations -Repeat procalcitonin on 12/24/16 trending down: 28.86 -Repeat Blood Cx on 12/23/16 showed no growth for 48 hours -F/U repeat blood culture -F/U CBC, CMP tomorrow -CBC stable H/H: 7.7/25.1 -Consider transfusion of PRBC in Hgb/Hct trending down. -continue to monitor UTI + E.Coli in UCx on Meropenem and Vanco Uterine fibroids/Ovarian Cyst -CT abd/pelvis detected a markedly enlarged uterus containing multiple masses c/ w fibroids. A 5cm fluid density mass adjacent to the left side of the uterus was also detected -CEA: 1.2 WNL -CA 125 mild elevated -CA 19 WNL -F/U MRI abdomen and Pelvis transvaginal US: enlarge uterus w/ multiples masses, very limited study, endometrium not seen -SPECIAL EDUCATION PROFESSIONAL recommended f/u as outpatient with [facility] S/P Laparoscopic Appendectomy -Patient had recent lap appendectomy on 12/13/16 -General surgery consulted who believe current presentation is unrelated DVT Prophylaxis - SCDs -Heparin 5000 units SC BID -High risk for DVT/PE - Heparin-IND platelet and Platelet AB( IGG) neg
[2016-12-26] MEDS ORDERED: Lidocaine 1% Inj (20ml) ONE (13:54)
--- NOTE | 2016-12-26 14:46 | PCM.SURG1 ---
Surgeon's Initial Post Op Note - Surgeon's Notes Surgeon: Mandeep Badillo MD Slot Key Person: None Type of Anesthesia: Local Pre-Operative Diagnosis: Poor venous access Operative Findings: Patent right brachial vein. Post-Operative Diagnosis: Poor venous access Operation Performed: Dual lumen picc placement right brachial vein, 33 cm. Tip in SVC. Specimen/Specimens Removed: None Estimated Blood Loss: EBL {In ML}: 2 Blood Products Given: N/A Drains Used: No Drains Post-Op Condition: Fair Date of Surgery/Procedure: 12/26/16 Time of Surgery/Procedure: 14:45
[2016-12-26 18:39] LABS: HEMATOCRIT 26.2 % (34.0-47.0)
[2016-12-27] MEDS: Meropenem 1 GM in Sodium Chloride 0.9% 100 ML IVPB SCH ×3 (05:19→21:25)
[2016-12-27 05:31] LABS: BASO # 0.1 K/uL (0.0-0.2); BASO % 0.5 % (0.0-2.0); EOS % 0.2 % (0.0-4.0); HEMATOCRIT 23.4 % (34.0-47.0); LYMPH # 1.4 K/uL (1.0-4.3); LYMPH % 6.5 % (20.0-40.0); MEAN CELL VOLUME 66.6 fl (81.0-99.0); MEAN CORPUSCULAR HEMOGLOBIN 20.2 pg (27.0-31.0); MEAN CORPUSCULAR HGB CONC 30.4 g/dL (33.0-37.0); MEAN PLATELET VOLUME 9.3 fl (7.2-11.7); MONO # 0.7 K/uL (0.0-0.8); MONO % 3.4 % (0.0-10.0); NEUT # 18.8 K/uL (1.8-7.0); NEUT % 89.4 % (50.0-75.0); RED CELL DISTRIBUTION WIDTH 37.1 % (11.5-14.5)
[2016-12-27 05:34] LABS: ALB/GLOB RATIO 0.8 (1.0-2.1); ALKALINE PHOSPHATASE 255 U/L (38-126); ALT/SGPT 46 U/L (9-52); AST/SGOT 64 U/L (14-36); BILIRUBIN,TOTAL 0.6 mg/dl (0.2-1.3); BLOOD UREA NITROGEN 7 mg/dl (7-17); CALCIUM 7.8 mg/dL (8.4-10.2); CARBON DIOXIDE 29 mmol/L (22-30); CHLORIDE 101 mmol/L (98-107); GFR AFRICAN-AMERICAN > 60; GLUCOSE,RANDOM 132 mg/dL (65-105); POTASSIUM 3.1 MMOL/L (3.6-5.0); SODIUM 137 mmol/l (132-148); TOTAL PROTEIN 6.5 G/DL (6.3-8.2)
[2016-12-27] MEDS ORDERED: Potassium Chloride 20 mEq/15 ml LIQ UD PO ONE (06:43)
[2016-12-27] MEDS: Albuterol 0.083% Inhal Sol (2.5 mg/3 mL) UD INH SCH ×4 (08:25→20:30)
[2016-12-27] MEDS: Fluconazole IV 200mg/100 ml NS 100 ML IVPB SCH (09:19)
[2016-12-27] MEDS: Pantoprazole 40 mg EC Tab PO SCH (09:21)
[2016-12-27] MEDS ORDERED: Sterile Water 10 ML IV ONE (10:21)
[2016-12-27] MEDS ORDERED: Potassium Chloride 20 mEq ER Tab PO ONE (11:07)
[2016-12-27] MEDS ORDERED: Gadodiamide 287 MG/ML VIAL (15ML) IV ONE (12:20)
[2016-12-27] MEDS ORDERED: Sodium Chloride 0.9% 50 ML IV ONE (12:20)
--- NOTE | 2016-12-27 12:41 | CP.CCUPN ---
<Mohini Badillo - Last Filed: 12/27/16 14:04> CCU Subjective - Physician Review Subjective (Free Text): 12/27/16 12:34 Patient seen and examined at bedside with ICU attending during morning rounds. She is laying in bed comfortably however she reports dizziness when sitting upright. She had a fever of 100.4 yesterday afternoon but has since been afebrile. Patient is hemodynamically stable and satting 100% on 2L nasal canula without any chest pain or SOB. She is still experiencing vaginal bleeding however flow has reduced compared to yesterday. She has mild lower abdominal cramping but denies nausea or vomiting. CCU Objective - Vital Signs / Intake & Output Vital Signs (Last 4 hours): Vital Signs Pulse Resp BP Pulse Ox 12/27/16 10:00 78 34 H 121/60 100 Intake and Output (Last 8hrs): Intake & Output 12/26/16 12/27/16 12/27/16 22:59 06:59 14:59 Intake Total 530 420 100 Output Total 1500 1200 1 Balance -970 -780 99 Intake: Intake, Piggyback 350 300 100 Oral 180 120 Output: Urine 1500 1200 Urethral (Emerson) 1500 1200 Urine/Stool Mix 1 Other: # Bowel Movements 2 - Physical Exam Head: Positive for: Atraumatic, Normocephalic Pupils: Positive for: PERRL Extroacular Muscles: Positive for: EOMI Conjunctiva: Positive for: Normal Mouth: Positive for: Moist Mucous Membranes Respiratory/Chest: Positive for: Clear to Auscultation, Good Air Exchange, Tachypneic. Negative for: Respiratory Distress, Wheezes, Rales, Rhonchi Cardiovascular: Positive for: Regular Rate and Rhythm, Normal S1, S2. Negative for: Murmurs Abdomen: Positive for: Tenderness (Mild lower abdominal tenderness), Normal Bowel Sounds. Negative for: Distention, Rebound, Guarding Upper Extremity: Positive for: Capillary Refill < 2s. Negative for: Edema Lower Extremity: Positive for: Edema (Trace). Negative for: CALF TENDERNESS, Chandler's Sign Neurological: Positive for: Speech Normal Skin: Positive for: Warm, Normal Color, Other (Right groin TLC present. Area clean, dry.) Psychiatric: Positive for: Alert, Oriented x 3 - Medications Active Medications: Active Medications Generic Name Dose Route Start Last Admin Trade Name Freq PRN Reason Stop Dose Admin Acetaminophen 650 mg 12/23/16 15:45 12/26/16 12:37 Tylenol 650mg/20.3ml Solution Ud GT 650 mg Q6 PRN Administration Fever >100.4 F Albuterol Sulfate 2.5 mg 12/23/16 12:00 12/27/16 08:25 Albuterol 0.083% Inhal Verónica (2.5 Mg/3 Ml) Ud INH 2.5 mg RQID MIGUEL Administration Docusate Sodium 200 mg 12/20/16 09:00 12/27/16 09:16 Colace PO Not Given DAILY MIGUEL Ferrous Sulfate 325 mg 12/20/16 09:00 12/27/16 09:20 Feosol PO Not Given BID MIGUEL Furosemide 40 mg 12/24/16 18:00 12/27/16 05:31 Lasix IV 40 mg Q12H MIGUEL Administration Heparin Sodium (Porcine) 5,000 units 12/25/16 18:00 12/27/16 05:18 Heparin SC 5,000 units Q12@0600,1800 MIGUEL Administration Protocol Fluconazole 100 mls @ 100 mls/hr 12/23/16 12:15 12/27/16 09:19 Diflucan Iv 200 Mg/100 Ml Ns IVPB 100 mls/hr DAILY MIGUEL Administration Meropenem 1 gm/ Sodium 100 mls @ 100 mls/hr 12/24/16 05:00 12/27/16 05:19 Chloride IVPB 100 mls/hr Q8@0500,1300,2100 MIGUEL Administration Vancomycin HCl 1 gm/ Sodium 250 mls @ 166.667 mls/hr 12/26/16 17:00 12/27/16 00:43 Chloride IVPB 166.667 mls/hr Q8 MIGUEL Administration Ibuprofen 400 mg 12/21/16 08:03 12/21/16 08:48 Motrin Tab PO 400 mg Q6 PRN Administration Fever >100.4 F Ketorolac Tromethamine 30 mg 12/26/16 01:01 Toradol IVP Q6 PRN Pain, severe (8-10) Ondansetron HCl 4 mg 12/19/16 20:28 12/21/16 05:26 Zofran Inj IVP 4 mg Q6 PRN Administration Nausea/Vomiting Pantoprazole Sodium 40 mg 12/27/16 09:00 12/27/16 09:21 Protonix Ec Tab PO Not Given DAILY MIGUEL - Patient Studies Lab Studies: Microbiology Studies 12/23/16 10:10 Blood Culture - Preliminary Blood NO GROWTH AFTER 4 DAYS Lab Studies 12/27/16 12/27/16 12/27/16 Range/Units 09:35 04:40 04:40 WBC 21.0 H (4.8-10.8) K/uL RBC 3.52 L (3.80-5.20) Mil/uL Hgb 7.1 L (12.0-16.0) g/dL Hct 23.4 L (34.0-47.0) % MCV 66.6 L (81.0-99.0) fl MCH 20.2 L (27.0-31.0) pg MCHC 30.4 L (33.0-37.0) g/dL RDW 37.1 H (11.5-14.5) % Plt Count 263 (130-400) K/uL MPV 9.3 (7.2-11.7) fl Neut % (Auto) 89.4 H (50.0-75.0) % Lymph % (Auto) 6.5 L (20.0-40.0) % [place] % (Auto) 3.4 (0.0-10.0) % Eos % (Auto) 0.2 (0.0-4.0) % Baso % (Auto) 0.5 (0.0-2.0) % Neut # 18.8 H (1.8-7.0) K/uL Lymph # 1.4 (1.0-4.3) K/uL [place] # 0.7 (0.0-0.8) K/uL Eos # 0.0 (0.0-0.7) K/uL Baso # 0.1 (0.0-0.2) K/uL Sodium 137 (132-148) mmol/l Potassium 3.1 L (3.6-5.0) MMOL/L Chloride 101 (98-107) mmol/L Carbon Dioxide 29 (22-30) mmol/L Anion Gap 10 (10-20) BUN 7 (7-17) mg/dl Creatinine 0.4 L (0.7-1.2) mg/dL Est GFR ( Amer) > 60 Est GFR (Non-Af Amer) > 60 Random Glucose 132 H (65-105) mg/dL Calcium 7.8 L (8.4-10.2) mg/dL Total Bilirubin 0.6 (0.2-1.3) mg/dl AST 64 H D (14-36) U/L ALT 46 (9-52) U/L Alkaline Phosphatase 255 H (38-126) U/L Total Protein 6.5 (6.3-8.2) G/DL Albumin 2.8 L (3.5-5.0) g/dL Globulin 3.7 (2.2-3.9) gm/dL Albumin/Globulin Ratio 0.8 L (1.0-2.1) Vancomycin Trough 8.5 (5.0-10.0) ug/mL 12/26/16 12/26/16 Range/Units 18:15 12:25 WBC 19.9 H (4.8-10.8) K/uL RBC 3.79 L (3.80-5.20) Mil/uL Hgb 7.6 L 7.7 L (12.0-16.0) g/dL Hct 26.2 L 25.1 L (34.0-47.0) % MCV 66.3 L (81.0-99.0) fl MCH 20.2 L (27.0-31.0) pg MCHC 30.5 L (33.0-37.0) g/dL RDW 35.8 H (11.5-14.5) % Plt Count 298 (130-400) K/uL MPV (7.2-11.7) fl Neut % (Auto) (50.0-75.0) % Lymph % (Auto) (20.0-40.0) % [place] % (Auto) (0.0-10.0) % Eos % (Auto) (0.0-4.0) % Baso % (Auto) (0.0-2.0) % Neut # (1.8-7.0) K/uL Lymph # (1.0-4.3) K/uL [place] # (0.0-0.8) K/uL Eos # (0.0-0.7) K/uL Baso # (0.0-0.2) K/uL Sodium (132-148) mmol/l Potassium (3.6-5.0) MMOL/L Chloride (98-107) mmol/L Carbon Dioxide (22-30) mmol/L Anion Gap (10-20) BUN (7-17) mg/dl Creatinine (0.7-1.2) mg/dL Est GFR ( Amer) Est GFR (Non-Af Amer) Random Glucose (65-105) mg/dL Calcium (8.4-10.2) mg/dL Total Bilirubin (0.2-1.3) mg/dl AST (14-36) U/L ALT (9-52) U/L Alkaline Phosphatase (38-126) U/L Total Protein (6.3-8.2) G/DL Albumin (3.5-5.0) g/dL Globulin (2.2-3.9) gm/dL Albumin/Globulin Ratio (1.0-2.1) Vancomycin Trough (5.0-10.0) ug/mL Laboratory Results - last 24 hr 12/26/16 12/26/16 12/27/16 12:25 18:15 04:40 WBC 19.9 H 21.0 H RBC 3.79 L 3.52 L Hgb 7.7 L 7.6 L 7.1 L Hct 25.1 L 26.2 L 23.4 L MCV 66.3 L 66.6 L MCH 20.2 L 20.2 L MCHC 30.5 L 30.4 L RDW 35.8 H 37.1 H Plt Count 298 263 MPV 9.3 Neut % (Auto) 89.4 H Lymph % (Auto) 6.5 L [place] % (Auto) 3.4 Eos % (Auto) 0.2 Baso % (Auto) 0.5 Neut # 18.8 H Lymph # 1.4 [place] # 0.7 Eos # 0.0 Baso # 0.1 Sodium Potassium Chloride Carbon Dioxide Anion Gap BUN Creatinine Est GFR ( Amer) Est GFR (Non-Af Amer) Random Glucose Calcium Total Bilirubin AST ALT Alkaline Phosphatase Total Protein Albumin Globulin Albumin/Globulin Ratio Vancomycin Trough 12/27/16 12/27/16 04:40 09:35 WBC RBC Hgb Hct MCV MCH MCHC RDW Plt Count MPV Neut % (Auto) Lymph % (Auto) [place] % (Auto) Eos % (Auto) Baso % (Auto) Neut # Lymph # [place] # Eos # Baso # Sodium 137 Potassium 3.1 L Chloride 101 Carbon Dioxide 29 Anion Gap 10 BUN 7 Creatinine 0.4 L Est GFR ( Amer) > 60 Est GFR (Non-Af Amer) > 60 Random Glucose 132 H Calcium 7.8 L Total Bilirubin 0.6 AST 64 H D ALT 46 Alkaline Phosphatase 255 H Total Protein 6.5 Albumin 2.8 L Globulin 3.7 Albumin/Globulin Ratio 0.8 L Vancomycin Trough 8.5 Review of Systems - Constitutional Constitutional: absent: Fever, Chills - EENT Eyes: absent: Change in Vision - Cardiovascular Cardiovascular: absent: Chest Pain, Dyspnea, Palpitations - Respiratory Respiratory: absent: Cough, Dyspnea, Hemoptysis - Gastrointestinal Gastrointestinal: Abdominal Pain (Mild, lower abdominal), Diarrhea, Loose Stools. absent: Nausea, Vomiting - Reproductive: Female Reproductive:Female: Currently Menstual, Heavy Menses Additional comments: Has intermenstrual bleeding - Neurological Neurological: Dizziness. absent: Confusion, Focal Weakness, Headaches Critical Care Progress Note - Nutrition Nutrition: Nutrition Category Date Time Status Liquid Diet [DIET] Diets 12/26/16 Lunch Active Assessment/Plan - Assessment and Plan (Free Text) Assessment: 51 y/o obese F with PMH including iron deficiency anemia, uterine fibroids, s/p laparoscopic appendectomy on 12/13/16 presented to ED with complaints of pain an swelling to IV site of recent venofer infusion several days prior. During ED assessment, patient was found to be febrile with leukocytosis and an elevated lactate. On admission day 2 she developed chills, increasing fever and a lactate of 7.9 so she was transferred to ICU for sepsis requiring closer monitoring and further workup. Patient was noted to have gram negative rods on blood and urine cultures and has been receiving empiric antibiotics while workup is continued. She developed respiratory distress on 12/23 and was intubated from 12/23-12/25 to protect the airway. Plan: Sepsis with gram negative bacteremia -Etiology likely secondary to concurrent UTI -Patient has been febrile overnight. (Last fever 100.4 12/26 @13:37). WBC 17.4 > 21.0 -BP is stable without need for pressors -Blood culture and Urine culture collected on 12/19 and 12/20 identified Ecoli ( Non-ESBL) -Repeat blood culture on 12/23 shows no growth after 4 days -CT of chest from 12/20 detects no lung masses or consolidations. -CT Abd/Pelvis from 12/20 detects nonspecific mild diffuse thickening of the gallbladder wall with no gallstones or pericholecystic fluid. Kidneys/ureters were unremarkable with no hydronephrosis. A 5cm fluid density mass adjacent to the left side of the uterus was also detected which may be an ovarian cyst. -HIDA scan normal with patent cystic duct -PICC inserted on 12/26 -Received empiric single dose of Zosyn on 12/20 and Vancomycin 1gm IV daily ( from 12/20-12/27) -Currently on Meropenem 1gm IV Q8H (Started 12/20, Current day 8), Diflucan ( Started 12/23, Current day 5) and Vancomycin 125mg PO Q6H (Started today) -Consider narrowing antibiotic coverage based on culture & sensitivity -Infectious disease consult appreciated Shortness of Breath -Undetermined etiology however patient remains asymptomatic today -D-dimer elevated, Troponin elevated. Unclear significance due to associated bacteremia/infectious process -CT angio chest was performed on 12/20 revealing no evidence of central pulmonary embolus. No filling defects were noted in the right/left pulmonary artery or lobar vessels however exam was suboptimal due to patient habitus. -EKG does not reveal any acute changes -Cardiac echo from 12/21 reported normal LV wall thickness and borderline systolic function. Right and Left atrial size normal. -Cardiology consult appreciated Uterine fibroids/Ovarian Cyst -CT abd/pelvis detected a markedly enlarged uterus containing multiple masses c/ w fibroids. A 5cm fluid density mass adjacent to the left side of the uterus was also detected. -TV U/S was performed on 12/22 but was a limited study. Ovaries and endometrium were not well visualized. -CA125 -WIll obtain MRI of pelvis -SENIOR IT SECURITY ANALYST consult requested. Recommending outpatient follow up. Anemia, Secondary to Abnormal Uterine Bleeding -Likely secondary to fibroids -H/H decreased slightly to 7.1/23.4 -Patient is currently symptomatic so will transfuse 1-2 units as per primary team -Will follow H/H Acute Respiratory Failure, secondary to severe sepsis, resolved -Intubated from 12/23-12/25 to protect airway -Patient tolerated pressure support trial followed by ventimask and is currently saturating at 100% with 2L NC S/P Laparoscopic Appendectomy -Patient had recent lap appendectomy on 12/13/16 -General surgery consulted who believe current presentation is unrelated DVT Prophylaxis -Heparin 5,000u SC Q12 <Jaime Yuan - Last Filed: 12/27/16 16:40> CCU Subjective - Physician Review Subjective (Free Text): Attestation: Patient seen and examined at the bedside with Resident Dr. Avinash Badillo; and I agree with his outline of plans and management documented as discussed on AM rounds reflecting my review of all applicable clinical data, and participation in the care of the patient throughout the day in ICU; today, December 27, 2016.
--- NOTE | 2016-12-27 14:19 | CP.PCM.PN ---
Subjective - Date & Time of Evaluation Date of Evaluation: 12/27/16 Time of Evaluation: 07:15 - Subjective Subjective: Patient was seen and examined at bedside this morning. Patient was alert, awake , and oriented x 3. Patient reports that she feels better this morning, short of breath has improved, and denies any pain at this evaluation. Patient had an uneventful night. Denies CP, abdominal pain, calf pain, nausea, vomiting. States that she has having watery diarrheas since yesterday, and still complaining of vaginal bleeding. Emerson catheter in place with approximately 650 ml of clear yellow urine. Objective - Vital Signs/Intake and Output Vital Signs (last 24 hours): Temp Pulse Resp BP Pulse Ox 99.2 F 78 34 H 121/60 100 12/27/16 08:00 12/27/16 10:00 12/27/16 10:00 12/27/16 10:00 12/27/16 10:00 Intake and Output: 12/27/16 12/27/16 06:59 18:59 Intake Total 700 100 Output Total 1200 1 Balance -500 99 - Medications Medications: Current Medications Acetaminophen (Tylenol 650mg/20.3ml Solution Ud) 650 mg GT Q6 PRN PRN Reason: Fever >100.4 F Last Admin: 12/26/16 12:37 Dose: 650 mg Albuterol Sulfate (Albuterol 0.083% Inhal Verónica (2.5 Mg/3 Ml) Ud) 2.5 mg INH RQID [facility] Last Admin: 12/27/16 08:25 Dose: 2.5 mg Docusate Sodium (Colace) 200 mg PO DAILY [facility] Last Admin: 12/27/16 09:16 Dose: Not Given Ferrous Sulfate (Feosol) 325 mg PO BID [facility] Last Admin: 12/27/16 09:20 Dose: Not Given Furosemide (Lasix) 40 mg IV Q12H [facility] Last Admin: 12/27/16 05:31 Dose: 40 mg Heparin Sodium (Porcine) (Heparin) 5,000 units SC Q12@0600,1800 MIGUEL PRN Reason: Protocol Last Admin: 12/27/16 05:18 Dose: 5,000 units Fluconazole (Diflucan Iv 200 Mg/100 Ml Ns) 100 mls @ 100 mls/hr IVPB DAILY [facility] Last Admin: 12/27/16 09:19 Dose: 100 mls/hr Meropenem 1 gm/ Sodium (Chloride) 100 mls @ 100 mls/hr IVPB Q8@0500,1300,2100 [facility] Last Admin: 12/27/16 05:19 Dose: 100 mls/hr Vancomycin HCl 1 gm/ Sodium (Chloride) 250 mls @ 166.667 mls/hr IVPB Q8 [facility] Last Admin: 12/27/16 00:43 Dose: 166.667 mls/hr Ibuprofen (Motrin Tab) 400 mg PO Q6 PRN PRN Reason: Fever >100.4 F Last Admin: 12/21/16 08:48 Dose: 400 mg Ketorolac Tromethamine (Toradol) 30 mg IVP Q6 PRN PRN Reason: Pain, severe (8-10) Ondansetron HCl (Zofran Inj) 4 mg IVP Q6 PRN PRN Reason: Nausea/Vomiting Last Admin: 12/21/16 05:26 Dose: 4 mg Pantoprazole Sodium (Protonix Ec Tab) 40 mg PO DAILY [facility] Last Admin: 12/27/16 09:21 Dose: Not Given - Labs Labs: 12/27/16 04:40 12/27/16 04:40 PT 12.3 SECONDS (9.6-11.2) H 12/25/16 14:30 INR 1.18 (0.92-1.08) H 12/25/16 14:30 APTT 34.5 SECONDS (23.3-32.5) H 12/21/16 09:41 - Additional Findings Additional findings: Constitutional Appears: Non-toxic, No Acute Distress - ENT Exam ENT Exam: Mucous Membranes Moist - Respiratory Exam Respiratory Exam: Clear to Ausculation Bilateral, NORMAL BREATHING PATTERN - Cardiovascular Exam Cardiovascular Exam: REGULAR RHYTHM, +S1, +S2 - GI/Abdominal Exam GI & Abdominal Exam: Soft, Tenderness (mild tender to palpation of lower abdomen , but no rebound tenderness, no rigidity or guarding noted.), Normal Bowel Sounds. absent: Guarding, Rigid - Extremities Exam Extremities Exam: Normal Inspection. absent: Calf Tenderness, Pedal Edema Additional comments: No edema, SCDs in place - Neurological Exam Neurological Exam: Alert, Awake, Oriented x3 - Psychiatric Exam Psychiatric exam: Normal Affect, Normal Mood - Skin Skin Exam: Dry, Intact, Pallor Assessment and Plan - Assessment and Plan (Free Text) Assessment: 51 yo obese F with PMH including iron deficiency anemia, Menorrhagia 2/2 uterine fibroids, and appendectomy on 12/13/16 admitted w/ fever and leukocytosis , now being treated for sepsis with bacteremia most likely urosepsis, improving clinically, but still with worsening leukocytosis. . Plan: Severe Sepsis with gram negative bacteremia (pt is spiking fever again after ~36 hrs afebrile) continue with low grade fever today etiology related w/ Urosepsis (+ E.Coli in UCx) + Leukocytosis, now trending up, WBC: 21.0 today + Bcx and Ucx for E.Coli -CT of chest detects no lung masses or consolidations. -CT Abd/Pelvis: negative for intrabdominal abscess -Abx: -Stopped Vancomycin 1gm IV BID (started 12/21) -Started Vancomycin 125 mg PO Q6 today (12/27/16) -Meropenem 1gm IV Q8H (Started 12/21, Current day #7). -Fluconazole 200 mg IV daily ( started on 12/23/16)day #5 -F/U repeat Vanco Trough on 12/27/16 PM -Repeat procalcitonin on 12/24/16 trending down: 28.86 -Repeat Blood Cx on 12/23/16 showed no growth for 48 hours -F/U repeat blood culture -F/U CMP -F/U C-diff toxin results. Patient in contact precautions until results are obtained. -ID on board. F/U recommendations -Consider transfusion of PRBC in Hgb/Hct trending down. -continue to monitor Anemia -most likely due to chronic blood loss 2/2 Menorrhagia/Uterine fibroids -CBC stable H/H: 7.1/23.4 -Consider transfusion of PRBC -F/U CBC Close monitor UTI + E.Coli in UCx on Meropenem and Vanco Uterine fibroids/Ovarian Cyst -CT abd/pelvis detected a markedly enlarged uterus containing multiple masses c/ w fibroids. A 5cm fluid density mass adjacent to the left side of the uterus was also detected -CEA: 1.2 WNL -CA 125 mild elevated -CA 19 WNL -F/U MRI abdomen and Pelvis transvaginal US: enlarge uterus w/ multiples masses, very limited study, endometrium not seen -GLASS CURVATURE GAUGER recommended f/u as outpatient with [facility] S/P Laparoscopic Appendectomy -Patient had recent lap appendectomy on 12/13/16 -General surgery consulted who believe current presentation is unrelated DVT Prophylaxis - SCDs -Heparin 5000 units SC BID -High risk for DVT/PE - Heparin-IND platelet and Platelet AB( IGG) neg
--- NOTE | 2016-12-27 14:45 | CP.PCM.PCO ---
Assessment/Plan - Assessment and Plan (Free Text) Assessment: I saw and evaluated the patient. I discussed the case with the resident and agree with the findings and plan as documented in the resident's note. D/W Neuropsychology Division Chief will trnadfuse as pt still has menstraul bleeding D/W ID pt with diarrhea/rising WBC will switch to po Vanco PT consult Please refer to resident note dated 12/27
--- NOTE | 2016-12-27 15:34 | VASCULAR ---
PROCEDURE: Date of procedure: 12/26/2016 Procedure: 1. Placement of a right arm PICC with ultrasound and fluoroscopic guidance, CPT 46917 2. PICC tip confirmation with spot radiograph and is in the superior vena cava Medications: 1 percent lidocaine Total Fluoro time: 21.6 seconds Radiation: 2.91 EBL: 2 cc HISTORY: Poor venous access TECHNIQUE: Following informed consent and procedure time-out, the patient was placed supine on the interventional table and the right arm prepped and draped in the usual sterile fashion. Ultrasound showed a patent and compressible right basilic vein. After the skin was anesthetized with lidocaine, the basilic vein was accessed with micro micropuncture technique using ultrasound guidance. A guidewire was then advanced under fluoroscopic guidance into the superior vena cava. An image documenting ultrasound guidance for vascular access was permanently saved. The length of the double -lumen 5 Greek PICC was trimmed to 33 centimeters and advanced through a peel-away sheath. The PICC was position with tip of PICC confirm a spot radiograph the superior vena cava. The PICC was secured to the patient's skin. The PICC was flushed. A biopatch and sterile dressing was applied. IMPRESSION: Placement of a double-lumen 5 Greek PICC trimmed to 33 centimeters via right basilic vein. The tip of the PICC is confirmed with spot radiograph and is in the superior vena cava.
[2016-12-27] MEDS: Vancomycin 500 mg (Oral/Rectal USE) PO SCH ×2 (19:20→21:25)
--- NOTE | 2016-12-27 20:55 | MRI ---
EXAM: MR Abdomen Without and With Intravenous Contrast CLINICAL HISTORY: 51 years old, female; Pain; Abdominal pain; Generalized TECHNIQUE: Multiplanar magnetic resonance images of the abdomen without and with intravenous contrast. CONTRAST: 19 mL of omniscan administered intravenously. EXAM DATE/TIME: 12/26/2016 1:15 PM COMPARISON: Recent abdominal CT of 12/20/2016 FINDINGS: LIMITATIONS: Exam is somewhat limited by [id number] motion artifact. LOWER THORAX: Tiny bilateral pleural effusions. LIVER: Fatty infiltration of the liver. No liver lesions are seen. GALLBLADDER AND BILE DUCTS: No gallstones seen. No CT evidence of acute cholecystitis. No evidence of significant biliary ductal dilatation. PANCREAS: No CT evidence of acute pancreatitis. No pancreatic mass is visualized. SPLEEN: Normal enhancement. No splenic lesions visualized ADRENALS: No adrenal lesions visualized. KIDNEYS AND URETERS: Normal enhancement pattern of the kidneys. No evidence of hydroureteronephrosis. STOMACH AND BOWEL: No acute abnormality of the visualized abdominal bowel loops is seen. No evidence of bowel obstruction. INTRAPERITONEAL SPACE: Small amount of abdominal free fluid. This abuts the liver anteriorly. SOFT TISSUES: Subcutaneous edema in the lateral anterior abdominal wall bilaterally. VASCULATURE: No evidence of abdominal aortic aneurysm. LYMPH NODES: No evidence of diffuse pathologic lymphadenopathy. Negative. OTHER FINDINGS: Note that findings involving the pelvic organs are described in the separate dedicated pelvic MRI IMPRESSION: - Small amount of abdominal free fluid, abutting the liver. - Tiny bilateral pleural effusions. - Subcutaneous edema in the abdominal wall soft tissues. - Otherwise, no evidence of significant acute process. - See above for remaining findings.
--- NOTE | 2016-12-27 21:40 | MRI ---
EXAM: MR Pelvis Without and With Intravenous Contrast CLINICAL HISTORY: 51 years old, female; Pain; Abdominal pain; Lower abdomen; Additional info: Ovarian cyst, elevated ca125 TECHNIQUE: Multiplanar magnetic resonance images of the pelvis without and with intravenous contrast. CONTRAST: 19 mL of OMNISCAN administered intravenously. EXAM DATE/TIME: 12/26/2016 1:15 PM COMPARISON: Recent pelvic CT of 12/20/2016 FINDINGS: LIMITATIONS: Exam is limited by mild to moderate streak/motion artifact. BOWEL: No acute abnormality of the pelvic loops of bowel is seen. INTRAPERITONEAL SPACE: Small amount of free fluid is seen in the pelvis. No free air. BLADDER: Catheter noted within the bladder lumen. The bladder is decompressed.. UTERUS: The uterus is significantly enlarged, measuring 19 x 12 x 19 cm. There are multiple uterine masses, most compatible with multiple fibroids. The largest fibroid is located in the uterine fundus on the right, and measures 11 x 10 x 11 cm. It has well-defined margins, is heterogeneous in signal, and has multiple areas of suspected cystic degeneration within it. It is likely intramural in location. The second largest fibroid is located in the lower anterior uterine segment on the left, and measures 11 x 8.6 x 11 cm. It has small areas of enhancement within its, as well as small areas of cystic degeneration. It is likely intramural in location. The third largest fibroid is located in the anterior uterine segment on the right, and measures 6 x 4 cm. This may be submucosal in location. It abuts the endometrium on the right. Multiple additional smaller fibroids are seen, of varying sizes. Endometrium is displaced to the right. No large endometrial masses are seen. No cervical masses are visualized. LEFT OVARY: There is a 5.4 x 3.6 cm oval-shaped cystic mass in the left pelvis, most compatible with a left ovarian cystic lesion. This appears simple in nature internally, allowing for motion artifact. No evidence of internal septations or solid components. RIGHT OVARY: Right ovary is not definitely seen. No large right adnexal masses are visualized. VASCULATURE: Seen on multiple images, there is a questionable non-occlusive filling defect seen in the right common femoral vein, image 37 of series 8. LYMPH NODES: No evidence of diffuse pathologic lymphadenopathy. IMPRESSION: - Possible nonocclusive filling defect in the right common femoral vein, and recommend right lower extremity venous ultrasound to exclude nonocclusive deep venous thrombosis. - Markedly enlarged uterus, containing multiple fibroids, described in more detail above, the largest of which measures 11 x 11 cm. - 5.4 cm simple appearing left ovarian cystic lesion. Ultrasound is recommended for better characterization of this lesion. - Small amount of pelvic free fluid. - Nonvisualization of the right ovary. Again ultrasound is recommended. - See above for remaining findings.
--- NOTE | 2016-12-27 22:05 | CP.PCM.PCO ---
Physician Communication Note - Physician Communication Note Physician Communication Note: Pelvic MRI with sign of Right Common Femora vein DVT
[2016-12-28] MEDS: Meropenem 1 GM in Sodium Chloride 0.9% 100 ML IVPB SCH ×3 (06:12→21:34)
[2016-12-28 06:51] LABS: HEMATOCRIT 29.9 % (34.0-47.0); MEAN CELL VOLUME 70.7 fl (81.0-99.0); MEAN CORPUSCULAR HEMOGLOBIN 21.9 pg (27.0-31.0); RED CELL DISTRIBUTION WIDTH 35.2 % (11.5-14.5); WHITE BLOOD COUNT 19.7 K/uL (4.8-10.8)
[2016-12-28 07:04] LABS: BLOOD UREA NITROGEN 8 mg/dl (7-17); CARBON DIOXIDE 26 mmol/L (22-30); CHLORIDE 102 mmol/L (98-107); GFR AFRICAN-AMERICAN > 60; GLUCOSE,RANDOM 117 mg/dL (65-105); POTASSIUM 3.9 MMOL/L (3.6-5.0); SODIUM 137 mmol/l (132-148)
[2016-12-28] MEDS: Albuterol 0.083% Inhal Sol (2.5 mg/3 mL) UD INH SCH ×2 (08:15→11:46)
--- NOTE | 2016-12-28 08:39 | CP.PCM.PN ---
Subjective - Date & Time of Evaluation Date of Evaluation: 12/28/16 Time of Evaluation: 07:30 - Subjective Subjective: 51 y/o F admitted in ICU for severe sepsis secondary to urosepsis, today being f /u for clinical status and vital signs. Patient was seen and examined at bedside this morning. Patient states she feels better, SOB continue improving, complaining of mild dizziness when changes from lying to sitting/standing positions. Foey catheter was removed this morning. Denies chest pain, abdominal pain,, cough, chills, nausea, vomiting or other complains at this evaluation. Objective - Vital Signs/Intake and Output Vital Signs (last 24 hours): Temp Pulse Resp BP Pulse Ox 99.1 F 82 20 123/67 99 12/28/16 08:00 12/28/16 08:00 12/28/16 08:00 12/28/16 08:00 12/28/16 08:00 Intake and Output: 12/28/16 12/28/16 06:59 18:59 Intake Total 1090 Output Total 550 Balance 540 - Medications Medications: Current Medications Acetaminophen (Tylenol 650mg/20.3ml Solution Ud) 650 mg GT Q6 PRN PRN Reason: Fever >100.4 F Last Admin: 12/26/16 12:37 Dose: 650 mg Albuterol Sulfate (Albuterol 0.083% Inhal Verónica (2.5 Mg/3 Ml) Ud) 2.5 mg INH RQID [facility] Last Admin: 12/28/16 08:15 Dose: 2.5 mg Docusate Sodium (Colace) 200 mg PO DAILY [facility] Last Admin: 12/27/16 09:16 Dose: Not Given Ferrous Sulfate (Feosol) 325 mg PO BID [facility] Last Admin: 12/27/16 19:18 Dose: 325 mg Furosemide (Lasix) 40 mg IV Q12H [facility] Last Admin: 12/28/16 06:14 Dose: 40 mg Heparin Sodium (Porcine) (Heparin) 5,000 units SC Q12@0600,1800 [facility] PRN Reason: Protocol Last Admin: 12/28/16 06:12 Dose: 5,000 units Fluconazole (Diflucan Iv 200 Mg/100 Ml Ns) 100 mls @ 100 mls/hr IVPB DAILY [facility] Last Admin: 12/27/16 09:19 Dose: 100 mls/hr Meropenem 1 gm/ Sodium (Chloride) 100 mls @ 100 mls/hr IVPB Q8@0500,1300,2100 [facility] Last Admin: 12/28/16 06:12 Dose: 100 mls/hr Ibuprofen (Motrin Tab) 400 mg PO Q6 PRN PRN Reason: Fever >100.4 F Last Admin: 12/21/16 08:48 Dose: 400 mg Ketorolac Tromethamine (Toradol) 30 mg IVP Q6 PRN PRN Reason: Pain, severe (8-10) Ondansetron HCl (Zofran Inj) 4 mg IVP Q6 PRN PRN Reason: Nausea/Vomiting Last Admin: 12/21/16 05:26 Dose: 4 mg Pantoprazole Sodium (Protonix Ec Tab) 40 mg PO DAILY [facility] Last Admin: 12/27/16 09:21 Dose: Not Given Vancomycin HCl (Vancocin (Oral/Rectal Use)) 125 mg PO Q6 [facility] Last Admin: 12/27/16 21:25 Dose: 125 mg - Labs Labs: 12/28/16 06:00 12/28/16 06:00 PT 12.3 SECONDS (9.6-11.2) H 12/25/16 14:30 INR 1.18 (0.92-1.08) H 12/25/16 14:30 APTT 34.5 SECONDS (23.3-32.5) H 12/21/16 09:41 - Constitutional Appears: Non-toxic, No Acute Distress - ENT Exam ENT Exam: Mucous Membranes Moist - Respiratory Exam Respiratory Exam: Clear to Ausculation Bilateral, NORMAL BREATHING PATTERN - Cardiovascular Exam Cardiovascular Exam: REGULAR RHYTHM, +S1, +S2 - GI/Abdominal Exam GI & Abdominal Exam: Soft, Normal Bowel Sounds. absent: Distended, Guarding, Rigid, Tenderness - Extremities Exam Extremities Exam: absent: Calf Tenderness Additional comments: Mild lower extremities edema below knees, pitting 1 + and bilateral. - Additional Findings Additional findings: Constitutional Appears: Non-toxic, No Acute Distress - ENT Exam ENT Exam: Mucous Membranes Moist - Respiratory Exam Respiratory Exam: Clear to Ausculation Bilateral, NORMAL BREATHING PATTERN - Cardiovascular Exam Cardiovascular Exam: REGULAR RHYTHM, +S1, +S2 - GI/Abdominal Exam GI & Abdominal Exam: Soft, no tender to palpation, no rigidity or guarding noted. Normal Bowel Sounds. absent: Guarding, Rigid - Extremities Exam Extremities Exam: Normal Inspection. absent: Calf Tenderness, Pedal Edema Additional comments: mild lower extremities edema pitting 1+, SCDs in place - Neurological Exam Neurological Exam: Alert, Awake, Oriented x3 - Psychiatric Exam Psychiatric exam: Normal Affect, Normal Mood - Skin Skin Exam: Dry, Intact, Pallor Assessment and Plan - Assessment and Plan (Free Text) Assessment: 51 yo obese F with PMH including iron deficiency anemia, Menorrhagia 2/2 uterine fibroids, and appendectomy on 12/13/16 admitted w/ fever and leukocytosis , now being treated for sepsis with bacteremia most likely urosepsis, improving clinically, but still with leukocytosis. Plan: Severe Sepsis with gram negative bacteremia Afebrile for 24 hours etiology related w/ Urosepsis (+ E.Coli in UCx) + Leukocytosis, WBC: 19.7 + Bcx and Ucx for E.Coli, But repeat blood culture on 12/26 showed no growth in 24 hours -CT Abd/Pelvis: negative for intrabdominal abscess -Abx: -C/w Vancomycin 125 mg PO Q6 today (12/27/16)day #2 of PO, total day #8 -c/w Meropenem 1gm IV Q8H (Started 12/21, Current day #8). -Fluconazole 200 mg IV daily ( started on 12/23/16)day #6 -Vanco Trough on 12/27/16 was 8.5 -Repeat procalcitonin on 12/24/16 trending down: 28.86. Consider repeat procalcitonin -Repeat Blood Cx on 12/23/16 showed no growth for 48 hours -ID on board. F/U recommendations Nonobstructive thrombus within the right common femoral vein Consider Lovenox therapeutic and discontinuation of heparin prophylactic evaluation of risk and benefits Anemia -most likely due to chronic blood loss 2/2 Menorrhagia/Uterine fibroids -CBC improved: 9.3/29.9 -s/p 2 units of PRBC on 12/27/16 Continue close monitor Diarrheas Afebrile for 24 hours -C-diff toxin neg Likely secondary to antibiotics Continue monitoring UTI + E.Coli in UCx on Meropenem and Vanco Uterine fibroids/Ovarian Cyst -CT abd/pelvis detected a markedly enlarged uterus containing multiple masses c/ w fibroids. A 5cm fluid density mass adjacent to the left side of the uterus was also detected -CEA: 1.2 WNL -CA 125 mild elevated -CA 19 WNL -MRI abdomen and Pelvis5.4 cm simple left ovarian cystic lesion transvaginal US: enlarge uterus w/ multiples masses, very limited study, endometrium not seen -SKILLED NURSING PROFESSIONAL recommended f/u as outpatient with [facility] Laparoscopic Appendectomy -Patient had recent lap appendectomy on 12/13/16 -General surgery consulted who believe current presentation is unrelated DVT Prophylaxis - SCDs -Heparin 5000 units SC BID. Discontinue if Lovenox therapeutic is started -High risk for DVT/PE - Heparin-IND platelet and Platelet AB( IGG) neg
[2016-12-28] MEDS: Fluconazole IV 200mg/100 ml NS 100 ML IVPB SCH (08:58)
[2016-12-28] MEDS: Pantoprazole 40 mg EC Tab PO SCH (08:59)
[2016-12-28] MEDS: Vancomycin 500 mg (Oral/Rectal USE) PO SCH ×3 (09:01→21:31)
--- NOTE | 2016-12-28 13:13 | US ---
PROCEDURE: Right lower extremity venous duplex Doppler. HISTORY: MRI with questionable DVT vs artifact Right common COMPARISON: Comparison made with prior study 12/21/2016 TECHNIQUE: Common femoral, superficial femoral, popliteal and posterior tibial veins were evaluated. Flow was assessed with color Doppler, compressibility, assessment of phasic flow and augmentation response. FINDINGS: COMMON FEMORAL VEIN: The current study reveals incomplete/ nonobstructive thrombus within the common femoral vein. Flow is visible of about the thrombus. SUPERFICIAL FEMORAL VEIN: Unremarkable. POPLITEAL VEIN: Unremarkable. POSTERIOR TIBIAL VEIN: Unremarkable. OTHER FINDINGS: Note also made of a right inguinal lymph node measuring approximately 3.2 x 1.7 x 0.7 cm in greatest dimension. IMPRESSION: There is a incomplete/ nonobstructive thrombus within the right common femoral vein. . Note that ICU Nurse Steph at approximately 1 p.m. with written down and read back verification.
[2016-12-28] MEDS ORDERED: Iodixanol 320 MG/ML 100 ML BOTTLE IV ONE (17:49)
[2016-12-28] MEDS ORDERED: Sodium Chloride 0.9% 50 ML IV ONE (17:50)
--- NOTE | 2016-12-28 18:54 | CT ---
PROCEDURE: CT Chest with contrast (Pulmonary Angiogram) HISTORY: dvt r/o PE, pleural effusion COMPARISON: 12/20/2016. TECHNIQUE: Axial computed tomography images were obtained of the chest in the pulmonary arterial phase of enhancement. Coronal and sagittal reformatted images were created and reviewed. Maximum intensity projection (MIP) reconstructed images in the following planes: Axial projection only Intravenous contrast dose: 75 cc Visipaque 320. Mean Hounsfield unit values in the main pulmonary artery: 244.51 Radiation dose: Total exam DLP = 353.94 mGy-cm. This CT exam was performed using one or more of the following dose reduction techniques: Automated exposure control, adjustment of the mA and/or kV according to patient size, and/or use of iterative reconstruction technique. FINDINGS: PULMONARY ARTERIES: Unremarkable. No pulmonary embolism. AORTA: No acute findings. No thoracic aortic aneurysm. LUNGS: Focal subsegmental infiltrates lateral segment right middle lobe. Peripheral subsegmental infiltrate left lower lobe. PLEURAL SPACES: Unremarkable. No effusion or pneuomothorax. HEART: Unremarkable. No cardiomegaly. No significant pericardial effusion. LYMPH NODES: No lymphadenopathy. BONES, CHEST WALL: Unremarkable. No fracture or destructive lesion OTHER FINDINGS: Incompletely visualized hepatosplenomegaly. IMPRESSION: Unremarkable CT pulmonary angiogram. No pulmonary embolus. Subsegmental bilateral infiltrates likely infectious/inflammatory.
[2016-12-28] MEDS: Enoxaparin 100 mg Syringe SC SCH (21:14)
[2016-12-29] MEDS: Vancomycin 500 mg (Oral/Rectal USE) PO SCH ×5 (04:42→21:57)
[2016-12-29] MEDS: Meropenem 1 GM in Sodium Chloride 0.9% 100 ML IVPB SCH ×3 (04:42→20:10)
[2016-12-29] MEDS: Albuterol 0.083% Inhal Sol (2.5 mg/3 mL) UD INH SCH ×5 (07:49→20:05)
[2016-12-29] MEDS: Fluconazole IV 200mg/100 ml NS 100 ML IVPB SCH (08:47)
[2016-12-29] MEDS: Enoxaparin 100 mg Syringe SC SCH ×2 (08:47→20:09)
[2016-12-29 09:35] LABS: BLOOD UREA NITROGEN 10 mg/dl (7-17); CALCIUM 8.5 mg/dL (8.4-10.2); CARBON DIOXIDE 30 mmol/L (22-30); CHLORIDE 98 mmol/L (98-107); GFR AFRICAN-AMERICAN > 60; GLUCOSE,RANDOM 120 mg/dL (65-105); POTASSIUM 3.4 MMOL/L (3.6-5.0); SODIUM 137 mmol/l (132-148)
[2016-12-29 09:43] LABS: HEMATOCRIT 31.3 % (34.0-47.0); MEAN CELL VOLUME 70.5 fl (81.0-99.0); MEAN CORPUSCULAR HEMOGLOBIN 22.6 pg (27.0-31.0); WHITE BLOOD COUNT 15.9 K/uL (4.8-10.8)
[2016-12-29] MEDS: Acetaminophen 650mg/20.3ml solution UD GT PRN ×2 (13:19→20:06)
--- NOTE | 2016-12-29 15:08 | CP.PCM.PN ---
Subjective - Date & Time of Evaluation Date of Evaluation: 12/29/16 Time of Evaluation: 10:50 - Subjective Subjective: Patient seen and examined at bedside, OOB, sitting in chair, with her. She is feeling better, able to walk in the floor. diarrheas has been decreasing in frequency and volume. afebrile, vaginal bleeding scant as per pt. Denies: SOB, CP, abdominal pain, N/V, dizziness. Tolerating PO diet. Objective - Vital Signs/Intake and Output Vital Signs (last 24 hours): Temp Pulse Resp BP Pulse Ox 98.3 F 69 20 109/67 100 12/29/16 14:19 12/29/16 07:42 12/29/16 07:42 12/29/16 07:42 12/29/16 09:55 - Medications Medications: Current Medications Acetaminophen (Tylenol 650mg/20.3ml Solution Ud) 650 mg GT Q6 PRN PRN Reason: Fever >100.4 F Last Admin: 12/29/16 13:19 Dose: 650 mg Albuterol Sulfate (Albuterol 0.083% Inhal Verónica (2.5 Mg/3 Ml) Ud) 2.5 mg INH RQID [facility] Last Admin: 12/29/16 15:07 Dose: 2.5 mg Enoxaparin Sodium (Lovenox) 100 mg SC Q12 [facility] PRN Reason: Protocol Last Admin: 12/29/16 08:47 Dose: 100 mg Ferrous Sulfate (Feosol) 325 mg PO BID [facility] Last Admin: 12/29/16 08:48 Dose: 325 mg Fluconazole (Diflucan Iv 200 Mg/100 Ml Ns) 100 mls @ 100 mls/hr IVPB DAILY [facility] Last Admin: 12/29/16 08:47 Dose: 100 mls/hr Meropenem 1 gm/ Sodium (Chloride) 100 mls @ 100 mls/hr IVPB Q8@0500,1300,2100 [facility] Last Admin: 12/29/16 12:06 Dose: 100 mls/hr Ondansetron HCl (Zofran Inj) 4 mg IVP Q6 PRN PRN Reason: Nausea/Vomiting Last Admin: 12/21/16 05:26 Dose: 4 mg Vancomycin HCl (Vancocin (Oral/Rectal Use)) 125 mg PO Q6 [facility] Last Admin: 12/29/16 09:14 Dose: 125 mg Warfarin Sodium (Coumadin) 5 mg PO QD5 [facility] PRN Reason: Protocol Stop: 12/29/16 17:01 - Labs Labs: 12/29/16 08:00 12/29/16 08:00 PT 12.9 SECONDS (9.6-11.2) H 12/29/16 13:20 INR 1.24 (0.92-1.08) H 12/29/16 13:20 APTT 36.0 SECONDS (23.3-32.5) H 12/29/16 13:20 - Constitutional Appears: No Acute Distress - Head Exam Head Exam: ATRAUMATIC, NORMOCEPHALIC - Eye Exam Eye Exam: PERRL - ENT Exam ENT Exam: Mucous Membranes Moist - Respiratory Exam Respiratory Exam: Decreased Breath Sounds. absent: Rales, Rhonchi, Wheezes, Respiratory Distress - Cardiovascular Exam Cardiovascular Exam: RRR, +S1, +S2. absent: JVD - GI/Abdominal Exam GI & Abdominal Exam: Soft, Normal Bowel Sounds. absent: Tenderness - Extremities Exam Extremities Exam: Pedal Edema (pitting edema 2+ B/L.). absent: Calf Tenderness - Neurological Exam Neurological Exam: Alert, Awake, CN II-XII Intact, Oriented x3 - Skin Skin Exam: Dry, Normal Color, Warm Assessment and Plan - Assessment and Plan (Free Text) Plan: 51 yo obese F with PMH iron deficiency anemia 2/2 Menorrhagia/uterine fibroids s /p appendectomy on 12/13/16 admitted w/ Sepsis. Severe Sepsis clinically improving, Afebrile for > 36 hours last Blood Cx negative, lactic acid: 1.1 etiology related w/ Urosepsis (+ E.Coli in UCx) + Leukocytosis, WBC trending down: 19.7---- 15 -CT Abd/Pelvis: negative for intrabdominal abscess -Abx: -c/w Meropenem 1gm IV Q8H (Started 12/21, Current day #9). -Fluconazole 200 mg IV daily ( started on 12/23/16)day #7 -procalcitonin trending down, f/u repeat procalcitonin -ID on board. F/U recommendations UTI + E.Coli in UCx c/w Meropenem Nonobstructive thrombus within the right common femoral vein Lovenox 100mg SC q 12 hrs hgb: stable, platelets: 365 will start Coumadin 5 mg PO daily Microcytic Anemia iron deficiency, likely due to chronic blood loss 2/2 Menorrhagia/Uterine fibroids H+H: 10.0/31.3 -s/p 2 units of PRBC on 12/27/16 Continue close monitor Diarrheas Afebrile for > 36 hours leukocytosis trending down -C-diff toxin neg c/w Vanco PO Continue monitoring Uterine fibroids/Ovarian Cyst -CT abd/pelvis detected a markedly enlarged uterus containing multiple masses c/ w fibroids. A 5cm fluid density mass adjacent to the left side of the uterus was also detected -CEA: 1.2 WNL -CA 125 mild elevated -CA 19 WNL -MRI abdomen and Pelvis5.4 cm simple left ovarian cystic lesion transvaginal US: enlarge uterus w/ multiples masses, very limited study, endometrium not seen -TABLET TECHNICIAN recommended f/u as outpatient with [facility] DVT Prophylaxis - SCDs - on Lovenox Therapeutic.
[2016-12-29] MEDS ORDERED: Potassium Chloride 20 mEq ER Tab PO ONE (19:18)
[2016-12-30] MEDS: Acetaminophen 650mg/20.3ml solution UD GT PRN (02:19)
[2016-12-30 02:42] LABS: (1-3)-B-D GLUCAN <31 pg/mL
[2016-12-30] MEDS: Vancomycin 500 mg (Oral/Rectal USE) PO SCH ×3 (04:50→10:23)
[2016-12-30] MEDS: Meropenem 1 GM in Sodium Chloride 0.9% 100 ML IVPB SCH ×3 (05:09→20:37)
[2016-12-30 08:12] LABS: HEMATOCRIT 30.3 % (34.0-47.0); MEAN CELL VOLUME 71.7 fl (81.0-99.0); MEAN CORPUSCULAR HEMOGLOBIN 22.3 pg (27.0-31.0); MEAN CORPUSCULAR HGB CONC 31.1 g/dL (33.0-37.0); RED CELL DISTRIBUTION WIDTH 37.2 % (11.5-14.5); WHITE BLOOD COUNT 15.1 K/uL (4.8-10.8)
[2016-12-30 08:53] LABS: BLOOD UREA NITROGEN 6 mg/dl (7-17); CALCIUM 8.1 mg/dL (8.4-10.2); CARBON DIOXIDE 28 mmol/L (22-30); CHLORIDE 100 mmol/L (98-107); GFR AFRICAN-AMERICAN > 60; GLUCOSE,RANDOM 118 mg/dL (65-105); POTASSIUM 3.6 MMOL/L (3.6-5.0); SODIUM 136 mmol/l (132-148)
[2016-12-30] MEDS: Albuterol 0.083% Inhal Sol (2.5 mg/3 mL) UD INH SCH ×4 (09:12→20:00)
[2016-12-30] MEDS: Fluconazole IV 200mg/100 ml NS 100 ML IVPB SCH (10:15)
[2016-12-30] MEDS: Enoxaparin 100 mg Syringe SC SCH ×2 (10:22→20:49)
--- NOTE | 2016-12-30 13:56 | CP.PCM.PN ---
Subjective - Date & Time of Evaluation Date of Evaluation: 12/30/16 Time of Evaluation: 08:50 - Subjective Subjective: 51 y/o F with PMHx of Uterine fibroids associated with menorrhagia being follow up for sepsis, and recent fever. Patient was seen and examined at bedside this morning. Patient had two temperatures last night of 101 and 102. Blood culture was sent as well as UA and urine Cx. At this visit patient denies chest pain, SOB, N/V, abdominal pain , dizziness. Patient reports a recent episode of epixtasis, but states the vaginal bleeding is decreasing. Objective - Vital Signs/Intake and Output Vital Signs (last 24 hours): Temp Pulse Resp BP Pulse Ox 98.9 F 71 20 111/68 98 12/30/16 08:09 12/30/16 08:09 12/30/16 08:09 12/30/16 08:09 12/30/16 08:09 - Medications Medications: Current Medications Acetaminophen (Tylenol 650mg/20.3ml Solution Ud) 650 mg GT Q6 PRN PRN Reason: Fever >100.4 F Last Admin: 12/30/16 02:19 Dose: 650 mg Acetaminophen (Tylenol 325mg Tab) 650 mg PO Q4 PRN PRN Reason: Fever >100.4 F Albuterol Sulfate (Albuterol 0.083% Inhal Verónica (2.5 Mg/3 Ml) Ud) 2.5 mg INH RQID [facility] Last Admin: 12/30/16 11:48 Dose: 2.5 mg Enoxaparin Sodium (Lovenox) 100 mg SC Q12 [facility] PRN Reason: Protocol Last Admin: 12/30/16 10:22 Dose: 100 mg Ferrous Sulfate (Feosol) 325 mg PO BID [facility] Last Admin: 12/30/16 10:22 Dose: 325 mg Fluconazole (Diflucan Iv 200 Mg/100 Ml Ns) 100 mls @ 100 mls/hr IVPB DAILY [facility] Last Admin: 12/30/16 10:15 Dose: 100 mls/hr Meropenem 1 gm/ Sodium (Chloride) 100 mls @ 100 mls/hr IVPB Q8@0500,1300,2100 [facility] Last Admin: 12/30/16 12:11 Dose: 100 mls/hr Vancomycin HCl 1,000 mg/ (Sodium Chloride) 250 mls @ 250 mls/hr IVPB Q8 [facility] Ondansetron HCl (Zofran Inj) 4 mg IVP Q6 PRN PRN Reason: Nausea/Vomiting Last Admin: 12/21/16 05:26 Dose: 4 mg Vancomycin HCl (Vancocin (Oral/Rectal Use)) 125 mg PO Q6 [facility] Last Admin: 12/30/16 10:23 Dose: 125 mg Warfarin Sodium (Coumadin) 5 mg PO QD5 [facility] PRN Reason: Protocol Stop: 12/30/16 17:01 - Labs Labs: 12/30/16 05:30 12/30/16 05:30 PT 12.9 SECONDS (9.6-11.2) H 12/29/16 13:20 INR 1.24 (0.92-1.08) H 12/29/16 13:20 APTT 36.0 SECONDS (23.3-32.5) H 12/29/16 13:20 - Constitutional Appears: Non-toxic, No Acute Distress - ENT Exam ENT Exam: Mucous Membranes Moist - Respiratory Exam Respiratory Exam: Clear to Ausculation Bilateral, NORMAL BREATHING PATTERN - Cardiovascular Exam Cardiovascular Exam: REGULAR RHYTHM, +S1, +S2 - GI/Abdominal Exam GI & Abdominal Exam: Soft, Normal Bowel Sounds. absent: Guarding, Rigid, Tenderness - Extremities Exam Additional comments: Mild lower extremities edema below knees pitting 1+. No calf tenderness bilateral noted. - Neurological Exam Neurological Exam: Alert, Awake, Oriented x3 - Skin Skin Exam: Dry, Intact, Pallor Assessment and Plan - Assessment and Plan (Free Text) Plan: Severe sepsis most likely due to Urosepsis -Continue spiking fever, 101-102 F could be secondary to a new source of infection. HCAP vs Ventilator-associated pneumonia -Leukocytosis still present, but trending down -F/U repeat blood culture -F/U UA and urine culture -C/w Meropenem 1 GM IV Q 8 -Changed Vancomycin to IV 1 GM Q8 -F/U repeat Vanco Trough -Discontinue Fluconazole -Procalcitonin trending down, repeat procalcitonin was 1.10 CT Abd/Pelvis: negative for intrabdominal abscess -ID on board. F/U recommendations UTI + E.Coli in UCx c/w Meropenem Microcytic anemia most likely secondary Chronic blood loss from Uterine fibroids -Asymptomatic -Stable H/H : 9.4/30.3 -S/P 2 units PRBC transfusion -Continue monitoring. Nonobstructive thrombus within the right common femoral vein C/W Lovenox 100mg SC q 12 hrs Hgb: stable, platelets: 368 Start Coumadin 5 mg PO daily today Diarrheas -Improving, but still present Could be related to antibiotics -C-Diff toxin negative -Continue monitoring Uterine fibroids/Ovarian Cyst -CT abd/pelvis detected a markedly enlarged uterus containing multiple masses c/ w fibroids. A 5cm fluid density mass adjacent to the left side of the uterus was also detected -CEA: 1.2 WNL -CA 125 mild elevated -CA 19 WNL -MRI abdomen and Pelvis5.4 cm simple left ovarian cystic lesion transvaginal US: enlarge uterus w/ multiples masses, very limited study, endometrium not seen -LICENSED VETERINARY TECHNICIAN recommended f/u as outpatient with [facility] DVT Prophylaxis - SCDs - on Lovenox Therapeutic.
[2016-12-30 18:36] LABS: RBC URINE 2 /hpf (0-3); URINE BILIRUBIN NEGATIVE (NEGATIVE); URINE BLOOD MODERATE (NEGATIVE); URINE COLOR YELLOW (YELLOW); URINE GLUCOSE (UA) NEG (Normal); URINE KETONE NEGATIVE (NEGATIVE); URINE LEUKOCYTE ESTERASE NEG Leu/uL (Negative); URINE PROTEIN 30 mg/dL (NEGATIVE); URINE UROBILINOGEN 0.2-1.0 mg/dL (0.2-1.0); WBC URINE 3 /hpf (0-5)
[2016-12-31] MEDS: Meropenem 1 GM in Sodium Chloride 0.9% 100 ML IVPB SCH ×3 (04:23→20:36)
[2016-12-31 07:25] LABS: BASO # 0.1 K/uL (0.0-0.2); EOS # 0.1 K/uL (0.0-0.7); EOS % 0.5 % (0.0-4.0); HEMATOCRIT 30.2 % (34.0-47.0); LYMPH # 1.5 K/uL (1.0-4.3); LYMPH % 10.6 % (20.0-40.0); MEAN CELL VOLUME 71.9 fl (81.0-99.0); MEAN CORPUSCULAR HEMOGLOBIN 22.8 pg (27.0-31.0); MEAN CORPUSCULAR HGB CONC 31.7 g/dL (33.0-37.0); MEAN PLATELET VOLUME 9.2 fl (7.2-11.7); MONO # 0.7 K/uL (0.0-0.8); MONO % 4.8 % (0.0-10.0); NEUT # 11.5 K/uL (1.8-7.0); NEUT % 83.1 % (50.0-75.0); RED CELL DISTRIBUTION WIDTH 36.8 % (11.5-14.5); WHITE BLOOD COUNT 13.9 K/uL (4.8-10.8)
[2016-12-31] MEDS: Albuterol 0.083% Inhal Sol (2.5 mg/3 mL) UD INH SCH (08:46)
[2016-12-31] MEDS: Albuterol 0.083% Inhal Sol (2.5 mg/3 mL) UD INH PRN ×2 (12:14→20:13)
--- NOTE | 2016-12-31 15:14 | CP.PCM.PN ---
Subjective - Date & Time of Evaluation Date of Evaluation: 12/31/16 Time of Evaluation: 08:30 - Subjective Subjective: Patient was seen and examined at bedside this morning. Patient still having low grade fever at midnight. Patient is tolerating PO. Denies chest pain, SOB,nausea , vomiting, abdominal pain, watery diarrhea. Reports one semisolid bowel movement yesterday. Patient states that she had another nosebleed episode controlled without any intervention.reports vaginal spotting today. Objective - Vital Signs/Intake and Output Vital Signs (last 24 hours): Temp Pulse Resp BP Pulse Ox 98.8 F 93 H 20 107/72 91 L 12/31/16 08:11 12/31/16 08:11 12/31/16 08:11 12/31/16 08:11 12/31/16 08:11 - Medications Medications: Current Medications Acetaminophen (Tylenol 650mg/20.3ml Solution Ud) 650 mg GT Q6 PRN PRN Reason: Fever >100.4 F Last Admin: 12/30/16 02:19 Dose: 650 mg Acetaminophen (Tylenol 325mg Tab) 650 mg PO Q4 PRN PRN Reason: Fever >100.4 F Last Admin: 12/31/16 00:05 Dose: 650 mg Albuterol Sulfate (Albuterol 0.083% Inhal Verónica (2.5 Mg/3 Ml) Ud) 2.5 mg INH Q8 PRN PRN Reason: Wheezing Last Admin: 12/31/16 12:14 Dose: 2.5 mg Ferrous Sulfate (Feosol) 325 mg PO BID [facility] Last Admin: 12/31/16 09:14 Dose: 325 mg Meropenem 1 gm/ Sodium (Chloride) 100 mls @ 100 mls/hr IVPB Q8@0500,1300,2100 [facility] Last Admin: 12/31/16 13:35 Dose: 100 mls/hr Vancomycin HCl 1 gm/ Sodium (Chloride) 250 mls @ 250 mls/hr IVPB Q8 [facility] Last Admin: 12/31/16 09:14 Dose: 250 mls/hr Ondansetron HCl (Zofran Inj) 4 mg IVP Q6 PRN PRN Reason: Nausea/Vomiting Last Admin: 12/21/16 05:26 Dose: 4 mg - Labs Labs: 12/31/16 06:30 12/30/16 05:30 PT 40.0 SECONDS (9.6-11.2) H* D 12/31/16 06:30 INR 3.85 (0.92-1.08) H D 12/31/16 06:30 APTT 36.0 SECONDS (23.3-32.5) H 12/29/16 13:20 - Additional Findings Additional findings: Constitutional Appears: Non-toxic, No Acute Distress - ENT Exam ENT Exam: Mucous Membranes Moist - Respiratory Exam Respiratory Exam: Clear to Ausculation Bilateral, NORMAL BREATHING PATTERN - Cardiovascular Exam Cardiovascular Exam: REGULAR RHYTHM, +S1, +S2 - GI/Abdominal Exam GI & Abdominal Exam: Soft, Normal Bowel Sounds. absent: Guarding, Rigid, Tenderness - Extremities Exam Additional comments: Mild lower extremities edema below knees pitting 1+. No calf tenderness bilateral noted. - Neurological Exam Neurological Exam: Alert, Awake, Oriented x3 - Skin Skin Exam: Dry, Intact, Pallor Assessment and Plan - Assessment and Plan (Free Text) Assessment: 51 yo obese F with PMH including iron deficiency anemia, Menorrhagia 2/2 uterine fibroids, and appendectomy on 12/13/16 admitted w/ fever and leukocytosis , now being treated for sepsis with bacteremia most likely urosepsis, improving clinically, but still with leukocytosis. Plan: Severe sepsis most likely due to Urosepsis -Continue with low grade fever, 100.2 F, could be secondary to a new source of infection. HCAP vs Ventilator-associated pneumonia -Leukocytosis still present, but trending down today 13.9 -F/U repeat blood culture -UA negative -Urine culture pending -C/w Meropenem 1 GM IV Q 8 -C/w Vancomycin to IV 1 GM Q8 -F/U Vanco Trough oredered for today before 3 dose -Procalcitonin trending down, repeat procalcitonin was 1.10 CT Abd/Pelvis: negative for intrabdominal abscess -ID on board. F/U recommendations Epistaxis -2 episodes -patient is in anticoagulant therapeutic dose -Hold coumadin today due to supra therapeutic levels F/U PT/INR UTI + E.Coli in UCx c/w Meropenem Microcytic anemia most likely secondary Chronic blood loss from Uterine fibroids -Asymptomatic -Stable H/H : 9.6/30.2 -F/U H/H tomorrow -S/P 2 units PRBC transfusion -Continue monitoring. Nonobstructive thrombus within the right common femoral vein INR: 3.85, PT: 40 Hgb: stable, platelets: 368 Hold Coumadin 5 mg PO daily today Consider re-start Coumadin 3 mg tomorrow F/U PT/INR Uterine fibroids/Ovarian Cyst -CT abd/pelvis detected a markedly enlarged uterus containing multiple masses c/ w fibroids. A 5cm fluid density mass adjacent to the left side of the uterus was also detected -CEA: 1.2 WNL -CA 125 mild elevated -CA 19 WNL -MRI abdomen and Pelvis5.4 cm simple left ovarian cystic lesion transvaginal US: enlarge uterus w/ multiples masses, very limited study, endometrium not seen -REPAIRER SHOE STICKS recommended f[facility]u as outpatient with [facility] DVT Prophylaxis - SCDs - on Lovenox Therapeutic.
[2017-01-01] MEDS: Meropenem 1 GM in Sodium Chloride 0.9% 100 ML IVPB SCH ×3 (04:38→21:13)
[2017-01-01 07:30] LABS: HEMATOCRIT 28.4 % (34.0-47.0); MEAN CELL VOLUME 72.9 fl (81.0-99.0); MEAN CORPUSCULAR HEMOGLOBIN 22.5 pg (27.0-31.0); MEAN CORPUSCULAR HGB CONC 30.9 g/dL (33.0-37.0); RED CELL DISTRIBUTION WIDTH 37.6 % (11.5-14.5); WHITE BLOOD COUNT 12.8 K/uL (4.8-10.8)
--- NOTE | 2017-01-01 10:00 | CP.PCM.PN ---
Subjective - Date & Time of Evaluation Date of Evaluation: 01/01/17 Time of Evaluation: 07:45 - Subjective Subjective: 51 y/o F admitted with sepsis most likely secondary to Urosepsis, still spiking fever in IV antibiotics. Patient was seen and examined at bedside this morning. Patient had a temperature of 101 last night that resolved with tylenol. Still complaining of scant nosebleeding, and intermittent vaginal spotting. Patient voiding without any complains, but reports a hard bowel movement today, denies blood in urine or stools. Tolerating PO. Objective - Vital Signs/Intake and Output Vital Signs (last 24 hours): Temp Pulse Resp BP Pulse Ox 98.7 F 80 20 106/59 L 98 01/01/17 08:36 01/01/17 08:36 01/01/17 08:36 01/01/17 08:36 01/01/17 08:36 - Medications Medications: Current Medications Acetaminophen (Tylenol 650mg/20.3ml Solution Ud) 650 mg GT Q6 PRN PRN Reason: Fever >100.4 F Last Admin: 12/30/16 02:19 Dose: 650 mg Acetaminophen (Tylenol 325mg Tab) 650 mg PO Q4 PRN PRN Reason: Fever >100.4 F Last Admin: 12/31/16 20:35 Dose: 650 mg Albuterol Sulfate (Albuterol 0.083% Inhal Verónica (2.5 Mg/3 Ml) Ud) 2.5 mg INH Q8 PRN PRN Reason: Wheezing Last Admin: 12/31/16 20:13 Dose: 2.5 mg Ferrous Sulfate (Feosol) 325 mg PO BID [facility] Last Admin: 12/31/16 18:00 Dose: 325 mg Meropenem 1 gm/ Sodium (Chloride) 100 mls @ 100 mls/hr IVPB Q8@0500,1300,2100 [facility] Last Admin: 01/01/17 04:38 Dose: 100 mls/hr Vancomycin HCl 1 gm/ Sodium (Chloride) 250 mls @ 250 mls/hr IVPB Q8 [facility] Last Admin: 01/01/17 01:15 Dose: 250 mls/hr Ondansetron HCl (Zofran Inj) 4 mg IVP Q6 PRN PRN Reason: Nausea/Vomiting Last Admin: 12/21/16 05:26 Dose: 4 mg - Labs Labs: 01/01/17 06:30 12/30/16 05:30 PT 55.5 SECONDS (9.6-11.2) H* D 01/01/17 06:30 INR 5.34 (0.92-1.08) H D 01/01/17 06:30 APTT 36.0 SECONDS (23.3-32.5) H 12/29/16 13:20 - Constitutional Appears: Non-toxic, No Acute Distress - ENT Exam ENT Exam: Mucous Membranes Moist - Respiratory Exam Respiratory Exam: Clear to Ausculation Bilateral, NORMAL BREATHING PATTERN - Cardiovascular Exam Cardiovascular Exam: REGULAR RHYTHM, +S1, +S2 - GI/Abdominal Exam GI & Abdominal Exam: Soft, Tenderness (very mild tender to palpation of suprabic area, no rigidity or guarding noted, no rebound tenderness noted.) - Extremities Exam Extremities Exam: absent: Calf Tenderness Additional comments: Bilateral pitting 1+ edema in lower extremities. No calf tender noted bilateral. - Neurological Exam Neurological Exam: Alert, Awake, Oriented x3 - Skin Skin Exam: Dry, Intact, Pallor Assessment and Plan - Assessment and Plan (Free Text) Assessment: 51 yo obese F with PMH including iron deficiency anemia, Menorrhagia 2/2 uterine fibroids, and appendectomy on 12/13/16 admitted w/ fever and leukocytosis , now being treated for sepsis with bacteremia most likely urosepsis, improving clinically, but still spiking fever, and with improving leukocytosis. Plan: Severe sepsis most likely due to Urosepsis -Continue spiking fever 101, but less frequent, unclear etiology because patient is improving clinically -Leukocytosis still present, but trending down today 12.8 -Repeat blood culture no growth in 48 hours -UA negative -F/U Urine culture -C/w Meropenem 1 GM IV Q 8 day #9 -C/w Vancomycin to IV 1 GM Q8 day #9 -c/w Tylenol PRN for fever -F/U Vanco Trough -Procalcitonin trending down, repeat procalcitonin was 1.10 CT Abd/Pelvis: negative for intrabdominal abscess -ID on board. F/U recommendations Epistaxis -still present -patient is in anticoagulant therapeutic dose -Held Coumadin due to supra therapeutic levels -F/U PT/INR UTI + E.Coli in UCx c/w Meropenem Microcytic anemia most likely secondary Chronic blood loss from Uterine fibroids -Asymptomatic -Trending down H/H : 8.8/28.4 -F/U H/H -Consider Venofer -C/W Feosol PO BID -S/P 2 units PRBC transfusion -Continue monitoring. Nonobstructive thrombus within the right common femoral vein INR/PT trending up today: 5.34/55.5 Hgb: stable, platelets: 308 Held Coumadin 5 mg PO Consider re-start Coumadin 3 mg if INR is between therapeutic levels F/U PT/INR Uterine fibroids/Ovarian Cyst -CT abd/pelvis detected a markedly enlarged uterus containing multiple masses c/ w fibroids. A 5cm fluid density mass adjacent to the left side of the uterus was also detected -CEA: 1.2 WNL -CA 125 mild elevated -CA 19 WNL -MRI abdomen and Pelvis5.4 cm simple left ovarian cystic lesion transvaginal US: enlarge uterus w/ multiples masses, very limited study, endometrium not seen -TABLE MAKER recommended f/u as outpatient with [facility] DVT Prophylaxis - SCDs for now
[2017-01-02] MEDS: Meropenem 1 GM in Sodium Chloride 0.9% 100 ML IVPB SCH ×2 (05:04→12:00)
[2017-01-02 07:21] LABS: BASO # 0.1 K/uL (0.0-0.2); BASO % 0.6 % (0.0-2.0); EOS % 0.2 % (0.0-4.0); HEMATOCRIT 30.5 % (34.0-47.0); LYMPH # 0.5 K/uL (1.0-4.3); LYMPH % 2.4 % (20.0-40.0); MEAN CELL VOLUME 72.1 fl (81.0-99.0); MEAN CORPUSCULAR HEMOGLOBIN 22.9 pg (27.0-31.0); MEAN CORPUSCULAR HGB CONC 31.7 g/dL (33.0-37.0); MEAN PLATELET VOLUME 9.5 fl (7.2-11.7); MONO # 0.6 K/uL (0.0-0.8); MONO % 2.7 % (0.0-10.0); NEUT # 19.9 K/uL (1.8-7.0); NEUT % 94.1 % (50.0-75.0); NRBC % 0.1 % (0.0-0.0); PLATELET COUNT 302 K/uL (130-400); RED CELL DISTRIBUTION WIDTH 36.2 % (11.5-14.5); WHITE BLOOD COUNT 21.1 K/uL (4.8-10.8)
[2017-01-02 07:33] LABS: BLOOD UREA NITROGEN 5 mg/dl (7-17); CARBON DIOXIDE 25 mmol/L (22-30); CHLORIDE 100 mmol/L (98-107); GFR AFRICAN-AMERICAN > 60; GLUCOSE,RANDOM 108 mg/dL (65-105); POTASSIUM 2.9 MMOL/L (3.6-5.0); SODIUM 135 mmol/l (132-148)
[2017-01-02] MEDS ORDERED: Potassium Chloride 20 mEq ER Tab PO ONE ×3 (10:24→18:10)
--- NOTE | 2017-01-02 10:25 | CP.PCM.PN ---
Subjective - Date & Time of Evaluation Date of Evaluation: 01/02/17 Time of Evaluation: 07:05 - Subjective Subjective: Patient was seen and examined at bedside this morning. Patient tolerating PO, voiding without complains, and reports normal consistency bowel movements. Patient has been afebrile last night and this morning. Denies chest pain, SOB, N /V, abdominal pain, diarrheas. Objective - Vital Signs/Intake and Output Vital Signs (last 24 hours): Temp Pulse Resp BP Pulse Ox 98.3 F 92 H 20 101/61 97 01/02/17 08:25 01/02/17 08:25 01/02/17 08:25 01/02/17 08:25 01/02/17 08:25 - Medications Medications: Current Medications Acetaminophen (Tylenol 650mg/20.3ml Solution Ud) 650 mg GT Q6 PRN PRN Reason: Fever >100.4 F Last Admin: 12/30/16 02:19 Dose: 650 mg Acetaminophen (Tylenol 325mg Tab) 650 mg PO Q4 PRN PRN Reason: Fever >100.4 F Last Admin: 12/31/16 20:35 Dose: 650 mg Albuterol Sulfate (Albuterol 0.083% Inhal Verónica (2.5 Mg/3 Ml) Ud) 2.5 mg INH Q8 PRN PRN Reason: Wheezing Last Admin: 12/31/16 20:13 Dose: 2.5 mg Ferrous Sulfate (Feosol) 325 mg PO BID [facility] Last Admin: 01/02/17 10:07 Dose: 325 mg Meropenem 1 gm/ Sodium (Chloride) 100 mls @ 100 mls/hr IVPB Q8@0500,1300,2100 [facility] Last Admin: 01/02/17 05:04 Dose: 100 mls/hr Vancomycin HCl 1 gm/ Sodium (Chloride) 250 mls @ 250 mls/hr IVPB Q8 [facility] Last Admin: 01/02/17 01:13 Dose: 250 mls/hr Ondansetron HCl (Zofran Inj) 4 mg IVP Q6 PRN PRN Reason: Nausea/Vomiting Last Admin: 12/21/16 05:26 Dose: 4 mg - Labs Labs: 01/02/17 06:10 01/02/17 06:10 PT 21.3 SECONDS (9.6-11.2) H D 01/02/17 06:10 INR 2.05 (0.92-1.08) H D 01/02/17 06:10 APTT 36.0 SECONDS (23.3-32.5) H 12/29/16 13:20 - Additional Findings Additional findings: Constitutional Appears: Non-toxic, No Acute Distress - ENT Exam ENT Exam: Mucous Membranes Moist - Respiratory Exam Respiratory Exam: Clear to Ausculation Bilateral, NORMAL BREATHING PATTERN - Cardiovascular Exam Cardiovascular Exam: REGULAR RHYTHM, +S1, +S2 - GI/Abdominal Exam GI & Abdominal Exam: Soft, Tenderness (very mild tender to palpation of suprabic area, no rigidity or guarding noted, no rebound tenderness noted.) - Extremities Exam Extremities Exam: absent: Calf Tenderness Additional comments: Bilateral pitting 1+ edema in lower extremities. No calf tender noted bilateral. - Neurological Exam Neurological Exam: Alert, Awake, Oriented x3 - Skin Skin Exam: Dry, Intact, Pallor Assessment and Plan - Assessment and Plan (Free Text) Assessment: 51 yo obese F with PMH including iron deficiency anemia, Menorrhagia 2/2 uterine fibroids, and appendectomy on 12/13/16 admitted w/ fever and leukocytosis , now being treated for sepsis with bacteremia most likely urosepsis, improving clinically, but still leukocytosis. Plan: Severe sepsis secondary to Urosepsis -Afebrile since yesterday -Leukocytosis still present -Repeat blood culture no growth in 48 hours -UA negative -C/w Meropenem 1 GM IV Q 8 day #9 -C/w Vancomycin to IV 1 GM Q8 day #9 -c/w Tylenol PRN for fever -Vanco Trough on 12/31/16 was 11.4 -F/U vanco trough ordered for today -Urine culture neg -Blood Cx no growth after 3 days -Procalcitonin trending down, repeat procalcitonin was 1.10 CT Abd/Pelvis: negative for intrabdominal abscess -ID on board. Re-called Dr. Almaguer. F/U recommendations Hypokalemia Asymptomatic K+: 2.9 today Repeat potassium level Potassium 20 MEQ once PO UTI resolved + E.Coli in UCx c/w Meropenem repeat Urine Cx negative Microcytic anemia most likely secondary Chronic blood loss from Uterine fibroids, but other causes could be consider -Asymptomatic -H/H : 9.7/30.5 -F/U H/H -Consider Venofer -C/W Feosol PO BID -S/P 2 units PRBC transfusion -Continue monitoring. Nonobstructive thrombus within the right common femoral vein INR/PT today: 21.3/2.05 Hgb: platelets stable Re-start Coumadin 3 mg PO daily today F/U PT/INR Uterine fibroids/Ovarian Cyst -CT abd/pelvis detected a markedly enlarged uterus containing multiple masses c/ w fibroids. 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
[2017-01-02 11:55] LABS: HEMATOCRIT 29.3 % (34.0-47.0); MEAN CELL VOLUME 72.9 fl (81.0-99.0); MEAN CORPUSCULAR HEMOGLOBIN 22.4 pg (27.0-31.0); MEAN CORPUSCULAR HGB CONC 30.7 g/dL (33.0-37.0); RED CELL DISTRIBUTION WIDTH 36.2 % (11.5-14.5)
[2017-01-02 13:36] LABS: NEUTROPHIL 87 % (42-75); TOTAL CELLS COUNTED 100
[2017-01-02 13:37] LABS: BASOPHIL 1 % (0-2)
[2017-01-02 13:38] LABS: GIANT PLATELETS PRESENT; LARGE PLATELETS PRESENT; PLATELET CLUMPS PRESENT
[2017-01-02 16:08] LABS: BLOOD UREA NITROGEN 6 mg/dl (7-17); CALCIUM 8.1 mg/dL (8.4-10.2); CARBON DIOXIDE 28 mmol/L (22-30); CHLORIDE 99 mmol/L (98-107); GFR AFRICAN-AMERICAN > 60; GLUCOSE,RANDOM 99 mg/dL (65-105); POTASSIUM 3.3 MMOL/L (3.6-5.0); SODIUM 136 mmol/l (132-148)
[2017-01-03 06:41] LABS: BASO # 0.1 K/uL (0.0-0.2); BASO % 0.7 % (0.0-2.0); EOS # 0.2 K/uL (0.0-0.7); EOS % 1.4 % (0.0-4.0); HEMATOCRIT 27.5 % (34.0-47.0); LYMPH # 1.4 K/uL (1.0-4.3); LYMPH % 11.3 % (20.0-40.0); MEAN CELL VOLUME 72.8 fl (81.0-99.0); MEAN CORPUSCULAR HEMOGLOBIN 23.1 pg (27.0-31.0); MEAN CORPUSCULAR HGB CONC 31.8 g/dL (33.0-37.0); MEAN PLATELET VOLUME 9.5 fl (7.2-11.7); MONO # 0.7 K/uL (0.0-0.8); NEUT # 9.7 K/uL (1.8-7.0); NEUT % 80.6 % (50.0-75.0); RED CELL DISTRIBUTION WIDTH 36.1 % (11.5-14.5); WHITE BLOOD COUNT 12.1 K/uL (4.8-10.8)
[2017-01-03 07:13] LABS: ALB/GLOB RATIO 0.7 (1.0-2.1); ALKALINE PHOSPHATASE 185 U/L (38-126); ALT/SGPT 42 U/L (9-52); AST/SGOT 64 U/L (14-36); BILIRUBIN,TOTAL 0.5 mg/dl (0.2-1.3); BLOOD UREA NITROGEN 6 mg/dl (7-17); CALCIUM 8.1 mg/dL (8.4-10.2); CARBON DIOXIDE 27 mmol/L (22-30); CHLORIDE 102 mmol/L (98-107); GFR AFRICAN-AMERICAN > 60; GLUCOSE,RANDOM 119 mg/dL (65-105); POTASSIUM 3.6 MMOL/L (3.6-5.0); SODIUM 137 mmol/l (132-148); TOTAL PROTEIN 6.9 G/DL (6.3-8.2)
--- NOTE | 2017-01-03 10:00 | CP.PCM.PN ---
Subjective - Date & Time of Evaluation Date of Evaluation: 01/03/17 Time of Evaluation: 08:45 - Subjective Subjective: Patient seen and examined bedside. Reports she felt better overnight. Reports that she gets chills, feels cold, then gets a fever with IV infusion. She notes this does not happen when the rate is lowered. Denies this happening at home or in the past. She reports mild tenderness in abdomen to palpation She denies any headaches, chest pain, dyspnea, nausea, vomiting, or diarrhea. Objective - Vital Signs/Intake and Output Vital Signs (last 24 hours): Temp Pulse Resp BP Pulse Ox 98.9 F 86 18 117/68 97 01/03/17 07:43 01/03/17 07:43 01/03/17 07:43 01/03/17 07:43 01/03/17 07:43 - Medications Medications: Current Medications Acetaminophen (Tylenol 650mg/20.3ml Solution Ud) 650 mg GT Q6 PRN PRN Reason: Fever >100.4 F Last Admin: 12/30/16 02:19 Dose: 650 mg Acetaminophen (Tylenol 325mg Tab) 650 mg PO Q4 PRN PRN Reason: Fever >100.4 F Last Admin: 01/02/17 18:27 Dose: 650 mg Albuterol Sulfate (Albuterol 0.083% Inhal Verónica (2.5 Mg/3 Ml) Ud) 2.5 mg INH Q8 PRN PRN Reason: Wheezing Last Admin: 12/31/16 20:13 Dose: 2.5 mg Ferrous Sulfate (Feosol) 325 mg PO BID [facility] Last Admin: 01/03/17 09:22 Dose: 325 mg Vancomycin HCl 1 gm/ Sodium (Chloride) 250 mls @ 250 mls/hr IVPB Q8 [facility] Last Admin: 01/03/17 09:23 Dose: 250 mls/hr Ondansetron HCl (Zofran Inj) 4 mg IVP Q6 PRN PRN Reason: Nausea/Vomiting Last Admin: 12/21/16 05:26 Dose: 4 mg - Labs Labs: 01/03/17 06:10 01/03/17 06:10 PT 24.3 SECONDS (9.6-11.2) H 01/03/17 06:10 INR 2.34 (0.92-1.08) H 01/03/17 06:10 APTT 36.0 SECONDS (23.3-32.5) H 12/29/16 13:20 - Constitutional Appears: Non-toxic, No Acute Distress - Head Exam Head Exam: ATRAUMATIC, NORMAL INSPECTION - Eye Exam Eye Exam: EOMI, Normal appearance Pupil Exam: NORMAL ACCOMODATION - ENT Exam ENT Exam: Normal Exam - Neck Exam Neck Exam: Full ROM - Respiratory Exam Respiratory Exam: Clear to Ausculation Bilateral, NORMAL BREATHING PATTERN - Cardiovascular Exam Cardiovascular Exam: REGULAR RHYTHM - GI/Abdominal Exam GI & Abdominal Exam: Soft, Tenderness (mild right abdominal), Normal Bowel Sounds - Neurological Exam Neurological Exam: Alert, Awake, CN II-XII Intact, Normal Gait, Oriented x3 - Skin Skin Exam: Dry, Normal Color, Warm Assessment and Plan - Assessment and Plan (Free Text) Assessment: Assessment: 51 y/o F hx of obesity, iron deficiency anemia likely secondary to menorrhagia/ uterine fibroids, s/p appendectomy on 12/13/16 admitted for sepsis with bacteremia likely secondary to UTIsis, improving clinically, but still leukocytosis. Plan: Sepsis likely secondary to UTI Resolved. -Patient is stable, has remained afebrile. She continues to have leukocytosis, however it is trending down: 12.1, down from 20 yesterday. -Repeat blood culture no growth in 4 days- final. urine culture no growth - final -Case d/w Dr. Almaguer, including possiblity of adverse reaction to vancomycin. ? ambrocio sdx. -Will d/c Meropenem, Vancomycin, and Fluconazole. -Pt completed 9 days of IV Abx. -c/w Tylenol PRN for fever -Procalcitonin trending down, repeat was 1.10 -CT Abd/Pelvis: negative for intrabdominal abscess Hypokalemia Resolved. K+:3.6 UTI resolved + E.Coli in UCx, repeat Urine Cx negative Microcytic anemia Asymptomatic, most likely secondary Chronic blood loss from Uterine fibroids, cannot rule out other causes. -H/H : 8.8/27.5 -will monitor -C/W Feosol PO BID -S/P 2 units PRBC transfusion Nonobstructive thrombus within the right common femoral vein INR/PT today: 2.34 Coumadin 2 mg Today F/U PT/INR Uterine fibroids/Ovarian Cyst -Likely source of anemia. CA 125 mild elevated, will repeat tomorrow AM. Imaging reviewed CT: multiple massess consistent with fibroids. 5cm fluid density adjacent to left side of uterus. 5.4cm simple left ovarian cystic lesion seen on MRI. transvaginal US: enlarge uterus w/ multiples masses, very limited study, endometrium not seen -SILK SPREADER recommended f/u as outpatient with [facility] DVT prophylaxis -patient being treated for DVT of RCF vein with coumadin.
[2017-01-04 07:23] LABS: BASO # 0.1 K/uL (0.0-0.2); BASO % 0.9 % (0.0-2.0); EOS # 0.2 K/uL (0.0-0.7); EOS % 1.4 % (0.0-4.0); HEMATOCRIT 28.1 % (34.0-47.0); LYMPH # 1.5 K/uL (1.0-4.3); LYMPH % 10.9 % (20.0-40.0); MEAN CELL VOLUME 73.3 fl (81.0-99.0); MEAN CORPUSCULAR HEMOGLOBIN 23.2 pg (27.0-31.0); MEAN CORPUSCULAR HGB CONC 31.6 g/dL (33.0-37.0); MEAN PLATELET VOLUME 9.7 fl (7.2-11.7); NEUT # 11.2 K/uL (1.8-7.0); NEUT % 79.8 % (50.0-75.0); RED CELL DISTRIBUTION WIDTH 35.6 % (11.5-14.5); WHITE BLOOD COUNT 14.1 K/uL (4.8-10.8)
--- NOTE | 2017-01-04 13:53 | CP.PCM.PN ---
Subjective - Date & Time of Evaluation Date of Evaluation: 01/04/17 Time of Evaluation: 07:30 - Subjective Subjective: No acute events overnight. Antibiotics were discontinued yesterday, pt felt much better yesterday and overnight. She had no fevers or chills. She is tolerating regular diet, having regular BM. She was seen ambulating around the unit, without difficulty. Objective - Vital Signs/Intake and Output Vital Signs (last 24 hours): Temp Pulse Resp BP Pulse Ox 98.4 F 79 18 109/65 98 01/04/17 07:41 01/04/17 07:41 01/04/17 07:41 01/04/17 07:41 01/04/17 07:41 - Medications Medications: Current Medications Acetaminophen (Tylenol 650mg/20.3ml Solution Ud) 650 mg GT Q6 PRN PRN Reason: Fever >100.4 F Last Admin: 12/30/16 02:19 Dose: 650 mg Acetaminophen (Tylenol 325mg Tab) 650 mg PO Q4 PRN PRN Reason: Fever >100.4 F Last Admin: 01/03/17 12:05 Dose: 650 mg Albuterol Sulfate (Albuterol 0.083% Inhal Verónica (2.5 Mg/3 Ml) Ud) 2.5 mg INH Q8 PRN PRN Reason: Wheezing Last Admin: 12/31/16 20:13 Dose: 2.5 mg Ferrous Sulfate (Feosol) 325 mg PO BID [facility] Last Admin: 01/04/17 09:57 Dose: 325 mg Ondansetron HCl (Zofran Inj) 4 mg IVP Q6 PRN PRN Reason: Nausea/Vomiting Last Admin: 12/21/16 05:26 Dose: 4 mg - Labs Labs: 01/04/17 06:50 01/03/17 06:10 PT 51.2 Seconds (9.8-13.1) H* 01/04/17 06:50 INR 4.4 (0.9-1.2) H 01/04/17 06:50 APTT 36.0 SECONDS (23.3-32.5) H 12/29/16 13:20 - Constitutional Appears: Well, No Acute Distress - Head Exam Head Exam: NORMAL INSPECTION - Eye Exam Eye Exam: Normal appearance Pupil Exam: NORMAL ACCOMODATION - ENT Exam ENT Exam: Mucous Membranes Moist - Respiratory Exam Respiratory Exam: Clear to Ausculation Bilateral, NORMAL BREATHING PATTERN - Cardiovascular Exam Cardiovascular Exam: REGULAR RHYTHM, +S1, +S2 - GI/Abdominal Exam GI & Abdominal Exam: Soft, Normal Bowel Sounds. absent: Tenderness - Back Exam Back Exam: NORMAL INSPECTION - Neurological Exam Neurological Exam: Alert, Awake, CN II-XII Intact, Normal Gait, Oriented x3 - Psychiatric Exam Psychiatric exam: Normal Affect, Normal Mood - Skin Skin Exam: Dry, Intact, Normal Color Assessment and Plan - Assessment and Plan (Free Text) Assessment: 51 y/o F hx of obesity, iron deficiency anemia likely secondary to menorrhagia/ uterine fibroids, s/p appendectomy on 12/13/16 admitted for sepsis with bacteremia likely secondary to UTI. Patient has improved clinically, leukocytosis persists and INR elevated today. Will hold coumadin for today. Plan: Sepsis likely secondary to UTI Continue to monitor vitals for fever, however. Patient is stable, has remained afebrile, however leukocytosis persists. -Repeat blood culture no growth in 4 days- final. urine culture no growth - final -Dr. Almaguer is following. -Pt completed 9 days of IV Abx. -c/w Tylenol PRN for fever -CT Abd/Pelvis: negative for intrabdominal abscess repeat CBC in AM, monitor vitals Hypokalemia Resolved. K+:3.6 UTI resolved + E.Coli in UCx, repeat Urine Cx negative Microcytic anemia Asymptomatic, most likely secondary Chronic blood loss from Uterine fibroids, cannot rule out other causes. stable, hb 8.9 -will monitor -S/P 2 units PRBC transfusion -C/W Feosol PO BID Nonobstructive thrombus within the right common femoral vein INR elevated: 4.1 Hold coumadin today F/U PT/INR in AM. Uterine fibroids/Ovarian Cyst Likely source of anemia. CA 125 elevated, pending repeat Imaging reviewed CT: multiple masses consistent with fibroids. 5cm fluid density adjacent to left side of uterus. 5.4cm simple left ovarian cystic lesion seen on MRI. transvaginal US: enlarge uterus w/ multiples masses, very limited study, endometrium not seen -INFORMATICIST recommended f/u as outpatient with [facility] DVT prophylaxis -patient being treated for DVT of RCF vein with coumadin
[2017-01-05 09:17] LABS: HEMATOCRIT 28.3 % (34.0-47.0); MEAN CELL VOLUME 72.6 fl (81.0-99.0); MEAN CORPUSCULAR HEMOGLOBIN 22.7 pg (27.0-31.0); MEAN CORPUSCULAR HGB CONC 31.2 g/dL (33.0-37.0); PLATELET COUNT 222 K/uL (130-400); WHITE BLOOD COUNT 33.5 K/uL (4.8-10.8)
--- NOTE | 2017-01-05 10:15 | CP.PCM.PN ---
Subjective - Date & Time of Evaluation Date of Evaluation: 01/05/17 Time of Evaluation: 08:15 - Subjective Subjective: Overnight events: patient had tmax 103F. Patient seen and examined bedside. No complaints at present. She is tolerating regular diet. She has been out of bed and ambulating, denies any dizziness, chest pain, dyspnea, abdominal pain, nausea, vomiting, pedal edema/leg pain. She had 2 episodes of loose foul smelling stool this AM. Patient requesting to shower. Objective - Vital Signs/Intake and Output Vital Signs (last 24 hours): Temp Pulse Resp BP Pulse Ox 97.8 F 91 H 20 94/56 L 96 01/05/17 08:58 01/05/17 08:58 01/05/17 08:58 01/05/17 06:38 01/05/17 08:58 - Medications Medications: Current Medications Acetaminophen (Tylenol 650mg/20.3ml Solution Ud) 650 mg GT Q6 PRN PRN Reason: Fever >100.4 F Last Admin: 12/30/16 02:19 Dose: 650 mg Acetaminophen (Tylenol 325mg Tab) 650 mg PO Q4 PRN PRN Reason: Fever >100.4 F Last Admin: 01/05/17 04:33 Dose: 650 mg Albuterol Sulfate (Albuterol 0.083% Inhal Verónica (2.5 Mg/3 Ml) Ud) 2.5 mg INH Q8 PRN PRN Reason: Wheezing Last Admin: 12/31/16 20:13 Dose: 2.5 mg Ferrous Sulfate (Feosol) 325 mg PO BID [facility] Last Admin: 01/05/17 09:59 Dose: 325 mg Ondansetron HCl (Zofran Inj) 4 mg IVP Q6 PRN PRN Reason: Nausea/Vomiting Last Admin: 12/21/16 05:26 Dose: 4 mg - Labs Labs: 01/05/17 08:30 01/03/17 06:10 PT 29.0 Seconds (9.8-13.1) H D 01/05/17 08:30 INR 2.5 (0.9-1.2) H D 01/05/17 08:30 APTT 36.0 SECONDS (23.3-32.5) H 12/29/16 13:20 - Constitutional Appears: No Acute Distress - Head Exam Head Exam: NORMAL INSPECTION - ENT Exam ENT Exam: Normal Exam - Neck Exam Neck Exam: Normal Inspection - Respiratory Exam Respiratory Exam: Clear to Ausculation Bilateral, NORMAL BREATHING PATTERN - Cardiovascular Exam Cardiovascular Exam: REGULAR RHYTHM, +S1, +S2 - GI/Abdominal Exam GI & Abdominal Exam: Soft, Normal Bowel Sounds. absent: Tenderness - Rectal Exam Rectal Exam: Deferred - Extremities Exam Extremities Exam: Normal Inspection. absent: Calf Tenderness - Back Exam Back Exam: NORMAL INSPECTION - Neurological Exam Neurological Exam: Alert, Awake, CN II-XII Intact, Normal Gait, Oriented x3 - Psychiatric Exam Psychiatric exam: Anxious - Skin Skin Exam: Dry, Intact, Normal Color Assessment and Plan - Assessment and Plan (Free Text) Assessment: 51 y/o F hx of obesity, iron deficiency anemia likely secondary to menorrhagia/ uterine fibroids, s/p appendectomy on 12/13/16 admitted for sepsis with bacteremia likely secondary to UTI.Tmax 103F overnight, leukocytosis worsening , unknown eitiology of fevers and leukocytosis. Patient is stable, tolerating regular diet. Plan: Sepsis likely secondary to UTI No longer septic, patient is hemodynamically stable however fever persists and leukocytosis worsening. Differential includes Infectious etiology vs Malignancy -Hematology oncology consult(Dr. Kent. ) -Repeated blood and urine cultures, CXR negative. -Follow up: Lyme IgG, IgM, ERICA, Rheumatoid factor, Quantiferon, CRP, ESR, RPR, Cdiff -Dr. Almaguer recommendations appreciated: add mycamine, cxr, cultures -Pt completed 9 days of IV Abx. -c/w Tylenol PRN for fever repeat CBC in AM, monitor vitals Hypokalemia Resolved. K+:3.6 UTI resolved + E.Coli in UCx, repeat Urine Cx negative Microcytic anemia Asymptomatic, most likely secondary Chronic blood loss from Uterine fibroids, cannot rule out other causes. stable, hb 8.8 -will monitor -S/P 2 units PRBC transfusion -C/W Feosol PO BID Nonobstructive thrombus within the right common femoral vein INR : 2.5, therapeutic Coumadin 1mg today. F/U PT/INR in AM. Uterine fibroids/Ovarian Cyst Likely source of anemia. CA 125 elevated, pending repeat Imaging reviewed CT: multiple masses consistent with fibroids. 5cm fluid density adjacent to left side of uterus. 5.4cm simple left ovarian cystic lesion seen on MRI. 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
[2017-01-05] MEDS ORDERED: Micafungin 100 MG in Sodium Chloride 0.9% 100 ML IVPB SCH (11:30)
--- NOTE | 2017-01-05 11:44 | RAD ---
HISTORY: fever COMPARISON: 12/25/2016 TECHNIQUE: Chest PA and lateral FINDINGS: LUNGS: No focal airspace opacity. PLEURA: No significant pleural effusion identified. No pneumothorax apparent. CARDIOVASCULAR: Stable. OSSEOUS STRUCTURES: No significant abnormalities. VISUALIZED UPPER ABDOMEN: Upper abdomen is suboptimally evaluated. OTHER FINDINGS: Right-sided PICC with the distal tip of the catheter overlying the projection of the SVC/right atrial junction. Interval removal of ET tube and feeding tube. IMPRESSION: No focal airspace opacity.
[2017-01-05 12:44] LABS: BASOPHIL 1 % (0-2); NEUTROPHIL 85 % (42-75); TOTAL CELLS COUNTED 100
[2017-01-05 12:45] LABS: GIANT PLATELETS PRESENT; LARGE PLATELETS PRESENT
[2017-01-05] MEDS: Micafungin 100 MG in Sodium Chloride 0.9% 100 ML IVPB SCH (13:00)
[2017-01-06] MEDS: Linezolid 600 mg in D5W 300 ml 600 MG/300 ML BAG IVPB SCH ×3 (00:57→22:00)
[2017-01-06 09:06] LABS: BASO % 0.3 % (0.0-2.0); EOS # 0.2 K/uL (0.0-0.7); EOS % 1.3 % (0.0-4.0); HEMATOCRIT 28.5 % (34.0-47.0); LYMPH # 0.8 K/uL (1.0-4.3); LYMPH % 4.8 % (20.0-40.0); MEAN CELL VOLUME 72.8 fl (81.0-99.0); MEAN CORPUSCULAR HEMOGLOBIN 22.8 pg (27.0-31.0); MEAN CORPUSCULAR HGB CONC 31.4 g/dL (33.0-37.0); MEAN PLATELET VOLUME 9.5 fl (7.2-11.7); MONO # 0.2 K/uL (0.0-0.8); MONO % 1.3 % (0.0-10.0); NEUT # 14.5 K/uL (1.8-7.0); NEUT % 92.3 % (50.0-75.0); PLATELET COUNT 211 K/uL (130-400); RED CELL DISTRIBUTION WIDTH 35.4 % (11.5-14.5); WHITE BLOOD COUNT 15.7 K/uL (4.8-10.8)
--- NOTE | 2017-01-06 09:36 | CP.PCM.PN ---
Subjective - Date & Time of Evaluation Date of Evaluation: 01/06/17 Time of Evaluation: 08:00 - Subjective Subjective: Patient was seen and examined at bedside this morning. Patient had procalcitonin level of 101.88 on yesterday night. on yesterday night.wanted to start on zyvox and avycaz. Per nurse patient had 100.8 temp with rectum temp this morning. Patient appears sad and worried this morning regarding fever. Patient stated she had been nonproductive cough intermittent. Denies SOB, chest pain, N/V/D, dysuria, abdomen pain on incision site headache and dizziness. Objective - Vital Signs/Intake and Output Vital Signs (last 24 hours): Temp Pulse Resp BP Pulse Ox 97.9 F 98 H 20 100/63 97 01/06/17 09:32 01/06/17 09:32 01/06/17 09:32 01/06/17 09:32 01/06/17 09:32 - Medications Medications: Current Medications Acetaminophen (Tylenol 650mg/20.3ml Solution Ud) 650 mg GT Q6 PRN PRN Reason: Fever >100.4 F Last Admin: 12/30/16 02:19 Dose: 650 mg Acetaminophen (Tylenol 325mg Tab) 650 mg PO Q4 PRN PRN Reason: Fever >100.4 F Last Admin: 01/06/17 06:55 Dose: 650 mg Albuterol Sulfate (Albuterol 0.083% Inhal Verónica (2.5 Mg/3 Ml) Ud) 2.5 mg INH Q8 PRN PRN Reason: Wheezing Last Admin: 12/31/16 20:13 Dose: 2.5 mg Ferrous Sulfate (Feosol) 325 mg PO BID [facility] Last Admin: 01/05/17 17:26 Dose: 325 mg Micafungin Sodium 100 mg/ (Sodium Chloride) 100 mls @ 100 mls/hr IVPB DAILY [facility] Last Admin: 01/05/17 13:00 Dose: 100 mls/hr Linezolid (Zyvox 600mg/300ml D5w) 600 mg in 300 mls @ 300 mls/hr IVPB Q12H [facility] Last Admin: 01/06/17 00:57 Dose: 300 mls/hr Ceftazidime/Avibactam 2.5 gm/ (Sodium Chloride) 100 mls @ 100 mls/hr IVPB Q8H [facility] Last Admin: 01/06/17 06:31 Dose: 100 mls/hr Ondansetron HCl (Zofran Inj) 4 mg IVP Q6 PRN PRN Reason: Nausea/Vomiting Last Admin: 12/21/16 05:26 Dose: 4 mg - Labs Labs: 01/05/17 08:30 01/03/17 06:10 PT 37.1 Seconds (9.8-13.1) H D 01/06/17 06:45 INR 3.2 (0.9-1.2) H 01/06/17 06:45 APTT 36.0 SECONDS (23.3-32.5) H 12/29/16 13:20 - Constitutional Appears: Non-toxic, No Acute Distress, Other (worried) - Head Exam Head Exam: ATRAUMATIC, NORMAL INSPECTION, NORMOCEPHALIC - Eye Exam Eye Exam: EOMI, Normal appearance, PERRL Pupil Exam: NORMAL ACCOMODATION, PERRL - ENT Exam ENT Exam: Mucous Membranes Moist, Normal Exam - Neck Exam Neck Exam: Full ROM - Respiratory Exam Respiratory Exam: Clear to Ausculation Bilateral, NORMAL BREATHING PATTERN - Cardiovascular Exam Cardiovascular Exam: REGULAR RHYTHM, RRR, +S1, +S2 - GI/Abdominal Exam GI & Abdominal Exam: Soft, Tenderness (mild RLQ tenderness), Normal Bowel Sounds Additional comments: obese - Extremities Exam Extremities Exam: Full ROM, Normal Inspection Additional comments: PICC on right upper extremity - Back Exam Back Exam: NORMAL INSPECTION - Neurological Exam Neurological Exam: Alert, Awake, CN II-XII Intact, Oriented x3 - Psychiatric Exam Psychiatric exam: Normal Affect, Normal Mood - Skin Skin Exam: Dry, Intact, Normal Color, Warm Assessment and Plan - Assessment and Plan (Free Text) Assessment: 51 y/o F hx of obesity, iron deficiency anemia likely secondary to menorrhagia/ uterine fibroids, s/p appendectomy on 12/13/16 admitted for sepsis with bacteremia likely secondary to UTI. Patient is spiking fever unknown etiology infection vs inflammatory vs malignancy. Plan: 1. fever and leukocytosis with unknown etiology -etiology Infectious vs inflammatory vs Malignancy -WBC:33->15 -procalcitonin: 101.88 -Repeated blood and urine cultures, CXR negative. -Follow up: Lyme IgG, IgM, ERICA, Rheumatoid factor, Quantiferon, CRP, ESR, RPR -ID consulted Dr. Almaguer -continue with mycamine (2nd day) -continue with zyvox and avycaz -reconsulted for surgery team to assess postop -cdiff negative -f/u cbc, vitals and procalcitonin 2. UTI -resolved -+ E.Coli in UCx, repeat Urine Cx negative 3. Microcytic anemia -Asymptomatic, most likely secondary Chronic blood loss from Uterine fibroids, cannot rule out other causes. -stable, hb 8.9 -will monitor -S/P 2 units PRBC transfusion -C/W Feosol PO BID 4. Nonobstructive thrombus within the right common femoral vein -INR : 3.2 -continue with Coumadin 1mg -F/U PT/INR in AM. 5. Uterine fibroids/Ovarian Cyst -Likely source of anemia. CA 125 elevated, pending repeat -Imaging reviewed CT: multiple masses consistent with fibroids. 5cm fluid density adjacent to left side of uterus. 5.4cm simple left ovarian cystic lesion seen on MRI. 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 DVT prophylaxis -Coumadin 1mg
[2017-01-06] MEDS: Micafungin 100 MG in Sodium Chloride 0.9% 100 ML IVPB SCH (11:44)
[2017-01-06 12:29] LABS: EOSINOPHIL 1 % (0-7); NEUTROPHIL 88 % (42-75); TOTAL CELLS COUNTED 100
[2017-01-06 12:31] LABS: LARGE PLATELETS PRESENT
--- NOTE | 2017-01-06 15:44 | CP.PCM.CON ---
History of Present Illness - History of Present Illness History of Present Illness: Pt complains of fever. cough without expectoration. Past Patient History - Infectious Disease Hx of Infectious Diseases: None - Past Medical History & Family History Past Medical History?: No - Past Social History Smoking Status: Never Smoked - CARDIAC Hx Cardiac Disorders: No - PULMONARY Hx Respiratory Disorders: No - NEUROLOGICAL Hx Neurological Disorder: No - HEENT Hx HEENT Problems: No - RENAL Hx Chronic Kidney Disease: No - ENDOCRINE/METABOLIC Hx Endocrine Disorders: No - HEMATOLOGICAL/ONCOLOGICAL Hx Anemia: Yes - INTEGUMENTARY Hx Dermatological Problems: No - MUSCULOSKELETAL/RHEUMATOLOGICAL Hx Musculoskeletal Disorders: No Hx Falls: No - GASTROINTESTINAL Hx Gastrointestinal Disorders: No - GENITOURINARY/GYNECOLOGICAL Hx Genitourinary Disorders: No - PSYCHIATRIC Hx Psychophysiologic Disorder: No Hx Emotional Abuse: No Hx Physical Abuse: No Hx Substance Use: No - SURGICAL HISTORY Hx Surgeries: Yes Other/Comment: APPENDECTOMY-DECEMBER 2016 - ANESTHESIA Hx Anesthesia: Yes Hx Anesthesia Reactions: No Hx Malignant Hyperthermia: No Meds Home Medications: Home Medication List Medication Instructions Recorded Confirmed Type Cephalexin [cephalexin] 500 mg PO QID #28 cap 12/19/16 Rx Naproxen [Naprosyn] 500 mg PO BID PRN #20 tablet 12/19/16 Rx Allergies/Adverse Reactions: Allergies Allergy/AdvReac Type Severity Reaction Status Date / Time No Known Allergies Allergy Verified 12/12/16 23:15 - Medications Medications: Current Medications Acetaminophen (Tylenol 650mg/20.3ml Solution Ud) 650 mg GT Q6 PRN PRN Reason: Fever >100.4 F Last Admin: 12/30/16 02:19 Dose: 650 mg Acetaminophen (Tylenol 325mg Tab) 650 mg PO Q4 PRN PRN Reason: Fever >100.4 F Last Admin: 01/06/17 11:01 Dose: 650 mg Albuterol Sulfate (Albuterol 0.083% Inhal Verónica (2.5 Mg/3 Ml) Ud) 2.5 mg INH Q8 PRN PRN Reason: Wheezing Last Admin: 12/31/16 20:13 Dose: 2.5 mg Ferrous Sulfate (Feosol) 325 mg PO BID [facility] Last Admin: 01/06/17 09:56 Dose: 325 mg Micafungin Sodium 100 mg/ (Sodium Chloride) 100 mls @ 100 mls/hr IVPB DAILY [facility] Last Admin: 01/06/17 11:44 Dose: 100 mls/hr Linezolid (Zyvox 600mg/300ml D5w) 600 mg in 300 mls @ 300 mls/hr IVPB Q12H [facility] Last Admin: 01/06/17 11:13 Dose: 300 mls/hr Ceftazidime/Avibactam 2.5 gm/ (Sodium Chloride) 100 mls @ 100 mls/hr IVPB Q8H [facility] Last Admin: 01/06/17 06:31 Dose: 100 mls/hr Sodium Chloride (Sodium Chloride 0.9%) 500 mls @ 125 mls/hr IV .Q4H [facility] Ondansetron HCl (Zofran Inj) 4 mg IVP Q6 PRN PRN Reason: Nausea/Vomiting Last Admin: 12/21/16 05:26 Dose: 4 mg Physical Exam - Rectal Exam Additional comments: mild abdominal tenderness on deep palpation in right lower quadrant. Results - Vital Signs Recent Vital Signs: Last Vital Signs Temp 98.5 F 01/06/17 12:01 Pulse 98 H 01/06/17 09:32 Resp 20 01/06/17 12:01 BP 100/63 01/06/17 09:32 Pulse Ox 97 01/06/17 09:32 - Labs Result Diagrams: 01/06/17 06:45 01/03/17 06:10 Labs: Laboratory Results - last 24 hr 01/05/17 01/06/17 01/06/17 07:30 05:00 06:45 WBC RBC Hgb Hct MCV MCH MCHC RDW Plt Count MPV Neut % (Auto) Lymph % (Auto) Crisp % (Auto) Eos % (Auto) Baso % (Auto) Neut # Lymph # Crisp # Eos # Baso # Neutrophils % (Manual) Band Neutrophils % Lymphocytes % (Manual) Monocytes % (Manual) Eosinophils % (Manual) Platelet Estimate Large Platelets Hypochromasia (manual) Poikilocytosis (manual Anisocytosis (manual) Microcytosis (manual) Macrocytosis (manual) Tear Drop Cells Ovalocytes PT 37.1 H D INR 3.2 H Procalcitonin 101.88 H C. difficile Ag & Toxin Negative 01/06/17 06:45 WBC 15.7 H D RBC 3.92 Hgb 8.9 L Hct 28.5 L MCV 72.8 L MCH 22.8 L MCHC 31.4 L RDW 35.4 H Plt Count 211 MPV 9.5 Neut % (Auto) 92.3 H Lymph % (Auto) 4.8 L Crisp % (Auto) 1.3 Eos % (Auto) 1.3 Baso % (Auto) 0.3 Neut # 14.5 H Lymph # 0.8 L Crisp # 0.2 Eos # 0.2 Baso # 0.0 Neutrophils % (Manual) 88 H Band Neutrophils % 2 Lymphocytes % (Manual) 5 L Monocytes % (Manual) 4 Eosinophils % (Manual) 1 Platelet Estimate Normal Large Platelets Present Hypochromasia (manual) Moderate Poikilocytosis (manual Slight Anisocytosis (manual) Moderate Microcytosis (manual) Slight Macrocytosis (manual) Slight Tear Drop Cells Slight Ovalocytes Slight PT INR Procalcitonin C. difficile Ag & Toxin Assessment & Plan - Assessment and Plan (Free Text) Assessment: Febrile leukocytosis, clinically stable. WBC decreased today. d/c PICC line, could be infected. Continue Zyvox, Avycaz and Mycamin #2. f/u blood culture. If patient spikes again tomorrow, would need CT abdomen.
--- NOTE | 2017-01-07 06:37 | CP.PCM.PN ---
Subjective - Date & Time of Evaluation Date of Evaluation: 01/07/17 Time of Evaluation: 08:20 - Subjective Subjective: Overnight Events: Tmax: 102.4. Patient is feeling anxious over persistence of fevers. She had 1 more episode of loose stool, no foul odor. Admits to +tenderness to palpation RLQ. Tolerating regular diet, without nausea or vomiting. PICC line removed 01/06/17. Objective - Vital Signs/Intake and Output Vital Signs (last 24 hours): Temp Pulse Resp BP Pulse Ox 99 F 83 20 101/65 97 01/07/17 02:44 01/06/17 21:06 01/06/17 18:06 01/06/17 21:06 01/06/17 18:06 - Medications Medications: Current Medications Acetaminophen (Tylenol 650mg/20.3ml Solution Ud) 650 mg GT Q6 PRN PRN Reason: Fever >100.4 F Last Admin: 12/30/16 02:19 Dose: 650 mg Acetaminophen (Tylenol 325mg Tab) 650 mg PO Q4 PRN PRN Reason: Fever >100.4 F Last Admin: 01/07/17 01:44 Dose: 650 mg Albuterol Sulfate (Albuterol 0.083% Inhal Verónica (2.5 Mg/3 Ml) Ud) 2.5 mg INH Q8 PRN PRN Reason: Wheezing Last Admin: 12/31/16 20:13 Dose: 2.5 mg Ferrous Sulfate (Feosol) 325 mg PO BID [facility] Last Admin: 01/06/17 17:00 Dose: 325 mg Micafungin Sodium 100 mg/ (Sodium Chloride) 100 mls @ 100 mls/hr IVPB DAILY [facility] Last Admin: 01/06/17 11:44 Dose: 100 mls/hr Linezolid (Zyvox 600mg/300ml D5w) 600 mg in 300 mls @ 300 mls/hr IVPB Q12H [facility] Last Admin: 01/06/17 22:00 Dose: 300 mls/hr Ceftazidime/Avibactam 2.5 gm/ (Sodium Chloride) 100 mls @ 100 mls/hr IVPB Q8H [facility] Last Admin: 01/07/17 00:30 Dose: 100 mls/hr Sodium Chloride (Sodium Chloride 0.9%) 500 mls @ 125 mls/hr IV .Q4H [facility] Ondansetron HCl (Zofran Inj) 4 mg IVP Q6 PRN PRN Reason: Nausea/Vomiting Last Admin: 12/21/16 05:26 Dose: 4 mg Warfarin Sodium (Coumadin) 1 mg PO QD5 [facility] PRN Reason: Protocol Stop: 01/07/17 17:01 - Labs Labs: 01/06/17 06:45 01/03/17 06:10 PT 37.1 Seconds (9.8-13.1) H D 01/06/17 06:45 INR 3.2 (0.9-1.2) H 01/06/17 06:45 APTT 36.0 SECONDS (23.3-32.5) H 12/29/16 13:20 - Constitutional Appears: No Acute Distress - Head Exam Head Exam: NORMAL INSPECTION - Eye Exam Eye Exam: Normal appearance - Neck Exam Neck Exam: Normal Inspection - Respiratory Exam Respiratory Exam: Clear to Ausculation Bilateral, NORMAL BREATHING PATTERN - Cardiovascular Exam Cardiovascular Exam: REGULAR RHYTHM, +S1, +S2 - GI/Abdominal Exam GI & Abdominal Exam: Soft, Tenderness (RLQ), Normal Bowel Sounds. absent: Guarding, Rebound - Extremities Exam Extremities Exam: Normal Inspection. absent: Pedal Edema - Neurological Exam Neurological Exam: Alert, Awake, CN II-XII Intact, Normal Gait, Oriented x3 - Psychiatric Exam Psychiatric exam: Anxious - Skin Skin Exam: Dry, Intact Assessment and Plan - Assessment and Plan (Free Text) Assessment: 51 y/o F hx of obesity, iron deficiency anemia likely secondary to menorrhagia/ uterine fibroids, s/p appendectomy on 12/13/16 admitted for sepsis with bacteremia likely secondary to UTI. Patient is spiking fever unknown etiology infection vs inflammatory vs malignancy. Plan: 1. Fever and leukocytosis with unknown etiology -etiology Infectious vs inflammatory vs Malignancy -WBC:33->15--> 22.3 -RPR negative, cdiff negative. -procalcitonin: 101.88, trending down: 56 -Follow up: Lyme IgG, IgM, ERICA, Rheumatoid factor, Quantiferon, CRP, ESR -Consults: ID(Dr. Almaguer): -continue with mycamine , Day #3. continue with zyvox and avycaz. Day #2 -Heme/onc(Dr. Kent) : Bone marrow biopsy 01/08/17 if fevers persist -reconsulted for surgery team to assess postop Follow up CT CHEST /ABD/PELVIS w/ and w/o contrast. repeat CBC in AM 2. UTI -resolved -+ E.Coli in UCx, repeat Urine Cx negative 3. Microcytic anemia -Asymptomatic, most likely secondary Chronic blood loss from Uterine fibroids, cannot rule out other causes. -stable, hb 8.8 -S/P 2 units PRBC transfusion -C/W Feosol PO BID 4. Nonobstructive thrombus within the right common femoral vein -INR : 3.1 -continue with Coumadin 1mg -F/U PT/INR in AM. 5. Uterine fibroids/Ovarian Cyst -Likely source of anemia. CA 125 elevated, pending repeat -Imaging reviewed CT: multiple masses consistent with fibroids. 5cm fluid density adjacent to left side of uterus. 5.4cm simple left ovarian cystic lesion seen on MRI. 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 DVT prophylaxis -has DVT- RCF vein on -Coumadin. INR therapeutic.
[2017-01-07 07:56] LABS: HEMATOCRIT 27.4 % (34.0-47.0); MEAN CELL VOLUME 72.4 fl (81.0-99.0); MEAN CORPUSCULAR HEMOGLOBIN 23.2 pg (27.0-31.0); RED CELL DISTRIBUTION WIDTH 35.3 % (11.5-14.5); WHITE BLOOD COUNT 22.3 K/uL (4.8-10.8)
[2017-01-07 08:28] LABS: BLOOD UREA NITROGEN 6 mg/dl (7-17); CALCIUM 8.3 mg/dL (8.4-10.2); CARBON DIOXIDE 24 mmol/L (22-30); CHLORIDE 102 mmol/L (98-107); GFR AFRICAN-AMERICAN > 60; GLUCOSE,RANDOM 128 mg/dL (65-105); POTASSIUM 3.7 MMOL/L (3.6-5.0); SODIUM 134 mmol/l (132-148)
[2017-01-07 08:31] LABS: PARTIAL THROMBOPLASTIN TIME 48.5 Seconds (25.6-37.1)
[2017-01-07] MEDS: Micafungin 100 MG in Sodium Chloride 0.9% 100 ML IVPB SCH (08:52)
--- NOTE | 2017-01-07 10:08 | CP.PCM.CON ---
History of Present Illness - History of Present Illness History of Present Illness: %This is a 51 yrs old female who was admitted to the hospital for a UTI, but became septic and needed to be intubated, Her c/s showed E coli and she has been on antibiotics since 12/20/16.She however has had fever off and on, and would get chills after the vancomycin, so on saturday when the WBC were 15, the antibiotics stopped, but the pt again had fever, and today's wbc are 22. All other c/s are negative now, and all tests for TB, lyme etc were negative.Pt however is on antibiotics now, but fever still continues. Past Patient History - Infectious Disease Hx of Infectious Diseases: None - Past Medical History & Family History Past Medical History?: No - Past Social History Smoking Status: Never Smoked - CARDIAC Hx Cardiac Disorders: No - PULMONARY Hx Respiratory Disorders: No - NEUROLOGICAL Hx Neurological Disorder: No - HEENT Hx HEENT Problems: No - RENAL Hx Chronic Kidney Disease: No - ENDOCRINE/METABOLIC Hx Endocrine Disorders: No - HEMATOLOGICAL/ONCOLOGICAL Hx Anemia: Yes - INTEGUMENTARY Hx Dermatological Problems: No - MUSCULOSKELETAL/RHEUMATOLOGICAL Hx Musculoskeletal Disorders: No Hx Falls: No - GASTROINTESTINAL Hx Gastrointestinal Disorders: No - GENITOURINARY/GYNECOLOGICAL Hx Genitourinary Disorders: No - PSYCHIATRIC Hx Psychophysiologic Disorder: No Hx Emotional Abuse: No Hx Physical Abuse: No Hx Substance Use: No - SURGICAL HISTORY Hx Surgeries: Yes Other/Comment: APPENDECTOMY-DECEMBER 2016 - ANESTHESIA Hx Anesthesia: Yes Hx Anesthesia Reactions: No Hx Malignant Hyperthermia: No Meds Home Medications: Home Medication List Medication Instructions Recorded Confirmed Type Cephalexin [cephalexin] 500 mg PO QID #28 cap 12/19/16 Rx Naproxen [Naprosyn] 500 mg PO BID PRN #20 tablet 12/19/16 Rx Allergies/Adverse Reactions: Allergies Allergy/AdvReac Type Severity Reaction Status Date / Time No Known Allergies Allergy Verified 12/12/16 23:15 - Medications Medications: Current Medications Acetaminophen (Tylenol 650mg/20.3ml Solution Ud) 650 mg GT Q6 PRN PRN Reason: Fever >100.4 F Last Admin: 12/30/16 02:19 Dose: 650 mg Acetaminophen (Tylenol 325mg Tab) 650 mg PO Q4 PRN PRN Reason: Fever >100.4 F Last Admin: 01/07/17 01:44 Dose: 650 mg Albuterol Sulfate (Albuterol 0.083% Inhal Verónica (2.5 Mg/3 Ml) Ud) 2.5 mg INH Q8 PRN PRN Reason: Wheezing Last Admin: 12/31/16 20:13 Dose: 2.5 mg Ferrous Sulfate (Feosol) 325 mg PO BID [facility] Last Admin: 01/07/17 08:58 Dose: 325 mg Micafungin Sodium 100 mg/ (Sodium Chloride) 100 mls @ 100 mls/hr IVPB DAILY [facility] Last Admin: 01/07/17 08:52 Dose: 100 mls/hr Linezolid (Zyvox 600mg/300ml D5w) 600 mg in 300 mls @ 300 mls/hr IVPB Q12H [facility] Last Admin: 01/06/17 22:00 Dose: 300 mls/hr Ceftazidime/Avibactam 2.5 gm/ (Sodium Chloride) 100 mls @ 100 mls/hr IVPB Q8H [facility] Last Admin: 01/07/17 00:30 Dose: 100 mls/hr Sodium Chloride (Sodium Chloride 0.9%) 500 mls @ 125 mls/hr IV .Q4H [facility] Ondansetron HCl (Zofran Inj) 4 mg IVP Q6 PRN PRN Reason: Nausea/Vomiting Last Admin: 12/21/16 05:26 Dose: 4 mg Warfarin Sodium (Coumadin) 1 mg PO QD5 MIGUEL PRN Reason: Protocol Stop: 01/07/17 17:01 Physical Exam - Additional Findings Additional findings: Phgysical Exam; Alert,well oriented in no acute distress neck supple, no adenopathy Chest; Clear, no rales or rhonchi Heart; RSR, no murmur Abd; Soft, no mass, no h/s megaly. Results - Vital Signs Recent Vital Signs: Last Vital Signs Temp 98.2 F 01/07/17 07:56 Pulse 73 01/07/17 07:56 Resp 20 01/07/17 07:56 BP 94/61 L 01/07/17 07:56 Pulse Ox 96 01/07/17 07:56 - Labs Result Diagrams: 01/07/17 07:48 01/07/17 07:48 Labs: Laboratory Results - last 24 hr 06/0301/06/17 01/06/17 12:10 06:45 06:45 WBC 15.7 H D RBC 3.92 Hgb 8.9 L Hct 28.5 L MCV 72.8 L MCH 22.8 L MCHC 31.4 L RDW 35.4 H Plt Count 211 MPV 9.5 Neut % (Auto) 92.3 H Lymph % (Auto) 4.8 L [place] % (Auto) 1.3 Eos % (Auto) 1.3 Baso % (Auto) 0.3 Neut # 14.5 H Lymph # 0.8 L [place] # 0.2 Eos # 0.2 Baso # 0.0 Neutrophils % (Manual) 88 H Band Neutrophils % 2 Lymphocytes % (Manual) 5 L Monocytes % (Manual) 4 Eosinophils % (Manual) 1 Platelet Estimate Normal Large Platelets Present Hypochromasia (manual) Moderate Poikilocytosis (manual Slight Anisocytosis (manual) Moderate Microcytosis (manual) Slight Macrocytosis (manual) Slight Tear Drop Cells Slight Ovalocytes Slight PT INR APTT Sodium Potassium Chloride Carbon Dioxide Anion Gap BUN Creatinine Est GFR ( Amer) Est GFR (Non-Af Amer) Random Glucose Calcium Lactate Dehydrogenase Procalcitonin 56.71 H RPR Nonreactive 01/07/17 01/07/17 01/07/17 07:48 07:48 07:48 WBC 22.3 H RBC 3.78 L Hgb 8.8 L Hct 27.4 L MCV 72.4 L MCH 23.2 L MCHC 32.0 L RDW 35.3 H Plt Count 164 MPV Neut % (Auto) Lymph % (Auto) [place] % (Auto) Eos % (Auto) Baso % (Auto) Neut # Lymph # [place] # Eos # Baso # Neutrophils % (Manual) Band Neutrophils % Lymphocytes % (Manual) Monocytes % (Manual) Eosinophils % (Manual) Platelet Estimate Large Platelets Hypochromasia (manual) Poikilocytosis (manual Anisocytosis (manual) Microcytosis (manual) Macrocytosis (manual) Tear Drop Cells Ovalocytes PT 35.2 H INR 3.1 H APTT 48.5 H Sodium 134 Potassium 3.7 Chloride 102 Carbon Dioxide 24 Anion Gap 12 BUN 6 L Creatinine 0.6 L Est GFR ( Amer) > 60 Est GFR (Non-Af Amer) > 60 Random Glucose 128 H Calcium 8.3 L Lactate Dehydrogenase Procalcitonin RPR 01/07/17 08:55 WBC RBC Hgb Hct MCV MCH MCHC RDW Plt Count MPV Neut % (Auto) Lymph % (Auto) [place] % (Auto) Eos % (Auto) Baso % (Auto) Neut # Lymph # [place] # Eos # Baso # Neutrophils % (Manual) Band Neutrophils % Lymphocytes % (Manual) Monocytes % (Manual) Eosinophils % (Manual) Platelet Estimate Large Platelets Hypochromasia (manual) Poikilocytosis (manual Anisocytosis (manual) Microcytosis (manual) Macrocytosis (manual) Tear Drop Cells Ovalocytes PT INR APTT Sodium Potassium Chloride Carbon Dioxide Anion Gap BUN Creatinine Est GFR ( Amer) Est GFR (Non-Af Amer) Random Glucose Calcium Lactate Dehydrogenase 553 Procalcitonin RPR Assessment & Plan - Assessment and Plan (Free Text) Assessment: Impression; Fever of unknown origin Leukocytosis. R/o malignancy., Plan: Plan; If pt is still febrile tomorrow and wbc still high , will do a bone marrow for c/s - Date & Time Date: 01/07/17 Time: 10:29
[2017-01-07] MEDS: Linezolid 600 mg in D5W 300 ml 600 MG/300 ML BAG IVPB SCH ×2 (10:39→22:07)
[2017-01-07] MEDS: Sodium Chloride 0.9% 500 ML IV SCH ×2 (10:41→21:30)
[2017-01-07] MEDS ORDERED: Iohexol 240 (50 ml) PO STA (11:43)
[2017-01-07] MEDS ORDERED: Iohexol 300 100 ML IJ ONE (15:40)
[2017-01-07] MEDS ORDERED: Sodium Chloride 0.9% 50 ML IV ONE (15:40)
[2017-01-07 17:08] LABS: LYME IGM EQUIVOCAL (NEGATIVE)
[2017-01-07 17:24] LABS: LYME IGG NEGATIVE (NEGATIVE)
--- NOTE | 2017-01-07 17:39 | CT ---
PROCEDURE: CT Chest the the chest abdomen and pelvis dated 01/07/2017. HISTORY: Fever. Status post appendectomy. Uterine fibroid. COMPARISON: Comparison made with CTA chest 12/28/2016 comparison also made with chest abdomen pelvis 12/20/[address] scan of the abdomen and pelvis dated 06/2017 TECHNIQUE: Contiguous axial images of the abdomen and pelvis pelvis performed following oral and intravenous injection of approximately 95 cc of Omnipaque 300 contrast material. . Coronal and Sagittal reformats generated. This CT exam was performed using one or more of the following dose reduction techniques: Automated exposure control, adjustment of the mA and/or kV according to patient size, and/or use of iterative reconstruction technique. Radiation dose: Total exam DLP = 1231.39 mGy-cm. FINDINGS: CT CHEST WITH CONTRAST: LUNGS: Minor bibasilar atelectasis seen in the posterior lower lung ackerman. No evidence of pneumothorax. No obvious parenchymal masses or nodules. MEDIASTINUM: Heart size is borderline - mildly enlarged. No significant pericardial effusion. Ascending thoracic aorta measures approximately 2.55 cm and descending thoracic aorta measures approximately 1.55 cm. Pulmonary trunk measures approximately 2.2 cm. . Note this examination was not dedicated to evaluate for pulmonary embolus, no gross large filling defects seen within the pulmonary trunk or right and left main pulmonary arteries. LYMPH NODES: Few small nonspecific mediastinal lymph nodes are present. No significant mediastinal adenopathy is identified. PLEURA: Unremarkable. No pneumothorax. No pleural fluid. BONES: Mild multilevel degenerative spondylosis of the thoracic spine. There are no acute compression fractures no retropulsed fragments. OTHER FINDINGS: None. CT ABDOMEN AND PELVIS: LIVER: Liver is enlarged measuring approximately 20 cm in CC dimension. No obvious hepatic mass collection or calcification. Mild fatty hepatic infiltration. . Portal and splenic veins are opacified. GALLBLADDER AND BILE DUCTS: Gallbladder is physiologically distended. Questionable minimal gallbladder wall thickening. No evidence of intraluminal gallbladder calculi. PANCREAS: Pancreas is slightly atrophic and fatty replaced. No obvious pancreatic mass or collection. SPLEEN: Spleen is mildly enlarged measuring approximately 14.1 cm in greatest AP dimension. No obvious splenic collection or calcification. ADRENALS: No adrenal lesions. KIDNEYS AND URETERS: Kidneys demonstrate relatively symmetric nephrograms. No evidence of nephrolithiasis or hydronephrosis. No obvious renal mass or collection. VASCULATURE: Unremarkable. No aortic aneurysm. BOWEL: Evaluation of the bowel is limited due to incomplete opacification. The. The stomach is incompletely distended which presumably accounts for thick-walled appearance. Gastritis not excluded. Visualized loops of small bowel exhibit normal contour and caliber. No evidence of acute mechanical small bowel obstruction. Most of the colon is collapsed on. APPENDIX: Status post appendectomy. . PERITONEUM: No evidence of free or loculated fluid collections aside from suspected left ovarian cyst. LYMPH NODES: Few small nonspecific upper abdominal and retroperitoneal lymph nodes are present. BLADDER: Urinary bladder is incompletely distended which may account for slight thick-walled appearance. Possibility of cystitis not excluded. REPRODUCTIVE: Markedly enlarged heterogeneous uterus with scattered calcifications consistent with on multi lobular uterine fibroids. . Re- demonstrated is a 5.6 cc x 5.1 ap x 5.0 ap cm round/elliptical shaped fluid collection within the left aspect of the pelvis most likely representing an ovarian cyst unchanged BONES: Osseous structures intact however multilevel degenerative spondylosis of the lower thoracic and lumbar spine. . OTHER FINDINGS: Previously noted subcutaneous air along the left lateral and anterolateral lower chest and abdomen resolved. . Previously noted small amount of free intraperitoneal air subjacent to the umbilicus no longer visible. IMPRESSION: Mild atelectasis both posterior lower lung ackerman improved from prior study. . No acute consolidation effusion or pneumothorax. Hepatosplenomegaly. Mild fatty hepatic infiltration Markedly enlarged lobulated fibroid uterus unchanged from prior study. Previously noted subcutaneous air along the left lower lateral chest wall and abdomen as well as what appear to represent a small amount of free intraperitoneal air subjacent to the umbilicus no longer visualized. Urinary bladder is incompletely distended which may in part account for thick-walled appearance. Possibility of cystitis not excluded. These findings discussed with Martin Linda at approximately 5:25 p.m. with written down and read back verification.
[2017-01-08] MEDS: Sodium Chloride 0.9% 500 ML IV SCH ×4 (05:22→23:33)
[2017-01-08] MEDS ORDERED: Albuterol-Ipratrop 3 mg / 0.5 (3 ml) UD INH STA (07:56)
--- NOTE | 2017-01-08 07:58 | CP.PCM.PN ---
Subjective - Date & Time of Evaluation Date of Evaluation: 01/08/17 Time of Evaluation: 07:55 - Subjective Subjective: No acute events overnight. Patient remained afebrile overnight, however complaining of 1 episode of subjective fever and chills. She states she has cough only when she gets fevers. Denies any headaches, dyspnea, chest pain, abdominal pain, nausea or vomiting, no diarrhea. She is tolerating a regular diet. Patient appears anxious. Given 1 duoneb for wheezing. Objective - Vital Signs/Intake and Output Vital Signs (last 24 hours): Temp Pulse Resp BP Pulse Ox 98.9 F 87 18 113/63 98 01/08/17 00:25 01/08/17 00:25 01/08/17 00:25 01/08/17 00:25 01/08/17 00:25 - Medications Medications: Current Medications Acetaminophen (Tylenol 650mg/20.3ml Solution Ud) 650 mg GT Q6 PRN PRN Reason: Fever >100.4 F Last Admin: 12/30/16 02:19 Dose: 650 mg Acetaminophen (Tylenol 325mg Tab) 650 mg PO Q4 PRN PRN Reason: Fever >100.4 F Last Admin: 01/07/17 01:44 Dose: 650 mg Ferrous Sulfate (Feosol) 325 mg PO BID [facility] Last Admin: 01/07/17 16:40 Dose: 325 mg Micafungin Sodium 100 mg/ (Sodium Chloride) 100 mls @ 100 mls/hr IVPB DAILY [facility] Last Admin: 01/07/17 08:52 Dose: 100 mls/hr Linezolid (Zyvox 600mg/300ml D5w) 600 mg in 300 mls @ 300 mls/hr IVPB Q12H [facility] Last Admin: 01/07/17 22:07 Dose: 300 mls/hr Sodium Chloride (Sodium Chloride 0.9%) 500 mls @ 125 mls/hr IV .Q4H [facility] Last Admin: 01/08/17 05:22 Dose: 125 mls/hr Ceftazidime/Avibactam 2.5 gm/ (Sodium Chloride) 100 mls @ 100 mls/hr IVPB Q8@ 0400,1200,2000 [facility] Last Admin: 01/08/17 04:12 Dose: 100 mls/hr Ondansetron HCl (Zofran Inj) 4 mg IVP Q6 PRN PRN Reason: Nausea/Vomiting Last Admin: 12/21/16 05:26 Dose: 4 mg Warfarin Sodium (Coumadin) 1 mg PO QD5 MIGULE PRN Reason: Protocol Stop: 01/08/17 17:01 - Labs Labs: 01/07/17 07:48 01/07/17 07:48 PT 35.2 Seconds (9.8-13.1) H 01/07/17 07:48 INR 3.1 (0.9-1.2) H 01/07/17 07:48 APTT 48.5 Seconds (25.6-37.1) H 01/07/17 07:48 01/08/17 06:35 PT 30.6 Seconds (9.8-13.1) H 01/08/17 06:35 INR 2.7 (0.9-1.2) H 01/08/17 06:35 APTT 48.5 Seconds (25.6-37.1) H 01/07/17 07:48 - Constitutional Appears: No Acute Distress (anxious obese female) - Eye Exam Eye Exam: Normal appearance - ENT Exam ENT Exam: Mucous Membranes Moist - Respiratory Exam Respiratory Exam: Wheezes (bilaterally at bases ), NORMAL BREATHING PATTERN - Cardiovascular Exam Cardiovascular Exam: REGULAR RHYTHM, +S1, +S2 - GI/Abdominal Exam GI & Abdominal Exam: Normal Bowel Sounds, Organomegaly. absent: Tenderness - Back Exam Back Exam: NORMAL INSPECTION - Neurological Exam Neurological Exam: Alert, Awake, CN II-XII Intact, Oriented x3 - Psychiatric Exam Psychiatric exam: Anxious - Skin Skin Exam: Dry, Intact Assessment and Plan - Assessment and Plan (Free Text) Assessment: 51 y/o F hx of obesity, iron deficiency anemia likely secondary to menorrhagia/ uterine fibroids, s/p appendectomy on 12/13/16 admitted for sepsis with bacteremia likely secondary to UTI. Patient remained afebrile overnight, however unknown etiology of leukocytosis infectious/inflammatory vs malignancy. Now with +Urine Culture with gram + cocci. Plan: 1. Fever and leukocytosis with unknown etiology -afebrile overnight -etiology Infectious vs inflammatory vs Malignancy -WBC: improved today: 16.2 -RPR negative, cdiff negative., rheumatoid factor negative, Lyme IgG-negative, IgM equivocal. -procalcitonin: 101.88-->56 -->37 -Consults: ID(Dr. Almaguer): -continue with mycamine , Day #4. continue with zyvox and avycaz. Day #3 -Heme/onc(Dr. Kent) : Bone marrow biopsy 01/08/17 if fevers persist. No fevers overnight, Dr. Jamison Faustin is aware Follow up CT CHEST /ABD/PELVIS w/ and w/o contrast reviewed. reconsult [employer]. -Follow up: ERICA, Quantiferon, CRP, ESR 2. UTI -repeat culture : gram + cocci -+ E.Coli in UCx, repeat Urine Cx negative 3. Microcytic anemia -Asymptomatic, most likely secondary Chronic blood loss from Uterine fibroids, cannot rule out other causes. -stable, hb 8.8 -S/P 2 units PRBC transfusion -C/W Feosol PO BID -monitor, f.u cbc 4. Nonobstructive thrombus within the right common femoral vein -INR : 2.7 -will hold for possible biopsy -F/U PT/INR in AM 5. Uterine fibroids/Ovarian Cyst -Likely source of anemia. CA 125 elevated, trending down: 37 -Imaging reviewed CT: multiple masses consistent with fibroids. 5cm fluid density adjacent to left side of uterus. 5.4cm simple left ovarian cystic lesion seen on MRI. -transvaginal US: enlarge uterus w/ multiples masses, very limited study, endometrium not seen -CT chest abd pelvis on 01/07/17: Markedly enlarged heterogeneous uterus with scattered calcifications consistent with on multi lobular uterine fibroids. . Re - demonstrated is a 5.6 cc x 5.1 ap x 5.0 ap cm round/elliptical shaped fluid collection within the left aspect of the pelvis most likely representing an ovarian cyst unchanged. -Reconsult [employer] to rule out possible malignancy 6. DVT prophylaxis -has DVT- RCF vein on -Coumadin. INR therapeutic.
[2017-01-08 08:20] LABS: BASO # 0.1 K/uL (0.0-0.2); BASO % 0.4 % (0.0-2.0); EOS # 0.2 K/uL (0.0-0.7); EOS % 1.3 % (0.0-4.0); HEMATOCRIT 27.6 % (34.0-47.0); LYMPH # 1.5 K/uL (1.0-4.3); LYMPH % 9.1 % (20.0-40.0); MEAN CELL VOLUME 73.8 fl (81.0-99.0); MEAN CORPUSCULAR HEMOGLOBIN 23.5 pg (27.0-31.0); MEAN CORPUSCULAR HGB CONC 31.9 g/dL (33.0-37.0); MEAN PLATELET VOLUME 10.5 fl (7.2-11.7); MONO # 1.4 K/uL (0.0-0.8); MONO % 8.4 % (0.0-10.0); NEUT # 13.1 K/uL (1.8-7.0); NEUT % 80.8 % (50.0-75.0); WHITE BLOOD COUNT 16.2 K/uL (4.8-10.8)
[2017-01-08] MEDS: Micafungin 100 MG in Sodium Chloride 0.9% 100 ML IVPB SCH (09:16)
--- NOTE | 2017-01-08 11:01 | CP.PCM.PN ---
Subjective - Date & Time of Evaluation Date of Evaluation: 01/08/17 Time of Evaluation: 10:59 - Subjective Subjective: Pt is feeling better. She has been afebrile, and the wbc are trending down. If the count goes up again or if she gets febrile again, will do a bone marrow test. Objective - Vital Signs/Intake and Output Vital Signs (last 24 hours): Temp Pulse Resp BP Pulse Ox 97.9 F 73 18 109/70 98 01/08/17 08:21 01/08/17 08:21 01/08/17 08:21 01/08/17 08:21 01/08/17 08:21 - Medications Medications: Current Medications Acetaminophen (Tylenol 650mg/20.3ml Solution Ud) 650 mg GT Q6 PRN PRN Reason: Fever >100.4 F Last Admin: 12/30/16 02:19 Dose: 650 mg Acetaminophen (Tylenol 325mg Tab) 650 mg PO Q4 PRN PRN Reason: Fever >100.4 F Last Admin: 01/07/17 01:44 Dose: 650 mg Ferrous Sulfate (Feosol) 325 mg PO BID [facility] Last Admin: 01/08/17 09:16 Dose: 325 mg Micafungin Sodium 100 mg/ (Sodium Chloride) 100 mls @ 100 mls/hr IVPB DAILY [facility] Last Admin: 01/08/17 09:16 Dose: 100 mls/hr Linezolid (Zyvox 600mg/300ml D5w) 600 mg in 300 mls @ 300 mls/hr IVPB Q12H [facility] Last Admin: 01/07/17 22:07 Dose: 300 mls/hr Sodium Chloride (Sodium Chloride 0.9%) 500 mls @ 125 mls/hr IV .Q4H [facility] Last Admin: 01/08/17 05:22 Dose: 125 mls/hr Ceftazidime/Avibactam 2.5 gm/ (Sodium Chloride) 100 mls @ 100 mls/hr IVPB Q8@ 0400,1200,2000 [facility] Last Admin: 01/08/17 04:12 Dose: 100 mls/hr Ondansetron HCl (Zofran Inj) 4 mg IVP Q6 PRN PRN Reason: Nausea/Vomiting Last Admin: 12/21/16 05:26 Dose: 4 mg Warfarin Sodium (Coumadin) 1 mg PO QD5 MIGEUL PRN Reason: Protocol Stop: 01/08/17 17:01 - Labs Labs: 01/08/17 06:35 01/07/17 07:48 PT 30.6 Seconds (9.8-13.1) H 01/08/17 06:35 INR 2.7 (0.9-1.2) H 01/08/17 06:35 APTT 48.5 Seconds (25.6-37.1) H 01/07/17 07:48
[2017-01-08] MEDS: Linezolid 600 mg in D5W 300 ml 600 MG/300 ML BAG IVPB SCH ×2 (11:10→23:16)
[2017-01-09] MEDS: Sodium Chloride 0.9% 500 ML IV SCH ×2 (02:30→07:15)
--- NOTE | 2017-01-09 06:36 | CP.PCM.PN ---
Subjective - Date & Time of Evaluation Date of Evaluation: 01/09/17 Time of Evaluation: 09:05 - Subjective Subjective: No acute events overnight. Patient remained afebrile. patient is for endometrial biopsy today. She is medically stable for procedure. 09:10 Patient seen after procedure. Tolerated well, however she is complaining of pain after procedure. No bone marrow biopsy today as patient has not spiked fever. Objective - Vital Signs/Intake and Output Vital Signs (last 24 hours): Temp Pulse Resp BP Pulse Ox 98.2 F 82 20 127/72 98 01/09/17 00:27 01/09/17 00:27 01/09/17 00:27 01/09/17 00:27 01/09/17 00:27 - Medications Medications: Current Medications Acetaminophen (Tylenol 650mg/20.3ml Solution Ud) 650 mg GT Q6 PRN PRN Reason: Fever >100.4 F Last Admin: 12/30/16 02:19 Dose: 650 mg Acetaminophen (Tylenol 325mg Tab) 650 mg PO Q4 PRN PRN Reason: Fever >100.4 F Last Admin: 01/07/17 01:44 Dose: 650 mg Ferrous Sulfate (Feosol) 325 mg PO BID [facility] Last Admin: 01/08/17 16:43 Dose: 325 mg Micafungin Sodium 100 mg/ (Sodium Chloride) 100 mls @ 100 mls/hr IVPB DAILY [facility] Last Admin: 01/08/17 09:16 Dose: 100 mls/hr Linezolid (Zyvox 600mg/300ml D5w) 600 mg in 300 mls @ 300 mls/hr IVPB Q12H [facility] Last Admin: 01/08/17 23:16 Dose: 300 mls/hr Sodium Chloride (Sodium Chloride 0.9%) 500 mls @ 125 mls/hr IV .Q4H [facility] Last Admin: 01/09/17 02:30 Dose: 125 mls/hr Ceftazidime/Avibactam 2.5 gm/ (Sodium Chloride) 100 mls @ 100 mls/hr IVPB Q8@ 0400,1200,2000 [facility] Last Admin: 01/09/17 04:38 Dose: 100 mls/hr Ondansetron HCl (Zofran Inj) 4 mg IVP Q6 PRN PRN Reason: Nausea/Vomiting Last Admin: 12/21/16 05:26 Dose: 4 mg - Labs Labs: 01/08/17 06:35 01/07/17 07:48 PT 30.6 Seconds (9.8-13.1) H 01/08/17 06:35 INR 2.7 (0.9-1.2) H 01/08/17 06:35 APTT 48.5 Seconds (25.6-37.1) H 01/07/17 07:48 - Constitutional Appears: Non-toxic (mild distress secondary to pain, appears ill ) - Eye Exam Eye Exam: Normal appearance - Respiratory Exam Respiratory Exam: NORMAL BREATHING PATTERN - Cardiovascular Exam Cardiovascular Exam: REGULAR RHYTHM, +S1, +S2 - GI/Abdominal Exam GI & Abdominal Exam: Soft, Tenderness (rlq), Normal Bowel Sounds - Extremities Exam Extremities Exam: absent: Pedal Edema - Neurological Exam Neurological Exam: Alert, Awake, Oriented x3 - Psychiatric Exam Psychiatric exam: Depressed - Skin Skin Exam: Dry, Intact Assessment and Plan - Assessment and Plan (Free Text) Assessment: 51 y/o F hx of obesity, iron deficiency anemia likely secondary to menorrhagia/ uterine fibroids, s/p appendectomy on 12/13/16 admitted for sepsis with bacteremia likely secondary to UTI. Patient remained afebrile overnight, however unknown etiology of leukocytosis infectious/inflammatory vs malignancy. Now with vancomycin resistant e. faecalis. Continue IV antibiotics. Discuss plan with ID. Follow up results of endometrial biopsy. Plan: 1. Fever and leukocytosis with unknown etiology -afebrile overnight -etiology Infectious vs inflammatory vs Malignancy -WBC: 13.2, trending down. -Culture: catheter tip: Negative -RPR negative, cdiff negative., rheumatoid factor negative, Lyme IgG-negative, IgM equivocal. -procalcitonin: 101.88-->56 -->37 -Consults: ID(Dr. Almaguer): -continue with mycamine , Day #5. continue with zyvox and avycaz. Day #4. will discuss length of treatment with ID -Heme/onc(Dr. Kent) : no bone marrow biopsy -Follow up: ERICA, Quantiferon, CRP, ESR 2. UTI -repeat culture : VRE, continue abx -+ E.Coli in UCx, repeat Urine Cx negative 3. Microcytic anemia -Asymptomatic, most likely secondary Chronic blood loss from Uterine fibroids, cannot rule out other causes. -stable, hb 8.8 -S/P 2 units PRBC transfusion -C/W Feosol PO TID -monitor, f.u cbc 4. Nonobstructive thrombus within the right common femoral vein -INR : 2.5 -coumadin 1mg daily -F/U PT/INR in AM 5. Uterine fibroids/Ovarian Cyst -Likely source of anemia. CA 125 elevated, trending down: 37 -Imaging reviewed CT: multiple masses consistent with fibroids. 5cm fluid density adjacent to left side of uterus. 5.4cm simple left ovarian cystic lesion seen on MRI. -transvaginal US: enlarge uterus w/ multiples masses, very limited study, endometrium not seen -CT chest abd pelvis on 01/07/17: Markedly enlarged heterogeneous uterus with scattered calcifications consistent with on multi lobular uterine fibroids. . Re - demonstrated is a 5.6 cc x 5.1 ap x 5.0 ap cm round/elliptical shaped fluid collection within the left aspect of the pelvis most likely representing an ovarian cyst unchanged. -Reconsult [employer] to rule out possible malignancy: s/p endometrial biopsy today. -Following appointments were made:01/16/2017 @ 10:00 w/ Dr. Schultz for [employer] referral and an appointment w/ Dr. Thornton on 01/24/2017 @ 13:30 for endometrial biopsy results 6. DVT prophylaxis -has DVT- RCF vein on -Coumadin. INR therapeutic.
--- NOTE | 2017-01-09 06:47 | CP.PCM.CON ---
History of Present Illness - History of Present Illness History of Present Illness: 51 YO F w/ h/o Uterine Fibroids, SHAYAN s/p recent Appendectomy on 12/13/16 being treated for urosepsis. In ED she was found to be febrile w/ leucocytosis, and elevated lactate. She was readmitted by the medicine team on 12/19 with complaints of SOB, febrile and generalized abdominal pain. - On 12/20 a VICE PRESIDENT [employer]PPLY CHAIN was called after patient was found to be tachycardic and was having SOB. At that time she was given adenosine, lovenox and transferred to ICU. A CT angio was preformed which showed no evidence of central PE, subsegmental vessels were suboptimally visualized. Thickened gallbladder was also visualized - Also showed patient to have a enlarged uterus containing multiple fibroids w/ 5.1 cm fluid density in left pelvis. - Blood culture and urine cultures have both shown gram negative rods. - On her last admission after the surgery the patient states she was having increase in flow of her menstrual cycle, but was given progesterones pills to take. After she took one pt states her menstrual cycle ended and she did not take any more pills. -Uterine fibroids and ovarian cyst likely source of anemia. CA 125 elevated, trending down: 37 -Imaging reviewed CT: multiple masses consistent with fibroids. 5cm fluid density adjacent to left side of uterus. 5.4cm simple left ovarian cystic lesion seen on MRI. -transvaginal US: enlarge uterus w/ multiples masses, very limited study, endometrium not seen -CT chest abd pelvis on 01/07/17: Markedly enlarged heterogeneous uterus with scattered calcifications consistent with on multi lobular uterine fibroids. . Re - demonstrated is a 5.6 cc x 5.1 ap x 5.0 ap cm round/elliptical shaped fluid collection within the left aspect of the pelvis most likely representing an ovarian cyst unchanged. Currently, patient denies pain, vaginal bleeding, discharge, headaches, chest pain, n/v/d. Review of Systems - Review of Systems All systems: reviewed and no additional remarkable complaints except - Constitutional Constitutional: absent: Fever - Respiratory Respiratory: absent: Dyspnea - Reproductive: Female Reproductive:Female: absent: Amenorrhea - Neurological Neurological: absent: Headaches Past Patient History - Infectious Disease Hx of Infectious Diseases: None - Past Medical History & Family History Past Medical History?: No - Past Social History Smoking Status: Never Smoked - CARDIAC Hx Cardiac Disorders: No - PULMONARY Hx Respiratory Disorders: No - NEUROLOGICAL Hx Neurological Disorder: No - HEENT Hx HEENT Problems: No - RENAL Hx Chronic Kidney Disease: No - ENDOCRINE/METABOLIC Hx Endocrine Disorders: No - HEMATOLOGICAL/ONCOLOGICAL Hx Anemia: Yes - INTEGUMENTARY Hx Dermatological Problems: No - MUSCULOSKELETAL/RHEUMATOLOGICAL Hx Musculoskeletal Disorders: No Hx Falls: No - GASTROINTESTINAL Hx Gastrointestinal Disorders: No - GENITOURINARY/GYNECOLOGICAL Hx Genitourinary Disorders: No - PSYCHIATRIC Hx Psychophysiologic Disorder: No Hx Emotional Abuse: No Hx Physical Abuse: No Hx Substance Use: No - SURGICAL HISTORY Hx Surgeries: Yes Other/Comment: APPENDECTOMY-DECEMBER 2016 - ANESTHESIA Hx Anesthesia: Yes Hx Anesthesia Reactions: No Hx Malignant Hyperthermia: No Meds Home Medications: Home Medication List Medication Instructions Recorded Confirmed Type Cephalexin [cephalexin] 500 mg PO QID #28 cap 12/19/16 Rx Naproxen [Naprosyn] 500 mg PO BID PRN #20 tablet 12/19/16 Rx Allergies/Adverse Reactions: Allergies Allergy/AdvReac Type Severity Reaction Status Date / Time No Known Allergies Allergy Verified 12/12/16 23:15 - Medications Medications: Current Medications Acetaminophen (Tylenol 650mg/20.3ml Solution Ud) 650 mg GT Q6 PRN PRN Reason: Fever >100.4 F Last Admin: 12/30/16 02:19 Dose: 650 mg Acetaminophen (Tylenol 325mg Tab) 650 mg PO Q4 PRN PRN Reason: Fever >100.4 F Last Admin: 01/07/17 01:44 Dose: 650 mg Ferrous Sulfate (Feosol) 325 mg PO BID [facility] Last Admin: 01/08/17 16:43 Dose: 325 mg Micafungin Sodium 100 mg/ (Sodium Chloride) 100 mls @ 100 mls/hr IVPB DAILY [facility] Last Admin: 01/08/17 09:16 Dose: 100 mls/hr Linezolid (Zyvox 600mg/300ml D5w) 600 mg in 300 mls @ 300 mls/hr IVPB Q12H [facility] Last Admin: 01/08/17 23:16 Dose: 300 mls/hr Sodium Chloride (Sodium Chloride 0.9%) 500 mls @ 125 mls/hr IV .Q4H [facility] Last Admin: 01/09/17 02:30 Dose: 125 mls/hr Ceftazidime/Avibactam 2.5 gm/ (Sodium Chloride) 100 mls @ 100 mls/hr IVPB Q8@ 0400,1200,2000 [facility] Last Admin: 01/09/17 04:38 Dose: 100 mls/hr Ondansetron HCl (Zofran Inj) 4 mg IVP Q6 PRN PRN Reason: Nausea/Vomiting Last Admin: 12/21/16 05:26 Dose: 4 mg Physical Exam - Constitutional Appears: No Acute Distress - Exam External exam: absent: Lesions, Swelling Speculum exam: Tissue (endometrial biospy sample obtained). absent: Cervical Discharge, Laceration, Vaginal Discharge Results - Vital Signs Recent Vital Signs: Last Vital Signs Temp 98.2 F 01/09/17 00:27 Pulse 82 01/09/17 00:27 Resp 20 01/09/17 00:27 BP 127/72 01/09/17 00:27 Pulse Ox 98 01/09/17 00:27 - Labs Result Diagrams: 01/08/17 06:35 01/07/17 07:48 Labs: Laboratory Results - last 24 hr 01/08/17 01/08/17 06:35 06:35 WBC 16.2 H RBC 3.74 L Hgb 8.8 L Hct 27.6 L MCV 73.8 L MCH 23.5 L MCHC 31.9 L RDW 36.0 H Plt Count 196 MPV 10.5 Neut % (Auto) 80.8 H Lymph % (Auto) 9.1 L Wilkin % (Auto) 8.4 Eos % (Auto) 1.3 Baso % (Auto) 0.4 Neut # 13.1 H Lymph # 1.5 Wilkin # 1.4 H Eos # 0.2 Baso # 0.1 PT 30.6 H INR 2.7 H Assessment & Plan - Assessment and Plan (Free Text) Assessment: 51 YO F w/ h/o Uterine Fibroids, SHAYAN s/p recent Appendectomy on 12/13/16 being treated for urosepsis Plan: Fever and leukocytosis with unknown etiology -afebrile overnight -etiology Infectious vs inflammatory vs Malignancy -WBC: improved @ 16.2 -RPR negative, cdiff negative., rheumatoid factor negative, Lyme IgG-negative, IgM equivocal. -procalcitonin: 101.88-->56 -->37 - mycamine , Day #5 - zyvox and avycaz. Day #4 Uterine Fibroids. Ovarian cyst. Menorrhagia - Imaging reviewed CT: multiple masses consistent with fibroids. 5cm fluid density adjacent to left side of uterus. 5.4cm simple left ovarian cystic lesion seen on MRI. -transvaginal US: enlarge uterus w/ multiples masses, very limited study, endometrium not seen -CT chest abd pelvis on 01/07/17: Markedly enlarged heterogeneous uterus with scattered calcifications consistent with on multi lobular uterine fibroids. . Re - demonstrated is a 5.6 cc x 5.1 ap x 5.0 ap cm round/elliptical shaped fluid collection within the left aspect of the pelvis most likely representing an ovarian cyst unchanged. - GC/C cultures requested by medicine - Endometrial biopsy consented and done via sterile technique with adequate sample obtained - endometrial biopsy sample to be sent to pathology - F/U outpatient w/ [facility] for results. - patient is afebrile and stable, is cleared by COAL SCREENER for discharge - [facility] @ [facility]:00 w/ Dr. Schultz for [employer] S[employer]ENER referral and an appointment w/ Dr. Thornton on 01/24/2017 @ 13:30 for endometrial biopsy results
[2017-01-09] MEDS ORDERED: Chlorhexidine Gluconate 1 APPL/PKT TP ONE (07:49)
[2017-01-09] MEDS: Micafungin 100 MG in Sodium Chloride 0.9% 100 ML IVPB SCH (09:15)
[2017-01-09 10:15] LABS: BASO # 0.2 K/uL (0.0-0.2); BASO % 1.7 % (0.0-2.0); EOS # 0.2 K/uL (0.0-0.7); EOS % 1.2 % (0.0-4.0); HEMATOCRIT 28.8 % (34.0-47.0); LYMPH # 1.5 K/uL (1.0-4.3); LYMPH % 11.3 % (20.0-40.0); MEAN CELL VOLUME 74.9 fl (81.0-99.0); MEAN CORPUSCULAR HGB CONC 30.8 g/dL (33.0-37.0); MEAN PLATELET VOLUME 10.5 fl (7.2-11.7); MONO # 0.7 K/uL (0.0-0.8); MONO % 5.6 % (0.0-10.0); NEUT # 10.6 K/uL (1.8-7.0); NEUT % 80.2 % (50.0-75.0); NRBC % 0.1 % (0.0-0.0); WHITE BLOOD COUNT 13.2 K/uL (4.8-10.8)
--- NOTE | 2017-01-09 11:12 | CP.PCM.PN ---
Subjective - Date & Time of Evaluation Date of Evaluation: 01/09/17 Time of Evaluation: 11:09 - Subjective Subjective: Pt's counts are improving ,her wbc is trending down, and she has been afebrile. I feel the leukocytosis was reactive in neture. Objective - Vital Signs/Intake and Output Vital Signs (last 24 hours): Temp Pulse Resp BP Pulse Ox 97.7 F 75 20 128/80 98 01/09/17 08:48 01/09/17 08:48 01/09/17 08:48 01/09/17 08:48 01/09/17 08:48 - Medications Medications: Current Medications Acetaminophen (Tylenol 650mg/20.3ml Solution Ud) 650 mg GT Q6 PRN PRN Reason: Fever >100.4 F Last Admin: 12/30/16 02:19 Dose: 650 mg Acetaminophen (Tylenol 325mg Tab) 650 mg PO Q4 PRN PRN Reason: Fever >100.4 F Last Admin: 01/07/17 01:44 Dose: 650 mg Ferrous Sulfate (Feosol) 325 mg PO BID [facility] Last Admin: 01/09/17 08:57 Dose: 325 mg Micafungin Sodium 100 mg/ (Sodium Chloride) 100 mls @ 100 mls/hr IVPB DAILY [facility] Last Admin: 01/09/17 09:15 Dose: 100 mls/hr Linezolid (Zyvox 600mg/300ml D5w) 600 mg in 300 mls @ 300 mls/hr IVPB Q12H [facility] Last Admin: 01/08/17 23:16 Dose: 300 mls/hr Sodium Chloride (Sodium Chloride 0.9%) 500 mls @ 125 mls/hr IV .Q4H [facility] Last Admin: 01/09/17 07:15 Dose: Not Given Ceftazidime/Avibactam 2.5 gm/ (Sodium Chloride) 100 mls @ 100 mls/hr IVPB Q8@ 0400,1200,2000 [facility] Last Admin: 01/09/17 04:38 Dose: 100 mls/hr Ondansetron HCl (Zofran Inj) 4 mg IVP Q6 PRN PRN Reason: Nausea/Vomiting Last Admin: 12/21/16 05:26 Dose: 4 mg - Labs Labs: 01/09/17 09:57 01/07/17 07:48 PT 28.3 Seconds (9.8-13.1) H 01/09/17 06:15 INR 2.5 (0.9-1.2) H 01/09/17 06:15 APTT 48.5 Seconds (25.6-37.1) H 01/07/17 07:48
[2017-01-09] MEDS: Linezolid 600 mg in D5W 300 ml 600 MG/300 ML BAG IVPB SCH ×2 (11:19→22:23)
[2017-01-10 00:06] VITALS: RESP 20
--- NOTE | 2017-01-10 06:28 | CP.PCM.PN ---
Subjective - Date & Time of Evaluation Date of Evaluation: 01/10/17 Time of Evaluation: 08:45 - Subjective Subjective: No acute events overnight. Patient remained afebrile x 72 hrs. Patient seen and examined bedside. No distress. Patient had 1 BM this AM, formed stool no diarrhea. Patient has mild vaginal bleeding s/p endometrial biopsy, decreasing in quantity. She is tolerating regular diet. Day #6 of Zyvox. Objective - Vital Signs/Intake and Output Vital Signs (last 24 hours): Temp Pulse Resp BP Pulse Ox 98.9 F 81 20 119/77 98 01/10/17 00:05 01/10/17 00:05 01/10/17 00:05 01/10/17 00:05 01/10/17 00:05 - Medications Medications: Current Medications Acetaminophen (Tylenol 650mg/20.3ml Solution Ud) 650 mg GT Q6 PRN PRN Reason: Fever >100.4 F Last Admin: 12/30/16 02:19 Dose: 650 mg Acetaminophen (Tylenol 325mg Tab) 650 mg PO Q4 PRN PRN Reason: Fever >100.4 F Last Admin: 01/07/17 01:44 Dose: 650 mg Ferrous Sulfate (Feosol) 325 mg PO BID [facility] Last Admin: 01/09/17 17:31 Dose: 325 mg Linezolid (Zyvox 600mg/300ml D5w) 600 mg in 300 mls @ 300 mls/hr IVPB Q12H [facility] Last Admin: 01/09/17 22:23 Dose: 300 mls/hr Ondansetron HCl (Zofran Inj) 4 mg IVP Q6 PRN PRN Reason: Nausea/Vomiting Last Admin: 12/21/16 05:26 Dose: 4 mg - Labs Labs: 01/09/17 09:57 01/07/17 07:48 PT 28.3 Seconds (9.8-13.1) H 01/09/17 06:15 INR 2.5 (0.9-1.2) H 01/09/17 06:15 APTT 48.5 Seconds (25.6-37.1) H 01/07/17 07:48 - Constitutional Appears: Non-toxic, No Acute Distress - Head Exam Head Exam: NORMAL INSPECTION - Eye Exam Eye Exam: Normal appearance - Respiratory Exam Respiratory Exam: Clear to Ausculation Bilateral, NORMAL BREATHING PATTERN - Cardiovascular Exam Cardiovascular Exam: REGULAR RHYTHM, +S1, +S2 - GI/Abdominal Exam GI & Abdominal Exam: Normal Bowel Sounds. absent: Tenderness - Extremities Exam Extremities Exam: absent: Pedal Edema - Back Exam Back Exam: NORMAL INSPECTION - Neurological Exam Neurological Exam: Alert, Awake, CN II-XII Intact, Oriented x3 - Skin Skin Exam: Dry Assessment and Plan - Assessment and Plan (Free Text) Assessment: 51 y/o F hx of obesity, iron deficiency anemia likely secondary to menorrhagia/ uterine fibroids, s/p appendectomy on 12/13/16 admitted for sepsis with bacteremia likely secondary to UTI. Patient remained afebrile x 72hrs. 0Now with vancomycin resistant e. faecalis. Plan: 1. Fever and leukocytosis -afebrile x 72 hrs, leukocytosis: 15. likely secondary to UTI vs malignancy --Consults: ID(Dr. Almaguer): patient able to be discharged. zyvox: 01/05 - present , continue for completion of 10 days,. -WBC: 15.0 -continue IV zyvox. ID recommendation to continue zyvox for completion of 2 weeks. Heme/onc(Dr. Kent) : no bone marrow biopsy 2. UTI -repeat culture : VRE, continue abx -+ E.Coli in UCx, repeat Urine Cx negative 3. Microcytic anemia -Asymptomatic, most likely secondary Chronic blood loss from Uterine fibroids, cannot rule out other causes. -stable, hb 9.1 -S/P 2 units PRBC transfusion -C/W Feosol PO BID -monitor, f.u cbc 4. Nonobstructive thrombus within the right common femoral vein -INR : 2.1 -coumadin 1mg daily -F/U PT/INR in AM 5. Uterine fibroids/Ovarian Cyst -Likely source of anemia. CA 125 elevated, trending down: 37. pt had ct/mri and repeat ct of abdomen pelvis, images reviewed. -s/p endometrial biopsy, gc/ct cultures obtained -Following appointments were made: 01/16/2017 @ 10:00 w/ Dr. Schultz for [employer] referral and an appointment w/ Dr. Thornton on 01/24/2017 @ 13:30 for endometrial biopsy results 6. DVT prophylaxis -has DVT- RCF vein on -Coumadin. INR therapeutic.
[2017-01-10 06:52] LABS: BASO # 0.1 K/uL (0.0-0.2); BASO % 0.9 % (0.0-2.0); EOS # 0.2 K/uL (0.0-0.7); EOS % 1.5 % (0.0-4.0); HEMATOCRIT 28.2 % (34.0-47.0); LYMPH # 1.5 K/uL (1.0-4.3); LYMPH % 9.9 % (20.0-40.0); MEAN CELL VOLUME 73.1 fl (81.0-99.0); MEAN CORPUSCULAR HEMOGLOBIN 23.5 pg (27.0-31.0); MEAN CORPUSCULAR HGB CONC 32.2 g/dL (33.0-37.0); MEAN PLATELET VOLUME 9.5 fl (7.2-11.7); MONO # 0.6 K/uL (0.0-0.8); MONO % 4.1 % (0.0-10.0); NEUT # 12.6 K/uL (1.8-7.0); NEUT % 83.6 % (50.0-75.0); NRBC % 0.1 % (0.0-0.0); PLATELET COUNT 272 K/uL (130-400); RED CELL DISTRIBUTION WIDTH 34.8 % (11.5-14.5)
[2017-01-10 07:48] LABS: LYME DISEASE SCREEN <0.90 index
[2017-01-10 08:29] VITALS: O2SAT 97
--- NOTE | 2017-01-10 09:19 | CP.PCM.PN ---
Subjective - Date & Time of Evaluation Date of Evaluation: 01/10/17 (N) Time of Evaluation: 09:23 - Subjective Subjective: Pt is afebrile , but her WBC is still a little elevated at 15.2. . her LDH is normal. She is still on the antibiotics, and a decision will be made re when she can be discharged by ID. Objective - Vital Signs/Intake and Output Vital Signs (last 24 hours): Temp Pulse Resp BP Pulse Ox 98.9 F 96 H 20 116/74 97 01/10/17 08:28 01/10/17 08:28 01/10/17 08:28 01/10/17 08:28 01/10/17 08:28 - Medications Medications: Current Medications Acetaminophen (Tylenol 650mg/20.3ml Solution Ud) 650 mg GT Q6 PRN PRN Reason: Fever >100.4 F Last Admin: 12/30/16 02:19 Dose: 650 mg Acetaminophen (Tylenol 325mg Tab) 650 mg PO Q4 PRN PRN Reason: Fever >100.4 F Last Admin: 01/07/17 01:44 Dose: 650 mg Ferrous Sulfate (Feosol) 325 mg PO BID [facility] Last Admin: 01/09/17 17:31 Dose: 325 mg Linezolid (Zyvox 600mg/300ml D5w) 600 mg in 300 mls @ 300 mls/hr IVPB Q12H [facility] Last Admin: 01/09/17 22:23 Dose: 300 mls/hr Ondansetron HCl (Zofran Inj) 4 mg IVP Q6 PRN PRN Reason: Nausea/Vomiting Last Admin: 12/21/16 05:26 Dose: 4 mg - Labs Labs: 01/10/17 05:50 01/07/17 07:48 PT 23.9 Seconds (9.8-13.1) H 01/10/17 05:50 INR 2.1 (0.9-1.2) H 01/10/17 05:50 APTT 48.5 Seconds (25.6-37.1) H 01/07/17 07:48
[2017-01-10] MEDS: Linezolid 600 mg in D5W 300 ml 600 MG/300 ML BAG IVPB SCH (11:10)
[2017-01-10 11:16] LABS: BASOPHIL 1 % (0-2); EOSINOPHIL 2 % (0-7); MYELOCYTE 1 % (0-0); NEUTROPHIL 77 % (42-75); TOTAL CELLS COUNTED 100
[2017-01-10] MEDS: Saccharomyces Boulardi 250 mg Cap PO SCH ×2 (11:17→16:17)
[2017-01-10 16:14] VITALS: BP 100/64; PULSE 78; TEMP 98.1
--- NOTE | 2017-01-11 10:15 | CP.PCM.DIS ---
Provider - Provider Date of Admission: 12/20/16 20:43 Attending physician: Makenzie Guerra MD Hospital Course - Lab Results Lab Results: Micro Results 01/05/17 12:10 Blood Blood Culture - Final NO GROWTH AFTER 5 DAYS 01/05/17 12:10 Blood Gram Stain - Final TEST NOT PERFORMED 01/06/17 09:00 Blood Blood Culture - Preliminary NO GROWTH AFTER 4 DAYS 01/06/17 16:15 Catheter Tip Catheter Tip Culture - Final No growth. 01/06/17 09:50 Urine,Clean Catch Urine Culture - Final Vancomycin Resistant E.faecium 01/05/17 09:45 Urine,Clean Catch Urine Culture - Final Vancomycin Resistant E.faecium 12/25/16 16:30 Blood Fungal Culture - Preliminary NO FUNGUS GROWTH IN 1 WEEK. 01/02/17 21:00 Blood Blood Culture - Final NO GROWTH AFTER 5 DAYS 01/02/17 21:00 Blood Gram Stain - Final 01/02/17 20:45 Blood Blood Culture - Final NO GROWTH AFTER 5 DAYS 01/02/17 20:45 Blood Gram Stain - Final 01/03/17 01:30 Urine,Clean Catch Urine Culture - Final No Growth (<1,000 CFU/ML) 12/30/16 05:30 Blood-Venous Blood Culture - Final NO GROWTH AFTER 5 DAYS 12/30/16 05:30 Blood-Venous Gram Stain - Final TEST NOT PERFORMED 12/30/16 18:00 Urine,Clean Catch Urine Culture - Final No Growth (<1,000 CFU/ML) 12/26/16 21:08 Blood-Venous Blood Culture - Final NO GROWTH AFTER 5 DAYS 12/26/16 21:08 Blood-Venous Gram Stain - Final TEST NOT PERFORMED 12/28/16 14:00 Naris MRSA Culture (Admit) - Final MRSA NOT DETECTED 12/23/16 10:10 Blood Blood Culture - Final NO GROWTH AFTER 5 DAYS 12/23/16 10:10 Blood Gram Stain - Final TEST NOT PERFORMED 12/20/16 Unknown Naris MRSA Culture (Admit) - Final MRSA NOT DETECTED Most Recent Lab Values WBC 15.0 K/uL (4.8-10.8) H 01/10/17 05:50 RBC 3.86 Mil/uL (3.80-5.20) 01/10/17 05:50 Hgb 9.1 g/dL (12.0-16.0) L 01/10/17 05:50 Hct 28.2 % (34.0-47.0) L 01/10/17 05:50 MCV 73.1 fl (81.0-99.0) L 01/10/17 05:50 MCH 23.5 pg (27.0-31.0) L 01/10/17 05:50 MCHC 32.2 g/dL (33.0-37.0) L 01/10/17 05:50 RDW 34.8 % (11.5-14.5) H 01/10/17 05:50 Plt Count 272 K/uL (130-400) 01/10/17 05:50 MPV 9.5 fl (7.2-11.7) 01/10/17 05:50 Neut % (Auto) 83.6 % (50.0-75.0) H 01/10/17 05:50 Lymph % (Auto) 9.9 % (20.0-40.0) L 01/10/17 05:50 Patrick % (Auto) 4.1 % (0.0-10.0) 01/10/17 05:50 Eos % (Auto) 1.5 % (0.0-4.0) 01/10/17 05:50 Baso % (Auto) 0.9 % (0.0-2.0) 01/10/17 05:50 Neut # 12.6 K/uL (1.8-7.0) H 01/10/17 05:50 Lymph # 1.5 K/uL (1.0-4.3) 01/10/17 05:50 Patrick # 0.6 K/uL (0.0-0.8) 01/10/17 05:50 Eos # 0.2 K/uL (0.0-0.7) 01/10/17 05:50 Baso # 0.1 K/uL (0.0-0.2) 01/10/17 05:50 Neutrophils % (Manual) 77 % (42-75) H 01/10/17 05:50 Band Neutrophils % 2 % (0-2) 01/10/17 05:50 Lymphocytes % (Manual) 12 % (20-50) L 01/10/17 05:50 Monocytes % (Manual) 5 % (0-10) 01/10/17 05:50 Eosinophils % (Manual) 2 % (0-7) 01/10/17 05:50 Basophils % (Manual) 1 % (0-2) 01/10/17 05:50 Myelocytes % 1 % (0-0) H 01/10/17 05:50 Toxic Granulation Present 01/10/17 05:50 Platelet Estimate Normal (NORMAL) 01/10/17 05:50 Plt Clumps, EDTA Present 01/02/17 06:10 Large Platelets Present 01/06/17 06:45 Giant Platelets Present 01/05/17 08:30 Polychromasia Slight 12/19/16 11:25 Hypochromasia (manual) Moderate 01/10/17 05:50 Poikilocytosis (manual Slight 01/10/17 05:50 Anisocytosis (manual) Marked 01/10/17 05:50 Microcytosis (manual) Slight 01/10/17 05:50 Macrocytosis (manual) Slight 01/06/17 06:45 Spherocytes Slight 12/21/16 09:41 Target Cells Slight 12/21/16 09:41 Tear Drop Cells Slight 01/10/17 05:50 Ovalocytes Slight 01/10/17 05:50 Schistocytes Slight 01/10/17 05:50 ESR 88 mm/hr (0-20) H 01/05/17 12:10 PT 23.9 Seconds (9.8-13.1) H 01/10/17 05:50 INR 2.1 (0.9-1.2) H 01/10/17 05:50 APTT 48.5 Seconds (25.6-37.1) H 01/07/17 07:48 D-Dimer, Quantitative 6.75 mg/L FEU (0-0.50) H 12/23/16 20:40 pCO2 30 mm/Hg (35-45) L 12/25/16 04:55 pO2 116 mm/Hg (80-100) H 12/25/16 04:55 HCO3 25.3 mmol/L (21-28) 12/25/16 04:55 ABG pH 7.50 (7.35-7.45) H 12/25/16 04:55 ABG Total CO2 24.3 mmol/L (22-28) 12/25/16 04:55 ABG O2 Saturation 100.9 % (95-98) H 12/25/16 04:55 ABG O2 Content 11.4 ML/dL (15-23) L 12/25/16 04:55 ABG Base Excess 0.5 mmol/L (-2.0-3.0) 12/25/16 04:55 ABG Hemoglobin 8.2 g/dL (11.7-17.4) L 12/25/16 04:55 ABG Carboxyhemoglobin 2.4 % (0.5-1.5) H 12/25/16 04:55 POC ABG HHb (Measured) -0.9 % (0.0-5.0) L 12/25/16 04:55 ABG Methemoglobin 1.5 % (0.0-3.0) 12/25/16 04:55 ABG O2 Capacity 11.3 mL/dL (16-24) L 12/25/16 04:55 Devin Test Yes 12/25/16 04:55 ABG Potassium 3.5 mmol/L (3.6-5.2) L 12/23/16 05:27 VBG pH 7.40 (7.32-7.43) 12/20/16 14:00 VBG pCO2 28 mmHg (40-60) L 12/20/16 14:00 VBG HCO3 19.6 mmol/L 12/20/16 14:00 VBG Total CO2 18.2 mmol/L (22-28) L 12/20/16 14:00 VBG O2 Sat (Calc) 91.3 % (40-65) H 12/20/16 14:00 VBG Base Excess -6.6 mmol/L (0.0-2.0) L 12/20/16 14:00 VBG Potassium 4.0 mmol/L (3.6-5.2) 12/20/16 14:00 A-a O2 Difference 132.0 mm/Hg 12/25/16 04:55 Hgb O2 Saturation 97.0 % (95.0-98.0) 12/25/16 04:55 Sodium 138.0 mmol/L (132-148) 12/23/16 05:27 Chloride 110.0 mmol/L (98-107) H 12/23/16 05:27 Glucose 115 mg/dL (65-105) H 12/23/16 05:27 Lactate 3.1 mmol/L (0.7-2.1) H 12/23/16 05:27 Vent Mode A/c 12/25/16 04:55 Mechanical Rate 14 12/25/16 04:55 FiO2 40.0 % 12/25/16 04:55 Tidal Volume 450 12/25/16 04:55 PEEP 8 12/25/16 04:55 Crit Value Called To Dr robert mckinnon 12/23/16 05:27 Crit Value Called By Rubin 12/23/16 05:27 Crit Value Read Back Y 12/23/16 05:27 Blood Gas Notified Time 1728 12/23/16 05:27 Sodium 134 mmol/l (132-148) 01/07/17 07:48 Potassium 3.7 MMOL/L (3.6-5.0) 01/07/17 07:48 Chloride 102 mmol/L (98-107) 01/07/17 07:48 Carbon Dioxide 24 mmol/L (22-30) 01/07/17 07:48 Anion Gap 12 (10-20) 01/07/17 07:48 BUN 6 mg/dl (7-17) L 01/07/17 07:48 Creatinine 0.6 mg/dL (0.7-1.2) L 01/07/17 07:48 Est GFR ( Amer) > 60 01/07/17 07:48 Est GFR (Non-Af Amer) > 60 01/07/17 07:48 POC Glucose (mg/dL) 114 mg/dL (65-110) H 12/21/16 05:17 Random Glucose 128 mg/dL (65-105) H 01/07/17 07:48 Lactic Acid 1.1 MMOL/L (0.7-2.1) 12/29/16 08:00 Calcium 8.3 mg/dL (8.4-10.2) L 01/07/17 07:48 Total Bilirubin 0.5 mg/dl (0.2-1.3) 01/03/17 06:10 AST 64 U/L (14-36) H 01/03/17 06:10 ALT 42 U/L (9-52) 01/03/17 06:10 Alkaline Phosphatase 185 U/L (38-126) H D 01/03/17 06:10 Lactate Dehydrogenase 553 U/L (313-618) 01/07/17 08:55 Troponin I 0.1080 ng/mL (0.00-0.120) 12/22/16 06:20 C-React Prot High Sens > 15.00 mg/L (1.00-3.00) H 01/05/17 12:10 Total Protein 6.9 G/DL (6.3-8.2) 01/03/17 06:10 Albumin 2.8 g/dL (3.5-5.0) L 01/03/17 06:10 Globulin 4.0 gm/dL (2.2-3.9) H 01/03/17 06:10 Albumin/Globulin Ratio 0.7 (1.0-2.1) L 01/03/17 06:10 Triglycerides 217 mg/DL (0-149) H 12/21/16 11:59 Cholesterol 86 mg/dL (0-199) 12/21/16 11:59 LDL Cholesterol Direct 33 mg/dL (0-129) 12/21/16 11:59 HDL Cholesterol 10 MG/DL (30-70) L 12/21/16 11:59 Amylase 34 U/L (30-110) 12/21/16 10:51 Lipase 22 U/L (23-300) L 12/21/16 10:51 Carcinoembryonic Ag 1.2 ng/mL (0-3.0) 12/25/16 04:20 CA 19-9 Antigen 8.3 U/mL (0-37) 12/25/16 04:20 CA 125 Antigen 37.1 U/mL (0-35) H D 01/04/17 06:50 Procalcitonin 39.95 NG/ML (0.19-0.49) H 01/07/17 09:33 Thyroxine (T4) 8.78 ug/dl (5.5-11.0) 12/20/16 09:30 Total T3 0.682 nmol/L (1.49-2.60) L 12/20/16 09:30 TSH 3rd Generation 2.52 mIU/ML (0.46-4.68) 12/20/16 09:30 Arterial Blood Potassium 3.5 mmol/L (3.6-5.2) L 12/23/16 05:27 Venous Blood Potassium 4.0 mmol/L (3.6-5.2) 12/20/16 14:00 Urine Color Yellow (YELLOW) 12/30/16 18:00 Urine Clarity Clear (Clear) 12/30/16 18:00 Urine pH 8.0 (5.0-8.0) 12/30/16 18:00 Ur Specific Vincent 1.010 (1.003-1.030) 12/30/16 18:00 Urine Protein 30 mg/dL (NEGATIVE) 12/30/16 18:00 Urine Glucose (UA) Neg mg/dL (Normal) 12/30/16 18:00 Urine Ketones Negative mg/dL (NEGATIVE) 12/30/16 18:00 Urine Blood Moderate (NEGATIVE) 12/30/16 18:00 Urine Nitrate Negative (NEGATIVE) 12/30/16 18:00 Urine Bilirubin Negative (NEGATIVE) 12/30/16 18:00 Urine Urobilinogen 0.2-1.0 mg/dL (0.2-1.0) 12/30/16 18:00 Ur Leukocyte Esterase Neg Salvador/uL (Negative) 12/30/16 18:00 Urine RBC (Auto) 2 /hpf (0-3) 12/30/16 18:00 Urine Microscopic WBC 3 /hpf (0-5) 12/30/16 18:00 Ur Squamous Epith Cells < 1 /hpf (0-5) 12/19/16 18:00 Urine Bacteria Rare (<OCC) 12/19/16 18:00 Vancomycin Trough 10.5 ug/mL (5.0-10.0) H 01/02/17 11:52 Rheum Arthritis Panel Negative (NEGATIVE) 01/05/17 12:10 ERICA Screen Positive (Negative) H 01/05/17 12:10 ERICA Titer 1:80 Titer (<1:40) H 01/05/17 12:10 ERICA Titer 2 TEST NOT PERFORMED 01/05/17 12:10 ERICA Pattern Homogeneous H 01/05/17 12:10 ERICA Pattern 2 TEST NOT PERFORMED 01/05/17 12:10 Direct Plt-Bound IgG Ab Negative (NEGATIVE) 12/22/16 13:00 Heparin-induced Plt Ab Negative (Negative) 12/22/16 19:57 RPR Nonreactive (NONREACTIVE) 01/05/17 12:10 Lyme Disease Screen <0.90 index 01/08/17 14:50 Lyme Disease IgG Ab (IFA) Negative (NEGATIVE) 01/05/17 12:10 Lyme Disease IgM Ab Equivocal (NEGATIVE) 01/05/17 12:10 C. difficile Ag & Toxin Negative (NEGATIVE) 01/06/17 05:00 TB Test (QFT) Nil TNP 01/05/17 12:10 TB Test Mitogen - Nil TNP 01/05/17 12:10 TB Test TB - Nil TNP 01/05/17 12:10 TB Test (QFT) TNP 01/05/17 12:10 Beta-(1,3)-D-Glucan <31 pg/mL 12/25/16 04:20 B-(1,3)-D-Glucan Intrp Negative 12/25/16 04:20 Blood Type B POSITIVE 12/25/16 14:30 Antibody Screen Negative 12/25/16 14:30 Crossmatch See Detail 12/25/16 14:30 BBK History Checked Patient has bt 12/25/16 14:30 Discharge Exam - Head Exam Head Exam: NORMAL INSPECTION Discharge Plan - Discharge Medications Prescriptions: Cephalexin [cephalexin] 500 mg PO QID #28 cap Linezolid [Zyvox] 600 mg PO Q12 #20 tab Warfarin [Coumadin] 1 mg PO 1800 #30 tab - Follow Up Plan Condition: GUARDED Disposition: HOME/ ROUTINE
== END 2017-01-10 18:00 | disposition home or self-care (01) | DRG 581 ==
LOC: H.ER 10:11 → H.ERHOLD 17:45 → H.MEDSURG1 22:42 → OBSVTOIN 12-20 20:43 → H.ICU/CCU 12-20 20:43 → H.MEDSURG1 12-28 15:22
PROVIDERS: ADMIT Family Medicine Geriatric Medicine; ATTEND Family Medicine Geriatric Medicine
PROC: 5A1945Z Respiratory Ventilation, 24-96 Consecutive Hours (ICD-10-PCS; 2016-12-23)
PROC: 0BH17EZ Insertion of Endotracheal Airway into Trachea, Via Natural or Artificial Opening (ICD-10-PCS; 2016-12-23)
PROC: 06HM33Z Insertion of Infusion Device into Right Femoral Vein, Percutaneous Approach (ICD-10-PCS; 2016-12-23)
PROC: 02HV33Z Insertion of Infusion Device into Superior Vena Cava, Percutaneous Approach (ICD-10-PCS; 2016-12-26)
PROC: 30233N1 Transfusion of Nonautologous Red Blood Cells into Peripheral Vein, Percutaneous Approach (ICD-10-PCS; principal; 2016-12-27)
PROC: 0UDB7ZX Extraction of Endometrium, Via Natural or Artificial Opening, Diagnostic (ICD-10-PCS; 2017-01-09)
DX: A41.51 Sepsis due to Escherichia coli [E. coli] (principal); J96.00 Acute respiratory failure, unspecified whether with hypoxia or hypercapnia; R65.21 Severe sepsis with septic shock; E87.3 Alkalosis; I82.411 Acute embolism and thrombosis of right femoral vein; K52.1 Toxic gastroenteritis and colitis; D69.6 Thrombocytopenia, unspecified; N39.0 Urinary tract infection, site not specified; D50.0 Iron deficiency anemia secondary to blood loss (chronic); B37.3 Candidiasis of vulva and vagina; E87.6 Hypokalemia; L03.113 Cellulitis of right upper limb; E66.01 Morbid (severe) obesity due to excess calories; I47.1 Supraventricular tachycardia; Z16.22 Resistance to vancomycin related antibiotics; D25.9 Leiomyoma of uterus, unspecified; N92.0 Excessive and frequent menstruation with regular cycle; R04.0 Epistaxis; Z68.38 Body mass index [BMI] 38.0-38.9, adult; N83.202 Unspecified ovarian cyst, left side; T36.95XA Adverse effect of unspecified systemic antibiotic, initial encounter